=== PATIENT | female | born 1955 | race African-American/Black ===

== ENCOUNTER 2018-05-20 12:41 | Observation (INO) | payer OTHER ==
[2018-05-20 13:22] LABS: ADD MAN DIFF? NO
[2018-05-20 13:25] LABS: BASO # 0.1 x10^3/uL (0.0-0.2); BASO % 1 % (0-3); EOS % 1 % (0-3); HEMATOCRIT 41.5 % (36.0-47.0); HEMOGLOBIN 14.1 g/dL (12.0-15.5); LYMPH # 1.8 x10^3/uL (1.0-4.8); LYMPH % 21 % (24-48); MEAN CORPUSCULAR HEMOGLOBIN 31 pg (25-35); MEAN CORPUSCULAR HGB CONC 34 g/dL (31-37); MEAN CORPUSCULAR VOLUME 91 fL (79-100); MONO % 12 % (0-9); NEUT # 5.6 x10^3uL (1.8-7.7); NEUT % 65 % (31-73); PLATELET COUNT 141 x10^3/uL (140-400); RED BLOOD COUNT 4.55 x10^6/uL (3.50-5.40); RED CELL DISTRIBUTION WIDTH 15.2 % (11.5-14.5); WHITE BLOOD COUNT 8.6 x10^3/uL (4.0-11.0)
[2018-05-20 13:34] LABS: ANION GAP 13 (6-14); BLOOD UREA NITROGEN 18 mg/dL (7-20); CALCIUM 9.5 mg/dL (8.5-10.1); CARBON DIOXIDE 25 mmol/L (21-32); CHLORIDE 105 mmol/L (98-107); CREATININE 0.9 mg/dL (0.6-1.0); GFR 76.3; GLUCOSE 95 mg/dL (70-99); POTASSIUM 3.7 mmol/L (3.5-5.1); SODIUM 143 mmol/L (136-145)
[2018-05-20 13:35] LABS: INR 1.2 (0.8-1.1); PARTIAL THROMBOPLASTIN TIME 29 SEC (24-38); PROTHROMBIN TIME PATIENT 14.7 SEC (11.7-14.0)
[2018-05-20 13:39] LABS: ALBUMIN 4.1 g/dL (3.4-5.0); ALK PHOS 99 U/L (46-116); ALT (SGPT) 25 U/L (14-59); AST (SGOT) 27 U/L (15-37); DIRECT BILIRUBIN 0.1 mg/dL (0.0-0.2); LIPASE 182 U/L (73-393); TOTAL BILIRUBIN 0.7 mg/dL (0.2-1.0); TOTAL PROTEIN 7.3 g/dL (6.4-8.2)
[2018-05-20 13:44] LABS: TROPONINI < 0.017 ng/mL (0.000-0.055)
[2018-05-20 13:53] LABS: NT-PRO BNP 699 pg/mL (0-124)
[2018-05-20 14:16] LABS: PLT ESTIMATE ADEQUATE (ADEQUATE)
[2018-05-20] MEDS: MORPHINE SULFATE 2 MG/ML DISP.SYRIN. IV (15:07)
[2018-05-20] MEDS: IV NORMAL SALINE 1000ML BAG 1,000 ML IV (15:07)
[2018-05-20] MEDS: ONDANSETRON PF 4 MG/2 ML VIAL. IV (15:08)
[2018-05-20] MEDS ORDERED: IOHEXOL 300 MG/ML 100ML VIAL. IV (16:00)
[2018-05-20] MEDS ORDERED: CONTRAST GIVEN. MC (16:00)
[2018-05-20] MEDS: ACETAMINOPHEN 325 MG TABLET. PO (17:57)
[2018-05-20 18:15] LABS: TROPONINI < 0.017 ng/mL (0.000-0.055)
[2018-05-20] MEDS ORDERED: PNEUMOCOCCAL VAX SCREEN BY RX. MC (18:15)
[2018-05-20] MEDS ORDERED: ALBUTEROL SULFATE 2.5 MG/3 ML NEBU. NEB (18:45)
[2018-05-20] MEDS: ALBUTEROL SULFATE 2.5 MG/3 ML NEBU. NEB (20:00)
[2018-05-20] MEDS: BUDESONIDE 0.5 MG/2 ML NEBU. NEB (20:00)
[2018-05-20] MEDS: MULTIVIT INFUSN,ADULT 4,VIT K 10 ML, THIAMINE 100 MG, FOLIC ACID 1 MG in IV NORMAL SALI... IV (20:29)
[2018-05-20] MEDS: LORazepam 1 MG TABLET PO (20:30)
[2018-05-20] MEDS: ATORVASTATIN CALCIUM 20 MG TABLET PO (20:30)
[2018-05-20] MEDS: GABAPENTIN 100 MG CAPSULE. PO (20:30)
[2018-05-20] MEDS: ENOXAPARIN 40 MG/0.4 ML SYRINGE. SQ (20:31)
[2018-05-20] MEDS: ZIPRASIDONE 20 MG CAPSULE PO (20:33)
[2018-05-20] MEDS: traMADol 50 MG TABLET PO (20:34)
[2018-05-20] MEDS ORDERED: NON FORMULARY ITEM (Fluticasone/Salmeterol (Advair 250-50 Diskus) 1 PUFF) IH (21:00)
[2018-05-20] MEDS ORDERED: NON FORMULARY ITEM (Budesonide/Formoterol Fumarate (Symbicort 160-4.5 Mcg Inhaler) 2 PUFF) IH (21:00)
[2018-05-20 22:17] LABS: TROPONINI < 0.017 ng/mL (0.000-0.055)
[2018-05-21] MEDS: IV NORMAL SALINE 1000ML BAG 1,000 ML IV ×2 (00:58→10:58)
[2018-05-21] MEDS: LORazepam 1 MG TABLET PO ×4 (01:00→21:01)
[2018-05-21 06:32] LABS: ADD MAN DIFF? NO
[2018-05-21 06:39] LABS: BASO % 1 % (0-3); EOS # 0.1 x10^3/uL (0.0-0.7); EOS % 2 % (0-3); HEMATOCRIT 39.1 % (36.0-47.0); HEMOGLOBIN 12.9 g/dL (12.0-15.5); LYMPH # 1.9 x10^3/uL (1.0-4.8); LYMPH % 39 % (24-48); MEAN CORPUSCULAR HEMOGLOBIN 31 pg (25-35); MEAN CORPUSCULAR HGB CONC 33 g/dL (31-37); MEAN CORPUSCULAR VOLUME 94 fL (79-100); MONO # 0.6 x10^3/uL (0.0-1.1); MONO % 13 % (0-9); NEUT # 2.2 x10^3uL (1.8-7.7); NEUT % 46 % (31-73); PLATELET COUNT 118 x10^3/uL (140-400); RED BLOOD COUNT 4.18 x10^6/uL (3.50-5.40); RED CELL DISTRIBUTION WIDTH 15.5 % (11.5-14.5); WHITE BLOOD COUNT 4.8 x10^3/uL (4.0-11.0)
[2018-05-21 07:00] LABS: ANION GAP 8 (6-14); BLOOD UREA NITROGEN 14 mg/dL (7-20); CALCIUM 8.5 mg/dL (8.5-10.1); CARBON DIOXIDE 26 mmol/L (21-32); CHLORIDE 110 mmol/L (98-107); CREATININE 0.8 mg/dL (0.6-1.0); GFR 87.4; GLUCOSE 105 mg/dL (70-99); POTASSIUM 3.2 mmol/L (3.5-5.1); SODIUM 144 mmol/L (136-145)
[2018-05-21] MEDS: BUDESONIDE 0.5 MG/2 ML NEBU. NEB ×2 (07:14→15:44)
[2018-05-21] MEDS: ALBUTEROL SULFATE 2.5 MG/3 ML NEBU. NEB ×4 (07:14→19:44)
[2018-05-21 08:09] LABS: MAGNESIUM 2.2 mg/dL (1.8-2.4)
[2018-05-21] MEDS ORDERED: FOLIC ACID 1 MG TABLET. PO (09:00)
[2018-05-21] MEDS ORDERED: THIAMINE IM 200 MG/2 ML VIAL. IM (09:00)
[2018-05-21] MEDS ORDERED: NON FORMULARY ITEM (Lisinopril/Hydrochlorothiazide (Lisinopril-Hctz 20-25 Mg Tab) 1 TAB) PO (09:00)
[2018-05-21] MEDS: traMADol 50 MG TABLET PO ×4 (09:00→21:01)
[2018-05-21] MEDS: PANTOPRAZOLE IV PUSH 40 MG VIAL. IVP (09:15)
[2018-05-21 09:38] LABS: AMPHETAMINE/METHAMPHETAMINE NEG (NEG); BARBITURATES NEG (NEG); BENZODIAZEPINES NEG (NEG); CANNABINOIDS NEG (NEG); COCAINE NEG (NEG); ETHANOL, URINE NEG (NEG); METHADONE NEG (NEG); OPIATES POS (NEG); PHENCYCLIDINE NEG (NEG)
[2018-05-21] MEDS: REGADENOSON 0.4 MG/5 ML DISP.SYRIN. IV (10:43)
[2018-05-21] MEDS: ALLOPURINOL 100 MG TABLET. PO (11:16)
[2018-05-21] MEDS: GABAPENTIN 100 MG CAPSULE. PO ×2 (11:16→21:01)
[2018-05-21] MEDS: ZIPRASIDONE 20 MG CAPSULE PO ×2 (11:17→21:01)
[2018-05-21] MEDS: POTASSIUM CHLORIDE 20 MEQ TABLET.ER. PO ×2 (11:17)
[2018-05-21] MEDS: CETIRIZINE HCL 10 MG TABLET. PO (11:17)
[2018-05-21] MEDS: FLUTICASONE 50MCG/NASAL SPRAY 16GM BOTTLE. NS (11:18)
[2018-05-21] MEDS: hydroCHLOROthiazide 25 MG TABLET PO (11:21)
[2018-05-21] MEDS: METOPROLOL SUCC 24HR ER 25 MG TAB.ER.24H. PO (11:22)
[2018-05-21] MEDS: LISINOPRIL 20 MG TABLET PO (11:22)
[2018-05-21] MEDS: PNEUMOC CONJ VACC 23-VALENT 0.5 ML VIAL. VAX IM (11:25)
[2018-05-21] MEDS: MULTIVIT INFUSN,ADULT 4,VIT K 10 ML, THIAMINE 100 MG, FOLIC ACID 1 MG in IV NORMAL SALI... IV (13:25)
[2018-05-21] MEDS: ATORVASTATIN CALCIUM 20 MG TABLET PO (21:01)
[2018-05-21] MEDS: ENOXAPARIN 40 MG/0.4 ML SYRINGE. SQ (21:02)
[2018-05-21 21:11] LABS: POC GLUCOSE 122 mg/dL (70-99)
[2018-05-22] MEDS: LORazepam 1 MG TABLET PO (00:16)
[2018-05-22] MEDS: BUDESONIDE 0.5 MG/2 ML NEBU. NEB (07:11)
[2018-05-22] MEDS: ALBUTEROL SULFATE 2.5 MG/3 ML NEBU. NEB ×3 (07:11→15:27)
[2018-05-22] MEDS: MULTIVIT INFUSN,ADULT 4,VIT K 10 ML, THIAMINE 100 MG, FOLIC ACID 1 MG in IV NORMAL SALI... IV (08:45)
[2018-05-22] MEDS: PANTOPRAZOLE IV PUSH 40 MG VIAL. IVP (08:45)
[2018-05-22] MEDS: ALLOPURINOL 100 MG TABLET. PO (08:46)
[2018-05-22] MEDS: ZIPRASIDONE 20 MG CAPSULE PO ×2 (08:46→20:54)
[2018-05-22] MEDS: GABAPENTIN 100 MG CAPSULE. PO ×2 (08:47→20:54)
[2018-05-22] MEDS: POTASSIUM CHLORIDE 20 MEQ TABLET.ER. PO ×3 (08:47→13:00)
[2018-05-22] MEDS: traMADol 50 MG TABLET PO ×3 (08:47→20:54)
[2018-05-22] MEDS: CETIRIZINE HCL 10 MG TABLET. PO (08:47)
[2018-05-22] MEDS: hydroCHLOROthiazide 25 MG TABLET PO (08:48)
[2018-05-22] MEDS: METOPROLOL SUCC 24HR ER 25 MG TAB.ER.24H. PO (08:48)
[2018-05-22] MEDS: FLUTICASONE 50MCG/NASAL SPRAY 16GM BOTTLE. NS (08:48)
[2018-05-22] MEDS: LISINOPRIL 20 MG TABLET PO (08:48)
[2018-05-22] MEDS: ENOXAPARIN 40 MG/0.4 ML SYRINGE. SQ ×2 (08:49→20:56)
[2018-05-22 18:56] LABS: ANION GAP 5 (6-14); BLOOD UREA NITROGEN 14 mg/dL (7-20); CALCIUM 8.9 mg/dL (8.5-10.1); CARBON DIOXIDE 26 mmol/L (21-32); CHLORIDE 107 mmol/L (98-107); GFR 67.5; GLUCOSE 102 mg/dL (70-99); POTASSIUM 4.2 mmol/L (3.5-5.1); SODIUM 138 mmol/L (136-145)
[2018-05-22] MEDS: ATORVASTATIN CALCIUM 20 MG TABLET PO (20:54)
[2018-05-26] MEDS ORDERED: MULTIVITAMIN with MINERAL TABLET. PO (09:00)
[2018-05-27] MEDS ORDERED: ERGOCALCIFEROL (VITAMIN D2) 50,000 UNIT CAPSULE. PO (09:00)
== END 2018-05-22 21:23 | disposition still patient (30) ==
LOC: ER 12:41 → 5 SOUTH 14:59
DX: R07.9 Chest pain, unspecified (principal); K21.9 Gastro-esophageal reflux disease without esophagitis; M19.90 Unspecified osteoarthritis, unspecified site; F17.210 Nicotine dependence, cigarettes, uncomplicated; J43.9 Emphysema, unspecified; K44.9 Diaphragmatic hernia without obstruction or gangrene; F32.9 Major depressive disorder, single episode, unspecified; F10.10 Alcohol abuse, uncomplicated; E66.01 Morbid (severe) obesity due to excess calories; I11.0 Hypertensive heart disease with heart failure; I50.9 Heart failure, unspecified; F20.9 Schizophrenia, unspecified; G25.81 Restless legs syndrome; Z81.8 Family history of other mental and behavioral disorders; E87.6 Hypokalemia
CPT/HCPCS: 36415; 71045; 71275; 78452; 80048; 80076; 80307; 82962; 83690; 83735; 83880; 84484; 85025; 85610; 85730; 90471; 90732; 93005; 93017; 93306; 94640; 94760; 96361; 96365; 96366; 96372; 96374; 96375; 96376; 99285-25; A9500; C9113; G0378; G0379; J1650; J2270; J2405; J2785; J7030; J7613; J7626

== ENCOUNTER 2018-10-03 05:46 | Inpatient (IN) | payer MEDICARE, OTHER ==
[~2018-10-03] VITALS: Ht 170.2 cm; Wt 115.2 kg
[2018-10-03] VITALS (18 sets, daily range): BP systolic 109–156; BP diastolic 48–87
[~2018-10-03 05:46] MED LIST: ALLO100T PO; ATOR20TA58 PO; BUDE10.2 IH; ERGO500027 PO; FLUT1DIS3 IH; FLUT9.9S NS; GABA-585 PO; LISI1TAB7 PO; LORA10TA3 PO; METO25TA2 PO; OMEP20CA9 PO; POTA20TA82 PO; PROAIR HFA8.5 GM INH; TRAM50TA PO; ZIPR80CA2 PO
[2018-10-03] MEDS ORDERED: PROPOFOL 50 ML IV ONE ×3 (05:56→06:54)
[2018-10-03] MEDS ORDERED: IPRATRPIUM/ALBUTEROL 0.5/2.5MG 3 ML NEBU. ONE (06:03)
[2018-10-03] MEDS ORDERED: ETOMIDATE 20 MG/10 ML VIAL. IV ONE ×5 (06:11→08:30)
[2018-10-03 06:14] LABS: BASE EXCESS ABG -13 mmol/L (-3-3); HCO3 ABG 20 mmol/L (21-28); PO2 ABG 138 mmHg (65-108); SAT O2 ABG 97 % (92-99)
[2018-10-03] MEDS ORDERED: ALBUTEROL SULFATE 2.5 MG/3 ML NEBU. CONT NEB ONE (06:15)
[2018-10-03] MEDS ORDERED: fentaNYL PF VIAL 100 MCG/2 ML VIAL IV ONE ×4 (06:15→08:30)
[2018-10-03] MEDS ORDERED: levOFLOXacin PER PHARMACY. MC PRN (06:15)
[2018-10-03] MEDS ORDERED: DOXYCYCLINE HYCLATE 100 MG in IV DEXTROSE 5% 100ML 100 ML IV ONE (06:15)
[2018-10-03] MEDS ORDERED: FUROSEMIDE 20 MG/2 ML VIAL. IVP ONE (06:15)
[2018-10-03] MEDS ORDERED: NITROGLYCERIN PREMIX 250 ML IV ONE (06:15)
[2018-10-03] MEDS ORDERED: methylPREDNISolone SOD SUCC PF 125 MG/2 ML VIAL. IV ONE (06:15)
--- NOTE | 2018-10-03 06:16 | RAD ---
One view chest HISTORY: Status post intubation Portable upright AP view chest 6:00 AM COMPARISON: May 20, 2018 There is an endotracheal tube with its tip 3.3 cm above the manjeet and an NG tube with its tip in the proximal stomach. The heart is mildly enlarged. The pulmonary vessels are not well seen and there is perihilar diffuse opacities. The pleural margins are clear. IMPRESSION: 1. Endotracheal tube and NG tube well-positioned. 2. Diffuse infiltrate could be pulmonary edema or ARDS or pneumonia. Electronically signed by: Bernardino Padilla III, MD (10/03/2018 6:13 AM) [facility]
[2018-10-03 06:32] LABS: CALCIUM 8.7 mg/dL (8.5-10.1); CREATININE 1.5 mg/dL (0.6-1.0); GFR 42.2; POTASSIUM 4.8 mmol/L (3.5-5.1)
[2018-10-03 06:38] LABS: ALBUMIN 3.3 g/dL (3.4-5.0); ALBUMIN/GLOBULIN RATIO 0.8 (1.0-1.7); TOTAL BILIRUBIN 0.3 mg/dL (0.2-1.0); TOTAL PROTEIN 7.3 g/dL (6.4-8.2)
--- NOTE | 2018-10-03 06:40 | EKG ---
[facility] [address] [place] [address] Test Date: 2018-10-03 Test Time: 06:23:57 Pat Name: ARIANE MONTEIRO Department: Room: Gender: F Contact Centre Supervisor: : [id number] Requested By: HECTOR KYLE Order Number: [id number] Reading MD: Evans Jacobson MD Measurements Intervals [place] Rate: 107 P: 62 [place]: 140 QRS: 53 QRSD: 84 T: 139 QT: 330 QTc: 446 Interpretive Statements SINUS TACHYCARDIA LVH WITH REPOLARIZATION ABNORMALITY ABNORMAL ECG Electronically Signed On 10-06-2018 13:53:11 JEWEL INSERTER by Evans Jacobson MD
[2018-10-03 06:41] LABS: PCO2 ABG 84 mmHg (35-46)
--- NOTE | 2018-10-03 06:55 | RAD ---
One view chest HISTORY: Line placement Supine AP view chest 6:36 AM COMPARISON: 6:01 AM There has been interval placement of right jugular line with its tip in the mid to low SVC. There is no pneumothorax. The endotracheal tube and NG tube are again seen unchanged. There is perihilar opacities and curly B lines in the left. IMPRESSION: 2. Right jugular line well-positioned. 2. Moderate bilateral infiltrates could be CHF or ARDS or pneumonia and appears unchanged. Electronically signed by: Bernardino Padilla III, MD (10/03/2018 6:51 AM) [facility]
[2018-10-03] MEDS ORDERED: SODIUM BICARB ADULT 8.4% 50 MEQ/50 ML DISP.SYRIN. ONE (07:17)
--- NOTE | 2018-10-03 07:18 | PHYS DOC ---
Past Medical History Past Medical History: CHF, COPD, Depression, Hypertension, Other Additional Past Medical Histor: RLS Past Surgical History: Other Additional Past Surgical Histo: BACK SX Alcohol Use: Occasionally Drug Use: None Adult General Chief Complaint Chief Complaint: DYSPNEA/RESPIRATOY DISTRESS HPI HPI Patient is a 63 year old female brought in by [facility] with respiratory distress. Apparently patient was having trouble breathing seemed okay at 3 AM was drinking coffee and then approximately 1 hour prior to arrival was having more shortness of breath son found her unconscious she seemed to be foaming at the mouth he pulled out her dentures he called 911 when they arrived she was basically almost agonal respirations history limited by the patient's mental status son does say the patient was fine yesterday and even seemed fine at 3 AM. Review of Systems Review of Systems Unable due to mental status and acuity of condition Current Medications Current Medications Current Medications Medications (Trade) Dose Ordered Sig/Betsy Start Time Stop Time Status Last Admin Dose Admin Albuterol Sulfate (Ventolin Neb Soln) 10 mg 1X ONCE 10/03/18 06:15 10/03/18 06:16 DC 10/03/18 07:00 10 MG Albuterol/ Ipratropium (Duoneb) 3 ml STK-MED ONCE 10/03/18 06:03 10/03/18 06:04 DC Doxycycline Hyclate 100 mg/ Dextrose 100 ml @ 50 mls/hr 1X ONCE 10/03/18 06:15 10/03/18 08:14 Etomidate (Amidate) 20 mg STK-MED ONCE 10/03/18 06:11 10/03/18 06:12 DC Fentanyl Citrate (Fentanyl 2ml Vial) 100 mcg 1X ONCE 10/03/18 06:45 10/03/18 06:46 DC Furosemide (Lasix) 20 mg 1X ONCE 10/03/18 06:15 10/03/18 06:16 DC Levofloxacin/ Dextrose 150 ml @ 100 mls/hr 1X ONCE 10/03/18 06:30 10/03/18 07:59 Levofloxacin/ Dextrose (Levaquin Per Pharmacy) 1 each PRN DAILY PRN 10/03/18 06:15 UNV Methylprednisolone Sodium Succinate (SOLU-Medrol 125MG VIAL) 125 mg 1X ONCE 10/03/18 06:15 10/03/18 06:16 DC Nitroglycerin/ Dextrose 250 ml @ 0 mls/hr 1X ONCE 10/03/18 06:15 10/03/18 06:16 DC Propofol 50 ml @ As Directed STK-MED ONCE 10/03/18 06:54 10/03/18 06:55 DC Sodium Bicarbonate (Sodium Bicarb Adult 8.4% Syr) 50 meq STK-MED ONCE 10/03/18 07:17 10/03/18 07:18 DC Allergies Allergies Allergies Coded Allergies Type Severity Reaction Last Updated Verified Penicillins Allergy Intermediate 05/21/18 Yes aspirin Allergy Intermediate 05/21/18 Yes Physical Exam Physical Exam Constitutional: Patient is obtunded not breathing well at all. HENT: Normocephalic, atraumatic, bilateral external ears normal, oropharynx moist, no oral exudates, nose normal. [] Eyes: PERRLA conjunctiva normal, no discharge. [] Neck: Normal range of motion, no tenderness, supple, no stridor. [] Cardiovascular difficult to assess for murmurs due to respiratory status Lungs & Thorax diffuse wheezing bilaterally with crackles, after intubation before intubation breath sounds were decreased throughout due to respiratory effort patient was being bagged Abdomen: Bowel sounds normal, soft, no tenderness, no masses, no pulsatile masses. [] Skin: Warm, dry, no erythema, no rash. [] Back: No tenderness, no CVA tenderness. [] Extremities: No tenderness, no cyanosis, no clubbing, ROM intact, 1-2+ edema bilaterally Neurologic: Before intubation patient was unresponsive Narcan 2 mg was given by the paramedics with no effect really was not responding to anything per Dr. Huynh who performed the intubation 5 minutes prior to my arrival. Patient after intubation, was bucking the tube trying to grab at the tube pupils were 3 mm and reactive bilaterally was grossly moving all extremities. Sedation was increased. Current Patient Data Vital Signs Vital Signs Date Time Temp Pulse Resp B/P (MAP) Pulse Ox O2 Delivery O2 Flow Rate FiO2 10/03/18 06:02 100 Ventilator 80.0 Lab Values Laboratory Tests Test 10/03/18 06:00 10/03/18 06:03 Sodium Level 140 mmol/L (136-145) Potassium Level 4.8 mmol/L (3.5-5.1) Chloride Level 102 mmol/L (98-107) Carbon Dioxide Level 20 mmol/L (21-32) L Anion Gap 18 (6-14) H Blood Urea Nitrogen 18 mg/dL (7-20) Creatinine 1.5 mg/dL (0.6-1.0) H Estimated GFR (Cockcroft-Gault) 42.2 BUN/Creatinine Ratio 12 (6-20) Glucose Level 342 mg/dL (70-99) H Lactic Acid Level 9.7 mmol/L (0.4-2.0) *H Calcium Level 8.7 mg/dL (8.5-10.1) Total Bilirubin 0.3 mg/dL (0.2-1.0) Aspartate Amino Transferase (AST) 97 U/L (15-37) H Alanine Aminotransferase (ALT) 68 U/L (14-59) H Alkaline Phosphatase 116 U/L (46-116) Troponin I Quantitative < 0.017 ng/mL (0.000-0.055) LE-Ixn-D-Type Natriuretic Peptide 2026 pg/mL (0-124) H Total Protein 7.3 g/dL (6.4-8.2) Albumin 3.3 g/dL (3.4-5.0) L Albumin/Globulin Ratio 0.8 (1.0-1.7) L Ethyl Alcohol Level < 10 mg/dL (0-10) O2 Saturation 97 % (92-99) Arterial Blood pH 7.00 (7.35-7.45) *L Arterial Blood pCO2 at Patient Temp 84 mmHg (35-46) *H Arterial Blood pO2 at Patient Temp 138 mmHg (65-108) H Arterial Blood HCO3 20 mmol/L (21-28) L Arterial Blood Base Excess -13 mmol/L (-3-3) L FiO2 100.0 Laboratory Tests 10/03/18 06:00 EKG EKG []EKG shows a sinus tachycardia with a rate of 107 there is LVH changes noted some ST depressions in the inferior leads but no definite STEMI Radiology/Procedures Radiology/Procedures [] Impressions: Chest x-ray showed bilateral infiltrates ARDS pneumonia or probably more likely in my clinical opinion pulmonary edema repeat chest x-ray showed good placement of the central line the ET tube was also in good position. Course & Med Decision Making Course & Med Decision Making Pertinent Labs and Imaging studies reviewed. (See chart for details) []63-year-old female brought in by ambulance with obtundation respiratory failure Patient arrived 5 minutes prior to my arrival in the emergency room. Due to this Dr. Huynh did perform a stat intubation. He had just completed it as I arrived he performed a video laryngoscopy etomidate and succinylcholine were used grade 1 view 7.5-22 at the gum per his report to me. Confirmed by chest x- ray Central line noteIndication: Vascular access Consent: The patient provided consent for this procedure. Procedure: The patient was positioned appropriately and the skin over the right ij was prepped and draped in a sterile fashion. Local anesthesia was used. Ultrasound guidance utilized. A large bore needle was used to identify the vein. A guide wire was then inserted into the vein through the needle. A triple lumen catheter was then inserted into the vessel over the guide wire using the Seldinger technique. All ports showed good, free flowing blood return and were flushed with saline solution. The catheter was then securely fastened to the skin with sutures and covered with a sterile dressing. A post procedure X-ray was ordered. The patient tolerated the procedure well, but was intubated REQUIRED some sedation. Complications: hematoma subcutaneous controlled with pressure Critical care time was 50 minutes exclusive of procedures performed above. 63-year-old male with history of hypertension obesity COPD see above who is presenting with acute respiratory failure patient was intubated on arrival due to obtundation blood gas was consistent with a respiratory acidosis as well as a metabolic component. I think that the lactic acid was mostly due to profound hypoxia and acute respiratory failure. Patient does appear to be fluid overloaded on x-ray so we did not give any IV fluids I think the lactate should improve when the patient is ventilated and is more stable on the vent have ordered for repeat in the ICU. I don't think that the lactic acid is necessarily from septic shock. The picture is more consistent with acute pulmonary edema given the blood pressure of 240 on arrival as well as the elevated BNP and the chest x-ray showing diffuse pulmonary edema. First troponin is negative EKG showed LVH patient was given the above treatments in the emergency room we did cover her with some antibiotics in case of pneumonia or think that is less likely in addition we gave ordered some Lasix patient was stable on the ventilator and will be admitted to the service of Dr. Pastor in the intensive care unit i have paged him at this time there is a CT head pending as well. When I first came into the room at 6:10 AM patient was being managed with an intraosseous only they were having trouble with peripheral access so I did place a stat central line as noted above. Subsequently we did obtain an IV in the foot. Indication for central line was critical care likely need for multiple medications and limited IV access. Dragon Disclaimer Dragon Disclaimer This electronic medical record was generated, in whole or in part, using a voice recognition dictation system. Departure Departure Impression: Primary Impression: Acute respiratory failure Disposition: ADMITTED INPATIENT Admitting Physician: Blas Lara Condition: GUARDED Referrals: UNKNOWN PCP NAME (PCP) HECTOR KYLE MD Oct 03, 2018 07:18
[2018-10-03] MEDS ORDERED: SUCCINYLCHOLINE 200 MG/10 ML VIAL. ONE (07:29)
[2018-10-03] MEDS ORDERED: fentaNYL PF VIAL 100 MCG/2 ML VIAL ONE (07:29)
[2018-10-03] MEDS ORDERED: MIDAZOLAM HCL/PF 5 MG/5 ML VIAL. ONE (07:29)
[2018-10-03] MEDS ORDERED: SODIUM BICARB ADULT 8.4% 50 MEQ/50 ML DISP.SYRIN. IV ONE (07:30)
[2018-10-03 07:38] LABS: BASO % 0 % (0-3); EOS # 0.1 x10^3/uL (0.0-0.7); EOS % 1 % (0-3); HEMATOCRIT 39.2 % (36.0-47.0); LYMPH # 1.3 x10^3/uL (1.0-4.8); LYMPH % 8 % (24-48); MEAN CORPUSCULAR HEMOGLOBIN 31 pg (25-35); MEAN CORPUSCULAR HGB CONC 33 g/dL (31-37); MEAN CORPUSCULAR VOLUME 94 fL (79-100); MONO # 0.3 x10^3/uL (0.0-1.1); MONO % 2 % (0-9); NEUT # 14.7 x10^3uL (1.8-7.7); NEUT % 90 % (31-73); PLATELET COUNT 107 x10^3/uL (140-400); RED BLOOD COUNT 4.17 x10^6/uL (3.50-5.40); RED CELL DISTRIBUTION WIDTH 15.4 % (11.5-14.5); WHITE BLOOD COUNT 16.4 x10^3/uL (4.0-11.0)
[2018-10-03 07:47] LABS: BILIRUBIN,URINE NEGATIVE (NEG); CLARITY,URINE CLEAR; COLOR,URINE YELLOW; NITRITE,URINE NEGATIVE (NEG); PROTEIN,URINE >=300 mg/dL (NEG-TRACE); UROBILINOGEN,URINE 0.2 mg/dL (0.2 mg/dL)
[2018-10-03 07:51] LABS: PROTHROMBIN TIME PATIENT 16.2 SEC (11.7-14.0)
[2018-10-03 08:09] LABS: HYALINE CASTS, URINE FEW /HPF; SQUAMOUS EPITHELIAL CELL,UR FEW /LPF
[2018-10-03 08:15] LABS: AMORPHOUS SEDIMENT,UR PRESENT /HPF; BACTERIA,URINE 0 /HPF (0-FEW)
--- NOTE | 2018-10-03 08:26 | RAD ---
CT HEAD WO CONTRAST History: UNRESPONSIVE, possible seizure activity Comparison: None. Technique: Noncontrast CT imaging was performed of the head. Exposure: One or more of the following individualized dose reduction techniques were utilized for this examination: 1. Automated exposure control 2. Adjustment of the mA and/or kV according to patient size 3. Use of iterative reconstruction technique. Findings: There is motion degradation. No convincing acute intracranial hemorrhage is identified. Ventricular size is within normal limits. There is no intra-axial mass effect or midline shift. Visualized paranasal sinuses and mastoid air cells are aerated. Patient is intubated. Impression: 1. Exam is degraded by motion, no convincing acute intracranial abnormality identified. Electronically signed by: Mikael Renner MD (10/03/2018 8:23 AM) [facility]
[2018-10-03] MEDS ORDERED: SUCCINYLCHOLINE 200 MG/10 ML VIAL. IV ONE (08:30)
[2018-10-03] MEDS ORDERED: MIDAZOLAM HCL/PF 5 MG/5 ML VIAL. IV ONE (08:30)
[2018-10-03 08:54] LABS: BASE EXCESS ABG -4 mmol/L (-3-3); HCO3 ABG 24 mmol/L (21-28); PCO2 ABG 51 mmHg (35-46); PO2 ABG 83 mmHg (65-108); SAT O2 ABG 94 % (92-99)
[2018-10-03 09:01] LABS: FIO2 ABG 80
[2018-10-03] MEDS ORDERED: PROPOFOL 100 ML IV ONE (09:07)
[2018-10-03] MEDS ORDERED: PROPOFOL 10 MG/ML (100ML) VIAL. IV ONE (09:10)
[2018-10-03 09:59] LABS: % BANDS 1 % (0-9); % LYMPHS 8 % (24-48); % MONOS 4 % (0-10); % SEGS 87 % (35-66)
[2018-10-03 10:00] LABS: PLT ESTIMATE DECREASED (ADEQUATE)
[2018-10-03 10:01] LABS: ANISOCYTOSIS PRESENT
[2018-10-03] MEDS: IPRATRPIUM/ALBUTEROL 0.5/2.5MG 3 ML NEBU. NEB SCH ×2 (11:29→19:55)
[2018-10-03] MEDS ORDERED: FUROSEMIDE 40 MG/4 ML VIAL. IVP ONE ×2 (12:15)
[2018-10-03 12:48] LABS: BARBITURATES NEG (NEG); BENZODIAZEPINES POS (NEG); CANNABINOIDS NEG (NEG); COCAINE NEG (NEG); METHADONE NEG (NEG); OPIATES NEG (NEG); PHENCYCLIDINE NEG (NEG)
[2018-10-03 12:51] LABS: AMPHETAMINE/METHAMPHETAMINE NEG (NEG)
[2018-10-03 13:01] LABS: BASE EXCESS ABG 0 mmol/L (-3-3); HCO3 ABG 26 mmol/L (21-28); PCO2 ABG 46 mmHg (35-46); PO2 ABG 70 mmHg (65-108); SAT O2 ABG 94 % (92-99)
--- NOTE | 2018-10-03 13:27 | CONS ---
DATE OF CONSULTATION: ATTENDING PHYSICIAN: Blas Lara DO. REASON FOR CONSULTATION: Respiratory failure. HISTORY OF PRESENT ILLNESS: The patient is a 63-year-old -[place] female who was brought into the Emergency Room in respiratory distress. She woke up at 3 in the morning with shortness of breath. The patient's son later found her unconscious and foaming at the mouth. He pulled out her dentures and called 911. The patient had agonal respirations on arrival. The EMS tried to intubate her in the field, but were unsuccessful. The patient was intubated in the Emergency Room. Her chest x-rays were reviewed by me and they were consistent with diffuse interstitial infiltrates and cardiomegaly suggesting interstitial edema. Her arterial blood gases obtained post-intubation showed a pH of 7.0, pCO2 of 84 and a pO2 of 138 on 100% FiO2. She received a small dose of Lasix. Last pH early this morning was 7.29, pCO2 of 51 and a pO2 of 83 on 80% FiO2. She is currently down to have 50% FiO2, sats are 100%. She has put out good amount of urine. I have reviewed her chart, the ER note as well as the labs. PAST MEDICAL HISTORY: History of CHF, history of COPD, apparently stopped smoking 15 years ago, history of depression, hypertension and history of restless legs. PAST SURGICAL HISTORY: Back surgeries. SOCIAL HISTORY: Smoked until 15 years ago. Occasional alcohol use. ALLERGIES: PENICILLIN AND ASPIRIN. CURRENT MEDICATIONS: All reviewed. She did receive IV fluids as well, which has been stopped by me. REVIEW OF SYSTEMS: Unable to obtain from the patient. PHYSICAL EXAMINATION: VITAL SIGNS: Reviewed. Her systolic blood pressure on admission was 222/104 and latest is 147. She is afebrile, pulse ox is 100%. HEENT: Sclerae nonicteric. NECK: Supple. LUNGS: With diminished breath sounds. CARDIOVASCULAR: Regular rate. ABDOMEN: Soft, obese. EXTREMITIES: With trace pitting edema. LABORATORY DATA: Reviewed. ABGs are discussed in my history of present illness. Her lactic acid was 9.7, now down to 1.7. Troponin 0.107. ProBNP 2025. BUN and creatinine were reviewed, 18 and 1.5. Albumin 3.3. White cell count 16.4, hemoglobin 13.0, platelets are 107. IMPRESSION: 1. Acute hypoxic and hypercapnic respiratory failure, most likely related to acute diastolic heart failure. 2. Highly suspected acute diastolic heart failure triggered by hypertensive crisis. 3. Abnormal chest x-ray with diffuse interstitial infiltrates and cardiomegaly, suspect interstitial edema and clinically unlikely acute respiratory distress syndrome as reported on the x-ray. 4. Leukocytosis, likely reactive. 5. Mild renal insufficiency, probably hypertensive nephropathy. 6. Need to rule out any substance abuse. RECOMMENDATIONS: 1. Discussed with RN and RT. We have weaned her FIO2 down to 45% and will continue to wean. Continue present assist control mode and follow ABGs and make necessary adjustments. 2. Diuresis. 3. Follow chest x-ray. 4. Urine drug screen. 5. Nebulizer treatment. 6. Empiric antibiotic for now. 7. Obtain echocardiogram. 8. Watch blood pressure closely. Her hypertensive crisis has improved. 9. We will start enteral nutrition. 10. Anticipate extubation in the next 24 hours. 11. We will discuss with RN and RT and will follow along with you. CRITICAL CARE TIME: 38 minutes. MAXIMO ROMERO MD DR: TATE/carley JOB#: [id number] / [id number]
--- NOTE | 2018-10-03 14:12 | PDOC2 ---
CARDIAC CONSULT DATE OF CONSULT Date of Consult DATE: 10/03/18 TIME: 13:48 REASON FOR CONSULT Reason for Consult: Pulmonary edema REFERRING PHYSICIAN Referring Physician: Fermin SOURCE Source: Chart review, Patient HISTORY OF PRESENT ILLNESS HISTORY OF PRESENT ILLNESS This is a 63 yo female admitted for complains of SOA. Her SOA progressed yesterday morning and was noted by son to be unresponsive and was foaming in her mouth. She was in agonal respiration by the time EMS arrived. She is currently intubated with vent. She is currently awake enough that I was able to ask her closed ended questions answerable by nodding yes or no. In the last week she has been having SOA and occasional waking up at night with SOA. She has been having some chest discomfort but no complains of nausea or vomiting. SHe has CAIO and she has not been using her machine regularly but has been taking her BP meds. Although compliant with her meds her SBP has been >170s. Positive for increased leg swelling. Also has been having increased urine frequency. No fever or chills. PAST MEDICAL HISTORY Past Medical History Cardiovascular: CHF, HTN, Other (murmur), HTN Pulmonary: COPD, CAIO with CPAP GI: GERD, Other (colon polyps) PAST SURGICAL HISTORY Past Surgical History: Other (back surgery) FAMILY HISTORY Family History: Heart Disease SOCIAL HISTORY Smoke: Quit ALCOHOL: occassional Drugs: None Lives: with Family CURRENT MEDICATIONS CURRENT MEDICATIONS Current Medications Medications (Trade) Dose Ordered Sig/Betsy Route PRN Reason Start Time Stop Time Status Last Admin Dose Admin Albuterol Sulfate (Ventolin Neb Soln) 10 mg 1X ONCE CONT NEB 10/03/18 06:15 10/03/18 06:16 DC 10/03/18 07:00 Methylprednisolone Sodium Succinate (SOLU-Medrol 125MG VIAL) 125 mg 1X ONCE IV 10/03/18 06:15 10/03/18 06:16 DC 10/03/18 07:20 Doxycycline Hyclate 100 mg/ Dextrose 100 ml @ 50 mls/hr 1X ONCE IV 10/03/18 06:15 10/03/18 08:14 DC 10/03/18 07:21 Furosemide (Lasix) 20 mg 1X ONCE IVP 10/03/18 06:15 10/03/18 06:16 DC 10/03/18 07:21 Fentanyl Citrate (Fentanyl 2ml Vial) 100 mcg 1X ONCE IV 10/03/18 06:45 10/03/18 06:46 DC 10/03/18 06:40 Etomidate (Amidate) 30 mg 1X ONCE IV 10/03/18 08:30 10/03/18 08:31 DC 10/03/18 05:52 Succinylcholine Chloride (Anectine) 120 mg 1X ONCE IV 10/03/18 08:30 10/03/18 08:31 DC 10/03/18 05:53 Fentanyl Citrate (Fentanyl 2ml Vial) 100 mcg 1X ONCE IV 10/03/18 08:30 10/03/18 08:31 DC 10/03/18 06:07 Etomidate (Amidate) 20 mg 1X ONCE IV 10/03/18 08:30 10/03/18 08:31 DC 10/03/18 06:14 Etomidate (Amidate) 10 mg 1X ONCE IV 10/03/18 08:30 10/03/18 08:31 DC 10/03/18 06:50 Midazolam HCl (Versed) 4 mg 1X ONCE IV 10/03/18 08:30 10/03/18 08:31 DC 10/03/18 06:52 Propofol 50 ml @ 1.429 mls/ hr 1X ONCE IV 10/03/18 06:20 10/04/18 17:19 10/03/18 06:21 Albuterol/ Ipratropium (Duoneb) 3 ml RTQID NEB 10/03/18 12:00 10/03/18 11:29 Furosemide (Lasix) 40 mg 1X ONCE IVP 10/03/18 12:15 10/03/18 12:39 DC 10/03/18 12:28 ALLERGIES ALLERGIES: Coded Allergies: Penicillins (Verified Allergy, Intermediate, 05/21/18) aspirin (Verified Allergy, Intermediate, 05/21/18) ROS Review of System unreliable, intubated PHYSICAL EXAM General: Other (sedated but alert enough that she is able to answer questions b nodding yes or no.) HEENT: Atraumatic, Mucous membr. moist/pink Lungs: Other (diffuse crackles; mechanical vent) Heart: Regular rate (SR/ST), Other (distant heart sounds) Abdomen: Soft, No tenderness, Other (obese) Extremities: No cyanosis, Other (2+ bilateral LE pitting edema) Skin: No breakdown, No significant lesion Neuro: Sensation intact Psych/Mental Status: Other (sedated) MUSCULOSKELETAL: Osteoarthritic changes both hands VITALS VITALS Vital Signs Date Time Temp Pulse Resp B/P (MAP) Pulse Ox O2 Delivery O2 Flow Rate FiO2 10/03/18 13:00 98 20 138/65 (89) 100 Ventilator 10/03/18 12:00 98.0 98.0 10/03/18 06:02 80.0 LABS Lab: Laboratory Tests Test 10/03/18 06:00 10/03/18 06:03 10/03/18 07:25 10/03/18 08:30 Sodium Level 140 mmol/L (136-145) Potassium Level 4.8 mmol/L (3.5-5.1) Chloride Level 102 mmol/L (98-107) Carbon Dioxide Level 20 mmol/L (21-32) Anion Gap 18 (6-14) Blood Urea Nitrogen 18 mg/dL (7-20) Creatinine 1.5 mg/dL (0.6-1.0) Estimated GFR (Cockcroft-Gault) 42.2 BUN/Creatinine Ratio 12 (6-20) Glucose Level 342 mg/dL (70-99) Lactic Acid Level 9.7 mmol/L (0.4-2.0) Calcium Level 8.7 mg/dL (8.5-10.1) Total Bilirubin 0.3 mg/dL (0.2-1.0) Aspartate Amino Transf (AST/SGOT) 97 U/L (15-37) Alanine Aminotransferase (ALT/SGPT) 68 U/L (14-59) Alkaline Phosphatase 116 U/L (46-116) Troponin I Quantitative < 0.017 ng/mL (0.000-0.055) VY-Yfj-D-Type Natriuretic Peptide 2026 pg/mL (0-124) Total Protein 7.3 g/dL (6.4-8.2) Albumin 3.3 g/dL (3.4-5.0) Albumin/Globulin Ratio 0.8 (1.0-1.7) Ethyl Alcohol Level < 10 mg/dL (0-10) O2 Saturation 97 % (92-99) 94 % (92-99) Arterial Blood pH 7.00 (7.35-7.45) 7.29 (7.35-7.45) Arterial Blood pCO2 at Patient Temp 84 mmHg (35-46) 51 mmHg (35-46) Arterial Blood pO2 at Patient Temp 138 mmHg (65-108) 83 mmHg (65-108) Arterial Blood HCO3 20 mmol/L (21-28) 24 mmol/L (21-28) Arterial Blood Base Excess -13 mmol/L (-3-3) -4 mmol/L (-3-3) FiO2 100.0 80 White Blood Count 16.4 x10^3/uL (4.0-11.0) Red Blood Count 4.17 x10^6/uL (3.50-5.40) Hemoglobin 13.0 g/dL (12.0-15.5) Hematocrit 39.2 % (36.0-47.0) Mean Corpuscular Volume 94 fL (79-100) Mean Corpuscular Hemoglobin 31 pg (25-35) Mean Corpuscular Hemoglobin Concent 33 g/dL (31-37) Red Cell Distribution Width 15.4 % (11.5-14.5) Platelet Count 107 x10^3/uL (140-400) Neutrophils (%) (Auto) 90 % (31-73) Lymphocytes (%) (Auto) 8 % (24-48) Monocytes (%) (Auto) 2 % (0-9) Eosinophils (%) (Auto) 1 % (0-3) Basophils (%) (Auto) 0 % (0-3) Neutrophils # (Auto) 14.7 x10^3uL (1.8-7.7) Lymphocytes # (Auto) 1.3 x10^3/uL (1.0-4.8) Monocytes # (Auto) 0.3 x10^3/uL (0.0-1.1) Eosinophils # (Auto) 0.1 x10^3/uL (0.0-0.7) Basophils # (Auto) 0.0 x10^3/uL (0.0-0.2) Segmented Neutrophils % 87 % (35-66) Band Neutrophils % 1 % (0-9) Lymphocytes % 8 % (24-48) Monocytes % 4 % (0-10) Platelet Estimate Decreased (ADEQUATE) Large Platelets Present Giant Platelets Present Poikilocytosis Anisocytosis Present Prothrombin Time 16.2 SEC (11.7-14.0) Prothromb Time International Ratio 1.4 (0.8-1.1) Urine Collection Type U cath Urine Color Yellow Urine Clarity Clear Urine pH 6.0 Urine Specific [place] 1.020 Urine Protein >=300 mg/dL (NEG-TRACE) Urine Glucose (UA) 250 mg/dL (NEG) Urine Ketones (Stick) Negative mg/dL (NEG) Urine Blood Large (NEG) Urine Nitrite Negative (NEG) Urine Bilirubin Negative (NEG) Urine Urobilinogen Dipstick 0.2 mg/dL (0.2 mg/dL) Urine Leukocyte Esterase Negative (NEG) Urine RBC 11-20 /HPF (0-2) Urine WBC 1-4 /HPF (0-4) Urine Squamous Epithelial Cells Few /LPF Urine Amorphous Sediment Present /HPF Urine Bacteria 0 /HPF (0-FEW) Urine Hyaline Casts Few /HPF Test 10/03/18 10:00 10/03/18 12:20 Lactic Acid Level 1.7 mmol/L (0.4-2.0) Troponin I Quantitative 0.107 ng/mL (0.000-0.055) Urine Opiates Screen Neg (NEG) Urine Methadone Screen Neg (NEG) Urine Barbiturates Neg (NEG) Urine Phencyclidine Screen Neg (NEG) Urine Amphetamine/Methamphetamine Neg (NEG) Urine Benzodiazepines Screen Pos (NEG) Urine Cocaine Screen Neg (NEG) Urine Cannabinoids Screen Neg (NEG) Urine Ethyl Alcohol Neg (NEG) ECHOCARDIOGRAM ECHOCARDIOGRAM <Conclusion> The left ventricle is normal size. The left ventricular systolic function is normal and the ejection fraction is within normal range. LV ejection fraction is 60-65%. There is mild concentric left ventricular hypertrophy. There is no significant aortic valvular stenosis. Doppler and Color Flow revealed mild aortic regurgitation. Doppler and Color Flow revealed no mitral valve regurgitation noted. Doppler and Color Flow revealed trace tricuspid regurgitation. There is no pulmonary hypertension. The PA pressure was estimated at 26 mmHg. DATE: 05/21/18 1506 HEART CATH HEART CATH Conclusion 1. Regadenoson cardioisotope stress test did not show any evidence of ischemia or infarct. 2. Normal left ventricular systolic function with ejection fraction calculated at 74%. 3. Low risk for cardiac events. DATE: 05/21/18 1523 ASSESSMENT/PLAN ASSESSMENT/PLAN 1. Malignant HTN: better with propofol. 2. Acute on chronic respiratory failure with COPD/ADCHF: intubated with vent. Pulmonary following 3. Acute on chronic diastolic CHF/acute pulmonary edema: suspect induced by severe HTN 4. NSTEMI: trop at 0.107. Suspect type 2 demand mediated. EKG SR with asymmetrical T wave inversion mainly to V4/5/6 likely strain from HTN/CHF 5. YESENIA on CKD: suspect baseline at stage 2-3. prerenal. 6. HLP 7. Mild AI 8. Chest pain: likely from severe uncontrolled HTN, unable to obtain details further with pt intubated. 9. Obesity/CAIO: nods yes that she has a machine at home but does not use it regularly. 10. Hyperglycemia Recommendations 1. Recent MPI with no reversible defect 05/2018. Will obtain limited TTE and note EF.. 2. TSH, lipids, A1C. Will trend troponin. 3. x1 plavix. Unknown reaction to ASA but nods unable to tolerate motrin/aleve as well. 4. Restart metoprolol and statin. Will add further BP meds during and after vent weaning once propofol is off. Labetolol PRN. 5. Significant UOP post lasix therapy. JAYJAY FRAZIER HR SH[employer]ED SERVICES CONSULTANT Oct 03, 2018 14:12
[2018-10-03] MEDS ORDERED: LABETALOL 20 MG/4 ML DISP.SYRIN. IVP PRN (14:15)
[2018-10-03] MEDS ORDERED: CLOPIDOGREL BISULFATE 75 MG TABLET PO ONE (14:45)
[2018-10-03 15:19] LABS: CHOLESTEROL/HDL RATIO 2.1
[2018-10-03 17:19] LABS: FIO2 ABG 45
[2018-10-03] MEDS: PROPOFOL 100 ML IV PRN ×2 (17:32→21:30)
[2018-10-03] MEDS: ENOXAPARIN 40 MG/0.4 ML SYRINGE. SQ SCH (17:35)
--- NOTE | 2018-10-03 19:03 | HP ---
ADMIT DATE: 10/03/2018 CHIEF COMPLAINT: Shortness of breath. HISTORY OF PRESENT ILLNESS: The patient is a pleasant 63-year-old female who presented to ER with shortness of breath. She was breathing fine until about 3 a.m., she had some coffee and an hour later, she was really short of breath. She became unconscious. She was found by her son. She was breathing quite labored. He pulled out her dentures and called 911. The patient had agonal respirations when they arrived. She was brought to the ER now, but has now been intubated, seems to be in fulminant heart failure. I have discussed the case with the ER physician. We are going to admit the patient to the ICU. We will be consulting Cardiology and Pulmonary. It should be noted that the patient's white count is quite elevated at 16,000 and her BNP level is also high at 2025. PAST MEDICAL HISTORY: From the record, it appears she has COPD, CHF, depression, hypertension, ROS, back surgery. ALLERGIES: PENICILLIN AND ASPIRIN. FAMILY HISTORY: Coronary artery disease. SOCIAL HISTORY: She does not drink, smoke or take drugs. MEDICATIONS: Reviewed. She is on 15 home medications including loratadine, ProAir, atorvastatin, metoprolol, lisinopril, Ultram, gabapentin, Geodon, potassium, Symbicort, Advair, Flonase, omeprazole, vitamins and allopurinol. REVIEW OF SYSTEMS: Unable to obtain. She is on the ventilator. PHYSICAL EXAMINATION: VITAL SIGNS: Temperature afebrile, pulse 90, respirations 16, blood pressure 134/61, O2 sat 100% on the ventilator with 40% FiO2. HEART: Distant S1, S2 with a soft S3. LUNGS: Bibasilar crackles. ABDOMEN: Soft, distended. EXTREMITIES: 1+ edema. SKIN: No rashes. ENDOCRINE: No thyromegaly. LYMPHATICS: No cervical nodes. HEMATOPOIETIC: No bruising. LABORATORY DATA: White count 16. BNP is greater than 2000. Drug screen is positive for benzos. Urinalysis negative. INR 1.4. Chest x-ray, infiltrates and CHF and possible ARDS. ASSESSMENT AND PLAN: Fulminant respiratory failure. The patient has been admitted to the ICU. Yadiel. We will try to wean down her oxygen, mechanical ventilation. Consult Cardiology, consult Pulmonary. We will try to resume her home meds, the ones that we can, change to IV, aggressive diuretics, serial enzymes, serial EKGs. Full code. IV metoprolol. Check an A1c and a TSH. Lovenox 40 mg subQ daily for DVT prophylaxis, IV Pepcid 20 mg IV q.12 for GI prophylaxis. Propofol for sedation. PROGNOSIS: Guarded at very best. TOTAL TIME: 32 minutes. MANNIE WILLARD DO DR: ROBERTA/carley JOB#: [id number] / [id number]
[2018-10-03 20:10] LABS: CALCIUM 8.2 mg/dL (8.5-10.1); CREATININE 1.1 mg/dL (0.6-1.0); GFR 60.3; POTASSIUM 3.8 mmol/L (3.5-5.1)
[2018-10-03] MEDS: FAMOTIDINE 20 MG TABLET. FT SCH (20:25)
[2018-10-03] MEDS: ATORVASTATIN CALCIUM 20 MG TABLET PO SCH (20:25)
[2018-10-03] MEDS: METOPROLOL TART IMMED RELEASE 25 MG TABLET. PO SCH (20:25)
[2018-10-04] VITALS (24 sets, daily range): BP systolic 106–165; BP diastolic 40–78
[2018-10-04] MEDS: PROPOFOL 100 ML IV PRN ×2 (00:16→03:51)
[2018-10-04 02:17] LABS: HEMOGLOBIN A1C 5.4 % (4.8-5.6)
[2018-10-04 06:24] LABS: CALCIUM 8.1 mg/dL (8.5-10.1); CREATININE 0.9 mg/dL (0.6-1.0); POTASSIUM 3.3 mmol/L (3.5-5.1)
[2018-10-04] MEDS: POTASSIUM CHLORIDE 20MEQ 50 ML IV SCH ×4 (07:39→11:12)
[2018-10-04] MEDS: FUROSEMIDE 40 MG/4 ML VIAL. IVP SCH (07:49)
--- NOTE | 2018-10-04 07:55 | RAD ---
EXAM: CHEST 1 VIEW History: Postintubation COMPARISON: 10/03/2018 TECHNIQUE: Single portable radiograph of the chest FINDINGS: The ET tube is identified in the trachea just above the level of the manjeet. The feeding tube is seen below the diaphragm likely within the stomach. Right-sided internal jugular line identified with tip projecting in the proximal right atrium. Minimal prominent appearing bilateral interstitial lung markings likely congestive changes appears significantly improved. compared to prior exam. Trace left pleural effusion. Impression: 1. Significant improvement in the lung congestive changes. 2. Lines and tubes as described. Electronically signed by: Adebayo Gustafson MD (10/04/2018 7:51 AM) [facility]
[2018-10-04] MEDS ORDERED: FUROSEMIDE 40 MG/4 ML VIAL. IVP ONE (08:00)
[2018-10-04] MEDS: IPRATRPIUM/ALBUTEROL 0.5/2.5MG 3 ML NEBU. NEB SCH ×4 (08:00→20:02)
[2018-10-04 08:37] LABS: BASE EXCESS ABG 2 mmol/L (-3-3); HCO3 ABG 25 mmol/L (21-28); PCO2 ABG 35 mmHg (35-46); PO2 ABG 70 mmHg (65-108); SAT O2 ABG 94 % (92-99)
[2018-10-04] MEDS: METOPROLOL TART IMMED RELEASE 25 MG TABLET. PO SCH ×2 (09:06→20:37)
[2018-10-04 09:52] LABS: BASE EXCESS ABG 4 mmol/L (-3-3); HCO3 ABG 29 mmol/L (21-28); PCO2 ABG 44 mmHg (35-46); PO2 ABG 90 mmHg (65-108); SAT O2 ABG 97 % (92-99)
--- NOTE | 2018-10-04 09:53 | PDOC ---
PULMONARY PROGRESS NOTES Subjective FULLY AWAKE ON CPAP TRIAL Vitals Vital Signs Date Time Temp Pulse Resp B/P (MAP) Pulse Ox O2 Delivery O2 Flow Rate FiO2 10/04/18 09:06 89 165/77 10/04/18 09:00 12 100 Ventilator 10/04/18 08:00 97.8 97.8 10/03/18 22:49 40.0 General: Alert, No acute distress Lungs: Other (few rhonchi) Cardiovascular: S1 Abdomen: Soft Neuro Exam: Alert Extremities: No Edema Skin: Warm Labs Laboratory Tests Test 10/03/18 06:00 10/03/18 06:03 10/03/18 07:25 10/03/18 08:20 Sodium Level 140 mmol/L (136-145) Potassium Level 4.8 mmol/L (3.5-5.1) Chloride Level 102 mmol/L (98-107) Carbon Dioxide Level 20 mmol/L (21-32) Anion Gap 18 (6-14) Blood Urea Nitrogen 18 mg/dL (7-20) Creatinine 1.5 mg/dL (0.6-1.0) Estimated GFR (Cockcroft-Gault) 42.2 BUN/Creatinine Ratio 12 (6-20) Glucose Level 342 mg/dL (70-99) Lactic Acid Level 9.7 mmol/L (0.4-2.0) Calcium Level 8.7 mg/dL (8.5-10.1) Total Bilirubin 0.3 mg/dL (0.2-1.0) Aspartate Amino Transf (AST/SGOT) 97 U/L (15-37) Alanine Aminotransferase (ALT/SGPT) 68 U/L (14-59) Alkaline Phosphatase 116 U/L (46-116) Troponin I Quantitative < 0.017 ng/mL (0.000-0.055) CF-[id number]-Y-Type Natriuretic Peptide 2026 pg/mL (0-124) Total Protein 7.3 g/dL (6.4-8.2) Albumin 3.3 g/dL (3.4-5.0) Albumin/Globulin Ratio 0.8 (1.0-1.7) Triglycerides Level 127 mg/dL (0-150) Cholesterol Level 173 mg/dL (0-200) LDL Cholesterol, Calculated 66 mg/dL (0-100) VLDL Cholesterol, Calculated 25 mg/dL (0-40) Non-HDL Cholesterol Calculated 91 mg/dL (0-129) HDL Cholesterol 82 mg/dL (40-60) Cholesterol/HDL Ratio 2.1 Thyroid Stimulating Hormone (TSH) 5.892 uIU/mL (0.358-3.74) Ethyl Alcohol Level < 10 mg/dL (0-10) O2 Saturation 97 % (92-99) Arterial Blood pH 7.00 (7.35-7.45) Arterial Blood pCO2 at Patient Temp 84 mmHg (35-46) Arterial Blood pO2 at Patient Temp 138 mmHg (65-108) Arterial Blood HCO3 20 mmol/L (21-28) Arterial Blood Base Excess -13 mmol/L (-3-3) FiO2 100.0 White Blood Count 16.4 x10^3/uL (4.0-11.0) Red Blood Count 4.17 x10^6/uL (3.50-5.40) Hemoglobin 13.0 g/dL (12.0-15.5) Hematocrit 39.2 % (36.0-47.0) Mean Corpuscular Volume 94 fL (79-100) Mean Corpuscular Hemoglobin 31 pg (25-35) Mean Corpuscular Hemoglobin Concent 33 g/dL (31-37) Red Cell Distribution Width 15.4 % (11.5-14.5) Platelet Count 107 x10^3/uL (140-400) Neutrophils (%) (Auto) 90 % (31-73) Lymphocytes (%) (Auto) 8 % (24-48) Monocytes (%) (Auto) 2 % (0-9) Eosinophils (%) (Auto) 1 % (0-3) Basophils (%) (Auto) 0 % (0-3) Neutrophils # (Auto) 14.7 x10^3uL (1.8-7.7) Lymphocytes # (Auto) 1.3 x10^3/uL (1.0-4.8) Monocytes # (Auto) 0.3 x10^3/uL (0.0-1.1) Eosinophils # (Auto) 0.1 x10^3/uL (0.0-0.7) Basophils # (Auto) 0.0 x10^3/uL (0.0-0.2) Segmented Neutrophils % 87 % (35-66) Band Neutrophils % 1 % (0-9) Lymphocytes % 8 % (24-48) Monocytes % 4 % (0-10) Platelet Estimate Decreased (ADEQUATE) Large Platelets Present Giant Platelets Present Poikilocytosis Anisocytosis Present Prothrombin Time 16.2 SEC (11.7-14.0) Prothromb Time International Ratio 1.4 (0.8-1.1) Urine Collection Type U cath Urine Color Yellow Urine Clarity Clear Urine pH 6.0 Urine Specific [place] 1.020 Urine Protein >=300 mg/dL (NEG-TRACE) Urine Glucose (UA) 250 mg/dL (NEG) Urine Ketones (Stick) Negative mg/dL (NEG) Urine Blood Large (NEG) Urine Nitrite Negative (NEG) Urine Bilirubin Negative (NEG) Urine Urobilinogen Dipstick 0.2 mg/dL (0.2 mg/dL) Urine Leukocyte Esterase Negative (NEG) Urine RBC 11-20 /HPF (0-2) Urine WBC 1-4 /HPF (0-4) Urine Squamous Epithelial Cells Few /LPF Urine Amorphous Sediment Present /HPF Urine Bacteria 0 /HPF (0-FEW) Urine Hyaline Casts Few /HPF Hemoglobin A1c 5.4 % (4.8-5.6) Nasal Screen MRSA (PCR) Negative (Negative) Test 10/03/18 08:30 10/03/18 10:00 10/03/18 12:20 10/03/18 12:45 O2 Saturation 94 % (92-99) 94 % (92-99) Arterial Blood pH 7.29 (7.35-7.45) 7.36 (7.35-7.45) Arterial Blood pCO2 at Patient Temp 51 mmHg (35-46) 46 mmHg (35-46) Arterial Blood pO2 at Patient Temp 83 mmHg (65-108) 70 mmHg (65-108) Arterial Blood HCO3 24 mmol/L (21-28) 26 mmol/L (21-28) Arterial Blood Base Excess -4 mmol/L (-3-3) 0 mmol/L (-3-3) FiO2 80 45 Lactic Acid Level 1.7 mmol/L (0.4-2.0) Troponin I Quantitative 0.107 ng/mL (0.000-0.055) Urine Opiates Screen Neg (NEG) Urine Methadone Screen Neg (NEG) Urine Barbiturates Neg (NEG) Urine Phencyclidine Screen Neg (NEG) Urine Amphetamine/Methamphetamine Neg (NEG) Urine Benzodiazepines Screen Pos (NEG) Urine Cocaine Screen Neg (NEG) Urine Cannabinoids Screen Neg (NEG) Urine Ethyl Alcohol Neg (NEG) Test 10/03/18 14:55 10/03/18 19:55 10/04/18 05:00 Troponin I Quantitative 0.098 ng/mL (0.000-0.055) Sodium Level 143 mmol/L (136-145) 143 mmol/L (136-145) Potassium Level 3.8 mmol/L (3.5-5.1) 3.3 mmol/L (3.5-5.1) Chloride Level 104 mmol/L (98-107) 105 mmol/L (98-107) Carbon Dioxide Level 28 mmol/L (21-32) 28 mmol/L (21-32) Anion Gap 11 (6-14) 10 (6-14) Blood Urea Nitrogen 16 mg/dL (7-20) 15 mg/dL (7-20) Creatinine 1.1 mg/dL (0.6-1.0) 0.9 mg/dL (0.6-1.0) Estimated GFR (Cockcroft-Gault) 60.3 76.0 Glucose Level 136 mg/dL (70-99) 113 mg/dL (70-99) Calcium Level 8.2 mg/dL (8.5-10.1) 8.1 mg/dL (8.5-10.1) Laboratory Tests Test 10/03/18 10:00 10/03/18 12:20 10/03/18 12:45 10/03/18 14:55 Lactic Acid Level 1.7 mmol/L (0.4-2.0) Troponin I Quantitative 0.107 ng/mL (0.000-0.055) 0.098 ng/mL (0.000-0.055) Urine Opiates Screen Neg (NEG) Urine Methadone Screen Neg (NEG) Urine Barbiturates Neg (NEG) Urine Phencyclidine Screen Neg (NEG) Urine Amphetamine/Methamphetamine Neg (NEG) Urine Benzodiazepines Screen Pos (NEG) Urine Cocaine Screen Neg (NEG) Urine Cannabinoids Screen Neg (NEG) Urine Ethyl Alcohol Neg (NEG) O2 Saturation 94 % (92-99) Arterial Blood pH 7.36 (7.35-7.45) Arterial Blood pCO2 at Patient Temp 46 mmHg (35-46) Arterial Blood pO2 at Patient Temp 70 mmHg (65-108) Arterial Blood HCO3 26 mmol/L (21-28) Arterial Blood Base Excess 0 mmol/L (-3-3) FiO2 45 Test 10/03/18 19:55 10/04/18 05:00 Sodium Level 143 mmol/L (136-145) 143 mmol/L (136-145) Potassium Level 3.8 mmol/L (3.5-5.1) 3.3 mmol/L (3.5-5.1) Chloride Level 104 mmol/L (98-107) 105 mmol/L (98-107) Carbon Dioxide Level 28 mmol/L (21-32) 28 mmol/L (21-32) Anion Gap 11 (6-14) 10 (6-14) Blood Urea Nitrogen 16 mg/dL (7-20) 15 mg/dL (7-20) Creatinine 1.1 mg/dL (0.6-1.0) 0.9 mg/dL (0.6-1.0) Estimated GFR (Cockcroft-Gault) 60.3 76.0 Glucose Level 136 mg/dL (70-99) 113 mg/dL (70-99) Calcium Level 8.2 mg/dL (8.5-10.1) 8.1 mg/dL (8.5-10.1) Medications Active Scripts Medications Dose Route/Sig Max Daily Dose Days Date Category Atorvastatin Calcium 20 Mg Tablet 1 Tab PO DAILY 05/20/18 Reported Advair 250-50 Diskus (Fluticasone/Salmeterol) 1 Each Disk.w.dev 1 Puff IH BID 05/20/18 Reported Proair Hfa Inhaler (Albuterol Sulfate) 8.5 Gm Hfa.aer.ad 1-2 Puff INH PRN Q4HRS PRN 05/20/18 Reported Loratadine 10 Mg Tablet 1 Tab PO DAILY 05/20/18 Reported Flonase Allergy Relief (Fluticasone Propionate) 9.9 Ml [place].susp 2 Sprays NS DAILY 05/20/18 Reported Allopurinol 100 Mg Tablet 1 Tab PO DAILY 05/20/18 Reported Lisinopril-Hctz 20-25 Mg Tab (Lisinopril/Hydrochlorothiazide) 1 Each Tablet 1 Tab PO DAILY 05/20/18 Reported Vitamin D2 (Ergocalciferol (Vitamin D2)) 50,000 Unit Capsule 1 Cap PO WEEKLY 05/20/18 Reported Geodon (Ziprasidone Hcl) 80 Mg Capsule 1 Cap PO BID 05/20/18 Reported Potassium Chloride 20 Meq Tablet.er 20 Meq PO DAILY 05/20/18 Reported Tramadol Hcl 50 Mg Tablet 50 Mg PO TID 05/20/18 Reported Symbicort 160-4.5 Mcg Inhaler (Budesonide/Formoterol Fumarate) 10.2 Gm Hfa.aer.ad 2 Puff IH BID 05/20/18 Reported Toprol Xl (Metoprolol Succinate) 25 Mg Tab.er.24h 1 Tab PO DAILY 05/20/18 Reported Gabapentin 100 Mg Capsule 100 Mg PO BID 05/20/18 Reported Omeprazole 20 Mg Capsule.dr 1 Cap PO DAILY 05/20/18 Reported Impression . 1. Acute hypoxic and hypercapnic respiratory failure, most likely related to acute diastolic heart failure. 2. Highly suspected acute diastolic heart failure triggered by hypertensive crisis. 3. Abnormal chest x-ray with diffuse interstitial infiltrates and cardiomegaly, suspect interstitial edema and clinically unlikely acute respiratory distress, resolved with diuresis syndrome as reported on the x-ray. 4. Leukocytosis, likely reactive. 5. Mild renal insufficiency, probably hypertensive nephropathy. 6. Need to rule out any substance abuse. Plan . 1. Discussed with RN and RT. Doing well on CPAP trial, ABG adequate. will extubated 2. Diuresis. 3. Follow up chest x-ray clear now 4. Urine drug screen positive for benzo 5. Nebulizer treatment. 6. can dc antibiotic 7. Obtain echocardiogram. 8. Watch blood pressure closely. Her hypertensive crisis has improved. MAXIMO ROMERO MD Oct 04, 2018 09:53
[2018-10-04 09:57] LABS: FIO2 ABG 40
[2018-10-04 09:58] LABS: FIO2 ABG 40
--- NOTE | 2018-10-04 10:39 | PDOC ---
PROGRESS NOTES Chief Complaint Chief Complaint Acute hypoxic and hypercapnic respiratory failure - most likely related to acute diastolic heart failure Highly suspected acute diastolic heart failure triggered by hypertensive crisis Hypokalemia - 3.3 today Leukocytosis - likely reactive, WBCs 16.4 today Mild renal insufficiency - likely hypertensive nephropathy Drug screen positive for benzos Thrombocytopenia H/o HTN H/o COPD H/o depression History of Present Illness History of Present Illness Pt seen and examined in ICU while awake, sitting up in bed and able to nod in response to questions Pt ventilated - spontaneous w/10 PS, 5 PEEP, 40% O2 Discussed w/RN and respiratory therapist Vitals Vitals Vital Signs Date Time Temp Pulse Resp B/P (MAP) Pulse Ox O2 Delivery O2 Flow Rate FiO2 10/04/18 10:00 81 15 165/78 (107) 100 Nasal Cannula 2.0 10/04/18 08:00 97.8 97.8 Physical Exam Physical Exam HEENT: [place] b/l General: Alert, Cooperative, Other (sedated but alert enough that she is able to answer questions b nodding yes or no.) Heart: Regular rate (SR/ST), Other (distant heart sounds) Lungs: Other (few rhonchi, on vent) Abdomen: Soft, No tenderness, Other (obese) Extremities: No cyanosis, Other (2+ bilateral LE pitting edema) Skin: No breakdown, No significant lesion Labs LABS Laboratory Tests Test 10/03/18 12:20 10/03/18 12:45 10/03/18 14:55 10/03/18 19:55 Urine Opiates Screen Neg (NEG) Urine Methadone Screen Neg (NEG) Urine Barbiturates Neg (NEG) Urine Phencyclidine Screen Neg (NEG) Urine Amphetamine/Methamphetamine Neg (NEG) Urine Benzodiazepines Screen Pos (NEG) Urine Cocaine Screen Neg (NEG) Urine Cannabinoids Screen Neg (NEG) Urine Ethyl Alcohol Neg (NEG) O2 Saturation 94 % (92-99) Arterial Blood pH 7.36 (7.35-7.45) Arterial Blood pCO2 at Patient Temp 46 mmHg (35-46) Arterial Blood pO2 at Patient Temp 70 mmHg (65-108) Arterial Blood HCO3 26 mmol/L (21-28) Arterial Blood Base Excess 0 mmol/L (-3-3) FiO2 45 Troponin I Quantitative 0.098 ng/mL (0.000-0.055) Sodium Level 143 mmol/L (136-145) Potassium Level 3.8 mmol/L (3.5-5.1) Chloride Level 104 mmol/L (98-107) Carbon Dioxide Level 28 mmol/L (21-32) Anion Gap 11 (6-14) Blood Urea Nitrogen 16 mg/dL (7-20) Creatinine 1.1 mg/dL (0.6-1.0) Estimated GFR (Cockcroft-Gault) 60.3 Glucose Level 136 mg/dL (70-99) Calcium Level 8.2 mg/dL (8.5-10.1) Test 10/04/18 05:00 10/04/18 08:00 10/04/18 09:21 Sodium Level 143 mmol/L (136-145) Potassium Level 3.3 mmol/L (3.5-5.1) Chloride Level 105 mmol/L (98-107) Carbon Dioxide Level 28 mmol/L (21-32) Anion Gap 10 (6-14) Blood Urea Nitrogen 15 mg/dL (7-20) Creatinine 0.9 mg/dL (0.6-1.0) Estimated GFR (Cockcroft-Gault) 76.0 Glucose Level 113 mg/dL (70-99) Calcium Level 8.1 mg/dL (8.5-10.1) O2 Saturation 94 % (92-99) 97 % (92-99) Arterial Blood pH 7.47 (7.35-7.45) 7.44 (7.35-7.45) Arterial Blood pCO2 at Patient Temp 35 mmHg (35-46) 44 mmHg (35-46) Arterial Blood pO2 at Patient Temp 70 mmHg (65-108) 90 mmHg (65-108) Arterial Blood HCO3 25 mmol/L (21-28) 29 mmol/L (21-28) Arterial Blood Base Excess 2 mmol/L (-3-3) 4 mmol/L (-3-3) FiO2 40 40 Review of Systems Review of Systems Pt intubated on vent, able to nod in response to questions Pt in no acute distress and nodded yes when asked if she felt ready for extubation Assessment and Plan Assessmemt and Plan Problems Medical Problems: (1) Acute respiratory failure Status: Acute Assessment: Acute hypoxic and hypercapnic respiratory failure - most likely related to acute diastolic heart failure Highly suspected acute diastolic heart failure triggered by hypertensive crisis Hypokalemia - 3.3 today Leukocytosis - likely reactive, WBCs 16.4 today Mild renal insufficiency - likely hypertensive nephropathy Drug screen positive for benzos Thrombocytopenia H/o HTN H/o COPD H/o depression Plan: Plan for extubation today per pulm Replace potassium Continue to diurese Cont nebulizer treatment Await echocardiogram Labs PT/OT DTV ppx Cont to monitor BP closely - 155/74 this morning Comment Review of Relevant I have reviewed the following items bbaar (where applicable) has been applied. Labs Laboratory Tests Test 10/03/18 06:00 10/03/18 06:03 10/03/18 07:25 10/03/18 08:20 Sodium Level 140 mmol/L (136-145) Potassium Level 4.8 mmol/L (3.5-5.1) Chloride Level 102 mmol/L (98-107) Carbon Dioxide Level 20 mmol/L (21-32) Anion Gap 18 (6-14) Blood Urea Nitrogen 18 mg/dL (7-20) Creatinine 1.5 mg/dL (0.6-1.0) Estimated GFR (Cockcroft-Gault) 42.2 BUN/Creatinine Ratio 12 (6-20) Glucose Level 342 mg/dL (70-99) Lactic Acid Level 9.7 mmol/L (0.4-2.0) Calcium Level 8.7 mg/dL (8.5-10.1) Total Bilirubin 0.3 mg/dL (0.2-1.0) Aspartate Amino Transf (AST/SGOT) 97 U/L (15-37) Alanine Aminotransferase (ALT/SGPT) 68 U/L (14-59) Alkaline Phosphatase 116 U/L (46-116) Troponin I Quantitative < 0.017 ng/mL (0.000-0.055) ZA-Onx-H-Type Natriuretic Peptide 2026 pg/mL (0-124) Total Protein 7.3 g/dL (6.4-8.2) Albumin 3.3 g/dL (3.4-5.0) Albumin/Globulin Ratio 0.8 (1.0-1.7) Triglycerides Level 127 mg/dL (0-150) Cholesterol Level 173 mg/dL (0-200) LDL Cholesterol, Calculated 66 mg/dL (0-100) VLDL Cholesterol, Calculated 25 mg/dL (0-40) Non-HDL Cholesterol Calculated 91 mg/dL (0-129) HDL Cholesterol 82 mg/dL (40-60) Cholesterol/HDL Ratio 2.1 Thyroid Stimulating Hormone (TSH) 5.892 uIU/mL (0.358-3.74) Ethyl Alcohol Level < 10 mg/dL (0-10) O2 Saturation 97 % (92-99) Arterial Blood pH 7.00 (7.35-7.45) Arterial Blood pCO2 at Patient Temp 84 mmHg (35-46) Arterial Blood pO2 at Patient Temp 138 mmHg (65-108) Arterial Blood HCO3 20 mmol/L (21-28) Arterial Blood Base Excess -13 mmol/L (-3-3) FiO2 100.0 White Blood Count 16.4 x10^3/uL (4.0-11.0) Red Blood Count 4.17 x10^6/uL (3.50-5.40) Hemoglobin 13.0 g/dL (12.0-15.5) Hematocrit 39.2 % (36.0-47.0) Mean Corpuscular Volume 94 fL (79-100) Mean Corpuscular Hemoglobin 31 pg (25-35) Mean Corpuscular Hemoglobin Concent 33 g/dL (31-37) Red Cell Distribution Width 15.4 % (11.5-14.5) Platelet Count 107 x10^3/uL (140-400) Neutrophils (%) (Auto) 90 % (31-73) Lymphocytes (%) (Auto) 8 % (24-48) Monocytes (%) (Auto) 2 % (0-9) Eosinophils (%) (Auto) 1 % (0-3) Basophils (%) (Auto) 0 % (0-3) Neutrophils # (Auto) 14.7 x10^3uL (1.8-7.7) Lymphocytes # (Auto) 1.3 x10^3/uL (1.0-4.8) Monocytes # (Auto) 0.3 x10^3/uL (0.0-1.1) Eosinophils # (Auto) 0.1 x10^3/uL (0.0-0.7) Basophils # (Auto) 0.0 x10^3/uL (0.0-0.2) Segmented Neutrophils % 87 % (35-66) Band Neutrophils % 1 % (0-9) Lymphocytes % 8 % (24-48) Monocytes % 4 % (0-10) Platelet Estimate Decreased (ADEQUATE) Large Platelets Present Giant Platelets Present Poikilocytosis Anisocytosis Present Prothrombin Time 16.2 SEC (11.7-14.0) Prothromb Time International Ratio 1.4 (0.8-1.1) Urine Collection Type U cath Urine Color Yellow Urine Clarity Clear Urine pH 6.0 Urine Specific [place] 1.020 Urine Protein >=300 mg/dL (NEG-TRACE) Urine Glucose (UA) 250 mg/dL (NEG) Urine Ketones (Stick) Negative mg/dL (NEG) Urine Blood Large (NEG) Urine Nitrite Negative (NEG) Urine Bilirubin Negative (NEG) Urine Urobilinogen Dipstick 0.2 mg/dL (0.2 mg/dL) Urine Leukocyte Esterase Negative (NEG) Urine RBC 11-20 /HPF (0-2) Urine WBC 1-4 /HPF (0-4) Urine Squamous Epithelial Cells Few /LPF Urine Amorphous Sediment Present /HPF Urine Bacteria 0 /HPF (0-FEW) Urine Hyaline Casts Few /HPF Hemoglobin A1c 5.4 % (4.8-5.6) Nasal Screen MRSA (PCR) Negative (Negative) Test 10/03/18 08:30 10/03/18 10:00 10/03/18 12:20 10/03/18 12:45 O2 Saturation 94 % (92-99) 94 % (92-99) Arterial Blood pH 7.29 (7.35-7.45) 7.36 (7.35-7.45) Arterial Blood pCO2 at Patient Temp 51 mmHg (35-46) 46 mmHg (35-46) Arterial Blood pO2 at Patient Temp 83 mmHg (65-108) 70 mmHg (65-108) Arterial Blood HCO3 24 mmol/L (21-28) 26 mmol/L (21-28) Arterial Blood Base Excess -4 mmol/L (-3-3) 0 mmol/L (-3-3) FiO2 80 45 Lactic Acid Level 1.7 mmol/L (0.4-2.0) Troponin I Quantitative 0.107 ng/mL (0.000-0.055) Urine Opiates Screen Neg (NEG) Urine Methadone Screen Neg (NEG) Urine Barbiturates Neg (NEG) Urine Phencyclidine Screen Neg (NEG) Urine Amphetamine/Methamphetamine Neg (NEG) Urine Benzodiazepines Screen Pos (NEG) Urine Cocaine Screen Neg (NEG) Urine Cannabinoids Screen Neg (NEG) Urine Ethyl Alcohol Neg (NEG) Test 10/03/18 14:55 10/03/18 19:55 10/04/18 05:00 10/04/18 08:00 Troponin I Quantitative 0.098 ng/mL (0.000-0.055) Sodium Level 143 mmol/L (136-145) 143 mmol/L (136-145) Potassium Level 3.8 mmol/L (3.5-5.1) 3.3 mmol/L (3.5-5.1) Chloride Level 104 mmol/L (98-107) 105 mmol/L (98-107) Carbon Dioxide Level 28 mmol/L (21-32) 28 mmol/L (21-32) Anion Gap 11 (6-14) 10 (6-14) Blood Urea Nitrogen 16 mg/dL (7-20) 15 mg/dL (7-20) Creatinine 1.1 mg/dL (0.6-1.0) 0.9 mg/dL (0.6-1.0) Estimated GFR (Cockcroft-Gault) 60.3 76.0 Glucose Level 136 mg/dL (70-99) 113 mg/dL (70-99) Calcium Level 8.2 mg/dL (8.5-10.1) 8.1 mg/dL (8.5-10.1) O2 Saturation 94 % (92-99) Arterial Blood pH 7.47 (7.35-7.45) Arterial Blood pCO2 at Patient Temp 35 mmHg (35-46) Arterial Blood pO2 at Patient Temp 70 mmHg (65-108) Arterial Blood HCO3 25 mmol/L (21-28) Arterial Blood Base Excess 2 mmol/L (-3-3) FiO2 40 Test 10/04/18 09:21 O2 Saturation 97 % (92-99) Arterial Blood pH 7.44 (7.35-7.45) Arterial Blood pCO2 at Patient Temp 44 mmHg (35-46) Arterial Blood pO2 at Patient Temp 90 mmHg (65-108) Arterial Blood HCO3 29 mmol/L (21-28) Arterial Blood Base Excess 4 mmol/L (-3-3) FiO2 40 Laboratory Tests Test 10/03/18 12:20 10/03/18 12:45 10/03/18 14:55 10/03/18 19:55 Urine Opiates Screen Neg (NEG) Urine Methadone Screen Neg (NEG) Urine Barbiturates Neg (NEG) Urine Phencyclidine Screen Neg (NEG) Urine Amphetamine/Methamphetamine Neg (NEG) Urine Benzodiazepines Screen Pos (NEG) Urine Cocaine Screen Neg (NEG) Urine Cannabinoids Screen Neg (NEG) Urine Ethyl Alcohol Neg (NEG) O2 Saturation 94 % (92-99) Arterial Blood pH 7.36 (7.35-7.45) Arterial Blood pCO2 at Patient Temp 46 mmHg (35-46) Arterial Blood pO2 at Patient Temp 70 mmHg (65-108) Arterial Blood HCO3 26 mmol/L (21-28) Arterial Blood Base Excess 0 mmol/L (-3-3) FiO2 45 Troponin I Quantitative 0.098 ng/mL (0.000-0.055) Sodium Level 143 mmol/L (136-145) Potassium Level 3.8 mmol/L (3.5-5.1) Chloride Level 104 mmol/L (98-107) Carbon Dioxide Level 28 mmol/L (21-32) Anion Gap 11 (6-14) Blood Urea Nitrogen 16 mg/dL (7-20) Creatinine 1.1 mg/dL (0.6-1.0) Estimated GFR (Cockcroft-Gault) 60.3 Glucose Level 136 mg/dL (70-99) Calcium Level 8.2 mg/dL (8.5-10.1) Test 10/04/18 05:00 10/04/18 08:00 10/04/18 09:21 Sodium Level 143 mmol/L (136-145) Potassium Level 3.3 mmol/L (3.5-5.1) Chloride Level 105 mmol/L (98-107) Carbon Dioxide Level 28 mmol/L (21-32) Anion Gap 10 (6-14) Blood Urea Nitrogen 15 mg/dL (7-20) Creatinine 0.9 mg/dL (0.6-1.0) Estimated GFR (Cockcroft-Gault) 76.0 Glucose Level 113 mg/dL (70-99) Calcium Level 8.1 mg/dL (8.5-10.1) O2 Saturation 94 % (92-99) 97 % (92-99) Arterial Blood pH 7.47 (7.35-7.45) 7.44 (7.35-7.45) Arterial Blood pCO2 at Patient Temp 35 mmHg (35-46) 44 mmHg (35-46) Arterial Blood pO2 at Patient Temp 70 mmHg (65-108) 90 mmHg (65-108) Arterial Blood HCO3 25 mmol/L (21-28) 29 mmol/L (21-28) Arterial Blood Base Excess 2 mmol/L (-3-3) 4 mmol/L (-3-3) FiO2 40 40 Microbiology 10/03/18 Blood Culture - Preliminary, Resulted NO GROWTH AFTER 1 DAY Medications Current Medications Propofol 50 ml @ As Directed STK-MED ONCE IV ; Start 10/03/18 at 05:56; Stop at 05:57; Status DC Albuterol Sulfate (Ventolin Neb Soln) 10 mg 1X ONCE CONT NEB Last administered on 10/03/18at 07:00; Start 10/03/18 at 06:15; Stop 10/03/18 at 06:16 ; Status DC Methylprednisolone Sodium Succinate (SOLU-Medrol 125MG VIAL) 125 mg 1X ONCE IV Last administered on 10/03/18at 07:20; Start 10/03/18 at 06:15; Stop 10/03/18 at 06:16; Status DC Doxycycline Hyclate 100 mg/ Dextrose 100 ml @ 50 mls/hr 1X ONCE IV Last administered on 10/03/18at 07:21; Start 10/03/18 at 06:15; Stop 10/03/18 at 08:14 ; Status DC Albuterol/ Ipratropium (Duoneb) 3 ml STK-MED ONCE .ROUTE ; Start 10/03/18 at 06: 03; Stop 10/03/18 at 06:04; Status DC Fentanyl Citrate (Fentanyl 2ml Vial) 100 mcg 1X ONCE IV ; Start 10/03/18 at 06: 15; Stop 10/03/18 at 06:16; Status DC Levofloxacin/ Dextrose (Levaquin Per Pharmacy) 1 each PRN DAILY PRN MC SEE COMMENTS; Start 10/03/18 at 06:15; Stop 10/04/18 at 09:59; Status DC Furosemide (Lasix) 20 mg 1X ONCE IVP Last administered on 10/03/18at 07:21; Start 10/03/18 at 06:15; Stop 10/03/18 at 06:16; Status DC Nitroglycerin/ Dextrose 250 ml @ 0 mls/hr 1X ONCE IV ; Start 10/03/18 at 06:15 ; Stop 10/03/18 at 06:16; Status DC Etomidate (Amidate) 20 mg STK-MED ONCE IV ; Start 10/03/18 at 06:11; Stop at 06:12; Status DC Levofloxacin/ Dextrose 150 ml @ 100 mls/hr 1X ONCE IV Last administered on at 06:30; Start 10/03/18 at 06:30; Stop 10/03/18 at 07:59; Status DC Fentanyl Citrate (Fentanyl 2ml Vial) 100 mcg 1X ONCE IV Last administered on 10/03/18at 06:40; Start 10/03/18 at 06:45; Stop 10/03/18 at 06:46; Status DC Propofol 50 ml @ As Directed STK-MED ONCE IV ; Start 10/03/18 at 06:54; Stop at 06:55; Status DC Sodium Bicarbonate (Sodium Bicarb Adult 8.4% Syr) 50 meq 1X ONCE IV ; Start at 07:30; Stop 10/03/18 at 07:31; Status DC Sodium Bicarbonate (Sodium Bicarb Adult 8.4% Syr) 50 meq STK-MED ONCE .ROUTE ; Start 10/03/18 at 07:17; Stop 10/03/18 at 07:18; Status DC Etomidate (Amidate) 20 mg STK-MED ONCE IV ; Start 10/03/18 at 07:29; Stop at 07:30; Status DC Midazolam HCl (Versed) 5 mg STK-MED ONCE .ROUTE ; Start 10/03/18 at 07:29; Stop 10/03/18 at 07:30; Status DC Fentanyl Citrate (Fentanyl 2ml Vial) 100 mcg STK-MED ONCE .ROUTE ; Start at 07:29; Stop 10/03/18 at 07:30; Status DC Succinylcholine Chloride (Anectine) 200 mg STK-MED ONCE .ROUTE ; Start 10/03/18 at 07:29; Stop 10/03/18 at 07:30; Status DC Etomidate (Amidate) 30 mg 1X ONCE IV Last administered on 10/03/18at 05:52; Start 10/03/18 at 08:30; Stop 10/03/18 at 08:31; Status DC Succinylcholine Chloride (Anectine) 120 mg 1X ONCE IV Last administered on 10/03/18at 05:53; Start 10/03/18 at 08:30; Stop 10/03/18 at 08:31; Status DC Fentanyl Citrate (Fentanyl 2ml Vial) 100 mcg 1X ONCE IV Last administered on 10/03/18at 06:07; Start 10/03/18 at 08:30; Stop 10/03/18 at 08:31; Status DC Etomidate (Amidate) 20 mg 1X ONCE IV Last administered on 10/03/18at 06:14; Start 10/03/18 at 08:30; Stop 10/03/18 at 08:31; Status DC Fentanyl Citrate (Fentanyl 2ml Vial) 100 mcg 1X ONCE IV ; Start 10/03/18 at 08: 30; Stop 10/03/18 at 08:31; Status DC Etomidate (Amidate) 10 mg 1X ONCE IV Last administered on 10/03/18at 06:50; Start 10/03/18 at 08:30; Stop 10/03/18 at 08:31; Status DC Midazolam HCl (Versed) 4 mg 1X ONCE IV Last administered on 10/03/18at 06:52; Start 10/03/18 at 08:30; Stop 10/03/18 at 08:31; Status DC Propofol 50 ml @ 1.429 mls/ hr 1X ONCE IV Last administered on 10/03/18at 06: 21; Start 10/03/18 at 06:20; Stop 10/04/18 at 17:19 Propofol 100 ml @ As Directed STK-MED ONCE IV ; Start 10/03/18 at 09:07; Stop 10/03/18 at 09:08; Status DC Albuterol/ Ipratropium (Duoneb) 3 ml RTQID NEB Last administered on 10/04/18at 08:00; Start 10/03/18 at 12:00 Enoxaparin Sodium (Lovenox 40mg Syringe) 40 mg Q24H SQ Last administered on 10/03/18at 17:35; Start 10/03/18 at 13:00 Famotidine (Pepcid) 20 mg QHS FT Last administered on 10/03/18at 20:25; Start 10/03/18 at 21:00 Furosemide (Lasix) 40 mg 1X ONCE IVP Last administered on 10/03/18at 12:28; Start 10/03/18 at 12:15; Stop 10/03/18 at 12:39; Status DC Furosemide (Lasix) 40 mg 1X ONCE IVP ; Start 10/03/18 at 12:15; Stop 10/03/18 at 12:21; Status DC Fentanyl Citrate 30 ml @ 0 mls/hr CONT PRN IV ; Start 10/03/18 at 12:45; Stop 10/03/18 at 15:21; Status DC Levofloxacin/ Dextrose 100 ml @ 100 mls/hr Q24H IV Last administered on at 15:16; Start 10/04/18 at 09:00; Stop 10/04/18 at 09:54; Status DC Labetalol HCl (Normodyne Iv Push) 20 mg PRN Q2HR PRN IVP HYPERTENSION, SEE COMMENTS; Start 10/03/18 at 14:15 Atorvastatin Calcium (Lipitor) 20 mg QHS PO Last administered on 10/03/18at 20: 25; Start 10/03/18 at 21:00 Propofol 100 ml @ 1.429 mls/ hr CONT PRN PRN IV SEE PROTOCOL Last administered on 10/04/18at 03:51; Start 10/03/18 at 14:15 Metoprolol Tartrate (Lopressor) 25 mg BID PO Last administered on 10/04/18at 09: 06; Start 10/03/18 at 21:00 Furosemide (Lasix) 40 mg DAILY IVP ; Start 10/04/18 at 09:00 Clopidogrel Bisulfate (Plavix) 75 mg 1X ONCE PO Last administered on at 15:35; Start 10/03/18 at 14:45; Stop 10/03/18 at 14:46; Status DC Fentanyl Citrate 30 ml @ 0 mls/hr CONT PRN PRN IV PAIN Last administered on 10/03/18at 22:19; Start 10/03/18 at 15:30 Furosemide (Lasix) 40 mg 1X ONCE IVP Last administered on 10/04/18at 07:39; Start 10/04/18 at 08:00; Stop 10/04/18 at 08:01; Status DC Potassium Chloride/Water 50 ml @ 50 mls/hr Q1H IV Last administered on at 10:09; Start 10/04/18 at 08:00; Stop 10/04/18 at 11:59 Active Scripts Active Reported Atorvastatin Calcium 20 Mg Tablet 1 Tab PO DAILY Advair 250-50 Diskus (Fluticasone/Salmeterol) 1 Each Disk.w.dev 1 Puff IH BID Proair Hfa Inhaler (Albuterol Sulfate) 8.5 Gm Hfa.aer.ad 1-2 Puff INH PRN Q4HRS PRN Loratadine 10 Mg Tablet 1 Tab PO DAILY Flonase Allergy Relief (Fluticasone Propionate) 9.9 Ml [place].susp 2 Sprays NS DAILY Allopurinol 100 Mg Tablet 1 Tab PO DAILY Lisinopril-Hctz 20-25 Mg Tab (Lisinopril/Hydrochlorothiazide) 1 Each Tablet 1 Tab PO DAILY Vitamin D2 (Ergocalciferol (Vitamin D2)) 50,000 Unit Capsule 1 Cap PO WEEKLY Geodon (Ziprasidone Hcl) 80 Mg Capsule 1 Cap PO BID Potassium Chloride 20 Meq Tablet.er 20 Meq PO DAILY Tramadol Hcl 50 Mg Tablet 50 Mg PO TID Symbicort 160-4.5 Mcg Inhaler (Budesonide/Formoterol Fumarate) 10.2 Gm Hfa.aer.ad 2 Puff IH BID Toprol Xl (Metoprolol Succinate) 25 Mg Tab.er.24h 1 Tab PO DAILY Gabapentin 100 Mg Capsule 100 Mg PO BID Omeprazole 20 Mg Capsule. 1 Cap PO DAILY Vitals/I & O Vital Sign - Last 24 Hours 10/03/18 10/03/18 10/03/18 10/03/18 11:00 11:30 12:00 12:00 Temp 98.0 98.0 Pulse 82 90 Resp 20 20 B/P (MAP) 117/51 (73) 140/64 (89) Pulse Ox 100 100 100 O2 Delivery Ventilator Ventilator Mechanical Ventilator Ventilator 10/03/18 10/03/18 10/03/18 10/03/18 12:59 13:00 15:00 15:24 Pulse 98 86 Resp 20 20 19 B/P (MAP) 138/65 (89) 136/70 (92) Pulse Ox 100 100 100 100 O2 Delivery Ventilator Ventilator Ventilator Ventilator O2 Flow Rate 45.0 10/03/18 10/03/18 10/03/18 10/03/18 15:55 16:00 16:00 16:00 Temp 98.8 98.8 Pulse 84 Resp 20 20 B/P (MAP) 134/61 (85) Pulse Ox 97 100 O2 Delivery Ventilator Mechanical Ventilator Ventilator Ventilator 10/03/18 10/03/18 10/03/18 10/03/18 17:00 18:00 18:02 19:00 Pulse 78 78 80 Resp 20 20 20 B/P (MAP) 116/50 (72) 127/57 (80) 137/57 (83) Pulse Ox 100 100 97 100 O2 Delivery Ventilator Ventilator Ventilator Ventilator 10/03/18 10/03/18 10/03/18 10/03/18 19:52 20:00 20:08 20:25 Temp 98.5 98.5 Pulse 82 92 Resp 20 B/P (MAP) 124/54 (77) 124/55 Pulse Ox 100 100 O2 Delivery Ventilator Ventilator Mechanical Ventilator 10/03/18 10/03/18 10/03/18 10/03/18 21:00 22:00 22:19 22:49 Pulse 80 70 Resp 20 20 B/P (MAP) 120/56 (77) 109/49 (69) Pulse Ox 100 100 100 100 O2 Delivery Ventilator Ventilator O2 Flow Rate 40.0 40.0 10/03/18 10/03/18 10/04/18 10/04/18 23:00 23:14 00:00 00:01 Temp 98.6 98.6 Pulse 66 68 Resp 20 20 B/P (MAP) 113/51 (71) 113/53 (73) Pulse Ox 100 100 100 O2 Delivery Ventilator Ventilator Mechanical Ventilator Ventilator 10/04/18 10/04/18 10/04/18 10/04/18 01:00 01:52 02:00 02:56 Pulse 68 68 Resp 20 20 B/P (MAP) 127/57 (80) 137/57 (83) Pulse Ox 100 100 100 100 O2 Delivery Ventilator Ventilator Ventilator Ventilator 10/04/18 10/04/18 10/04/18 10/04/18 03:00 04:00 04:00 05:00 Temp 98.8 98.8 Pulse 70 66 62 Resp 20 20 20 B/P (MAP) 122/50 (74) 118/50 (72) 115/52 (73) Pulse Ox 100 100 100 O2 Delivery Ventilator Mechanical Ventilator Ventilator Ventilator 10/04/18 10/04/18 10/04/18 10/04/18 05:10 06:00 07:00 08:00 Pulse 64 62 Resp 20 21 B/P (MAP) 131/55 (80) 124/61 (82) Pulse Ox 100 100 100 100 O2 Delivery Ventilator Ventilator Ventilator Ventilator 10/04/18 10/04/18 10/04/18 10/04/18 08:00 08:00 08:29 08:49 Temp 97.8 97.8 Pulse 74 Resp 22 B/P (MAP) 155/74 (101) Pulse Ox 100 100 100 O2 Delivery Mechanical Ventilator Ventilator Ventilator Ventilator 10/04/18 10/04/18 10/04/18 10/04/18 09:00 09:06 09:52 10:00 Pulse 87 89 81 Resp 12 15 B/P (MAP) 165/77 (106) 165/77 165/78 (107) Pulse Ox 100 100 100 O2 Delivery Ventilator Ventilator Nasal Cannula O2 Flow Rate 2.0 Intake and Output 10/03/18 10/03/18 10/04/18 15:00 23:00 07:00 Intake Total 0 ml 1302.67 ml 383.3 ml Output Total 2335 ml 2460 ml 620 ml Balance -2335 ml -1157.33 ml -236.7 ml MANNIE WILLARD III DO Oct 04, 2018 10:39
[2018-10-04] MEDS: ENOXAPARIN 40 MG/0.4 ML SYRINGE. SQ SCH (10:45)
[2018-10-04] MEDS: ALBUTEROL SULFATE 2.5 MG/3 ML NEBU. NEB SCH ×2 (12:00→18:00)
[2018-10-04] MEDS: ALLOPURINOL 100 MG TABLET. PO SCH (12:42)
[2018-10-04] MEDS: GABAPENTIN 100 MG CAPSULE. PO SCH ×2 (12:42→20:36)
[2018-10-04] MEDS: hydroCHLOROthiazide 25 MG TABLET PO SCH (12:43)
[2018-10-04] MEDS: LISINOPRIL 20 MG TABLET PO SCH (12:43)
[2018-10-04] MEDS: ZIPRASIDONE 20 MG CAPSULE PO SCH ×2 (12:43→20:36)
[2018-10-04] MEDS: FLUTICASONE 50MCG/NASAL SPRAY 16GM BOTTLE. NS SCH (12:44)
[2018-10-04] MEDS: BUDESONIDE 0.5 MG/2 ML NEBU. NEB SCH ×2 (13:00→20:02)
--- NOTE | 2018-10-04 13:31 | PDOC ---
PROGRESS NOTES Subjective Subjective Feeling better with improvement in dyspnea Objective Objective Vital Signs Date Time Temp Pulse Resp B/P (MAP) Pulse Ox O2 Delivery O2 Flow Rate FiO2 10/04/18 13:00 97 14 154/62 (92) 93 Nasal Cannula 2.0 10/04/18 08:00 97.8 97.8 Intake and Output 10/04/18 07:00 Intake Total 1685.97 ml Output Total 5415 ml Balance -3729.03 ml Intake Oral 0 ml IV Total 685.97 ml Other 1000 ml Output Urine Total 5415 ml # Bowel Movements 1 Physical Exam Abdomen: Soft, No tenderness, Other (obese) Heart: Regular rate (SR/ST), Other (distant heart sounds) Extremities: No cyanosis, Other (2+ bilateral LE pitting edema) General: Alert, Cooperative, Other (sedated but alert enough that she is able to answer questions b nodding yes or no.) HEENT: Atraumatic, Mucous membr. moist/pink Lungs: Other (diffuse crackles; mechanical vent) Neuro: Sensation intact Psych/Mental Status: Other (sedated) Skin: No breakdown, No significant lesion Assessment Assessment 1. Malignant HTN: Much better controlled since admission. Continue current medical regimen. 2. Acute respiratory failure secondary to combination of acute on chronic diastolic heart failure and mild acute COPD exacerbation. Pulmonary team following patient for COPD. 3. Acute on chronic diastolic CHF/acute pulmonary edema: 2-D echo showed LVEF 60 -65%. Patient diuresing well with Lasix. 4. NSTEMI: trop at 0.107. Suspect type 2 demand mediated. EKG SR with asymmetrical T wave inversion mainly to V4/5/6 likely strain from HTN/CHF. Echo did not show any regional wall motion abnormalities. Recent Lexiscan nuclear stress test in May 2018 did not show any significant ischemia. Plan Plan of Care Problems Medical Problems: (1) Acute respiratory failure Status: Acute Comment Review of Relevant I have reviewed the following items babar (where applicable) has been applied. Labs Laboratory Tests Test 10/03/18 14:55 10/03/18 19:55 10/04/18 05:00 10/04/18 08:00 Troponin I Quantitative 0.098 ng/mL (0.000-0.055) Sodium Level 143 mmol/L (136-145) 143 mmol/L (136-145) Potassium Level 3.8 mmol/L (3.5-5.1) 3.3 mmol/L (3.5-5.1) Chloride Level 104 mmol/L (98-107) 105 mmol/L (98-107) Carbon Dioxide Level 28 mmol/L (21-32) 28 mmol/L (21-32) Anion Gap 11 (6-14) 10 (6-14) Blood Urea Nitrogen 16 mg/dL (7-20) 15 mg/dL (7-20) Creatinine 1.1 mg/dL (0.6-1.0) 0.9 mg/dL (0.6-1.0) Estimated GFR (Cockcroft-Gault) 60.3 76.0 Glucose Level 136 mg/dL (70-99) 113 mg/dL (70-99) Calcium Level 8.2 mg/dL (8.5-10.1) 8.1 mg/dL (8.5-10.1) O2 Saturation 94 % (92-99) Arterial Blood pH 7.47 (7.35-7.45) Arterial Blood pCO2 at Patient Temp 35 mmHg (35-46) Arterial Blood pO2 at Patient Temp 70 mmHg (65-108) Arterial Blood HCO3 25 mmol/L (21-28) Arterial Blood Base Excess 2 mmol/L (-3-3) FiO2 40 Test 10/04/18 09:21 O2 Saturation 97 % (92-99) Arterial Blood pH 7.44 (7.35-7.45) Arterial Blood pCO2 at Patient Temp 44 mmHg (35-46) Arterial Blood pO2 at Patient Temp 90 mmHg (65-108) Arterial Blood HCO3 29 mmol/L (21-28) Arterial Blood Base Excess 4 mmol/L (-3-3) FiO2 40 Microbiology 10/03/18 Blood Culture - Preliminary, Resulted NO GROWTH AFTER 1 DAY Medications Current Medications Albuterol Sulfate (Ventolin Neb Soln) 2.5 mg Q6HRS NEB ; Start 10/04/18 at 12:00 Allopurinol (Zyloprim) 100 mg DAILY PO Last administered on 10/04/18at 12:42; Start 10/04/18 at 13:00 Atorvastatin Calcium (Lipitor) 20 mg QHS PO Last administered on 10/03/18at 20: 25; Start 10/03/18 at 21:00 Budesonide (Pulmicort) 0.5 mg BID NEB ; Start 10/04/18 at 13:00 Cetirizine HCl (ZyrTEC) 10 mg DAILY PO ; Start 10/05/18 at 09:00 Clopidogrel Bisulfate (Plavix) 75 mg 1X ONCE PO Last administered on at 15:35; Start 10/03/18 at 14:45; Stop 10/03/18 at 14:46; Status DC Ergocalciferol (Vitamin D2) 50,000 unit WEEKLY PO ; Start 10/10/18 at 09:00 Famotidine (Pepcid) 20 mg QHS FT Last administered on 10/03/18at 20:25; Start 10/03/18 at 21:00 Fentanyl Citrate 30 ml @ 0 mls/hr CONT PRN PRN IV PAIN Last administered on 10/03/18at 22:19; Start 10/03/18 at 15:30 Fluticasone Propionate (Flonase) 2 spray DAILY NS Last administered on at 12:44; Start 10/04/18 at 13:00 Furosemide (Lasix) 40 mg 1X ONCE IVP Last administered on 10/04/18at 07:39; Start 10/04/18 at 08:00; Stop 10/04/18 at 08:01; Status DC Furosemide (Lasix) 40 mg DAILY IVP ; Start 10/04/18 at 09:00 Gabapentin (Neurontin) 100 mg BID PO Last administered on 10/04/18at 12:42; Start 10/04/18 at 12:30 Hydrochlorothiazide (Hydrodiuril) 25 mg DAILY PO Last administered on at 12:43; Start 10/04/18 at 13:00 Labetalol HCl (Normodyne Iv Push) 20 mg PRN Q2HR PRN IVP HYPERTENSION, SEE COMMENTS; Start 10/03/18 at 14:15 Levofloxacin/ Dextrose 100 ml @ 100 mls/hr Q24H IV Last administered on at 15:16; Start 10/04/18 at 09:00; Stop 10/04/18 at 09:54; Status DC Lisinopril (Prinivil) 20 mg DAILY PO Last administered on 10/04/18at 12:43; Start 10/04/18 at 13:00 Metoprolol Tartrate (Lopressor) 25 mg BID PO Last administered on 10/04/18at 09: 06; Start 10/03/18 at 21:00 Non-Formulary Medication (Budesonide/ Formoterol Fumarate (Symbicort 160-4.5 Mcg Inhaler)) 2 puff BID IH ; Start 10/04/18 at 21:00; Stop 10/04/18 at 21:00; Status DC Potassium Chloride/Water 50 ml @ 50 mls/hr Q1H IV Last administered on at 11:12; Start 10/04/18 at 08:00; Stop 10/04/18 at 11:59; Status DC Propofol 100 ml @ 1.429 mls/ hr CONT PRN PRN IV SEE PROTOCOL Last administered on 10/04/18at 03:51; Start 10/03/18 at 14:15 Ziprasidone (Geodon) 80 mg BID PO Last administered on 10/04/18at 12:43; Start 10/04/18 at 13:00 Vitals/I & O Vital Sign - Last 24 Hours 10/03/18 10/03/18 10/03/18 10/03/18 15:00 15:24 15:55 16:00 Pulse 86 Resp 20 19 20 B/P (MAP) 136/70 (92) Pulse Ox 100 100 O2 Delivery Ventilator Ventilator Ventilator Mechanical Ventilator O2 Flow Rate 45.0 10/03/18 10/03/18 10/03/18 10/03/18 16:00 16:00 17:00 18:00 Temp 98.8 98.8 Pulse 84 78 78 Resp 20 20 20 B/P (MAP) 134/61 (85) 116/50 (72) 127/57 (80) Pulse Ox 97 100 100 100 O2 Delivery Ventilator Ventilator Ventilator Ventilator 10/03/18 10/03/18 10/03/18 10/03/18 18:02 19:00 19:52 20:00 Temp 98.5 98.5 Pulse 80 82 Resp 20 20 B/P (MAP) 137/57 (83) 124/54 (77) Pulse Ox 97 100 100 100 O2 Delivery Ventilator Ventilator Ventilator Ventilator 10/03/18 10/03/18 10/03/18 10/03/18 20:08 20:25 21:00 22:00 Pulse 92 80 70 Resp 20 20 B/P (MAP) 124/55 120/56 (77) 109/49 (69) Pulse Ox 100 100 O2 Delivery Mechanical Ventilator Ventilator Ventilator 10/03/18 10/03/18 10/03/18 10/03/18 22:19 22:49 23:00 23:14 Pulse 66 Resp 20 B/P (MAP) 113/51 (71) Pulse Ox 100 100 100 100 O2 Delivery Ventilator Ventilator O2 Flow Rate 40.0 40.0 10/04/18 10/04/18 10/04/18 10/04/18 00:00 00:01 01:00 01:52 Temp 98.6 98.6 Pulse 68 68 Resp 20 20 B/P (MAP) 113/53 (73) 127/57 (80) Pulse Ox 100 100 100 O2 Delivery Mechanical Ventilator Ventilator Ventilator Ventilator 10/04/18 10/04/18 10/04/18 10/04/18 02:00 02:56 03:00 04:00 Pulse 68 70 Resp 20 20 B/P (MAP) 137/57 (83) 122/50 (74) Pulse Ox 100 100 100 O2 Delivery Ventilator Ventilator Ventilator Mechanical Ventilator 10/04/18 10/04/18 10/04/18 10/04/18 04:00 05:00 05:10 06:00 Temp 98.8 98.8 Pulse 66 62 64 Resp 20 20 20 B/P (MAP) 118/50 (72) 115/52 (73) 131/55 (80) Pulse Ox 100 100 100 100 O2 Delivery Ventilator Ventilator Ventilator Ventilator 10/04/18 10/04/18 10/04/18 10/04/18 07:00 08:00 08:00 08:00 Temp 97.8 97.8 Pulse 62 74 Resp 21 22 B/P (MAP) 124/61 (82) 155/74 (101) Pulse Ox 100 100 100 O2 Delivery Ventilator Ventilator Mechanical Ventilator Ventilator 10/04/18 10/04/18 10/04/18 10/04/18 08:29 08:49 09:00 09:06 Pulse 87 89 Resp 12 B/P (MAP) 165/77 (106) 165/77 Pulse Ox 100 100 100 O2 Delivery Ventilator Ventilator Ventilator 10/04/18 10/04/18 10/04/18 10/04/18 09:52 10:00 11:00 12:00 Pulse 81 82 Resp 15 17 B/P (MAP) 165/78 (107) 142/61 (88) Pulse Ox 100 100 100 O2 Delivery Ventilator Nasal Cannula Nasal Cannula Nasal Cannula O2 Flow Rate 2.0 2.0 2.0 10/04/18 10/04/18 10/04/18 10/04/18 12:00 12:00 12:43 13:00 Pulse 90 99 97 Resp 18 14 B/P (MAP) 149/66 (93) 149/66 154/62 (92) Pulse Ox 100 99 93 O2 Delivery Nasal Cannula Nasal Cannula Nasal Cannula O2 Flow Rate 2.0 2.0 2.0 Intake and Output 10/03/18 10/03/18 10/04/18 15:00 23:00 07:00 Intake Total 0 ml 1302.67 ml 383.3 ml Output Total 2335 ml 2460 ml 620 ml Balance -2335 ml -1157.33 ml -236.7 ml GREYSON OWUSU MD Oct 04, 2018 13:31
[2018-10-04 14:32] LABS: ALBUMIN 3.4 g/dL (3.4-5.0); ALBUMIN/GLOBULIN RATIO 0.9 (1.0-1.7); CALCIUM 8.4 mg/dL (8.5-10.1); GFR 67.3; TOTAL BILIRUBIN 0.5 mg/dL (0.2-1.0); TOTAL PROTEIN 7.2 g/dL (6.4-8.2)
[2018-10-04] MEDS: ATORVASTATIN CALCIUM 20 MG TABLET PO SCH (20:36)
[2018-10-04] MEDS: FAMOTIDINE 20 MG TABLET. FT SCH (20:37)
[2018-10-04] MEDS ORDERED: NON FORMULARY ITEM (Budesonide/Formoterol Fumarate (Symbicort 160-4.5 Mcg Inhaler) 2 PUFF) IH SCH (21:00)
[2018-10-05] VITALS (13 sets, daily range): BP systolic 101–176; BP diastolic 40–81
[2018-10-05] MEDS ORDERED: BENZOCAINE/MENTHOL LOZENGE. PO PRN (02:00)
[2018-10-05 05:39] LABS: BASO # 0.1 x10^3/uL (0.0-0.2); BASO % 1 % (0-3); EOS # 0.1 x10^3/uL (0.0-0.7); EOS % 1 % (0-3); HEMATOCRIT 33.2 % (36.0-47.0); HEMOGLOBIN 11.3 g/dL (12.0-15.5); LYMPH # 1.3 x10^3/uL (1.0-4.8); LYMPH % 14 % (24-48); MEAN CORPUSCULAR HEMOGLOBIN 31 pg (25-35); MEAN CORPUSCULAR HGB CONC 34 g/dL (31-37); MEAN CORPUSCULAR VOLUME 92 fL (79-100); MONO # 0.6 x10^3/uL (0.0-1.1); MONO % 7 % (0-9); NEUT # 7.4 x10^3uL (1.8-7.7); NEUT % 78 % (31-73); PLATELET COUNT 88 x10^3/uL (140-400); RED BLOOD COUNT 3.61 x10^6/uL (3.50-5.40); WHITE BLOOD COUNT 9.4 x10^3/uL (4.0-11.0)
[2018-10-05 05:58] LABS: CALCIUM 8.7 mg/dL (8.5-10.1); CREATININE 0.9 mg/dL (0.6-1.0); POTASSIUM 3.6 mmol/L (3.5-5.1)
[2018-10-05] MEDS: ALBUTEROL SULFATE 2.5 MG/3 ML NEBU. NEB SCH ×4 (06:00→18:00)
--- NOTE | 2018-10-05 07:33 | PDOC ---
PROGRESS NOTES Chief Complaint Chief Complaint Acute hypoxic and hypercapnic respiratory failure - most likely related to acute diastolic heart failure Highly suspected acute diastolic heart failure triggered by hypertensive crisis Hypokalemia Leukocytosis Mild renal insufficiency - likely hypertensive nephropathy Drug screen positive for benzos Thrombocytopenia H/o HTN H/o COPD H/o depression History of Present Illness History of Present Illness Pt seen and examined in ICU while awake, sitting up in bed and able to carry on a conversation with only slight dyspnea She has been able to swallow this morning, asking to have carvajal removed and go home soon. She feels very weak and still has some soreness in her chest, particularly with coughing. Discussed w/RN and respiratory therapist Acute hypoxic and hypercapnic respiratory failure, most likely related to acute diastolic heart failure. Highly suspected acute diastolic heart failure triggered by hypertensive crisis. Hypokalemia - improving Leukocytosis - likely reactive, WBCs 16.4 today Mild renal insufficiency - likely hypertensive nephropathy Drug screen positive for benzos Thrombocytopenia H/o HTN H/o COPD H/o depression Can likely transfer to wards from ICU today if ok with pulm Vitals Vitals Vital Signs Date Time Temp Pulse Resp B/P (MAP) Pulse Ox O2 Delivery O2 Flow Rate FiO2 10/05/18 07:00 81 25 136/60 (85) 100 Nasal Cannula 2.0 10/05/18 05:00 99.2 99.2 Physical Exam Physical Exam HEENT: [place] b/isacc General: Alert, Cooperative, Other (sedated but alert enough that she is able to answer questions b nodding yes or no.) Heart: Regular rate (SR/ST), Other (distant heart sounds) Lungs: Other (Slight bibasilar rhonchi) Abdomen: Soft, No tenderness, Other (obese) Extremities: No cyanosis, Other (2+ bilateral LE pitting edema) Skin: No breakdown, No significant lesion Labs LABS Laboratory Tests Test 10/04/18 08:00 10/04/18 09:21 10/04/18 12:50 10/05/18 05:15 O2 Saturation 94 % (92-99) 97 % (92-99) Arterial Blood pH 7.47 (7.35-7.45) 7.44 (7.35-7.45) Arterial Blood pCO2 at Patient Temp 35 mmHg (35-46) 44 mmHg (35-46) Arterial Blood pO2 at Patient Temp 70 mmHg (65-108) 90 mmHg (65-108) Arterial Blood HCO3 25 mmol/L (21-28) 29 mmol/L (21-28) Arterial Blood Base Excess 2 mmol/L (-3-3) 4 mmol/L (-3-3) FiO2 40 40 Sodium Level 144 mmol/L (136-145) 143 mmol/L (136-145) Potassium Level 4.0 mmol/L (3.5-5.1) 3.6 mmol/L (3.5-5.1) Chloride Level 106 mmol/L (98-107) 106 mmol/L (98-107) Carbon Dioxide Level 29 mmol/L (21-32) 28 mmol/L (21-32) Anion Gap 9 (6-14) 9 (6-14) Blood Urea Nitrogen 14 mg/dL (7-20) 13 mg/dL (7-20) Creatinine 1.0 mg/dL (0.6-1.0) 0.9 mg/dL (0.6-1.0) Estimated GFR (Cockcroft-Gault) 67.3 76.0 BUN/Creatinine Ratio 14 (6-20) Glucose Level 105 mg/dL (70-99) 105 mg/dL (70-99) Calcium Level 8.4 mg/dL (8.5-10.1) 8.7 mg/dL (8.5-10.1) Magnesium Level 2.0 mg/dL (1.8-2.4) Total Bilirubin 0.5 mg/dL (0.2-1.0) Aspartate Amino Transf (AST/SGOT) 48 U/L (15-37) Alanine Aminotransferase (ALT/SGPT) 59 U/L (14-59) Alkaline Phosphatase 86 U/L (46-116) Total Protein 7.2 g/dL (6.4-8.2) Albumin 3.4 g/dL (3.4-5.0) Albumin/Globulin Ratio 0.9 (1.0-1.7) White Blood Count 9.4 x10^3/uL (4.0-11.0) Red Blood Count 3.61 x10^6/uL (3.50-5.40) Hemoglobin 11.3 g/dL (12.0-15.5) Hematocrit 33.2 % (36.0-47.0) Mean Corpuscular Volume 92 fL (79-100) Mean Corpuscular Hemoglobin 31 pg (25-35) Mean Corpuscular Hemoglobin Concent 34 g/dL (31-37) Red Cell Distribution Width 15.0 % (11.5-14.5) Platelet Count 88 x10^3/uL (140-400) Neutrophils (%) (Auto) 78 % (31-73) Lymphocytes (%) (Auto) 14 % (24-48) Monocytes (%) (Auto) 7 % (0-9) Eosinophils (%) (Auto) 1 % (0-3) Basophils (%) (Auto) 1 % (0-3) Neutrophils # (Auto) 7.4 x10^3uL (1.8-7.7) Lymphocytes # (Auto) 1.3 x10^3/uL (1.0-4.8) Monocytes # (Auto) 0.6 x10^3/uL (0.0-1.1) Eosinophils # (Auto) 0.1 x10^3/uL (0.0-0.7) Basophils # (Auto) 0.1 x10^3/uL (0.0-0.2) Assessment and Plan Assessmemt and Plan Problems Medical Problems: (1) Acute respiratory failure Status: Acute Comment Review of Relevant I have reviewed the following items babar (where applicable) has been applied. Labs Laboratory Tests Test 10/03/18 08:20 10/03/18 08:30 10/03/18 10:00 10/03/18 12:20 Nasal Screen MRSA (PCR) Negative (Negative) O2 Saturation 94 % (92-99) Arterial Blood pH 7.29 (7.35-7.45) Arterial Blood pCO2 at Patient Temp 51 mmHg (35-46) Arterial Blood pO2 at Patient Temp 83 mmHg (65-108) Arterial Blood HCO3 24 mmol/L (21-28) Arterial Blood Base Excess -4 mmol/L (-3-3) FiO2 80 Lactic Acid Level 1.7 mmol/L (0.4-2.0) Troponin I Quantitative 0.107 ng/mL (0.000-0.055) Urine Opiates Screen Neg (NEG) Urine Methadone Screen Neg (NEG) Urine Barbiturates Neg (NEG) Urine Phencyclidine Screen Neg (NEG) Urine Amphetamine/Methamphetamine Neg (NEG) Urine Benzodiazepines Screen Pos (NEG) Urine Cocaine Screen Neg (NEG) Urine Cannabinoids Screen Neg (NEG) Urine Ethyl Alcohol Neg (NEG) Test 10/03/18 12:45 10/03/18 14:55 10/03/18 19:55 10/04/18 05:00 O2 Saturation 94 % (92-99) Arterial Blood pH 7.36 (7.35-7.45) Arterial Blood pCO2 at Patient Temp 46 mmHg (35-46) Arterial Blood pO2 at Patient Temp 70 mmHg (65-108) Arterial Blood HCO3 26 mmol/L (21-28) Arterial Blood Base Excess 0 mmol/L (-3-3) FiO2 45 Troponin I Quantitative 0.098 ng/mL (0.000-0.055) Sodium Level 143 mmol/L (136-145) 143 mmol/L (136-145) Potassium Level 3.8 mmol/L (3.5-5.1) 3.3 mmol/L (3.5-5.1) Chloride Level 104 mmol/L (98-107) 105 mmol/L (98-107) Carbon Dioxide Level 28 mmol/L (21-32) 28 mmol/L (21-32) Anion Gap 11 (6-14) 10 (6-14) Blood Urea Nitrogen 16 mg/dL (7-20) 15 mg/dL (7-20) Creatinine 1.1 mg/dL (0.6-1.0) 0.9 mg/dL (0.6-1.0) Estimated GFR (Cockcroft-Gault) 60.3 76.0 Glucose Level 136 mg/dL (70-99) 113 mg/dL (70-99) Calcium Level 8.2 mg/dL (8.5-10.1) 8.1 mg/dL (8.5-10.1) Test 10/04/18 08:00 10/04/18 09:21 10/04/18 12:50 10/05/18 05:15 O2 Saturation 94 % (92-99) 97 % (92-99) Arterial Blood pH 7.47 (7.35-7.45) 7.44 (7.35-7.45) Arterial Blood pCO2 at Patient Temp 35 mmHg (35-46) 44 mmHg (35-46) Arterial Blood pO2 at Patient Temp 70 mmHg (65-108) 90 mmHg (65-108) Arterial Blood HCO3 25 mmol/L (21-28) 29 mmol/L (21-28) Arterial Blood Base Excess 2 mmol/L (-3-3) 4 mmol/L (-3-3) FiO2 40 40 Sodium Level 144 mmol/L (136-145) 143 mmol/L (136-145) Potassium Level 4.0 mmol/L (3.5-5.1) 3.6 mmol/L (3.5-5.1) Chloride Level 106 mmol/L (98-107) 106 mmol/L (98-107) Carbon Dioxide Level 29 mmol/L (21-32) 28 mmol/L (21-32) Anion Gap 9 (6-14) 9 (6-14) Blood Urea Nitrogen 14 mg/dL (7-20) 13 mg/dL (7-20) Creatinine 1.0 mg/dL (0.6-1.0) 0.9 mg/dL (0.6-1.0) Estimated GFR (Cockcroft-Gault) 67.3 76.0 BUN/Creatinine Ratio 14 (6-20) Glucose Level 105 mg/dL (70-99) 105 mg/dL (70-99) Calcium Level 8.4 mg/dL (8.5-10.1) 8.7 mg/dL (8.5-10.1) Magnesium Level 2.0 mg/dL (1.8-2.4) Total Bilirubin 0.5 mg/dL (0.2-1.0) Aspartate Amino Transf (AST/SGOT) 48 U/L (15-37) Alanine Aminotransferase (ALT/SGPT) 59 U/L (14-59) Alkaline Phosphatase 86 U/L (46-116) Total Protein 7.2 g/dL (6.4-8.2) Albumin 3.4 g/dL (3.4-5.0) Albumin/Globulin Ratio 0.9 (1.0-1.7) White Blood Count 9.4 x10^3/uL (4.0-11.0) Red Blood Count 3.61 x10^6/uL (3.50-5.40) Hemoglobin 11.3 g/dL (12.0-15.5) Hematocrit 33.2 % (36.0-47.0) Mean Corpuscular Volume 92 fL (79-100) Mean Corpuscular Hemoglobin 31 pg (25-35) Mean Corpuscular Hemoglobin Concent 34 g/dL (31-37) Red Cell Distribution Width 15.0 % (11.5-14.5) Platelet Count 88 x10^3/uL (140-400) Neutrophils (%) (Auto) 78 % (31-73) Lymphocytes (%) (Auto) 14 % (24-48) Monocytes (%) (Auto) 7 % (0-9) Eosinophils (%) (Auto) 1 % (0-3) Basophils (%) (Auto) 1 % (0-3) Neutrophils # (Auto) 7.4 x10^3uL (1.8-7.7) Lymphocytes # (Auto) 1.3 x10^3/uL (1.0-4.8) Monocytes # (Auto) 0.6 x10^3/uL (0.0-1.1) Eosinophils # (Auto) 0.1 x10^3/uL (0.0-0.7) Basophils # (Auto) 0.1 x10^3/uL (0.0-0.2) Laboratory Tests Test 10/04/18 08:00 10/04/18 09:21 10/04/18 12:50 10/05/18 05:15 O2 Saturation 94 % (92-99) 97 % (92-99) Arterial Blood pH 7.47 (7.35-7.45) 7.44 (7.35-7.45) Arterial Blood pCO2 at Patient Temp 35 mmHg (35-46) 44 mmHg (35-46) Arterial Blood pO2 at Patient Temp 70 mmHg (65-108) 90 mmHg (65-108) Arterial Blood HCO3 25 mmol/L (21-28) 29 mmol/L (21-28) Arterial Blood Base Excess 2 mmol/L (-3-3) 4 mmol/L (-3-3) FiO2 40 40 Sodium Level 144 mmol/L (136-145) 143 mmol/L (136-145) Potassium Level 4.0 mmol/L (3.5-5.1) 3.6 mmol/L (3.5-5.1) Chloride Level 106 mmol/L (98-107) 106 mmol/L (98-107) Carbon Dioxide Level 29 mmol/L (21-32) 28 mmol/L (21-32) Anion Gap 9 (6-14) 9 (6-14) Blood Urea Nitrogen 14 mg/dL (7-20) 13 mg/dL (7-20) Creatinine 1.0 mg/dL (0.6-1.0) 0.9 mg/dL (0.6-1.0) Estimated GFR (Cockcroft-Gault) 67.3 76.0 BUN/Creatinine Ratio 14 (6-20) Glucose Level 105 mg/dL (70-99) 105 mg/dL (70-99) Calcium Level 8.4 mg/dL (8.5-10.1) 8.7 mg/dL (8.5-10.1) Magnesium Level 2.0 mg/dL (1.8-2.4) Total Bilirubin 0.5 mg/dL (0.2-1.0) Aspartate Amino Transf (AST/SGOT) 48 U/L (15-37) Alanine Aminotransferase (ALT/SGPT) 59 U/L (14-59) Alkaline Phosphatase 86 U/L (46-116) Total Protein 7.2 g/dL (6.4-8.2) Albumin 3.4 g/dL (3.4-5.0) Albumin/Globulin Ratio 0.9 (1.0-1.7) White Blood Count 9.4 x10^3/uL (4.0-11.0) Red Blood Count 3.61 x10^6/uL (3.50-5.40) Hemoglobin 11.3 g/dL (12.0-15.5) Hematocrit 33.2 % (36.0-47.0) Mean Corpuscular Volume 92 fL (79-100) Mean Corpuscular Hemoglobin 31 pg (25-35) Mean Corpuscular Hemoglobin Concent 34 g/dL (31-37) Red Cell Distribution Width 15.0 % (11.5-14.5) Platelet Count 88 x10^3/uL (140-400) Neutrophils (%) (Auto) 78 % (31-73) Lymphocytes (%) (Auto) 14 % (24-48) Monocytes (%) (Auto) 7 % (0-9) Eosinophils (%) (Auto) 1 % (0-3) Basophils (%) (Auto) 1 % (0-3) Neutrophils # (Auto) 7.4 x10^3uL (1.8-7.7) Lymphocytes # (Auto) 1.3 x10^3/uL (1.0-4.8) Monocytes # (Auto) 0.6 x10^3/uL (0.0-1.1) Eosinophils # (Auto) 0.1 x10^3/uL (0.0-0.7) Basophils # (Auto) 0.1 x10^3/uL (0.0-0.2) Microbiology 10/03/18 Blood Culture - Preliminary, Resulted NO GROWTH AFTER 1 DAY Medications Current Medications Propofol 50 ml @ As Directed STK-MED ONCE IV ; Start 10/03/18 at 05:56; Stop at 05:57; Status DC Albuterol Sulfate (Ventolin Neb Soln) 10 mg 1X ONCE CONT NEB Last administered on 10/03/18at 07:00; Start 10/03/18 at 06:15; Stop 10/03/18 at 06:16 ; Status DC Methylprednisolone Sodium Succinate (SOLU-Medrol 125MG VIAL) 125 mg 1X ONCE IV Last administered on 10/03/18at 07:20; Start 10/03/18 at 06:15; Stop 10/03/18 at 06:16; Status DC Doxycycline Hyclate 100 mg/ Dextrose 100 ml @ 50 mls/hr 1X ONCE IV Last administered on 10/03/18at 07:21; Start 10/03/18 at 06:15; Stop 10/03/18 at 08:14 ; Status DC Albuterol/ Ipratropium (Duoneb) 3 ml STK-MED ONCE .ROUTE ; Start 10/03/18 at 06: 03; Stop 10/03/18 at 06:04; Status DC Fentanyl Citrate (Fentanyl 2ml Vial) 100 mcg 1X ONCE IV ; Start 10/03/18 at 06: 15; Stop 10/03/18 at 06:16; Status DC Levofloxacin/ Dextrose (Levaquin Per Pharmacy) 1 each PRN DAILY PRN MC SEE COMMENTS; Start 10/03/18 at 06:15; Stop 10/04/18 at 09:59; Status DC Furosemide (Lasix) 20 mg 1X ONCE IVP Last administered on 10/03/18at 07:21; Start 10/03/18 at 06:15; Stop 10/03/18 at 06:16; Status DC Nitroglycerin/ Dextrose 250 ml @ 0 mls/hr 1X ONCE IV ; Start 10/03/18 at 06:15 ; Stop 10/03/18 at 06:16; Status DC Etomidate (Amidate) 20 mg STK-MED ONCE IV ; Start 10/03/18 at 06:11; Stop at 06:12; Status DC Levofloxacin/ Dextrose 150 ml @ 100 mls/hr 1X ONCE IV Last administered on at 06:30; Start 10/03/18 at 06:30; Stop 10/03/18 at 07:59; Status DC Fentanyl Citrate (Fentanyl 2ml Vial) 100 mcg 1X ONCE IV Last administered on 10/03/18at 06:40; Start 10/03/18 at 06:45; Stop 10/03/18 at 06:46; Status DC Propofol 50 ml @ As Directed STK-MED ONCE IV ; Start 10/03/18 at 06:54; Stop at 06:55; Status DC Sodium Bicarbonate (Sodium Bicarb Adult 8.4% Syr) 50 meq 1X ONCE IV ; Start at 07:30; Stop 10/03/18 at 07:31; Status DC Sodium Bicarbonate (Sodium Bicarb Adult 8.4% Syr) 50 meq STK-MED ONCE .ROUTE ; Start 10/03/18 at 07:17; Stop 10/03/18 at 07:18; Status DC Etomidate (Amidate) 20 mg STK-MED ONCE IV ; Start 10/03/18 at 07:29; Stop at 07:30; Status DC Midazolam HCl (Versed) 5 mg STK-MED ONCE .ROUTE ; Start 10/03/18 at 07:29; Stop 10/03/18 at 07:30; Status DC Fentanyl Citrate (Fentanyl 2ml Vial) 100 mcg STK-MED ONCE .ROUTE ; Start at 07:29; Stop 10/03/18 at 07:30; Status DC Succinylcholine Chloride (Anectine) 200 mg STK-MED ONCE .ROUTE ; Start 10/03/18 at 07:29; Stop 10/03/18 at 07:30; Status DC Etomidate (Amidate) 30 mg 1X ONCE IV Last administered on 10/03/18at 05:52; Start 10/03/18 at 08:30; Stop 10/03/18 at 08:31; Status DC Succinylcholine Chloride (Anectine) 120 mg 1X ONCE IV Last administered on 10/03/18at 05:53; Start 10/03/18 at 08:30; Stop 10/03/18 at 08:31; Status DC Fentanyl Citrate (Fentanyl 2ml Vial) 100 mcg 1X ONCE IV Last administered on 10/03/18at 06:07; Start 10/03/18 at 08:30; Stop 10/03/18 at 08:31; Status DC Etomidate (Amidate) 20 mg 1X ONCE IV Last administered on 10/03/18at 06:14; Start 10/03/18 at 08:30; Stop 10/03/18 at 08:31; Status DC Fentanyl Citrate (Fentanyl 2ml Vial) 100 mcg 1X ONCE IV ; Start 10/03/18 at 08: 30; Stop 10/03/18 at 08:31; Status DC Etomidate (Amidate) 10 mg 1X ONCE IV Last administered on 10/03/18at 06:50; Start 10/03/18 at 08:30; Stop 10/03/18 at 08:31; Status DC Midazolam HCl (Versed) 4 mg 1X ONCE IV Last administered on 10/03/18at 06:52; Start 10/03/18 at 08:30; Stop 10/03/18 at 08:31; Status DC Propofol 50 ml @ 1.429 mls/ hr 1X ONCE IV Last administered on 10/03/18at 06: 21; Start 10/03/18 at 06:20; Stop 10/04/18 at 17:19; Status DC Propofol 100 ml @ As Directed STK-MED ONCE IV ; Start 10/03/18 at 09:07; Stop 10/03/18 at 09:08; Status DC Albuterol/ Ipratropium (Duoneb) 3 ml RTQID NEB Last administered on 10/04/18at 20:02; Start 10/03/18 at 12:00 Enoxaparin Sodium (Lovenox 40mg Syringe) 40 mg Q24H SQ Last administered on 10/04/18at 10:45; Start 10/03/18 at 13:00 Famotidine (Pepcid) 20 mg QHS FT Last administered on 10/04/18at 20:37; Start 10/03/18 at 21:00 Furosemide (Lasix) 40 mg 1X ONCE IVP Last administered on 10/03/18at 12:28; Start 10/03/18 at 12:15; Stop 10/03/18 at 12:39; Status DC Furosemide (Lasix) 40 mg 1X ONCE IVP ; Start 10/03/18 at 12:15; Stop 10/03/18 at 12:21; Status DC Fentanyl Citrate 30 ml @ 0 mls/hr CONT PRN IV ; Start 10/03/18 at 12:45; Stop 10/03/18 at 15:21; Status DC Levofloxacin/ Dextrose 100 ml @ 100 mls/hr Q24H IV Last administered on at 15:16; Start 10/04/18 at 09:00; Stop 10/04/18 at 09:54; Status DC Labetalol HCl (Normodyne Iv Push) 20 mg PRN Q2HR PRN IVP HYPERTENSION, SEE COMMENTS; Start 10/03/18 at 14:15 Atorvastatin Calcium (Lipitor) 20 mg QHS PO Last administered on 10/04/18at 20: 36; Start 10/03/18 at 21:00 Propofol 100 ml @ 1.429 mls/ hr CONT PRN PRN IV SEE PROTOCOL Last administered on 10/04/18at 03:51; Start 10/03/18 at 14:15 Metoprolol Tartrate (Lopressor) 25 mg BID PO Last administered on 10/04/18at 20: 37; Start 10/03/18 at 21:00 Furosemide (Lasix) 40 mg DAILY IVP ; Start 10/04/18 at 09:00 Clopidogrel Bisulfate (Plavix) 75 mg 1X ONCE PO Last administered on at 15:35; Start 10/03/18 at 14:45; Stop 10/03/18 at 14:46; Status DC Fentanyl Citrate 30 ml @ 0 mls/hr CONT PRN PRN IV PAIN Last administered on 10/03/18at 22:19; Start 10/03/18 at 15:30 Furosemide (Lasix) 40 mg 1X ONCE IVP Last administered on 10/04/18at 07:39; Start 10/04/18 at 08:00; Stop 10/04/18 at 08:01; Status DC Potassium Chloride/Water 50 ml @ 50 mls/hr Q1H IV Last administered on at 11:12; Start 10/04/18 at 08:00; Stop 10/04/18 at 11:59; Status DC Allopurinol (Zyloprim) 100 mg DAILY PO Last administered on 10/04/18at 12:42; Start 10/04/18 at 13:00 Ergocalciferol (Vitamin D2) 50,000 unit WEEKLY PO ; Start 10/10/18 at 09:00 Gabapentin (Neurontin) 100 mg BID PO Last administered on 10/04/18at 20:36; Start 10/04/18 at 12:30 Non-Formulary Medication (Budesonide/ Formoterol Fumarate (Symbicort 160-4.5 Mcg Inhaler)) 2 puff BID IH ; Start 10/04/18 at 21:00; Stop 10/04/18 at 21:00; Status DC Fluticasone Propionate (Flonase) 2 spray DAILY NS Last administered on at 12:44; Start 10/04/18 at 13:00 Lisinopril (Prinivil) 20 mg DAILY PO Last administered on 10/04/18at 12:43; Start 10/04/18 at 13:00 Cetirizine HCl (ZyrTEC) 10 mg DAILY PO ; Start 10/05/18 at 09:00 Ziprasidone (Geodon) 80 mg BID PO Last administered on 10/04/18at 20:36; Start 10/04/18 at 13:00 Hydrochlorothiazide (Hydrodiuril) 25 mg DAILY PO Last administered on at 12:43; Start 10/04/18 at 13:00 Budesonide (Pulmicort) 0.5 mg BID NEB Last administered on 10/04/18at 20:02; Start 10/04/18 at 13:00 Albuterol Sulfate (Ventolin Neb Soln) 2.5 mg Q6HRS NEB ; Start 10/04/18 at 12:00 Throat Lozenges (Cepacol Sore Throat Lozenge) 1 vincent PRN Q2HRS PRN PO SORE THROAT Last administered on 11/4/18at 06:00; Start 10/05/18 at 02:00 Active Scripts Active Reported Atorvastatin Calcium 20 Mg Tablet 1 Tab PO DAILY Advair 250-50 Diskus (Fluticasone/Salmeterol) 1 Each Disk.w.dev 1 Puff IH BID Proair Hfa Inhaler (Albuterol Sulfate) 8.5 Gm Hfa.aer.ad 1-2 Puff INH PRN Q4HRS PRN Loratadine 10 Mg Tablet 1 Tab PO DAILY Flonase Allergy Relief (Fluticasone Propionate) 9.9 Ml [place].susp 2 Sprays NS DAILY Allopurinol 100 Mg Tablet 1 Tab PO DAILY Lisinopril-Hctz 20-25 Mg Tab (Lisinopril/Hydrochlorothiazide) 1 Each Tablet 1 Tab PO DAILY Vitamin D2 (Ergocalciferol (Vitamin D2)) 50,000 Unit Capsule 1 Cap PO WEEKLY Geodon (Ziprasidone Hcl) 80 Mg Capsule 1 Cap PO BID Potassium Chloride 20 Meq Tablet.er 20 Meq PO DAILY Tramadol Hcl 50 Mg Tablet 50 Mg PO TID Symbicort 160-4.5 Mcg Inhaler (Budesonide/Formoterol Fumarate) 10.2 Gm Hfa.aer.ad 2 Puff IH BID Toprol Xl (Metoprolol Succinate) 25 Mg Tab.er.24h 1 Tab PO DAILY Gabapentin 100 Mg Capsule 100 Mg PO BID Omeprazole 20 Mg Capsule. 1 Cap PO DAILY Vitals/I & O Vital Sign - Last 24 Hours 10/04/18 10/04/18 10/04/18 10/04/18 08:00 08:00 08:00 08:29 Temp 97.8 97.8 Pulse 74 Resp 22 B/P (MAP) 155/74 (101) Pulse Ox 100 100 100 O2 Delivery Ventilator Mechanical Ventilator Ventilator Ventilator 10/04/18 10/04/18 10/04/18 10/04/18 08:49 09:00 09:06 09:52 Pulse 87 89 Resp 12 B/P (MAP) 165/77 (106) 165/77 Pulse Ox 100 100 100 O2 Delivery Ventilator Ventilator Ventilator 10/04/18 10/04/18 10/04/18 10/04/18 10:00 11:00 12:00 12:00 Pulse 81 82 90 Resp 15 17 18 B/P (MAP) 165/78 (107) 142/61 (88) 149/66 (93) Pulse Ox 100 100 100 O2 Delivery Nasal Cannula Nasal Cannula Nasal Cannula Nasal Cannula O2 Flow Rate 2.0 2.0 2.0 2.0 10/04/18 10/04/18 10/04/18 10/04/18 12:00 12:43 13:00 14:00 Pulse 99 97 86 Resp 14 17 B/P (MAP) 149/66 154/62 (92) 165/59 (94) Pulse Ox 99 93 99 O2 Delivery Nasal Cannula Nasal Cannula Nasal Cannula O2 Flow Rate 2.0 2.0 2.0 10/04/18 10/04/18 10/04/18 10/04/18 15:00 15:59 16:00 16:11 Temp 98.2 98.2 Pulse 85 83 Resp 11 12 B/P (MAP) 147/61 (89) 147/61 (89) Pulse Ox 96 98 99 O2 Delivery Nasal Cannula Nasal Cannula Nasal Cannula Nasal Cannula O2 Flow Rate 2.0 2.0 2.0 2.0 10/04/18 10/04/18 10/04/18 10/04/18 17:00 18:00 19:00 20:00 Temp 99.4 99.4 Pulse 84 87 77 96 Resp 13 18 18 18 B/P (MAP) 134/58 (83) 151/59 (89) 142/57 (85) 118/60 (79) Pulse Ox 97 98 99 99 O2 Delivery Nasal Cannula Nasal Cannula Nasal Cannula Nasal Cannula O2 Flow Rate 2.0 2.0 2.0 2.0 10/04/18 10/04/18 10/04/18 10/04/18 20:00 20:03 20:04 20:37 Pulse 110 B/P (MAP) 118/60 Pulse Ox 98 98 O2 Delivery Nasal Cannula Nasal Cannula Nasal Cannula O2 Flow Rate 2.0 2.0 2.0 10/04/18 10/04/18 10/04/18 10/05/18 21:00 22:00 23:00 00:00 Pulse 103 108 105 Resp 18 14 13 B/P (MAP) 114/47 (69) 106/40 (62) 126/48 (74) Pulse Ox 95 99 99 O2 Delivery Nasal Cannula Nasal Cannula Nasal Cannula Nasal Cannula O2 Flow Rate 2.0 2.0 2.0 2.0 10/05/18 10/05/18 10/05/18 10/05/18 00:00 01:00 01:00 02:00 Temp 99.1 99.1 99.1 99.1 Pulse 90 87 98 80 Resp 18 13 16 18 B/P (MAP) 102/45 (64) 101/47 (65) 101/47 (65) 143/66 (91) Pulse Ox 98 99 99 98 O2 Delivery Nasal Cannula Nasal Cannula Nasal Cannula Nasal Cannula O2 Flow Rate 2.0 2.0 2.0 2.0 10/05/18 10/05/18 10/05/18 10/05/18 03:00 04:00 04:00 05:00 Temp 99.2 99.2 Pulse 74 90 72 Resp 12 18 14 B/P (MAP) 118/78 (91) 102/45 (64) 116/40 (65) Pulse Ox 100 98 100 O2 Delivery Nasal Cannula Nasal Cannula Nasal Cannula Nasal Cannula O2 Flow Rate 2.0 2.0 2.0 2.0 10/05/18 07:00 Pulse 81 Resp 25 B/P (MAP) 136/60 (85) Pulse Ox 100 O2 Delivery Nasal Cannula O2 Flow Rate 2.0 Intake and Output 10/04/18 10/04/18 10/05/18 15:00 23:00 07:00 Intake Total 450 ml 850 ml 240 ml Output Total 1615 ml 620 ml 535 ml Balance -1165 ml 230 ml -295 ml RAMON COLLADO MD Oct 05, 2018 07:32
[2018-10-05] MEDS: IPRATRPIUM/ALBUTEROL 0.5/2.5MG 3 ML NEBU. NEB SCH ×4 (07:51→20:30)
[2018-10-05] MEDS: BUDESONIDE 0.5 MG/2 ML NEBU. NEB SCH ×2 (07:51→20:30)
[2018-10-05] MEDS: CETIRIZINE HCL 10 MG TABLET. PO SCH (08:24)
[2018-10-05] MEDS: LISINOPRIL 20 MG TABLET PO SCH (08:24)
[2018-10-05] MEDS: ZIPRASIDONE 20 MG CAPSULE PO SCH ×2 (08:24→21:48)
[2018-10-05] MEDS: hydroCHLOROthiazide 25 MG TABLET PO SCH (08:24)
[2018-10-05] MEDS: FUROSEMIDE 40 MG/4 ML VIAL. IVP SCH (08:24)
[2018-10-05] MEDS: METOPROLOL TART IMMED RELEASE 25 MG TABLET. PO SCH ×2 (08:25→21:17)
[2018-10-05] MEDS: ALLOPURINOL 100 MG TABLET. PO SCH (08:25)
[2018-10-05] MEDS: GABAPENTIN 100 MG CAPSULE. PO SCH ×2 (08:25→21:17)
[2018-10-05] MEDS: FLUTICASONE 50MCG/NASAL SPRAY 16GM BOTTLE. NS SCH (08:26)
--- NOTE | 2018-10-05 10:18 | PDOC ---
PULMONARY PROGRESS NOTES Subjective extubated 10/04 doing well Vitals Vital Signs Date Time Temp Pulse Resp B/P (MAP) Pulse Ox O2 Delivery O2 Flow Rate FiO2 10/05/18 09:01 117 24 176/81 (112) 98 Room Air 10/05/18 08:04 2.0 10/05/18 05:00 99.2 99.2 General: Alert, No acute distress Lungs: Clear Cardiovascular: S1 Abdomen: Soft Neuro Exam: Alert Extremities: No Edema Skin: Warm Labs Laboratory Tests Test 10/03/18 12:20 10/03/18 12:45 10/03/18 14:55 10/03/18 19:55 Urine Opiates Screen Neg (NEG) Urine Methadone Screen Neg (NEG) Urine Barbiturates Neg (NEG) Urine Phencyclidine Screen Neg (NEG) Urine Amphetamine/Methamphetamine Neg (NEG) Urine Benzodiazepines Screen Pos (NEG) Urine Cocaine Screen Neg (NEG) Urine Cannabinoids Screen Neg (NEG) Urine Ethyl Alcohol Neg (NEG) O2 Saturation 94 % (92-99) Arterial Blood pH 7.36 (7.35-7.45) Arterial Blood pCO2 at Patient Temp 46 mmHg (35-46) Arterial Blood pO2 at Patient Temp 70 mmHg (65-108) Arterial Blood HCO3 26 mmol/L (21-28) Arterial Blood Base Excess 0 mmol/L (-3-3) FiO2 45 Troponin I Quantitative 0.098 ng/mL (0.000-0.055) Sodium Level 143 mmol/L (136-145) Potassium Level 3.8 mmol/L (3.5-5.1) Chloride Level 104 mmol/L (98-107) Carbon Dioxide Level 28 mmol/L (21-32) Anion Gap 11 (6-14) Blood Urea Nitrogen 16 mg/dL (7-20) Creatinine 1.1 mg/dL (0.6-1.0) Estimated GFR (Cockcroft-Gault) 60.3 Glucose Level 136 mg/dL (70-99) Calcium Level 8.2 mg/dL (8.5-10.1) Test 10/04/18 05:00 10/04/18 08:00 10/04/18 09:21 10/04/18 12:50 Sodium Level 143 mmol/L (136-145) 144 mmol/L (136-145) Potassium Level 3.3 mmol/L (3.5-5.1) 4.0 mmol/L (3.5-5.1) Chloride Level 105 mmol/L (98-107) 106 mmol/L (98-107) Carbon Dioxide Level 28 mmol/L (21-32) 29 mmol/L (21-32) Anion Gap 10 (6-14) 9 (6-14) Blood Urea Nitrogen 15 mg/dL (7-20) 14 mg/dL (7-20) Creatinine 0.9 mg/dL (0.6-1.0) 1.0 mg/dL (0.6-1.0) Estimated GFR (Cockcroft-Gault) 76.0 67.3 Glucose Level 113 mg/dL (70-99) 105 mg/dL (70-99) Calcium Level 8.1 mg/dL (8.5-10.1) 8.4 mg/dL (8.5-10.1) O2 Saturation 94 % (92-99) 97 % (92-99) Arterial Blood pH 7.47 (7.35-7.45) 7.44 (7.35-7.45) Arterial Blood pCO2 at Patient Temp 35 mmHg (35-46) 44 mmHg (35-46) Arterial Blood pO2 at Patient Temp 70 mmHg (65-108) 90 mmHg (65-108) Arterial Blood HCO3 25 mmol/L (21-28) 29 mmol/L (21-28) Arterial Blood Base Excess 2 mmol/L (-3-3) 4 mmol/L (-3-3) FiO2 40 40 BUN/Creatinine Ratio 14 (6-20) Magnesium Level 2.0 mg/dL (1.8-2.4) Total Bilirubin 0.5 mg/dL (0.2-1.0) Aspartate Amino Transf (AST/SGOT) 48 U/L (15-37) Alanine Aminotransferase (ALT/SGPT) 59 U/L (14-59) Alkaline Phosphatase 86 U/L (46-116) Total Protein 7.2 g/dL (6.4-8.2) Albumin 3.4 g/dL (3.4-5.0) Albumin/Globulin Ratio 0.9 (1.0-1.7) Test 10/05/18 05:15 White Blood Count 9.4 x10^3/uL (4.0-11.0) Red Blood Count 3.61 x10^6/uL (3.50-5.40) Hemoglobin 11.3 g/dL (12.0-15.5) Hematocrit 33.2 % (36.0-47.0) Mean Corpuscular Volume 92 fL (79-100) Mean Corpuscular Hemoglobin 31 pg (25-35) Mean Corpuscular Hemoglobin Concent 34 g/dL (31-37) Red Cell Distribution Width 15.0 % (11.5-14.5) Platelet Count 88 x10^3/uL (140-400) Neutrophils (%) (Auto) 78 % (31-73) Lymphocytes (%) (Auto) 14 % (24-48) Monocytes (%) (Auto) 7 % (0-9) Eosinophils (%) (Auto) 1 % (0-3) Basophils (%) (Auto) 1 % (0-3) Neutrophils # (Auto) 7.4 x10^3uL (1.8-7.7) Lymphocytes # (Auto) 1.3 x10^3/uL (1.0-4.8) Monocytes # (Auto) 0.6 x10^3/uL (0.0-1.1) Eosinophils # (Auto) 0.1 x10^3/uL (0.0-0.7) Basophils # (Auto) 0.1 x10^3/uL (0.0-0.2) Sodium Level 143 mmol/L (136-145) Potassium Level 3.6 mmol/L (3.5-5.1) Chloride Level 106 mmol/L (98-107) Carbon Dioxide Level 28 mmol/L (21-32) Anion Gap 9 (6-14) Blood Urea Nitrogen 13 mg/dL (7-20) Creatinine 0.9 mg/dL (0.6-1.0) Estimated GFR (Cockcroft-Gault) 76.0 Glucose Level 105 mg/dL (70-99) Calcium Level 8.7 mg/dL (8.5-10.1) Laboratory Tests Test 10/04/18 12:50 10/05/18 05:15 Sodium Level 144 mmol/L (136-145) 143 mmol/L (136-145) Potassium Level 4.0 mmol/L (3.5-5.1) 3.6 mmol/L (3.5-5.1) Chloride Level 106 mmol/L (98-107) 106 mmol/L (98-107) Carbon Dioxide Level 29 mmol/L (21-32) 28 mmol/L (21-32) Anion Gap 9 (6-14) 9 (6-14) Blood Urea Nitrogen 14 mg/dL (7-20) 13 mg/dL (7-20) Creatinine 1.0 mg/dL (0.6-1.0) 0.9 mg/dL (0.6-1.0) Estimated GFR (Cockcroft-Gault) 67.3 76.0 BUN/Creatinine Ratio 14 (6-20) Glucose Level 105 mg/dL (70-99) 105 mg/dL (70-99) Calcium Level 8.4 mg/dL (8.5-10.1) 8.7 mg/dL (8.5-10.1) Magnesium Level 2.0 mg/dL (1.8-2.4) Total Bilirubin 0.5 mg/dL (0.2-1.0) Aspartate Amino Transf (AST/SGOT) 48 U/L (15-37) Alanine Aminotransferase (ALT/SGPT) 59 U/L (14-59) Alkaline Phosphatase 86 U/L (46-116) Total Protein 7.2 g/dL (6.4-8.2) Albumin 3.4 g/dL (3.4-5.0) Albumin/Globulin Ratio 0.9 (1.0-1.7) White Blood Count 9.4 x10^3/uL (4.0-11.0) Red Blood Count 3.61 x10^6/uL (3.50-5.40) Hemoglobin 11.3 g/dL (12.0-15.5) Hematocrit 33.2 % (36.0-47.0) Mean Corpuscular Volume 92 fL (79-100) Mean Corpuscular Hemoglobin 31 pg (25-35) Mean Corpuscular Hemoglobin Concent 34 g/dL (31-37) Red Cell Distribution Width 15.0 % (11.5-14.5) Platelet Count 88 x10^3/uL (140-400) Neutrophils (%) (Auto) 78 % (31-73) Lymphocytes (%) (Auto) 14 % (24-48) Monocytes (%) (Auto) 7 % (0-9) Eosinophils (%) (Auto) 1 % (0-3) Basophils (%) (Auto) 1 % (0-3) Neutrophils # (Auto) 7.4 x10^3uL (1.8-7.7) Lymphocytes # (Auto) 1.3 x10^3/uL (1.0-4.8) Monocytes # (Auto) 0.6 x10^3/uL (0.0-1.1) Eosinophils # (Auto) 0.1 x10^3/uL (0.0-0.7) Basophils # (Auto) 0.1 x10^3/uL (0.0-0.2) Medications Active Scripts Medications Dose Route/Sig Max Daily Dose Days Date Category Atorvastatin Calcium 20 Mg Tablet 1 Tab PO DAILY 05/20/18 Reported Advair 250-50 Diskus (Fluticasone/Salmeterol) 1 Each Disk.w.dev 1 Puff IH BID 05/20/18 Reported Proair Hfa Inhaler (Albuterol Sulfate) 8.5 Gm Hfa.aer.ad 1-2 Puff INH PRN Q4HRS PRN 05/20/18 Reported Loratadine 10 Mg Tablet 1 Tab PO DAILY 05/20/18 Reported Flonase Allergy Relief (Fluticasone Propionate) 9.9 Ml [place].susp 2 Sprays NS DAILY 05/20/18 Reported Allopurinol 100 Mg Tablet 1 Tab PO DAILY 05/20/18 Reported Lisinopril-Hctz 20-25 Mg Tab (Lisinopril/Hydrochlorothiazide) 1 Each Tablet 1 Tab PO DAILY 05/20/18 Reported Vitamin D2 (Ergocalciferol (Vitamin D2)) 50,000 Unit Capsule 1 Cap PO WEEKLY 05/20/18 Reported Geodon (Ziprasidone Hcl) 80 Mg Capsule 1 Cap PO BID 05/20/18 Reported Potassium Chloride 20 Meq Tablet.er 20 Meq PO DAILY 05/20/18 Reported Tramadol Hcl 50 Mg Tablet 50 Mg PO TID 05/20/18 Reported Symbicort 160-4.5 Mcg Inhaler (Budesonide/Formoterol Fumarate) 10.2 Gm Hfa.aer.ad 2 Puff IH BID 05/20/18 Reported Toprol Xl (Metoprolol Succinate) 25 Mg Tab.er.24h 1 Tab PO DAILY 05/20/18 Reported Gabapentin 100 Mg Capsule 100 Mg PO BID 05/20/18 Reported Omeprazole 20 Mg Capsule.dr 1 Cap PO DAILY 05/20/18 Reported Impression . 1. Acute hypoxic and hypercapnic respiratory failure, related to acute diastolic heart failure. 2. acute diastolic heart failure triggered by hypertensive crisis.Normal EF 3. Abnormal chest x-ray with diffuse interstitial infiltrates and cardiomegaly, suspect interstitial edema , resolved with diuresis 4. Leukocytosis, likely reactive. 5. Mild renal insufficiency, probably hypertensive nephropathy. 6. Suspect COPD Plan . 1. Discussed with RN . Doing well on canula 2. Diuresis. 3. Follow up chest x-ray clear now 4. Urine drug screen positive for benzo 5. Nebulizer treatment. 6. off antibiotic 7. echocardiogram.reviewed 8. PO Nutrition transfer to floor d/w MAXIMO MARTELL MD Oct 05, 2018 10:18
--- NOTE | 2018-10-05 10:40 | PDOC ---
PROGRESS NOTES Subjective Subjective Dyspnea improved Objective Objective Vital Signs Date Time Temp Pulse Resp B/P (MAP) Pulse Ox O2 Delivery O2 Flow Rate FiO2 10/05/18 09:01 117 24 176/81 (112) 98 Room Air 10/05/18 08:04 2.0 10/05/18 05:00 99.2 99.2 Intake and Output 10/05/18 07:00 Intake Total 1540 ml Output Total 2845 ml Balance -1305 ml Intake Oral 1540 ml Output Urine Total 2845 ml Physical Exam Abdomen: Soft, No tenderness, Other (obese) Heart: Regular rate (SR/ST), Other (distant heart sounds) Extremities: No cyanosis, Other (2+ bilateral LE pitting edema) General: Alert, Cooperative, Other (sedated but alert enough that she is able to answer questions b nodding yes or no.) HEENT: Atraumatic, Mucous membr. moist/pink Lungs: Other (diffuse crackles; mechanical vent) Neuro: Sensation intact Psych/Mental Status: Other (sedated) Skin: No breakdown, No significant lesion Assessment Assessment 1. Malignant HTN: Much better controlled since admission. Continue current medical regimen. 2. Acute respiratory failure secondary to combination of acute on chronic diastolic heart failure and mild acute COPD exacerbation. Pulmonary team following patient for COPD. 3. Acute on chronic diastolic CHF/acute pulmonary edema: 2-D echo showed LVEF 60 -65%. Patient diuresing well with Lasix. 4. NSTEMI: trop at 0.107. Suspect type 2 demand mediated. EKG SR with asymmetrical T wave inversion mainly to V4/5/6 likely strain from HTN/CHF. Echo did not show any regional wall motion abnormalities. Recent Lexiscan nuclear stress test in May 2018 did not show any significant ischemia Plan Plan of Care Problems Medical Problems: (1) Acute respiratory failure Status: Acute Comment Review of Relevant I have reviewed the following items babar (where applicable) has been applied. Labs Laboratory Tests Test 10/04/18 12:50 10/05/18 05:15 Sodium Level 144 mmol/L (136-145) 143 mmol/L (136-145) Potassium Level 4.0 mmol/L (3.5-5.1) 3.6 mmol/L (3.5-5.1) Chloride Level 106 mmol/L (98-107) 106 mmol/L (98-107) Carbon Dioxide Level 29 mmol/L (21-32) 28 mmol/L (21-32) Anion Gap 9 (6-14) 9 (6-14) Blood Urea Nitrogen 14 mg/dL (7-20) 13 mg/dL (7-20) Creatinine 1.0 mg/dL (0.6-1.0) 0.9 mg/dL (0.6-1.0) Estimated GFR (Cockcroft-Gault) 67.3 76.0 BUN/Creatinine Ratio 14 (6-20) Glucose Level 105 mg/dL (70-99) 105 mg/dL (70-99) Calcium Level 8.4 mg/dL (8.5-10.1) 8.7 mg/dL (8.5-10.1) Magnesium Level 2.0 mg/dL (1.8-2.4) Total Bilirubin 0.5 mg/dL (0.2-1.0) Aspartate Amino Transf (AST/SGOT) 48 U/L (15-37) Alanine Aminotransferase (ALT/SGPT) 59 U/L (14-59) Alkaline Phosphatase 86 U/L (46-116) Total Protein 7.2 g/dL (6.4-8.2) Albumin 3.4 g/dL (3.4-5.0) Albumin/Globulin Ratio 0.9 (1.0-1.7) White Blood Count 9.4 x10^3/uL (4.0-11.0) Red Blood Count 3.61 x10^6/uL (3.50-5.40) Hemoglobin 11.3 g/dL (12.0-15.5) Hematocrit 33.2 % (36.0-47.0) Mean Corpuscular Volume 92 fL (79-100) Mean Corpuscular Hemoglobin 31 pg (25-35) Mean Corpuscular Hemoglobin Concent 34 g/dL (31-37) Red Cell Distribution Width 15.0 % (11.5-14.5) Platelet Count 88 x10^3/uL (140-400) Neutrophils (%) (Auto) 78 % (31-73) Lymphocytes (%) (Auto) 14 % (24-48) Monocytes (%) (Auto) 7 % (0-9) Eosinophils (%) (Auto) 1 % (0-3) Basophils (%) (Auto) 1 % (0-3) Neutrophils # (Auto) 7.4 x10^3uL (1.8-7.7) Lymphocytes # (Auto) 1.3 x10^3/uL (1.0-4.8) Monocytes # (Auto) 0.6 x10^3/uL (0.0-1.1) Eosinophils # (Auto) 0.1 x10^3/uL (0.0-0.7) Basophils # (Auto) 0.1 x10^3/uL (0.0-0.2) Microbiology 10/03/18 Blood Culture - Preliminary, Resulted NO GROWTH AFTER 2 DAYS Medications Current Medications Albuterol Sulfate (Ventolin Neb Soln) 2.5 mg Q6HRS NEB ; Start 10/04/18 at 12:00 Allopurinol (Zyloprim) 100 mg DAILY PO Last administered on 10/05/18 08:25; Start 10/04/18 at 13:00 Budesonide (Pulmicort) 0.5 mg BID NEB Last administered on 10/05/18at 07:51; Start 10/04/18 at 13:00 Cetirizine HCl (ZyrTEC) 10 mg DAILY PO Last administered on 10/05/18 08:24; Start 10/05/18 at 09:00 Ergocalciferol (Vitamin D2) 50,000 unit WEEKLY PO ; Start 10/10/18 at 09:00 Fluticasone Propionate (Flonase) 2 spray DAILY NS Last administered on 08:26; Start 10/04/18 at 13:00 Gabapentin (Neurontin) 100 mg BID PO Last administered on 10/05/18 08:25; Start 10/04/18 at 12:30 Hydrochlorothiazide (Hydrodiuril) 25 mg DAILY PO Last administered on 08:24; Start 10/04/18 at 13:00 Lisinopril (Prinivil) 20 mg DAILY PO Last administered on 10/05/18 08:24; Start 10/04/18 at 13:00 Non-Formulary Medication (Budesonide/ Formoterol Fumarate (Symbicort 160-4.5 Mcg Inhaler)) 2 puff BID IH ; Start 10/04/18 at 21:00; Stop 10/04/18 at 21:00; Status DC Throat Lozenges (Cepacol Sore Throat Lozenge) 1 vincent PRN Q2HRS PRN PO SORE THROAT Last administered on 10/05/18at 06:00; Start 10/05/18 at 02:00 Ziprasidone (Geodon) 80 mg BID PO Last administered on 10/05/18at 08:24; Start 10/04/18 at 13:00 Vitals/I & O Vital Sign - Last 24 Hours 10/04/18 10/04/18 10/04/18 10/04/18 11:00 12:00 12:00 12:00 Pulse 82 90 Resp 17 18 B/P (MAP) 142/61 (88) 149/66 (93) Pulse Ox 100 100 99 O2 Delivery Nasal Cannula Nasal Cannula Nasal Cannula Nasal Cannula O2 Flow Rate 2.0 2.0 2.0 2.0 10/04/18 10/04/18 10/04/18 10/04/18 12:43 13:00 14:00 15:00 Pulse 99 97 86 85 Resp 14 17 11 B/P (MAP) 149/66 154/62 (92) 165/59 (94) 147/61 (89) Pulse Ox 93 99 96 O2 Delivery Nasal Cannula Nasal Cannula Nasal Cannula O2 Flow Rate 2.0 2.0 2.0 10/04/18 10/04/18 10/04/18 10/04/18 15:59 16:00 16:11 17:00 Temp 98.2 98.2 Pulse 83 84 Resp 12 13 B/P (MAP) 147/61 (89) 134/58 (83) Pulse Ox 98 99 97 O2 Delivery Nasal Cannula Nasal Cannula Nasal Cannula Nasal Cannula O2 Flow Rate 2.0 2.0 2.0 2.0 10/04/18 10/04/18 10/04/18 10/04/18 18:00 19:00 20:00 20:00 Temp 99.4 99.4 Pulse 87 77 96 Resp 18 18 18 B/P (MAP) 151/59 (89) 142/57 (85) 118/60 (79) Pulse Ox 98 99 99 O2 Delivery Nasal Cannula Nasal Cannula Nasal Cannula Nasal Cannula O2 Flow Rate 2.0 2.0 2.0 2.0 10/04/18 10/04/18 10/04/18 10/04/18 20:03 20:04 20:37 21:00 Pulse 110 103 Resp 18 B/P (MAP) 118/60 114/47 (69) Pulse Ox 98 98 95 O2 Delivery Nasal Cannula Nasal Cannula Nasal Cannula O2 Flow Rate 2.0 2.0 2.0 10/04/18 10/04/18 10/05/18 10/05/18 22:00 23:00 00:00 00:00 Temp 99.1 99.1 Pulse 108 105 90 Resp 14 13 18 B/P (MAP) 106/40 (62) 126/48 (74) 102/45 (64) Pulse Ox 99 99 98 O2 Delivery Nasal Cannula Nasal Cannula Nasal Cannula Nasal Cannula O2 Flow Rate 2.0 2.0 2.0 2.0 10/05/18 10/05/18 10/05/18 10/05/18 01:00 01:00 02:00 03:00 Temp 99.1 99.1 Pulse 87 98 80 74 Resp 13 16 18 12 B/P (MAP) 101/47 (65) 101/47 (65) 143/66 (91) 118/78 (91) Pulse Ox 99 99 98 100 O2 Delivery Nasal Cannula Nasal Cannula Nasal Cannula Nasal Cannula O2 Flow Rate 2.0 2.0 2.0 2.0 10/05/18 10/05/18 10/05/18 10/05/18 04:00 04:00 05:00 07:00 Temp 99.2 99.2 Pulse 90 72 81 Resp 18 14 25 B/P (MAP) 102/45 (64) 116/40 (65) 136/60 (85) Pulse Ox 98 100 100 O2 Delivery Nasal Cannula Nasal Cannula Nasal Cannula Nasal Cannula O2 Flow Rate 2.0 2.0 2.0 2.0 10/05/18 10/05/18 10/05/18 10/05/18 07:52 08:00 08:04 08:24 Pulse 89 115 Resp 21 B/P (MAP) 157/66 (96) 157/66 Pulse Ox 100 97 O2 Delivery Nasal Cannula Nasal Cannula Nasal Cannula O2 Flow Rate 2.0 2.0 2.0 10/05/18 10/05/18 08:25 09:01 Pulse 108 117 Resp 24 B/P (MAP) 157/66 176/81 (112) Pulse Ox 98 O2 Delivery Room Air Intake and Output 10/04/18 10/04/18 10/05/18 15:00 23:00 07:00 Intake Total 450 ml 850 ml 240 ml Output Total 1615 ml 620 ml 610 ml Balance -1165 ml 230 ml -370 ml GREYSON OWUSU MD Oct 05, 2018 10:40
[2018-10-05] MEDS: ENOXAPARIN 40 MG/0.4 ML SYRINGE. SQ SCH (14:43)
[2018-10-05] MEDS: FAMOTIDINE 20 MG TABLET. FT SCH (21:16)
[2018-10-05] MEDS: ATORVASTATIN CALCIUM 20 MG TABLET PO SCH (21:17)
[2018-10-06 03:02] VITALS: BP 120/53
[2018-10-06 05:05] LABS: BASO # 0.1 x10^3/uL (0.0-0.2); BASO % 1 % (0-3); EOS # 0.2 x10^3/uL (0.0-0.7); EOS % 2 % (0-3); HEMATOCRIT 35.7 % (36.0-47.0); HEMOGLOBIN 12.1 g/dL (12.0-15.5); LYMPH # 1.4 x10^3/uL (1.0-4.8); LYMPH % 18 % (24-48); MEAN CORPUSCULAR HEMOGLOBIN 31 pg (25-35); MEAN CORPUSCULAR HGB CONC 34 g/dL (31-37); MEAN CORPUSCULAR VOLUME 92 fL (79-100); MONO # 0.7 x10^3/uL (0.0-1.1); MONO % 9 % (0-9); NEUT # 5.3 x10^3uL (1.8-7.7); NEUT % 70 % (31-73); PLATELET COUNT 99 x10^3/uL (140-400); RED BLOOD COUNT 3.88 x10^6/uL (3.50-5.40); RED CELL DISTRIBUTION WIDTH 14.7 % (11.5-14.5); WHITE BLOOD COUNT 7.6 x10^3/uL (4.0-11.0)
[2018-10-06 05:23] LABS: CALCIUM 9.3 mg/dL (8.5-10.1); CREATININE 0.9 mg/dL (0.6-1.0); POTASSIUM 3.6 mmol/L (3.5-5.1)
[2018-10-06] MEDS: ALBUTEROL SULFATE 2.5 MG/3 ML NEBU. NEB SCH ×2 (06:00)
[2018-10-06 07:00] VITALS: BP 115/48
[2018-10-06] MEDS: IPRATRPIUM/ALBUTEROL 0.5/2.5MG 3 ML NEBU. NEB SCH ×4 (07:12→19:13)
[2018-10-06] MEDS: BUDESONIDE 0.5 MG/2 ML NEBU. NEB SCH (07:12)
--- NOTE | 2018-10-06 08:33 | CARD ---
MR#: [id number] Account#: Date of Study: 10/03/2018 Ordering Physician: Charmaine: Penny Littlejohn APPROVED REPORT EXAM: LIMITED Two-dimensional and M-mode echocardiogram. Other Information Quality : GoodHR: 83bpm INDICATION Congestive Heart Failure 2D DIMENSIONS RVDd3.3 (2.9-3.5cm)Left Atrium(2D)3.7 (1.6-4.0cm) IVSd1.3 (0.7-1.1cm)Aortic Root(2D)2.2 (2.0-3.7cm) LVDd5.0 (3.9-5.9cm)LVOT Diameter2.1 (1.8-2.4cm) PWd1.4 (0.7-1.1cm)LVDs3.0 (2.5-4.0cm) FS (%) 39.7 %SV16.8 ml LVEF(%)72.5 (>50%) Mitral Valve MV E Dbefgiba02.4cm/sMV DECEL [id number] MV A Dbxgrfvw92.9cm/sE/A Ratio1.0 LEFT VENTRICLE The left ventricle is normal size. There is moderate concentric left ventricular hypertrophy. The lef t ventricular systolic function is normal. The Ejection Fraction is 60-65%. There is normal LV segmen frank wall motion. RIGHT VENTRICLE The right ventricle is normal size. There is normal right ventricular wall thickness. The right ventr icular systolic function is normal. AORTIC VALVE The aortic valve is thickened but opens well. Aortic valve not well interrogated but there is no obvi ous stenosis or regurgitation. MITRAL VALVE The mitral valve is normal in structure and function. There is no mitral valve stenosis. Doppler and Color Flow revealed no mitral valve regurgitation noted. TRICUSPID VALVE The tricuspid valve is not well interrogated. GREAT VESSELS The aortic root is normal in size. The IVC is normal in size and collapses >50% with inspiration. PERICARDIAL EFFUSION There is no evidence of significant pericardial effusion. Critical Notification Critical Value: No <Conclusion> The left ventricular systolic function is normal. The Ejection Fraction is 60-65%. There is normal LV segmental wall motion. Valves not well interrogated but there is no obvious stenosis or regurgitation. There is no evidence of significant pericardial effusion. Signed by : Valeriy Rabago, Electronically Approved : 10/04/2018 11:14:14
[2018-10-06] MEDS: ZIPRASIDONE 20 MG CAPSULE PO SCH ×2 (08:40→21:00)
[2018-10-06] MEDS: hydroCHLOROthiazide 25 MG TABLET PO SCH (08:41)
[2018-10-06] MEDS: FLUTICASONE 50MCG/NASAL SPRAY 16GM BOTTLE. NS SCH (08:41)
[2018-10-06] MEDS: FUROSEMIDE 40 MG/4 ML VIAL. IVP SCH (08:41)
[2018-10-06] MEDS: LISINOPRIL 20 MG TABLET PO SCH (08:42)
[2018-10-06] MEDS: METOPROLOL TART IMMED RELEASE 25 MG TABLET. PO SCH ×2 (08:42→21:00)
[2018-10-06] MEDS: GABAPENTIN 100 MG CAPSULE. PO SCH ×2 (08:42→21:00)
[2018-10-06] MEDS: ALLOPURINOL 100 MG TABLET. PO SCH (08:42)
[2018-10-06] MEDS: CETIRIZINE HCL 10 MG TABLET. PO SCH (09:00)
--- NOTE | 2018-10-06 09:59 | PDOC ---
PULMONARY PROGRESS NOTES Subjective extubated 10/04 doing well Vitals Vital Signs Date Time Temp Pulse Resp B/P (MAP) Pulse Ox O2 Delivery O2 Flow Rate FiO2 10/06/18 08:42 86 115/48 10/06/18 07:14 98 Nasal Cannula 2.0 10/06/18 07:00 98.7 18 98.7 General: Alert, No acute distress Lungs: Clear Cardiovascular: S1 Abdomen: Soft Neuro Exam: Alert Extremities: No Edema Skin: Warm Labs Laboratory Tests Test 10/04/18 12:50 10/05/18 05:15 10/06/18 04:45 Sodium Level 144 mmol/L (136-145) 143 mmol/L (136-145) 142 mmol/L (136-145) Potassium Level 4.0 mmol/L (3.5-5.1) 3.6 mmol/L (3.5-5.1) 3.6 mmol/L (3.5-5.1) Chloride Level 106 mmol/L (98-107) 106 mmol/L (98-107) 103 mmol/L (98-107) Carbon Dioxide Level 29 mmol/L (21-32) 28 mmol/L (21-32) 30 mmol/L (21-32) Anion Gap 9 (6-14) 9 (6-14) 9 (6-14) Blood Urea Nitrogen 14 mg/dL (7-20) 13 mg/dL (7-20) 16 mg/dL (7-20) Creatinine 1.0 mg/dL (0.6-1.0) 0.9 mg/dL (0.6-1.0) 0.9 mg/dL (0.6-1.0) Estimated GFR (Cockcroft-Gault) 67.3 76.0 76.0 BUN/Creatinine Ratio 14 (6-20) Glucose Level 105 mg/dL (70-99) 105 mg/dL (70-99) 106 mg/dL (70-99) Calcium Level 8.4 mg/dL (8.5-10.1) 8.7 mg/dL (8.5-10.1) 9.3 mg/dL (8.5-10.1) Magnesium Level 2.0 mg/dL (1.8-2.4) Total Bilirubin 0.5 mg/dL (0.2-1.0) Aspartate Amino Transf (AST/SGOT) 48 U/L (15-37) Alanine Aminotransferase (ALT/SGPT) 59 U/L (14-59) Alkaline Phosphatase 86 U/L (46-116) Total Protein 7.2 g/dL (6.4-8.2) Albumin 3.4 g/dL (3.4-5.0) Albumin/Globulin Ratio 0.9 (1.0-1.7) White Blood Count 9.4 x10^3/uL (4.0-11.0) 7.6 x10^3/uL (4.0-11.0) Red Blood Count 3.61 x10^6/uL (3.50-5.40) 3.88 x10^6/uL (3.50-5.40) Hemoglobin 11.3 g/dL (12.0-15.5) 12.1 g/dL (12.0-15.5) Hematocrit 33.2 % (36.0-47.0) 35.7 % (36.0-47.0) Mean Corpuscular Volume 92 fL (79-100) 92 fL (79-100) Mean Corpuscular Hemoglobin 31 pg (25-35) 31 pg (25-35) Mean Corpuscular Hemoglobin Concent 34 g/dL (31-37) 34 g/dL (31-37) Red Cell Distribution Width 15.0 % (11.5-14.5) 14.7 % (11.5-14.5) Platelet Count 88 x10^3/uL (140-400) 99 x10^3/uL (140-400) Neutrophils (%) (Auto) 78 % (31-73) 70 % (31-73) Lymphocytes (%) (Auto) 14 % (24-48) 18 % (24-48) Monocytes (%) (Auto) 7 % (0-9) 9 % (0-9) Eosinophils (%) (Auto) 1 % (0-3) 2 % (0-3) Basophils (%) (Auto) 1 % (0-3) 1 % (0-3) Neutrophils # (Auto) 7.4 x10^3uL (1.8-7.7) 5.3 x10^3uL (1.8-7.7) Lymphocytes # (Auto) 1.3 x10^3/uL (1.0-4.8) 1.4 x10^3/uL (1.0-4.8) Monocytes # (Auto) 0.6 x10^3/uL (0.0-1.1) 0.7 x10^3/uL (0.0-1.1) Eosinophils # (Auto) 0.1 x10^3/uL (0.0-0.7) 0.2 x10^3/uL (0.0-0.7) Basophils # (Auto) 0.1 x10^3/uL (0.0-0.2) 0.1 x10^3/uL (0.0-0.2) Laboratory Tests Test 10/06/18 04:45 White Blood Count 7.6 x10^3/uL (4.0-11.0) Red Blood Count 3.88 x10^6/uL (3.50-5.40) Hemoglobin 12.1 g/dL (12.0-15.5) Hematocrit 35.7 % (36.0-47.0) Mean Corpuscular Volume 92 fL (79-100) Mean Corpuscular Hemoglobin 31 pg (25-35) Mean Corpuscular Hemoglobin Concent 34 g/dL (31-37) Red Cell Distribution Width 14.7 % (11.5-14.5) Platelet Count 99 x10^3/uL (140-400) Neutrophils (%) (Auto) 70 % (31-73) Lymphocytes (%) (Auto) 18 % (24-48) Monocytes (%) (Auto) 9 % (0-9) Eosinophils (%) (Auto) 2 % (0-3) Basophils (%) (Auto) 1 % (0-3) Neutrophils # (Auto) 5.3 x10^3uL (1.8-7.7) Lymphocytes # (Auto) 1.4 x10^3/uL (1.0-4.8) Monocytes # (Auto) 0.7 x10^3/uL (0.0-1.1) Eosinophils # (Auto) 0.2 x10^3/uL (0.0-0.7) Basophils # (Auto) 0.1 x10^3/uL (0.0-0.2) Sodium Level 142 mmol/L (136-145) Potassium Level 3.6 mmol/L (3.5-5.1) Chloride Level 103 mmol/L (98-107) Carbon Dioxide Level 30 mmol/L (21-32) Anion Gap 9 (6-14) Blood Urea Nitrogen 16 mg/dL (7-20) Creatinine 0.9 mg/dL (0.6-1.0) Estimated GFR (Cockcroft-Gault) 76.0 Glucose Level 106 mg/dL (70-99) Calcium Level 9.3 mg/dL (8.5-10.1) Medications Active Scripts Medications Dose Route/Sig Max Daily Dose Days Date Category Atorvastatin Calcium 20 Mg Tablet 1 Tab PO DAILY 05/20/18 Reported Advair 250-50 Diskus (Fluticasone/Salmeterol) 1 Each Disk.w.dev 1 Puff IH BID 05/20/18 Reported Proair Hfa Inhaler (Albuterol Sulfate) 8.5 Gm Hfa.aer.ad 1-2 Puff INH PRN Q4HRS PRN 05/20/18 Reported Loratadine 10 Mg Tablet 1 Tab PO DAILY 05/20/18 Reported Flonase Allergy Relief (Fluticasone Propionate) 9.9 Ml [place].susp 2 Sprays NS DAILY 05/20/18 Reported Allopurinol 100 Mg Tablet 1 Tab PO DAILY 05/20/18 Reported Lisinopril-Hctz 20-25 Mg Tab (Lisinopril/Hydrochlorothiazide) 1 Each Tablet 1 Tab PO DAILY 05/20/18 Reported Vitamin D2 (Ergocalciferol (Vitamin D2)) 50,000 Unit Capsule 1 Cap PO WEEKLY 05/20/18 Reported Geodon (Ziprasidone Hcl) 80 Mg Capsule 1 Cap PO BID 05/20/18 Reported Potassium Chloride 20 Meq Tablet.er 20 Meq PO DAILY 05/20/18 Reported Tramadol Hcl 50 Mg Tablet 50 Mg PO TID 05/20/18 Reported Symbicort 160-4.5 Mcg Inhaler (Budesonide/Formoterol Fumarate) 10.2 Gm Hfa.aer.ad 2 Puff IH BID 05/20/18 Reported Toprol Xl (Metoprolol Succinate) 25 Mg Tab.er.24h 1 Tab PO DAILY 05/20/18 Reported Gabapentin 100 Mg Capsule 100 Mg PO BID 05/20/18 Reported Omeprazole 20 Mg Capsule.dr 1 Cap PO DAILY 05/20/18 Reported Impression . 1. Acute hypoxic and hypercapnic respiratory failure, related to acute diastolic heart failure. 2. acute diastolic heart failure triggered by hypertensive crisis.Normal EF 3. Abnormal chest x-ray with diffuse interstitial infiltrates and cardiomegaly, suspect interstitial edema , resolved with diuresis 4. Leukocytosis, likely reactive. 5. Mild renal insufficiency, probably hypertensive nephropathy. 6. Suspect COPD Plan . 1. Discussed with RN . Doing well on canula 2. Diuresis. 3. Follow up chest x-ray clear now 4. Urine drug screen positive for benzo 5. Nebulizer treatment. 6. off antibiotic 7. echocardiogram.reviewed 8. PO Nutrition transfer to floor d/w VAL KEN MD Oct 06, 2018 09:59
[2018-10-06 10:52] VITALS: BP 123/56
--- NOTE | 2018-10-06 11:49 | PDOC ---
PROGRESS NOTES Chief Complaint Chief Complaint Acute hypoxic and hypercapnic respiratory failure EXTUBATED 10/04- most likely related to acute diastolic heart failure Highly suspected acute diastolic heart failure triggered by hypertensive crisis Hypokalemia, corrected Leukocytosis - steroids? Mild renal insufficiency - likely hypertensive nephropathy Drug screen positive for benzos Thrombocytopenia H/o HTN H/o COPD H/o depression History of Present Illness History of Present Illness Pt was transferred out of ICU few days ago Intubated short time? Patient has no complaints to me, lives at home with 49-year-old son PLAN: PT.OT today - might need [facility] RN [place] Vitals Vitals Vital Signs Date Time Temp Pulse Resp B/P (MAP) Pulse Ox O2 Delivery O2 Flow Rate FiO2 10/06/18 11:17 96 Nasal Cannula 2.0 10/06/18 10:52 98.4 91 18 123/56 (78) 98.4 Physical Exam Physical Exam HEENT: [place] b/l General: Alert, Cooperative, Other (sedated but alert enough that she is able to answer questions b nodding yes or no.) Heart: Regular rate (SR/ST), Other (distant heart sounds) Lungs: Clear Abdomen: Soft, No tenderness, Other (obese) Extremities: No cyanosis, Other (2+ bilateral LE pitting edema) Skin: No breakdown, No significant lesion Labs LABS Laboratory Tests Test 10/06/18 04:45 White Blood Count 7.6 x10^3/uL (4.0-11.0) Red Blood Count 3.88 x10^6/uL (3.50-5.40) Hemoglobin 12.1 g/dL (12.0-15.5) Hematocrit 35.7 % (36.0-47.0) Mean Corpuscular Volume 92 fL (79-100) Mean Corpuscular Hemoglobin 31 pg (25-35) Mean Corpuscular Hemoglobin Concent 34 g/dL (31-37) Red Cell Distribution Width 14.7 % (11.5-14.5) Platelet Count 99 x10^3/uL (140-400) Neutrophils (%) (Auto) 70 % (31-73) Lymphocytes (%) (Auto) 18 % (24-48) Monocytes (%) (Auto) 9 % (0-9) Eosinophils (%) (Auto) 2 % (0-3) Basophils (%) (Auto) 1 % (0-3) Neutrophils # (Auto) 5.3 x10^3uL (1.8-7.7) Lymphocytes # (Auto) 1.4 x10^3/uL (1.0-4.8) Monocytes # (Auto) 0.7 x10^3/uL (0.0-1.1) Eosinophils # (Auto) 0.2 x10^3/uL (0.0-0.7) Basophils # (Auto) 0.1 x10^3/uL (0.0-0.2) Sodium Level 142 mmol/L (136-145) Potassium Level 3.6 mmol/L (3.5-5.1) Chloride Level 103 mmol/L (98-107) Carbon Dioxide Level 30 mmol/L (21-32) Anion Gap 9 (6-14) Blood Urea Nitrogen 16 mg/dL (7-20) Creatinine 0.9 mg/dL (0.6-1.0) Estimated GFR (Cockcroft-Gault) 76.0 Glucose Level 106 mg/dL (70-99) Calcium Level 9.3 mg/dL (8.5-10.1) Review of Systems Review of Systems A 14 point ROS was completed with the following noted as positive: Other systems reviewed and negative. \CONSTITUTIONAL: No fever or chills EYES: No recent changes SKIN: No rash or itching CARDIOVASCULAR: No chest pain, syncope, palpitations, or edema RESPIRATORY: No SOB or cough GASTROINTESTINAL: No nausea, vomiting or abdominal pain NEUROLOGICAL: No headaches or weakness ENDOCRINE: No cold or heat intolerance GENITOURINARY: No urgency or frequency of urination MUSCULOSKELETAL: No back pain or joint pain LYMPHATICS: No enlarged lymph nodes PSYCHIATRIC: No anxiety or depression Assessment and Plan Assessmemt and Plan Problems Medical Problems: (1) Acute respiratory failure Status: Acute Comment Review of Relevant I have reviewed the following items babar (where applicable) has been applied. Labs Laboratory Tests Test 10/04/18 12:50 10/05/18 05:15 10/06/18 04:45 Sodium Level 144 mmol/L (136-145) 143 mmol/L (136-145) 142 mmol/L (136-145) Potassium Level 4.0 mmol/L (3.5-5.1) 3.6 mmol/L (3.5-5.1) 3.6 mmol/L (3.5-5.1) Chloride Level 106 mmol/L (98-107) 106 mmol/L (98-107) 103 mmol/L (98-107) Carbon Dioxide Level 29 mmol/L (21-32) 28 mmol/L (21-32) 30 mmol/L (21-32) Anion Gap 9 (6-14) 9 (6-14) 9 (6-14) Blood Urea Nitrogen 14 mg/dL (7-20) 13 mg/dL (7-20) 16 mg/dL (7-20) Creatinine 1.0 mg/dL (0.6-1.0) 0.9 mg/dL (0.6-1.0) 0.9 mg/dL (0.6-1.0) Estimated GFR (Cockcroft-Gault) 67.3 76.0 76.0 BUN/Creatinine Ratio 14 (6-20) Glucose Level 105 mg/dL (70-99) 105 mg/dL (70-99) 106 mg/dL (70-99) Calcium Level 8.4 mg/dL (8.5-10.1) 8.7 mg/dL (8.5-10.1) 9.3 mg/dL (8.5-10.1) Magnesium Level 2.0 mg/dL (1.8-2.4) Total Bilirubin 0.5 mg/dL (0.2-1.0) Aspartate Amino Transf (AST/SGOT) 48 U/L (15-37) Alanine Aminotransferase (ALT/SGPT) 59 U/L (14-59) Alkaline Phosphatase 86 U/L (46-116) Total Protein 7.2 g/dL (6.4-8.2) Albumin 3.4 g/dL (3.4-5.0) Albumin/Globulin Ratio 0.9 (1.0-1.7) White Blood Count 9.4 x10^3/uL (4.0-11.0) 7.6 x10^3/uL (4.0-11.0) Red Blood Count 3.61 x10^6/uL (3.50-5.40) 3.88 x10^6/uL (3.50-5.40) Hemoglobin 11.3 g/dL (12.0-15.5) 12.1 g/dL (12.0-15.5) Hematocrit 33.2 % (36.0-47.0) 35.7 % (36.0-47.0) Mean Corpuscular Volume 92 fL (79-100) 92 fL (79-100) Mean Corpuscular Hemoglobin 31 pg (25-35) 31 pg (25-35) Mean Corpuscular Hemoglobin Concent 34 g/dL (31-37) 34 g/dL (31-37) Red Cell Distribution Width 15.0 % (11.5-14.5) 14.7 % (11.5-14.5) Platelet Count 88 x10^3/uL (140-400) 99 x10^3/uL (140-400) Neutrophils (%) (Auto) 78 % (31-73) 70 % (31-73) Lymphocytes (%) (Auto) 14 % (24-48) 18 % (24-48) Monocytes (%) (Auto) 7 % (0-9) 9 % (0-9) Eosinophils (%) (Auto) 1 % (0-3) 2 % (0-3) Basophils (%) (Auto) 1 % (0-3) 1 % (0-3) Neutrophils # (Auto) 7.4 x10^3uL (1.8-7.7) 5.3 x10^3uL (1.8-7.7) Lymphocytes # (Auto) 1.3 x10^3/uL (1.0-4.8) 1.4 x10^3/uL (1.0-4.8) Monocytes # (Auto) 0.6 x10^3/uL (0.0-1.1) 0.7 x10^3/uL (0.0-1.1) Eosinophils # (Auto) 0.1 x10^3/uL (0.0-0.7) 0.2 x10^3/uL (0.0-0.7) Basophils # (Auto) 0.1 x10^3/uL (0.0-0.2) 0.1 x10^3/uL (0.0-0.2) Laboratory Tests Test 10/06/18 04:45 White Blood Count 7.6 x10^3/uL (4.0-11.0) Red Blood Count 3.88 x10^6/uL (3.50-5.40) Hemoglobin 12.1 g/dL (12.0-15.5) Hematocrit 35.7 % (36.0-47.0) Mean Corpuscular Volume 92 fL (79-100) Mean Corpuscular Hemoglobin 31 pg (25-35) Mean Corpuscular Hemoglobin Concent 34 g/dL (31-37) Red Cell Distribution Width 14.7 % (11.5-14.5) Platelet Count 99 x10^3/uL (140-400) Neutrophils (%) (Auto) 70 % (31-73) Lymphocytes (%) (Auto) 18 % (24-48) Monocytes (%) (Auto) 9 % (0-9) Eosinophils (%) (Auto) 2 % (0-3) Basophils (%) (Auto) 1 % (0-3) Neutrophils # (Auto) 5.3 x10^3uL (1.8-7.7) Lymphocytes # (Auto) 1.4 x10^3/uL (1.0-4.8) Monocytes # (Auto) 0.7 x10^3/uL (0.0-1.1) Eosinophils # (Auto) 0.2 x10^3/uL (0.0-0.7) Basophils # (Auto) 0.1 x10^3/uL (0.0-0.2) Sodium Level 142 mmol/L (136-145) Potassium Level 3.6 mmol/L (3.5-5.1) Chloride Level 103 mmol/L (98-107) Carbon Dioxide Level 30 mmol/L (21-32) Anion Gap 9 (6-14) Blood Urea Nitrogen 16 mg/dL (7-20) Creatinine 0.9 mg/dL (0.6-1.0) Estimated GFR (Cockcroft-Gault) 76.0 Glucose Level 106 mg/dL (70-99) Calcium Level 9.3 mg/dL (8.5-10.1) Microbiology 10/03/18 Blood Culture - Preliminary, Resulted NO GROWTH AFTER 3 DAYS Medications Current Medications Propofol 50 ml @ As Directed STK-MED ONCE IV ; Start 10/03/18 at 05:56; Stop at 05:57; Status DC Albuterol Sulfate (Ventolin Neb Soln) 10 mg 1X ONCE CONT NEB Last administered on 10/03/18at 07:00; Start 10/03/18 at 06:15; Stop 10/03/18 at 06:16 ; Status DC Methylprednisolone Sodium Succinate (SOLU-Medrol 125MG VIAL) 125 mg 1X ONCE IV Last administered on 10/03/18at 07:20; Start 10/03/18 at 06:15; Stop 10/03/18 at 06:16; Status DC Doxycycline Hyclate 100 mg/ Dextrose 100 ml @ 50 mls/hr 1X ONCE IV Last administered on 10/03/18at 07:21; Start 10/03/18 at 06:15; Stop 10/03/18 at 08:14 ; Status DC Albuterol/ Ipratropium (Duoneb) 3 ml STK-MED ONCE .ROUTE ; Start 10/03/18 at 06: 03; Stop 10/03/18 at 06:04; Status DC Fentanyl Citrate (Fentanyl 2ml Vial) 100 mcg 1X ONCE IV ; Start 10/03/18 at 06: 15; Stop 10/03/18 at 06:16; Status DC Levofloxacin/ Dextrose (Levaquin Per Pharmacy) 1 each PRN DAILY PRN MC SEE COMMENTS; Start 10/03/18 at 06:15; Stop 10/04/18 at 09:59; Status DC Furosemide (Lasix) 20 mg 1X ONCE IVP Last administered on 10/03/18at 07:21; Start 10/03/18 at 06:15; Stop 10/03/18 at 06:16; Status DC Nitroglycerin/ Dextrose 250 ml @ 0 mls/hr 1X ONCE IV ; Start 10/03/18 at 06:15 ; Stop 10/03/18 at 06:16; Status DC Etomidate (Amidate) 20 mg STK-MED ONCE IV ; Start 10/03/18 at 06:11; Stop at 06:12; Status DC Levofloxacin/ Dextrose 150 ml @ 100 mls/hr 1X ONCE IV Last administered on at 06:30; Start 10/03/18 at 06:30; Stop 10/03/18 at 07:59; Status DC Fentanyl Citrate (Fentanyl 2ml Vial) 100 mcg 1X ONCE IV Last administered on 10/03/18at 06:40; Start 10/03/18 at 06:45; Stop 10/03/18 at 06:46; Status DC Propofol 50 ml @ As Directed STK-MED ONCE IV ; Start 10/03/18 at 06:54; Stop at 06:55; Status DC Sodium Bicarbonate (Sodium Bicarb Adult 8.4% Syr) 50 meq 1X ONCE IV ; Start at 07:30; Stop 10/03/18 at 07:31; Status DC Sodium Bicarbonate (Sodium Bicarb Adult 8.4% Syr) 50 meq STK-MED ONCE .ROUTE ; Start 10/03/18 at 07:17; Stop 10/03/18 at 07:18; Status DC Etomidate (Amidate) 20 mg STK-MED ONCE IV ; Start 10/03/18 at 07:29; Stop at 07:30; Status DC Midazolam HCl (Versed) 5 mg STK-MED ONCE .ROUTE ; Start 10/03/18 at 07:29; Stop 10/03/18 at 07:30; Status DC Fentanyl Citrate (Fentanyl 2ml Vial) 100 mcg STK-MED ONCE .ROUTE ; Start at 07:29; Stop 10/03/18 at 07:30; Status DC Succinylcholine Chloride (Anectine) 200 mg STK-MED ONCE .ROUTE ; Start 10/03/18 at 07:29; Stop 10/03/18 at 07:30; Status DC Etomidate (Amidate) 30 mg 1X ONCE IV Last administered on 10/03/18at 05:52; Start 10/03/18 at 08:30; Stop 10/03/18 at 08:31; Status DC Succinylcholine Chloride (Anectine) 120 mg 1X ONCE IV Last administered on 10/03/18at 05:53; Start 10/03/18 at 08:30; Stop 10/03/18 at 08:31; Status DC Fentanyl Citrate (Fentanyl 2ml Vial) 100 mcg 1X ONCE IV Last administered on 10/03/18at 06:07; Start 10/03/18 at 08:30; Stop 10/03/18 at 08:31; Status DC Etomidate (Amidate) 20 mg 1X ONCE IV Last administered on 10/03/18at 06:14; Start 10/03/18 at 08:30; Stop 10/03/18 at 08:31; Status DC Fentanyl Citrate (Fentanyl 2ml Vial) 100 mcg 1X ONCE IV ; Start 10/03/18 at 08: 30; Stop 10/03/18 at 08:31; Status DC Etomidate (Amidate) 10 mg 1X ONCE IV Last administered on 10/03/18at 06:50; Start 10/03/18 at 08:30; Stop 10/03/18 at 08:31; Status DC Midazolam HCl (Versed) 4 mg 1X ONCE IV Last administered on 10/03/18at 06:52; Start 10/03/18 at 08:30; Stop 10/03/18 at 08:31; Status DC Propofol 50 ml @ 1.429 mls/ hr 1X ONCE IV Last administered on 10/03/18at 06: 21; Start 10/03/18 at 06:20; Stop 10/04/18 at 17:19; Status DC Propofol 100 ml @ As Directed STK-MED ONCE IV ; Start 10/03/18 at 09:07; Stop 10/03/18 at 09:08; Status DC Albuterol/ Ipratropium (Duoneb) 3 ml RTQID NEB Last administered on 10/06/18at 11:16; Start 10/03/18 at 12:00 Enoxaparin Sodium (Lovenox 40mg Syringe) 40 mg Q24H SQ Last administered on 10/05/18at 14:43; Start 10/03/18 at 13:00 Famotidine (Pepcid) 20 mg QHS FT Last administered on 10/05/18at 21:16; Start 10/03/18 at 21:00 Furosemide (Lasix) 40 mg 1X ONCE IVP Last administered on 10/03/18at 12:28; Start 10/03/18 at 12:15; Stop 10/03/18 at 12:39; Status DC Furosemide (Lasix) 40 mg 1X ONCE IVP ; Start 10/03/18 at 12:15; Stop 10/03/18 at 12:21; Status DC Fentanyl Citrate 30 ml @ 0 mls/hr CONT PRN IV ; Start 10/03/18 at 12:45; Stop 10/03/18 at 15:21; Status DC Levofloxacin/ Dextrose 100 ml @ 100 mls/hr Q24H IV Last administered on at 15:16; Start 10/04/18 at 09:00; Stop 10/04/18 at 09:54; Status DC Labetalol HCl (Normodyne Iv Push) 20 mg PRN Q2HR PRN IVP HYPERTENSION, SEE COMMENTS; Start 10/03/18 at 14:15 Atorvastatin Calcium (Lipitor) 20 mg QHS PO Last administered on 10/05/18at 21: 17; Start 10/03/18 at 21:00 Propofol 100 ml @ 1.429 mls/ hr CONT PRN PRN IV SEE PROTOCOL Last administered on 10/04/18at 03:51; Start 10/03/18 at 14:15; Stop 10/06/18 at 11:15 ; Status DC Metoprolol Tartrate (Lopressor) 25 mg BID PO Last administered on 10/06/18at 08: 42; Start 10/03/18 at 21:00 Furosemide (Lasix) 40 mg DAILY IVP Last administered on 10/06/18at 08:41; Start 10/04/18 at 09:00 Clopidogrel Bisulfate (Plavix) 75 mg 1X ONCE PO Last administered on at 15:35; Start 10/03/18 at 14:45; Stop 10/03/18 at 14:46; Status DC Fentanyl Citrate 30 ml @ 0 mls/hr CONT PRN PRN IV PAIN Last administered on 10/03/18at 22:19; Start 10/03/18 at 15:30; Stop 10/06/18 at 11:15; Status DC Furosemide (Lasix) 40 mg 1X ONCE IVP Last administered on 10/04/18at 07:39; Start 10/04/18 at 08:00; Stop 10/04/18 at 08:01; Status DC Potassium Chloride/Water 50 ml @ 50 mls/hr Q1H IV Last administered on at 11:12; Start 10/04/18 at 08:00; Stop 10/04/18 at 11:59; Status DC Allopurinol (Zyloprim) 100 mg DAILY PO Last administered on 10/06/18at 08:42; Start 10/04/18 at 13:00 Ergocalciferol (Vitamin D2) 50,000 unit WEEKLY PO ; Start 10/10/18 at 09:00 Gabapentin (Neurontin) 100 mg BID PO Last administered on 10/06/18 08:42; Start 10/04/18 at 12:30 Non-Formulary Medication (Budesonide/ Formoterol Fumarate (Symbicort 160-4.5 Mcg Inhaler)) 2 puff BID IH ; Start 10/04/18 at 21:00; Stop 10/04/18 at 21:00; Status DC Fluticasone Propionate (Flonase) 2 spray DAILY NS Last administered on at 08:41; Start 10/04/18 at 13:00 Lisinopril (Prinivil) 20 mg DAILY PO Last administered on 10/06/18 08:42; Start 10/04/18 at 13:00 Cetirizine HCl (ZyrTEC) 10 mg DAILY PO Last administered on 10/05/18at 08:24; Start 10/05/18 at 09:00 Ziprasidone (Geodon) 80 mg BID PO Last administered on 10/06/18 08:40; Start 10/04/18 at 13:00 Hydrochlorothiazide (Hydrodiuril) 25 mg DAILY PO Last administered on at 08:41; Start 10/04/18 at 13:00 Budesonide (Pulmicort) 0.5 mg BID NEB Last administered on 10/06/18at 07:12; Start 10/04/18 at 13:00 Albuterol Sulfate (Ventolin Neb Soln) 2.5 mg Q6HRS NEB ; Start 10/04/18 at 12:00 Throat Lozenges (Cepacol Sore Throat Lozenge) 1 vincent PRN Q2HRS PRN PO SORE THROAT Last administered on 10/05/18at 06:00; Start 10/05/18 at 02:00 Propofol (Diprivan) 1,000 mg STK-MED ONCE IV ; Start 10/03/18 at 09:10; Stop at 08:51; Status DC Active Scripts Active Reported Atorvastatin Calcium 20 Mg Tablet 1 Tab PO DAILY Advair 250-50 Diskus (Fluticasone/Salmeterol) 1 Each Disk.w.dev 1 Puff IH BID Proair Hfa Inhaler (Albuterol Sulfate) 8.5 Gm Hfa.aer.ad 1-2 Puff INH PRN Q4HRS PRN Loratadine 10 Mg Tablet 1 Tab PO DAILY Flonase Allergy Relief (Fluticasone Propionate) 9.9 Ml [place].susp 2 Sprays NS DAILY Allopurinol 100 Mg Tablet 1 Tab PO DAILY Lisinopril-Hctz 20-25 Mg Tab (Lisinopril/Hydrochlorothiazide) 1 Each Tablet 1 Tab PO DAILY Vitamin D2 (Ergocalciferol (Vitamin D2)) 50,000 Unit Capsule 1 Cap PO WEEKLY Geodon (Ziprasidone Hcl) 80 Mg Capsule 1 Cap PO BID Potassium Chloride 20 Meq Tablet.er 20 Meq PO DAILY Tramadol Hcl 50 Mg Tablet 50 Mg PO TID Symbicort 160-4.5 Mcg Inhaler (Budesonide/Formoterol Fumarate) 10.2 Gm Hfa.aer.ad 2 Puff IH BID Toprol Xl (Metoprolol Succinate) 25 Mg Tab.er.24h 1 Tab PO DAILY Gabapentin 100 Mg Capsule 100 Mg PO BID Omeprazole 20 Mg Capsule. 1 Cap PO DAILY Vitals/I & O Vital Sign - Last 24 Hours 10/05/18 10/05/18 10/05/18 10/05/18 15:00 15:37 19:00 20:00 Temp 99.5 99.5 Pulse 114 99 Resp 18 20 B/P (MAP) 128/58 (81) 105/52 (69) Pulse Ox 99 97 O2 Delivery Room Air Nasal Cannula Nasal Cannula Nasal Cannula O2 Flow Rate 2.0 2.0 10/05/18 10/05/18 10/05/18 10/05/18 20:31 20:32 21:17 23:02 Temp 99.8 99.8 Pulse 80 95 Resp 20 B/P (MAP) 105/52 136/58 (84) Pulse Ox 98 98 95 O2 Delivery Nasal Cannula Nasal Cannula Nasal Cannula O2 Flow Rate 2.0 2.0 10/06/18 10/06/18 10/06/18 10/06/18 03:02 07:00 07:14 08:00 Temp 99.5 98.7 99.5 98.7 Pulse 86 86 Resp 20 18 B/P (MAP) 120/53 (75) 115/48 (70) Pulse Ox 98 92 98 O2 Delivery Nasal Cannula Nasal Cannula Nasal Cannula Nasal Cannula O2 Flow Rate 2.0 2.0 10/06/18 10/06/18 10/06/185/18 08:42 08:42 10:52 11:17 Temp 98.4 98.4 Pulse 86 86 91 Resp 18 B/P (MAP) 115/48 115/48 123/56 (78) Pulse Ox 98 96 O2 Delivery Nasal Cannula Nasal Cannula O2 Flow Rate 2.0 Intake and Output 10/05/18 10/05/18 10/06/18 15:00 23:00 07:00 Output Total 425 ml 0 ml Balance -425 ml 0 ml MERE LUX MD Oct 06, 2018 11:49
--- NOTE | 2018-10-06 13:07 | PDOC ---
CARDIO Progress Notes Date and Time Date of Service 10/06/2018 Time of Evaluation 1250 Subjective Subjective: No Chest Pain, No shortness of breath, No Palpitations, Other ( feels better today) Vitals Vitals Vital Signs Date Time Temp Pulse Resp B/P (MAP) Pulse Ox O2 Delivery O2 Flow Rate FiO2 10/06/18 11:17 96 Nasal Cannula 2.0 10/06/18 10:52 98.4 91 18 123/56 (78) 98.4 Weight Weight [ ] Input and Output Intake and Output Intake and Output 10/06/18 07:00 Output Total 425 ml Balance -425 ml Output Urine Total 425 ml # Voids 1 Laboratory Labs Laboratory Tests Test 10/06/18 04:45 White Blood Count 7.6 x10^3/uL (4.0-11.0) Red Blood Count 3.88 x10^6/uL (3.50-5.40) Hemoglobin 12.1 g/dL (12.0-15.5) Hematocrit 35.7 % (36.0-47.0) Mean Corpuscular Volume 92 fL (79-100) Mean Corpuscular Hemoglobin 31 pg (25-35) Mean Corpuscular Hemoglobin Concent 34 g/dL (31-37) Red Cell Distribution Width 14.7 % (11.5-14.5) Platelet Count 99 x10^3/uL (140-400) Neutrophils (%) (Auto) 70 % (31-73) Lymphocytes (%) (Auto) 18 % (24-48) Monocytes (%) (Auto) 9 % (0-9) Eosinophils (%) (Auto) 2 % (0-3) Basophils (%) (Auto) 1 % (0-3) Neutrophils # (Auto) 5.3 x10^3uL (1.8-7.7) Lymphocytes # (Auto) 1.4 x10^3/uL (1.0-4.8) Monocytes # (Auto) 0.7 x10^3/uL (0.0-1.1) Eosinophils # (Auto) 0.2 x10^3/uL (0.0-0.7) Basophils # (Auto) 0.1 x10^3/uL (0.0-0.2) Sodium Level 142 mmol/L (136-145) Potassium Level 3.6 mmol/L (3.5-5.1) Chloride Level 103 mmol/L (98-107) Carbon Dioxide Level 30 mmol/L (21-32) Anion Gap 9 (6-14) Blood Urea Nitrogen 16 mg/dL (7-20) Creatinine 0.9 mg/dL (0.6-1.0) Estimated GFR (Cockcroft-Gault) 76.0 Glucose Level 106 mg/dL (70-99) Calcium Level 9.3 mg/dL (8.5-10.1) Microbiology Micro Microbiology 10/03/18 Blood Culture - Preliminary, Resulted NO GROWTH AFTER 3 DAYS Physical Exam HEENT: Neck Supple W Full Motion Chest: Symmetric LUNGS: Other (basialr crackles) Heart: S1S2, RRR Abdomen: Soft N/T Extremities: No Calf Tenderness Neurology: alert, oriented, follow commands Assessment Assessment 1. Malignant HTN: BP well controlled 2. Acute respiratory failure secondary to AECOPD/ADCHF: improved. pulmonary following 3. Acute on chronic diastolic CHF/acute pulmonary edema: 2-D echo showed LVEF 60 -65%. Compensated 4. NSTEMI: peaked trop at 0.107, Type 2 demand mediated due to #1,2 Recommendations 1. Continue with current BP regimen 2. Change to PO lasix. Recen MPI with no reversible defects. Follow up in office in 4 weeks. JAYJAY FRAZIER APRN Oct 06, 2018 13:07
[2018-10-06] MEDS: POTASSIUM CHLORIDE 20 MEQ TABLET.ER. PO SCH (14:57)
[2018-10-06] MEDS: ENOXAPARIN 40 MG/0.4 ML SYRINGE. SQ SCH (14:58)
[2018-10-06 15:00] VITALS: BP 92/42
[2018-10-06 19:00] VITALS: BP 100/45
[2018-10-06] MEDS: ATORVASTATIN CALCIUM 20 MG TABLET PO SCH (21:00)
[2018-10-06] MEDS: FAMOTIDINE 20 MG TABLET. FT SCH (21:00)
[2018-10-06 23:00] VITALS: BP 129/64
[2018-10-07 03:08] VITALS: BP 107/49
[2018-10-07 05:19] LABS: BASO % 1 % (0-3); EOS # 0.2 x10^3/uL (0.0-0.7); EOS % 3 % (0-3); HEMATOCRIT 36.1 % (36.0-47.0); LYMPH # 1.1 x10^3/uL (1.0-4.8); LYMPH % 18 % (24-48); MEAN CORPUSCULAR HEMOGLOBIN 31 pg (25-35); MEAN CORPUSCULAR HGB CONC 33 g/dL (31-37); MEAN CORPUSCULAR VOLUME 92 fL (79-100); MONO # 0.6 x10^3/uL (0.0-1.1); MONO % 10 % (0-9); NEUT # 4.1 x10^3uL (1.8-7.7); NEUT % 68 % (31-73); PLATELET COUNT 109 x10^3/uL (140-400); RED BLOOD COUNT 3.93 x10^6/uL (3.50-5.40); RED CELL DISTRIBUTION WIDTH 14.8 % (11.5-14.5)
[2018-10-07 05:44] LABS: CALCIUM 9.2 mg/dL (8.5-10.1); GFR 67.3; POTASSIUM 4.1 mmol/L (3.5-5.1)
[2018-10-07 07:00] VITALS: BP 113/48
[2018-10-07] MEDS: IPRATRPIUM/ALBUTEROL 0.5/2.5MG 3 ML NEBU. NEB SCH ×2 (07:49→11:33)
[2018-10-07] MEDS ORDERED: HYDR25TA9 PO (07:52)
[2018-10-07] MEDS ORDERED: FURO40TA4 PO (07:52)
--- NOTE | 2018-10-07 07:53 | DISCH ---
DISCHARGE WITH HOME HEALTH DISCHARGE INFORMATION: Discharge Date: Oct 07, 2018 Final Diagnosis: Problems Medical Problems: (1) Acute respiratory failure Status: Acute Condition on Discharge: Stable CODE STATUS: Code Status: Full HOME HEALTH: Face to Face: I certify this patient is under my care and that I, or a nurse practitioner or physician's logistics assistant working with me, had a face to face encounter that meets the physician face to face encounter requirements with this patient on []. Medical Complications: HTN Physical Therapy For: Evalulation/Treatment Occupational Therapy For: Evaluation/Treatment Speech Language Pathology For: Evaluation/Treatment Home Health Aide For: Self-care PAYROLL SUPERVISOR For: Community Resources POST DISCHARGE ORDERS: Activity Instructions for Disc: No restrictions, Activity as tolerated Weight Bearing Status after Di: No restrictions, Full weight bearing DIET AFTER DISCHARGE: Cardiac Wound/Incision Care: No wound care needed CHECKS AFTER DISCHARGE: Checks after discharge: Check blood press - daily, Check your Temp as needed, Weigh Yourself Daily TREATMENT/EQUIPMENT ORDERS: Adaptive Equipment Issued: None CERTIFICATION STATEMENT: Certification Statement: Certification Statement: Based on the above finding, I certify that this patient is confined to the home and needs intermittent custodial care, physical therapy and/or speech therapy, or continues to need occupational therapy.~ This patient is under my care, and I have initiated the establishment of the plan of care.~ This patient will be followed by myself or a community physician who will periodically review the plan of care. Home Meds Active Scripts Hydrochlorothiazide (HYDROCHLOROTHIAZIDE TABLET ) 25 Mg Tablet, 25 MG PO DAILY for htn MDD 1, #30 TAB Prov:MERE LUX MD 10/07/18 Furosemide (FUROSEMIDE) 40 Mg Tablet, 40 MG PO DAILY for chf MDD 1, #30 TAB Prov:MERE LUX MD 10/07/18 Reported Medications Atorvastatin Calcium (ATORVASTATIN CALCIUM) 20 Mg Tablet, 1 TAB PO DAILY, #30 TAB 5 Refills 05/20/18 Fluticasone/Salmeterol (ADVAIR 250-50 DISKUS) 1 Each Disk.w.dev, 1 PUFF IH BID, #3 INHALER 3 Refills 05/20/18 Albuterol Sulfate (PROAIR HFA INHALER) 8.5 Gm Hfa.aer.ad, 1-2 PUFF INH PRN Q4HRS PRN for SHORTNESS OF BREATH, INHALER 0 Refills 05/20/18 Loratadine (LORATADINE) 10 Mg Tablet, 1 TAB PO DAILY, #30 TAB 5 Refills 05/20/18 Fluticasone Propionate (Flonase Allergy Relief) 9.9 Ml [place].susp, 2 SPRAYS NS DAILY, BOTTLE 05/20/18 Allopurinol (ALLOPURINOL) 100 Mg Tablet, 1 TAB PO DAILY, #30 TAB 5 Refills 05/20/18 Lisinopril/Hydrochlorothiazide (LISINOPRIL-HCTZ 20-25 MG TAB) 1 Each Tablet, 1 TAB PO DAILY, #30 TAB 5 Refills 05/20/18 Ergocalciferol (Vitamin D2) (VITAMIN D2) 50,000 Unit Capsule, 1 CAP PO WEEKLY, # 4 CAP 5 Refills 05/20/18 Ziprasidone Hcl (GEODON) 80 Mg Capsule, 1 CAP PO BID, #60 CAP 1 Refill 05/20/18 Potassium Chloride (POTASSIUM CHLORIDE) 20 Meq Tablet.er, 20 MEQ PO DAILY, TAB.SR 05/20/18 Tramadol Hcl (TRAMADOL HCL) 50 Mg Tablet, 50 MG PO TID, TAB 0 Refills 05/20/18 Budesonide/Formoterol Fumarate (SYMBICORT 160-4.5 MCG INHALER) 10.2 Gm Hfa.aer.ad, 2 PUFF IH BID, #10.6 GM 3 Refills 05/20/18 Metoprolol Succinate (TOPROL XL) 25 Mg Tab.er.24h, 1 TAB PO DAILY, #30 TAB 5 Refills 05/20/18 Gabapentin (GABAPENTIN) 100 Mg Capsule, 100 MG PO BID, CAP 05/20/18 Omeprazole (OMEPRAZOLE) 20 Mg Capsule.dr, 1 CAP PO DAILY, #30 CAP 5 Refills 05/20/18 MERE LUX MD Oct 07, 2018 07:53
[2018-10-07] MEDS: GABAPENTIN 100 MG CAPSULE. PO SCH (08:34)
[2018-10-07] MEDS: ZIPRASIDONE 20 MG CAPSULE PO SCH (08:34)
[2018-10-07] MEDS: POTASSIUM CHLORIDE 20 MEQ TABLET.ER. PO SCH (08:34)
[2018-10-07] MEDS: METOPROLOL TART IMMED RELEASE 25 MG TABLET. PO SCH (08:34)
[2018-10-07] MEDS: hydroCHLOROthiazide 25 MG TABLET PO SCH (08:34)
[2018-10-07] MEDS: CETIRIZINE HCL 10 MG TABLET. PO SCH (08:35)
[2018-10-07] MEDS: ALLOPURINOL 100 MG TABLET. PO SCH (08:35)
[2018-10-07] MEDS: LISINOPRIL 20 MG TABLET PO SCH (08:35)
[2018-10-07] MEDS: FLUTICASONE 50MCG/NASAL SPRAY 16GM BOTTLE. NS SCH (08:35)
--- NOTE | 2018-10-07 08:37 | PDOC ---
PULMONARY PROGRESS NOTES Subjective extubated 10/04 doing well Vitals Vital Signs Date Time Temp Pulse Resp B/P (MAP) Pulse Ox O2 Delivery O2 Flow Rate FiO2 10/07/18 08:35 75 113/48 10/07/18 07:00 98.7 18 97 Nasal Cannula 98.7 10/06/18 20:10 2.0 General: Alert, No acute distress Lungs: Clear Cardiovascular: S1 Abdomen: Soft Neuro Exam: Alert Extremities: No Edema Skin: Warm Labs Laboratory Tests Test 10/06/18 04:45 10/07/18 05:00 White Blood Count 7.6 x10^3/uL (4.0-11.0) 6.0 x10^3/uL (4.0-11.0) Red Blood Count 3.88 x10^6/uL (3.50-5.40) 3.93 x10^6/uL (3.50-5.40) Hemoglobin 12.1 g/dL (12.0-15.5) 12.0 g/dL (12.0-15.5) Hematocrit 35.7 % (36.0-47.0) 36.1 % (36.0-47.0) Mean Corpuscular Volume 92 fL (79-100) 92 fL (79-100) Mean Corpuscular Hemoglobin 31 pg (25-35) 31 pg (25-35) Mean Corpuscular Hemoglobin Concent 34 g/dL (31-37) 33 g/dL (31-37) Red Cell Distribution Width 14.7 % (11.5-14.5) 14.8 % (11.5-14.5) Platelet Count 99 x10^3/uL (140-400) 109 x10^3/uL (140-400) Neutrophils (%) (Auto) 70 % (31-73) 68 % (31-73) Lymphocytes (%) (Auto) 18 % (24-48) 18 % (24-48) Monocytes (%) (Auto) 9 % (0-9) 10 % (0-9) Eosinophils (%) (Auto) 2 % (0-3) 3 % (0-3) Basophils (%) (Auto) 1 % (0-3) 1 % (0-3) Neutrophils # (Auto) 5.3 x10^3uL (1.8-7.7) 4.1 x10^3uL (1.8-7.7) Lymphocytes # (Auto) 1.4 x10^3/uL (1.0-4.8) 1.1 x10^3/uL (1.0-4.8) Monocytes # (Auto) 0.7 x10^3/uL (0.0-1.1) 0.6 x10^3/uL (0.0-1.1) Eosinophils # (Auto) 0.2 x10^3/uL (0.0-0.7) 0.2 x10^3/uL (0.0-0.7) Basophils # (Auto) 0.1 x10^3/uL (0.0-0.2) 0.0 x10^3/uL (0.0-0.2) Sodium Level 142 mmol/L (136-145) 142 mmol/L (136-145) Potassium Level 3.6 mmol/L (3.5-5.1) 4.1 mmol/L (3.5-5.1) Chloride Level 103 mmol/L (98-107) 103 mmol/L (98-107) Carbon Dioxide Level 30 mmol/L (21-32) 30 mmol/L (21-32) Anion Gap 9 (6-14) 9 (6-14) Blood Urea Nitrogen 16 mg/dL (7-20) 20 mg/dL (7-20) Creatinine 0.9 mg/dL (0.6-1.0) 1.0 mg/dL (0.6-1.0) Estimated GFR (Cockcroft-Gault) 76.0 67.3 Glucose Level 106 mg/dL (70-99) 107 mg/dL (70-99) Calcium Level 9.3 mg/dL (8.5-10.1) 9.2 mg/dL (8.5-10.1) Laboratory Tests Test 10/07/18 05:00 White Blood Count 6.0 x10^3/uL (4.0-11.0) Red Blood Count 3.93 x10^6/uL (3.50-5.40) Hemoglobin 12.0 g/dL (12.0-15.5) Hematocrit 36.1 % (36.0-47.0) Mean Corpuscular Volume 92 fL (79-100) Mean Corpuscular Hemoglobin 31 pg (25-35) Mean Corpuscular Hemoglobin Concent 33 g/dL (31-37) Red Cell Distribution Width 14.8 % (11.5-14.5) Platelet Count 109 x10^3/uL (140-400) Neutrophils (%) (Auto) 68 % (31-73) Lymphocytes (%) (Auto) 18 % (24-48) Monocytes (%) (Auto) 10 % (0-9) Eosinophils (%) (Auto) 3 % (0-3) Basophils (%) (Auto) 1 % (0-3) Neutrophils # (Auto) 4.1 x10^3uL (1.8-7.7) Lymphocytes # (Auto) 1.1 x10^3/uL (1.0-4.8) Monocytes # (Auto) 0.6 x10^3/uL (0.0-1.1) Eosinophils # (Auto) 0.2 x10^3/uL (0.0-0.7) Basophils # (Auto) 0.0 x10^3/uL (0.0-0.2) Sodium Level 142 mmol/L (136-145) Potassium Level 4.1 mmol/L (3.5-5.1) Chloride Level 103 mmol/L (98-107) Carbon Dioxide Level 30 mmol/L (21-32) Anion Gap 9 (6-14) Blood Urea Nitrogen 20 mg/dL (7-20) Creatinine 1.0 mg/dL (0.6-1.0) Estimated GFR (Cockcroft-Gault) 67.3 Glucose Level 107 mg/dL (70-99) Calcium Level 9.2 mg/dL (8.5-10.1) Medications Active Scripts Medications Dose Route/Sig Max Daily Dose Days Date Category Atorvastatin Calcium 20 Mg Tablet 1 Tab PO DAILY 05/20/18 Reported Advair 250-50 Diskus (Fluticasone/Salmeterol) 1 Each Disk.w.dev 1 Puff IH BID 05/20/18 Reported Proair Hfa Inhaler (Albuterol Sulfate) 8.5 Gm Hfa.aer.ad 1-2 Puff INH PRN Q4HRS PRN 05/20/18 Reported Loratadine 10 Mg Tablet 1 Tab PO DAILY 05/20/18 Reported Flonase Allergy Relief (Fluticasone Propionate) 9.9 Ml [place].susp 2 Sprays NS DAILY 05/20/18 Reported Allopurinol 100 Mg Tablet 1 Tab PO DAILY 05/20/18 Reported Lisinopril-Hctz 20-25 Mg Tab (Lisinopril/Hydrochlorothiazide) 1 Each Tablet 1 Tab PO DAILY 05/20/18 Reported Vitamin D2 (Ergocalciferol (Vitamin D2)) 50,000 Unit Capsule 1 Cap PO WEEKLY 05/20/18 Reported Geodon (Ziprasidone Hcl) 80 Mg Capsule 1 Cap PO BID 05/20/18 Reported Potassium Chloride 20 Meq Tablet.er 20 Meq PO DAILY 05/20/18 Reported Tramadol Hcl 50 Mg Tablet 50 Mg PO TID 05/20/18 Reported Symbicort 160-4.5 Mcg Inhaler (Budesonide/Formoterol Fumarate) 10.2 Gm Hfa.aer.ad 2 Puff IH BID 05/20/18 Reported Toprol Xl (Metoprolol Succinate) 25 Mg Tab.er.24h 1 Tab PO DAILY 05/20/18 Reported Gabapentin 100 Mg Capsule 100 Mg PO BID 05/20/18 Reported Omeprazole 20 Mg Capsule.dr 1 Cap PO DAILY 05/20/18 Reported Impression . 1. Acute hypoxic and hypercapnic respiratory failure, related to acute diastolic heart failure. 2. acute diastolic heart failure triggered by hypertensive crisis.Normal EF 3. Abnormal chest x-ray with diffuse interstitial infiltrates and cardiomegaly, suspect interstitial edema , resolved with diuresis 4. Leukocytosis, likely reactive. 5. Mild renal insufficiency, probably hypertensive nephropathy. 6. Suspect COPD Plan . 1. Discussed with RN . Doing well on canula 2. Diuresis. 3. Follow up chest x-ray clear now 4. Urine drug screen positive for benzo 5. Nebulizer treatment. 6. off antibiotic 7. echocardiogram.reviewed 8. PO Nutrition transfer to floor d/w VAL KEN MD Oct 07, 2018 08:37
[2018-10-07] MEDS ORDERED: FUROSEMIDE 40 MG TABLET. PO SCH (09:00)
--- NOTE | 2018-10-07 09:05 | PDOC3 ---
Discharge Summary Visit Information Date of Admission: Oct 03, 2018 Date of Discharge: Oct 07, 2018 Admitting Diagnosis Comment: Acute hypoxic and hypercapnic respiratory failure EXTUBATED 10/04- most likely related to acute diastolic heart failure Highly suspected acute diastolic heart failure triggered by hypertensive crisis Hypokalemia, corrected Leukocytosis - steroids? Mild renal insufficiency - likely hypertensive nephropathy Drug screen positive for benzos Thrombocytopenia H/o HTN H/o COPD H/o depression Final Diagnosis Problems Medical Problems: (1) Acute respiratory failure Status: Acute Brief Hospital Course Allergies Allergies Coded Allergies Type Severity Reaction Last Updated Verified Penicillins Allergy Intermediate 05/21/18 Yes aspirin Allergy Intermediate 05/21/18 Yes Vital Signs Vital Signs Date Time Temp Pulse Resp B/P (MAP) Pulse Ox O2 Delivery O2 Flow Rate FiO2 10/07/18 08:35 75 113/48 10/07/18 07:00 98.7 18 97 Nasal Cannula 98.7 10/06/18 20:10 2.0 Lab Results Laboratory Tests Test 10/06/18 04:45 10/07/18 05:00 White Blood Count 7.6 x10^3/uL (4.0-11.0) 6.0 x10^3/uL (4.0-11.0) Red Blood Count 3.88 x10^6/uL (3.50-5.40) 3.93 x10^6/uL (3.50-5.40) Hemoglobin 12.1 g/dL (12.0-15.5) 12.0 g/dL (12.0-15.5) Hematocrit 35.7 % (36.0-47.0) 36.1 % (36.0-47.0) Mean Corpuscular Volume 92 fL (79-100) 92 fL (79-100) Mean Corpuscular Hemoglobin 31 pg (25-35) 31 pg (25-35) Mean Corpuscular Hemoglobin Concent 34 g/dL (31-37) 33 g/dL (31-37) Red Cell Distribution Width 14.7 % (11.5-14.5) 14.8 % (11.5-14.5) Platelet Count 99 x10^3/uL (140-400) 109 x10^3/uL (140-400) Neutrophils (%) (Auto) 70 % (31-73) 68 % (31-73) Lymphocytes (%) (Auto) 18 % (24-48) 18 % (24-48) Monocytes (%) (Auto) 9 % (0-9) 10 % (0-9) Eosinophils (%) (Auto) 2 % (0-3) 3 % (0-3) Basophils (%) (Auto) 1 % (0-3) 1 % (0-3) Neutrophils # (Auto) 5.3 x10^3uL (1.8-7.7) 4.1 x10^3uL (1.8-7.7) Lymphocytes # (Auto) 1.4 x10^3/uL (1.0-4.8) 1.1 x10^3/uL (1.0-4.8) Monocytes # (Auto) 0.7 x10^3/uL (0.0-1.1) 0.6 x10^3/uL (0.0-1.1) Eosinophils # (Auto) 0.2 x10^3/uL (0.0-0.7) 0.2 x10^3/uL (0.0-0.7) Basophils # (Auto) 0.1 x10^3/uL (0.0-0.2) 0.0 x10^3/uL (0.0-0.2) Sodium Level 142 mmol/L (136-145) 142 mmol/L (136-145) Potassium Level 3.6 mmol/L (3.5-5.1) 4.1 mmol/L (3.5-5.1) Chloride Level 103 mmol/L (98-107) 103 mmol/L (98-107) Carbon Dioxide Level 30 mmol/L (21-32) 30 mmol/L (21-32) Anion Gap 9 (6-14) 9 (6-14) Blood Urea Nitrogen 16 mg/dL (7-20) 20 mg/dL (7-20) Creatinine 0.9 mg/dL (0.6-1.0) 1.0 mg/dL (0.6-1.0) Estimated GFR (Cockcroft-Gault) 76.0 67.3 Glucose Level 106 mg/dL (70-99) 107 mg/dL (70-99) Calcium Level 9.3 mg/dL (8.5-10.1) 9.2 mg/dL (8.5-10.1) Laboratory Tests Test 10/07/18 05:00 White Blood Count 6.0 x10^3/uL (4.0-11.0) Red Blood Count 3.93 x10^6/uL (3.50-5.40) Hemoglobin 12.0 g/dL (12.0-15.5) Hematocrit 36.1 % (36.0-47.0) Mean Corpuscular Volume 92 fL (79-100) Mean Corpuscular Hemoglobin 31 pg (25-35) Mean Corpuscular Hemoglobin Concent 33 g/dL (31-37) Red Cell Distribution Width 14.8 % (11.5-14.5) Platelet Count 109 x10^3/uL (140-400) Neutrophils (%) (Auto) 68 % (31-73) Lymphocytes (%) (Auto) 18 % (24-48) Monocytes (%) (Auto) 10 % (0-9) Eosinophils (%) (Auto) 3 % (0-3) Basophils (%) (Auto) 1 % (0-3) Neutrophils # (Auto) 4.1 x10^3uL (1.8-7.7) Lymphocytes # (Auto) 1.1 x10^3/uL (1.0-4.8) Monocytes # (Auto) 0.6 x10^3/uL (0.0-1.1) Eosinophils # (Auto) 0.2 x10^3/uL (0.0-0.7) Basophils # (Auto) 0.0 x10^3/uL (0.0-0.2) Sodium Level 142 mmol/L (136-145) Potassium Level 4.1 mmol/L (3.5-5.1) Chloride Level 103 mmol/L (98-107) Carbon Dioxide Level 30 mmol/L (21-32) Anion Gap 9 (6-14) Blood Urea Nitrogen 20 mg/dL (7-20) Creatinine 1.0 mg/dL (0.6-1.0) Estimated GFR (Cockcroft-Gault) 67.3 Glucose Level 107 mg/dL (70-99) Calcium Level 9.2 mg/dL (8.5-10.1) Brief Hospital Course Ms. Ayon is a 63 old [place] female who came from home but she has a son who stays mostly with her except when he runs errands, admitted because of respiratory failure needing short-term intubation. Extubated . Her SOA or respiratory failure was secondary to combined COPD and diastolic heart failure. She does not smoke. Course remarkable for some hypokalemia and hypertensive crisis which we have resolved. PT recommends 24-hour care. I have arranged for home health if that is needed. She claims her son will see stays with her. I have Rx on chart includes Lasix 40 once a day. She was getting Lasix and HCTZ 12.5. I did not DC on HCTZ 12.5, I'm afraid of driying her up too much or causing AK I. She has good urine output and tolerating Lasix 40 once a day. All other home and she will continue. Hence no home meds were changed just added Lasix 40 once a day Consults performed pulmonary, cardiology Procedures performed echo Discharge disposition home with son/24 hour care Discharge Information Condition at Discharge: Improved, Stable Disposition/Orders: D/C to Home w/ HH Scheduled Allopurinol (Allopurinol) 100 Mg Tablet, 1 TAB PO DAILY, #30 Ref 5 (Reported) Entered as Reported by: MAXIME CHAWLA on 05/20/181702 Last Action: Continued on 10/04/181146 by ELVIA GUADALUPE Atorvastatin Calcium (Atorvastatin Calcium) 20 Mg Tablet, 1 TAB PO DAILY, #30 Ref 5 (Reported) Entered as Reported by: MAXIME CHAWLA on 05/20/181702 Budesonide/Formoterol Fumarate (Symbicort 160-4.5 Mcg Inhaler) 10.2 Gm Hfa.aer.ad, 2 PUFF IH BID, #10.6 Ref 3 (Reported) Entered as Reported by: MAXIME CHAWLA on 05/20/181702 Last Action: Converted on 10/04/181146 by ELVIA GUADALUPE Ergocalciferol (Vitamin D2) (Vitamin D2) 50,000 Unit Capsule, 1 CAP PO WEEKLY, # 4 Ref 5 (Reported) Entered as Reported by: MAXIME CHAWLA on 05/20/181702 Last Action: Continued on 10/04/181146 by ELVIA GUADALUPE Fluticasone Propionate (Flonase Allergy Relief) 9.9 Ml [place].susp, 2 SPRAYS NS DAILY, (Reported) Entered as Reported by: MAXIME CHAWLA on 05/20/181702 Last Action: Converted on 10/04/181146 by ELVIA GUADALUPE Fluticasone/Salmeterol (Advair 250-50 Diskus) 1 Each Disk.w.dev, 1 PUFF IH BID, #3 Ref 3 (Reported) Entered as Reported by: MAXIME CHAWLA on 05/20/181702 Furosemide (Furosemide) 40 Mg Tablet, 40 MG PO DAILY for chf MDD 1, #30 Prescribed by: MERE LUX on 10/07/18751 Gabapentin (Gabapentin) 100 Mg Capsule, 100 MG PO BID, (Reported) Entered as Reported by: MAXIME CHAWLA on 05/20/181702 Last Action: Continued on 10/04/181146 by ELVIA GUADALUPE Lisinopril/Hydrochlorothiazide (Lisinopril-Hctz 20-25 Mg Tab) 1 Each Tablet, 1 TAB PO DAILY, #30 Ref 5 (Reported) Entered as Reported by: MAXIME CHAWLA on 05/20/181702 Last Action: Converted on 10/04/181146 by ELVIA GUADALUPE Loratadine (Loratadine) 10 Mg Tablet, 1 TAB PO DAILY, #30 Ref 5 (Reported) Entered as Reported by: MAXMIE CHAWLA on 05/20/181702 Last Action: Converted on 10/04/181146 by ELVIA GUADALUPE Metoprolol Succinate (Toprol Xl) 25 Mg Tab.er.24h, 1 TAB PO DAILY, #30 Ref 5 ( Reported) Entered as Reported by: MAXIME CHAWLA on 05/20/181702 Omeprazole (Omeprazole) 20 Mg Capsule.dr, 1 CAP PO DAILY, #30 Ref 5 (Reported) Entered as Reported by: MAXIME CHAWLA on 05/20/181702 Potassium Chloride (Potassium Chloride) 20 Meq Tablet.er, 20 MEQ PO DAILY, ( Reported) Entered as Reported by: MAXIME CHAWLA on 05/20/181702 Tramadol Hcl (Tramadol Hcl) 50 Mg Tablet, 50 MG PO TID, Ref 0 (Reported) Entered as Reported by: MAXIME CHAWLA on 05/20/181702 Ziprasidone Hcl (Geodon) 80 Mg Capsule, 1 CAP PO BID, #60 Ref 1 (Reported) Entered as Reported by: MAXIME CHAWLA on 05/20/181702 Last Action: Converted on 10/04/18 1147 by ELVIA GUADALUPE Scheduled PRN Albuterol Sulfate (Proair Hfa Inhaler) 8.5 Gm Hfa.aer.ad, 1-2 PUFF INH PRN Q4HRS PRN for SHORTNESS OF BREATH, Ref 0 (Reported) Entered as Reported by: MAXIME CHAWLA on 05/20/181702 MERE LUX MD Oct 07, 2018 09:05
[2018-10-07 10:58] VITALS: BP 103/45
--- NOTE | 2018-10-07 11:03 | PDOC ---
CARDIO Progress Notes Date and Time Date of Service 10/07/18 Time of Evaluation 1054 Subjective Subjective: No Chest Pain, No shortness of breath, No Palpitations, Other ( feels better today) Vitals Vitals Vital Signs Date Time Temp Pulse Resp B/P (MAP) Pulse Ox O2 Delivery O2 Flow Rate FiO2 10/07/18 10:58 97.4 94 18 103/45 (64) 94 Nasal Cannula 97.4 10/07/18 08:00 2.0 Weight Weight [ ] Input and Output Intake and Output Intake and Output 10/07/18 07:00 Intake Total 940 ml Output Total 0 ml Balance 940 ml Intake Oral 940 ml Output Urine Total 0 ml # Voids 2 Laboratory Labs Laboratory Tests Test 10/07/18 05:00 White Blood Count 6.0 x10^3/uL (4.0-11.0) Red Blood Count 3.93 x10^6/uL (3.50-5.40) Hemoglobin 12.0 g/dL (12.0-15.5) Hematocrit 36.1 % (36.0-47.0) Mean Corpuscular Volume 92 fL (79-100) Mean Corpuscular Hemoglobin 31 pg (25-35) Mean Corpuscular Hemoglobin Concent 33 g/dL (31-37) Red Cell Distribution Width 14.8 % (11.5-14.5) Platelet Count 109 x10^3/uL (140-400) Neutrophils (%) (Auto) 68 % (31-73) Lymphocytes (%) (Auto) 18 % (24-48) Monocytes (%) (Auto) 10 % (0-9) Eosinophils (%) (Auto) 3 % (0-3) Basophils (%) (Auto) 1 % (0-3) Neutrophils # (Auto) 4.1 x10^3uL (1.8-7.7) Lymphocytes # (Auto) 1.1 x10^3/uL (1.0-4.8) Monocytes # (Auto) 0.6 x10^3/uL (0.0-1.1) Eosinophils # (Auto) 0.2 x10^3/uL (0.0-0.7) Basophils # (Auto) 0.0 x10^3/uL (0.0-0.2) Sodium Level 142 mmol/L (136-145) Potassium Level 4.1 mmol/L (3.5-5.1) Chloride Level 103 mmol/L (98-107) Carbon Dioxide Level 30 mmol/L (21-32) Anion Gap 9 (6-14) Blood Urea Nitrogen 20 mg/dL (7-20) Creatinine 1.0 mg/dL (0.6-1.0) Estimated GFR (Cockcroft-Gault) 67.3 Glucose Level 107 mg/dL (70-99) Calcium Level 9.2 mg/dL (8.5-10.1) Microbiology Micro Microbiology 10/03/18 Blood Culture - Preliminary, Resulted NO GROWTH AFTER 4 DAYS Physical Exam HEENT: Neck Supple W Full Motion Chest: Symmetric LUNGS: Other (basialr crackles) Heart: S1S2, RRR Abdomen: Soft N/T Extremities: No Calf Tenderness Neurology: alert, oriented, follow commands Assessment Assessment 1. Malignant HTN: BP now well controlled 2. Acute respiratory failure secondary to AECOPD/ADCHF: improved. pulmonary following 3. Acute on chronic diastolic CHF/acute pulmonary edema: 2-D echo showed LVEF 60 -65%. now compensated 4. NSTEMI: peaked trop at 0.107, Type 2 demand mediated due to #1,2. Recent MPI without evidence of reversible ischemia Recommendations Supportive care May discharge from a CV standpoint and f/u in our office in 4 weeks as previously scheduled SOM AHUJA APRN Oct 07, 2018 11:03
[2018-10-10] MEDS ORDERED: ERGOCALCIFEROL (VITAMIN D2) 50,000 UNIT CAPSULE. PO SCH (09:00)
== END 2018-10-07 12:40 | disposition home health service (06) | DRG 208 ==
LOC: ER 05:46 → 1 WEST ICU 07:00 → 5 NORTH 10-05 19:33
PROVIDERS: ADMIT Internal Medicine; ATTEND Internal Medicine
PROC: 5A1945Z Respiratory Ventilation, 24-96 Consecutive Hours (ICD-10-PCS; principal; 2018-10-03)
PROC: 0BH17EZ Insertion of Endotracheal Airway into Trachea, Via Natural or Artificial Opening (ICD-10-PCS; 2018-10-03)
PROC: 05HP33Z Insertion of Infusion Device into Right External Jugular Vein, Percutaneous Approach (ICD-10-PCS; 2018-10-03)
DX: J96.21 Acute and chronic respiratory failure with hypoxia (principal); I21.4 Non-ST elevation (NSTEMI) myocardial infarction; I50.33 Acute on chronic diastolic (congestive) heart failure; J18.9 Pneumonia, unspecified organism; I13.0 Hypertensive heart and chronic kidney disease with heart failure and stage 1 through stage 4 chronic kidney disease, or unspecified chronic kidney disease; J44.1 Chronic obstructive pulmonary disease with (acute) exacerbation; I16.9 Hypertensive crisis, unspecified; N17.9 Acute kidney failure, unspecified; J96.22 Acute and chronic respiratory failure with hypercapnia; N18.9 Chronic kidney disease, unspecified; F32.9 Major depressive disorder, single episode, unspecified; G25.81 Restless legs syndrome; D72.829 Elevated white blood cell count, unspecified; K21.9 Gastro-esophageal reflux disease without esophagitis; G47.33 Obstructive sleep apnea (adult) (pediatric); E78.5 Hyperlipidemia, unspecified; D69.6 Thrombocytopenia, unspecified; E87.6 Hypokalemia; E66.9 Obesity, unspecified; Z88.6 Allergy status to analgesic agent; Z88.0 Allergy status to penicillin; Z82.49 Family history of ischemic heart disease and other diseases of the circulatory system; Z87.891 Personal history of nicotine dependence; Z86.010 Personal history of colon polyps; Z79.899 Other long term (current) drug therapy; Z79.51 Long term (current) use of inhaled steroids; Z68.39 Body mass index [BMI] 39.0-39.9, adult
CPT/HCPCS: 36415; 36556; 36600; 51702; 70450; 71045; 80048; 80053; 80061; 80307; 81001; 82805; 82962; 83036; 83605; 83735; 83880; 84443; 84484; 85007; 85025; 85610; 87040; 87641; 90471; 90756; 93005; 93308; 94002; 94003; 94640; 96365; 96367; 96375; 96376; 99291; G0480; J0330; J1650; J1940; J1956; J2250; J2704; J2930; J3010; J3480; J3490; J7613; J7620; J7626; 97116; 97530; G0479; Q2035

== ENCOUNTER → 2019-03-10 | Outpatient (CLI) | payer MEDICARE, OTHER ==
[2018-10-22 14:41] VITALS: BP 121/68
[~2019-03-10] MED LIST changes: +ALBU2.5V8 INH; +FURO40TA4 PO; +HYDR-2145 PO; +LEVO500T59 PO; +OMEP20CA10 PO; -OMEP20CA9 PO; -PROAIR HFA8.5 GM INH
--- NOTE | 2019-03-10 11:57 | CARD ---
MR#: [id number] Date of Study: 03/10/2019 Ordering Physician: SIXTO TAMAYO, Referring Physician: SIXTO TAMAYO, Tech: Mari Reid WENDI APPROVED REPORT EXAM: Two-dimensional and M-mode echocardiogram with Doppler and color Doppler. Other Information Quality : Good INDICATION Heart Failure 2D DIMENSIONS RVDd3.0 (2.9-3.5cm)Left Atrium(2D)5.0 (1.6-4.0cm) IVSd1.1 (0.7-1.1cm)Aortic Root(2D)2.9 (2.0-3.7cm) LVDd4.7 (3.9-5.9cm)LVOT Diameter1.9 (1.8-2.4cm) PWd1.1 (0.7-1.1cm)LVDs2.6 (2.5-4.0cm) FS (%) 30.0 %SV75.9 ml LVEF(%)60.0 (>50%) Aortic Valve AoV Peak Gerald.235.3cm/sAoV VTI46.9cm AO Peak GR.22.1mmHgLVOT Peak Gerald.176.6cm/s AO Mean GR.11mmHgAVA (VMAX)2.23cm2 ELISABETH (VTI)2.31xz4QA P 1/2 Hkpo249tu Mitral Valve MV E Xgjkhmrq74.9cm/sMV DECEL WBQS471ef MV A Ijwtzkju56.6cm/sE/A Ratio1.4 Tricuspid Valve TR P. Fbjmhcwv351jt/sRAP NJPFSNWK5bnNl TR Peak Gr.01lvDmCVRT83kaIs Pulmonary Vein S1 Mhkeeeoc18.8cm/sD2 Wuyrdcxg07.2cm/s LEFT VENTRICLE The left ventricle is normal size. There is normal left ventricular wall thickness. The left ventricu lar systolic function is normal. The Ejection Fraction is 60%. There is normal LV segmental wall micaela on. Transmitral Doppler flow pattern is Grade II-pseudonormal filling dynamics. RIGHT VENTRICLE The right ventricle is normal size. The right ventricular systolic function is normal. ATRIA The left atrium is moderately dilated. The right atrium is mildly dilated. The interatrial septum is intact with no evidence for an atrial septal defect or patent foramen ovale as noted on 2-D or Dopple r imaging. AORTIC VALVE The aortic valve is not well visualized. Doppler and Color Flow revealed mild aortic regurgitation. T here is no significant aortic valvular stenosis. MITRAL VALVE The mitral valve is calcified but opens well. There is no evidence of mitral valve prolapse. There is no mitral valve stenosis. Doppler and Color Flow revealed no mitral valve regurgitation noted. TRICUSPID VALVE The tricuspid valve is normal in structure and function. Doppler and Color Flow revealed trace tricus pid regurgitation. The PA pressure was estimated at 17 mmHg. There is no tricuspid valve stenosis. PULMONIC VALVE The pulmonic valve is not well visualized. Doppler and Color Flow revealed mild pulmonic valvular reg urgitation. There is no pulmonic valvular stenosis. GREAT VESSELS The aortic root is normal in size. The ascending aorta is normal in size. The IVC is normal in size a nd collapses >50% with inspiration. PERICARDIAL EFFUSION There is no evidence of significant pericardial effusion. Critical Notification Critical Value: No <Conclusion> The left ventricular systolic function is normal. The Ejection Fraction is 60%. There is normal LV segmental wall motion. The left atrium is moderately dilated. Mild aortic regurgitation. Trace tricuspid regurgitation. The PA pressure was estimated at 17 mmHg. There is no evidence of significant pericardial effusion. Signed by : Valeriy Rabago, Electronically Approved : 03/10/2019 11:57:05
== END | disposition home or self-care (01) ==
LOC: ECHO 10:05
PROVIDERS: ATTEND Internal Medicine Cardiovascular Disease
DX: I08.8 Other rheumatic multiple valve diseases (principal); I13.0 Hypertensive heart and chronic kidney disease with heart failure and stage 1 through stage 4 chronic kidney disease, or unspecified chronic kidney disease; N18.9 Chronic kidney disease, unspecified; I50.9 Heart failure, unspecified
CPT/HCPCS: 93306

== ENCOUNTER 2020-03-30 10:25 | Inpatient (IN) | payer MEDICARE, OTHER ==
[~2020-03-30] VITALS: Ht 165.1 cm; Wt 113.0 kg
[~2020-03-30 10:25] MED LIST changes: +LISI1TAB20 PO; -LISI1TAB7 PO; -OMEP20CA10 PO; +OMEP20CA16 PO; +POTA20TA4 PO; -POTA20TA82 PO
[2020-03-30] MEDS ORDERED: IV NORMAL SALINE 1000ML BAG 1,000 ML IV SCH (10:39)
[2020-03-30] MEDS ORDERED: IV NORMAL SALINE 1000ML BAG 1,000 ML IV ONE ×2 (10:45→12:15)
--- NOTE | 2020-03-30 10:50 | PHYS DOC ---
Past Medical History Past Medical History: CHF, COPD, Depression, Hypertension, Other Additional Past Medical Histor: RLS Past Surgical History: Other Additional Past Surgical Histo: BACK SX Smoking Status: Current Every Day Smoker Alcohol Use: Occasionally Drug Use: None General Adult EDM: Chief Complaint: WEAKNESS/GENERALIZED HPI: HPI: Patient is a 64-year-old female who presents to the emergency department for evaluation. She states she has felt weak and fatigued over the past 2 days and is noted to be hypotensive upon arrival in the emergency department. She denies any new or focal pain, although does admit to having chronic chest pain, as well as flank/back pain, for over a year. She denies any nausea, vomiting, diarrhea, fevers, chills, cough, or significant shortness of breath or pleuritic pain. She states she has been eating well. She has not had any vision changes, numbness or focal weakness, although she states that when she does feel extremely dizzy, when she feels like she is about to pass out, she does feel that her vision is somewhat decreased. There are no alleviating or exacerbating factors to her symptoms although standing upright seems to worsen her dizziness. Review of Systems: Review of Systems: Constitutional: Denies fever or chills. [] Eyes: Denies change in visual acuity. [] HENT: Denies nasal congestion or sore throat. [] Respiratory: Denies cough or shortness of breath. [] Cardiovascular: Denies new chest pain or edema. [] GI: Denies abdominal pain, nausea, vomiting, bloody stools or diarrhea. [] : Denies dysuria. [] Musculoskeletal: Denies new back pain or joint pain. [] Integument: Denies rash. [] Neurologic: Denies headache, focal weakness or sensory changes. [] Endocrine: Denies polyuria or polydipsia. [] Lymphatic: Denies swollen glands. [] Psychiatric: Denies depression or anxiety. [] Heart Score: Risk Factors: Risk Factors: DM, Current or recent (<one month) smoker, HTN, HLP, family history of CAD, obesity. Risk Scores: Score 0 - 3: 2.5% MACE over next 6 weeks - Discharge Home Score 4 - 6: 20.3% MACE over next 6 weeks - Admit for Clinical Observation Score 7 - 10: 72.7% MACE over next 6 weeks - Early Invasive Strategies Current Medications: Current Medications Medications (Trade) Dose Ordered Sig/Betsy Start Time Stop Time Status Last Admin Dose Admin Sodium Chloride 1,000 ml @ 1,000 mls/hr 1X ONCE 03/30/20 10:45 03/30/20 11:44 Allergies: Allergies: Allergies Coded Allergies Type Severity Reaction Last Updated Verified Penicillins Allergy Intermediate 05/21/18 Yes aspirin Allergy Intermediate 05/21/18 Yes Physical Exam: PE: PHYSICAL EXAM: CONSTITUTIONAL: Well developed, well nourished HEAD: normocephalic, atraumatic EENT: PERRL, EOMI. Conjunctivae normal color, sclerae non-icteric; dry mucous membranes. NECK: Supple, non-tender; no meningismus. LUNGS: Lungs CTA, breathing even and unlabored. Normal air movement. HEART: Regular rate and rhythm, no murmur CHEST: No deformity; non-tender ABDOMEN: The abdomen is soft, and non-tender, no masses, there is a soft mid- abdominal bruit. EXTREM: Normal ROM; no deformity, no calf tenderness. Normal pulses palpable in all extremities. There is no pedal edema. SKIN: No rash; no diaphoresis NEURO: Alert; normal speech and cognition; CN's grossly intact; strength grossly intact without focal deficit. BACK: No CVA TTP.. There is a soft Current Patient Data: Labs: Laboratory Tests Test 03/30/20 10:38 03/30/20 11:12 White Blood Count 9.9 x10^3/uL Red Blood Count 4.76 x10^6/uL Hemoglobin 13.8 g/dL Hematocrit 41.1 % Mean Corpuscular Volume 86 fL Mean Corpuscular Hemoglobin 29 pg Mean Corpuscular Hemoglobin Concent 34 g/dL Red Cell Distribution Width 15.2 % Platelet Count 156 x10^3/uL Neutrophils (%) (Auto) 65 % Lymphocytes (%) (Auto) 22 % Monocytes (%) (Auto) 11 % Eosinophils (%) (Auto) 2 % Basophils (%) (Auto) 1 % Neutrophils # (Auto) 6.4 x10^3/uL Lymphocytes # (Auto) 2.1 x10^3/uL Monocytes # (Auto) 1.0 x10^3/uL Eosinophils # (Auto) 0.2 x10^3/uL Basophils # (Auto) 0.1 x10^3/uL Platelet Estimate Adequate Large Platelets Present Giant Platelets Present Prothrombin Time 14.5 SEC Prothromb Time International Ratio 1.2 Sodium Level 137 mmol/L Potassium Level 2.4 mmol/L Chloride Level 94 mmol/L Carbon Dioxide Level 33 mmol/L Anion Gap 10 Blood Urea Nitrogen 37 mg/dL Creatinine 2.1 mg/dL Estimated GFR (Cockcroft-Gault) 28.5 BUN/Creatinine Ratio 18 Glucose Level 106 mg/dL Lactic Acid Level 2.6 mmol/L Calcium Level 8.9 mg/dL Magnesium Level 1.7 mg/dL Total Bilirubin 0.4 mg/dL Aspartate Amino Transf (AST/SGOT) 20 U/L Alanine Aminotransferase (ALT/SGPT) 20 U/L Alkaline Phosphatase 129 U/L Troponin I Quantitative < 0.017 ng/mL WK-Eer-T-Type Natriuretic Peptide 239 pg/mL Total Protein 7.4 g/dL Albumin 3.3 g/dL Albumin/Globulin Ratio 0.8 Lipase 162 U/L Thyroid Stimulating Hormone (TSH) 2.280 uIU/mL Free Thyroxine 1.08 ng/dL Urine Collection Type U cath Urine Color Yellow Urine Clarity Clear Urine pH 6.0 Urine Specific [place] 1.015 Urine Protein Negative mg/dL Urine Glucose (UA) Negative mg/dL Urine Ketones (Stick) Negative mg/dL Urine Blood Negative Urine Nitrite Negative Urine Bilirubin Negative Urine Urobilinogen Dipstick 1.0 mg/dL Urine Leukocyte Esterase Negative Urine RBC 0 /HPF Urine WBC Occ /HPF Urine Squamous Epithelial Cells Few /LPF Urine Bacteria 0 /HPF Urine Hyaline Casts Moderate /HPF Urine Mucus Slight /LPF Urine Opiates Screen Neg Urine Methadone Screen Neg Urine Barbiturates Neg Urine Phencyclidine Screen Neg Urine Amphetamine/Methamphetamine Neg Urine Benzodiazepines Screen Neg Urine Cocaine Screen Neg Urine Cannabinoids Screen Neg Urine Ethyl Alcohol Neg Current Medications Medications (Trade) Dose Ordered Sig/Betsy Route PRN Reason Start Time Stop Time Status Last Admin Dose Admin Sodium Chloride 1,000 ml @ 1,000 mls/hr Q1H IV 03/30/20 10:39 03/30/20 11:38 DC 03/30/20 10:57 Sodium Chloride 1,000 ml @ 1,000 mls/hr 1X ONCE IV 03/30/20 10:45 03/30/20 11:44 DC 4/29/20 10:58 Potassium Chloride/Water 100 ml @ 50 mls/hr 1X ONCE IV 03/30/20 11:30 03/30/20 13:29 DC 03/30/20 11:38 Potassium Chloride (Klor-Con) 40 meq 1X ONCE PO 03/30/20 11:30 03/30/20 11:31 DC 03/30/20 11:38 Sodium Chloride 1,000 ml @ 1,000 mls/hr 1X ONCE IV 03/30/20 12:15 03/30/20 13:14 DC 03/30/20 12:20 EKG: EKG: Normal sinus rhythm at a rate of 65 bpm, [] normal axis, normal intervals, there is baseline wander/artifact, without acute ischemic ST/T changes. Radiology/Procedures: Radiology/Procedures: PROCEDURE: PORTABLE CHEST 1V EXAM: CHEST 1 VIEW History: Hypotension COMPARISON: None available. TECHNIQUE: Single portable radiograph of the chest FINDINGS: The cardiac silhouette is unremarkable. The lungs are clear bilaterally. The costophrenic sulci are clear and well demarcated. IMPRESSION: No radiographic evidence of an acute cardiopulmonary process.[] PROCEDURE: CT ABDOMEN PELVIS WO CONTRAST Abdominal and Pelvis CT, Without Contrast: History: Flank pain Comparison: None. Procedure: Axial images are obtained of the abdomen and pelvis, without IV or oral contrast. Oral Contrast: No Findings: Evaluation of solid organs is limited without contrast. There is a moderate size hiatal hernia. Liver: Normal. Spleen: Normal. Pancreas: Normal. Adrenal Glands: 1 cm nodule in the medial limb of the left adrenal is likely an adrenal adenoma. Kidneys: Normal. There is no free air or free fluid. There is no lymphadenopathy. The urinary bladder is collapsed. There is no pericolonic inflammation identified. The appendix is not well seen but appears normal. Impression: No acute findings. End impression Course & Med Decision Making: Course & Med Decision Making Pertinent Labs and Imaging studies reviewed. (See chart for details) The patient's condition remains stable. I spoke with the hospitalist, who accepted the patient to the hospital for further evaluation and treatment. Patient's blood pressure did improve after IV hydration. Her potassium will be replaced. [] CRITICAL CARE TIME: 45] Minutes, excluding any procedures and care of other patients. Dragon Disclaimer: Evita Disclaimer: This electronic medical record was generated, in whole or in part, using a voice recognition dictation system. Departure Departure Impression: Primary Impression: Acute renal failure Additional Impressions: Hypotension Hypokalemia Disposition: 09 ADMITTED INPATIENT Admitting Physician: JAVIER Condition: GUARDED Referrals: NO PCP (PCP) BAKARI FRAZIER MD Mar 30, 2020 10:50
[2020-03-30 10:53] LABS: BASO # 0.1 x10^3/uL (0.0-0.2); BASO % 1 % (0-3); EOS # 0.2 x10^3/uL (0.0-0.7); EOS % 2 % (0-3); HEMATOCRIT 41.1 % (36.0-47.0); HEMOGLOBIN 13.8 g/dL (12.0-15.5); LYMPH # 2.1 x10^3/uL (1.0-4.8); LYMPH % 22 % (24-48); MEAN CORPUSCULAR HEMOGLOBIN 29 pg (25-35); MEAN CORPUSCULAR HGB CONC 34 g/dL (31-37); MEAN CORPUSCULAR VOLUME 86 fL (79-100); MONO % 11 % (0-9); NEUT # 6.4 x10^3/uL (1.8-7.7); NEUT % 65 % (31-73); PLATELET COUNT 156 x10^3/uL (140-400); RED BLOOD COUNT 4.76 x10^6/uL (3.50-5.40); RED CELL DISTRIBUTION WIDTH 15.2 % (11.5-14.5); WHITE BLOOD COUNT 9.9 x10^3/uL (4.0-11.0)
[2020-03-30 11:04] LABS: PROTHROMBIN TIME PATIENT 14.5 SEC (11.7-14.0)
--- NOTE | 2020-03-30 11:06 | RAD ---
EXAM: CHEST 1 VIEW History: Hypotension COMPARISON: None available. TECHNIQUE: Single portable radiograph of the chest FINDINGS: The cardiac silhouette is unremarkable. The lungs are clear bilaterally. The costophrenic sulci are clear and well demarcated. IMPRESSION: No radiographic evidence of an acute cardiopulmonary process. Electronically signed by: Adebayo Gustafson MD (03/30/2020 11:03 AM) [id number]
--- NOTE | 2020-03-30 11:13 | EKG ---
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
[2020-03-30 11:21] LABS: FREE T4 1.08 ng/dL (0.76-1.46); THYROID STIM HORMONE (TSH) 2.28 uIU/mL (0.358-3.74)
[2020-03-30 11:22] LABS: ALBUMIN 3.3 g/dL (3.4-5.0); ALBUMIN/GLOBULIN RATIO 0.8 (1.0-1.7); CALCIUM 8.9 mg/dL (8.5-10.1); CREATININE 2.1 mg/dL (0.6-1.0); GFR 28.5; MAGNESIUM 1.7 mg/dL (1.8-2.4); TOTAL BILIRUBIN 0.4 mg/dL (0.2-1.0); TOTAL PROTEIN 7.4 g/dL (6.4-8.2)
[2020-03-30 11:25] LABS: POTASSIUM 2.4 mmol/L (3.5-5.1)
[2020-03-30 11:30] LABS: BILIRUBIN,URINE NEGATIVE (NEG); CLARITY,URINE CLEAR; COLOR,URINE YELLOW; NITRITE,URINE NEGATIVE (NEG); PROTEIN,URINE NEGATIVE (NEG-TRACE)
[2020-03-30] MEDS ORDERED: POTASSIUM CHLORIDE 20 MEQ TABLET.ER. PO ONE (11:30)
[2020-03-30] MEDS ORDERED: POTASSIUM CHLORIDE 20MEQ 100 ML IV ONE (11:30)
--- NOTE | 2020-03-30 11:33 | RAD ---
Abdominal and Pelvis CT, Without Contrast: History: Flank pain Comparison: None. Procedure: Axial images are obtained of the abdomen and pelvis, without IV or oral contrast. Oral Contrast: No Findings: Evaluation of solid organs is limited without contrast. There is a moderate size hiatal hernia. Liver: Normal. Spleen: Normal. Pancreas: Normal. Adrenal Glands: 1 cm nodule in the medial limb of the left adrenal is likely an adrenal adenoma. Kidneys: Normal. There is no free air or free fluid. There is no lymphadenopathy. The urinary bladder is collapsed. There is no pericolonic inflammation identified. The appendix is not well seen but appears normal. Impression: No acute findings. End impression PQRS Compliance Statement: One or more of the following individualized dose reduction techniques were utilized for this examination: 1. Automated exposure control 2. Adjustment of the mA and/or kV according to patient size 3. Use of iterative reconstruction technique Electronically signed by: Bernardino Padilla III, MD (03/30/2020 11:30 AM) [id number]
[2020-03-30 11:54] LABS: HYALINE CASTS, URINE MODERATE /HPF; SQUAMOUS EPITHELIAL CELL,UR FEW /LPF
[2020-03-30 11:55] LABS: BACTERIA,URINE 0 /HPF (0-FEW); RBC,URINE 0 /HPF (0-2); WBC,URINE OCC /HPF (0-4)
[2020-03-30 12:38] LABS: PLT ESTIMATE ADEQUATE (ADEQUATE)
--- NOTE | 2020-03-30 12:38 | PDOC1 ---
History and Physical Date of Admission Date of Admission DATE: 03/30/20 TIME: 12:31 Identification/Chief Complaint Chief Complaint Dizziness Source Source: Patient History of Present Illness History of Present Illness Ms Ayon is a 64 yo F w/ PMHx dCHF, COPD, depression, RLS, HTN, smoker who presents to the emergency department for weakness and dizziness. She had a low BP at home and called her visiting physician who told her to come to ED. She states she has felt weak and fatigued over the past 2 days prior to presentation and is noted to be hypotensive upon arrival in the emergency department. She denies any new or focal pain, although does admit to having chronic chest pain, as well as flank/back pain, for over a year. She denies any nausea, vomiting, diarrhea, fevers, chills, cough, or significant shortness of breath or pleuritic pain. She states she has been eating well. She has not had any vision changes, numbness or focal weakness, although she states that when she does feel extr tania dizzy, when she feels like she is about to pass out, she does feel that her vision is somewhat decreased. There are no alleviating or exacerbating factors to her symptoms although standing upright seems to worsen her dizziness. She was recently started on metolazone and lasix for swelling. Found with BP 84/30 with pulse 53. EKG sinus, poor quality, t-wave flattening noted. She had negative abdominal CT. Labs significant for Cr 2.1, BUN 37, Na 137, K 2.4, Mg 1.7, BNP 239, Lactate 2.6, WBC 9.9, Hb 13.8, platelets 156. Started on IVF in ED and called for admission for further treatment. Past Medical History Cardiovascular: CHF, HTN Pulmonary: COPD GI: GERD, Other Psych: Anxiety, Addictions Musculoskeletal: Osteoarthritis Past Surgical History Past Surgical History: Other Family History Family History: Heart Disease Family History: Parent Social History Smoke: <1 pack per day ALCOHOL: occassional Drugs: None Current Medications Current Medications Current Medications Sodium Chloride 1,000 ml @ 1,000 mls/hr Q1H IV Last administered on 03/30/20at 10:57; Start 03/30/20 at 10:39; Stop 03/30/20 at 11:38; Status DC Sodium Chloride 1,000 ml @ 1,000 mls/hr 1X ONCE IV Last administered on 03/30/20at 10:58; Start 03/30/20 at 10:45; Stop 03/30/20 at 11:44; Status DC Potassium Chloride/Water 100 ml @ 50 mls/hr 1X ONCE IV Last administered on 03/30/20at 11:38; Start 03/30/20 at 11:30; Stop 03/30/20 at 13:29 Potassium Chloride (Klor-Con) 40 meq 1X ONCE PO Last administered on 03/30/20at 11:38; Start 03/30/20 at 11:30; Stop 03/30/20 at 11:31; Status DC Sodium Chloride 1,000 ml @ 1,000 mls/hr 1X ONCE IV Last administered on 03/30/20at 12:20; Start 03/30/20 at 12:15; Stop 03/30/20 at 13:14 Active Scripts Active Furosemide 40 Mg Tablet 40 Mg PO DAILY MDD 1 Reported Levaquin (Levofloxacin) 500 Mg Tablet 1 Tab PO DAILY 2 Days Atorvastatin Calcium 20 Mg Tablet 1 Tab PO DAILY Advair 250-50 Diskus (Fluticasone/Salmeterol) 1 Each Disk.w.dev 1 Puff IH BID Proair Hfa Inhaler (Albuterol Sulfate) 8.5 Gm Hfa.aer.ad 1-2 Puff INH PRN Q4HRS PRN Loratadine 10 Mg Tablet 1 Tab PO DAILY Flonase Allergy Relief (Fluticasone Propionate) 9.9 Ml [place].susp 2 Sprays NS DAILY Allopurinol 100 Mg Tablet 1 Tab PO DAILY Lisinopril-Hctz 20-25 Mg Tab (Lisinopril/Hydrochlorothiazide) 1 Each Tablet 1 Tab PO DAILY Vitamin D2 (Ergocalciferol (Vitamin D2)) 50,000 Unit Capsule 1 Cap PO WEEKLY Geodon (Ziprasidone Hcl) 80 Mg Capsule 1 Cap PO BID Potassium Chloride 20 Meq Tablet.er 20 Meq PO DAILY Tramadol Hcl 50 Mg Tablet 50 Mg PO TID Symbicort 160-4.5 Mcg Inhaler (Budesonide/Formoterol Fumarate) 10.2 Gm Hfa.aer.ad 2 Puff IH BID Toprol Xl (Metoprolol Succinate) 25 Mg Tab.er.24h 1 Tab PO DAILY Gabapentin 100 Mg Capsule 100 Mg PO BID Omeprazole 20 Mg Capsule.dr 1 Cap PO DAILY Allergies Allergies: Coded Allergies: Penicillins (Verified Allergy, Intermediate, 05/21/18) aspirin (Verified Allergy, Intermediate, 05/21/18) ROS General: YES: Fatigue, Malaise; No: Chills, Night Sweats, Appetite, Other PSYCHOLOGICAL ROS: YES: Anxiety, Depression, Disorientation; No: Behavioral Disorder, Concentration difficultie, Decreased libido, Hallucinations, Hostility, Irritablity, Memory difficulties, Mood Swings, Obsessive thoughts, Physical abuse, Sexual abuse, Sleep disturbances, Suicidal ideation, Other Eyes: No Blurry vision, No Decreased vision, No Double vision, No Dry eyes, No Excessive tearing, No Eye Pain, No Itchy Eyes, No Loss of vision, No Photopho kwame, No Scotomata, No Uses contacts, No Uses glasses, No Other HEENT: No: Heacaches, Visual Changes, Hearing change, Nasal congestion, Nasal discharge, Oral lesions, Sinus pain, Sore Throat, Epistaxis, Sneezing, Snoring, Tinnitus, Vertigo, Vocal changes, Other ALLERGY AND IMMUNOLOGY: No: Hives, Insect Bite Sensitivity, Itchy/Watery Eyes, Nasal Congestion, Post Nasal Drip, Seasonal Allergies, Other Hematological and Lymphatic: No: Bleeding Problems, Blood Clots, Blood Transfusions, Brusing, Night Sweats, Pallor, Swollen Lymph Nodes, Other ENDOCRINE: No: Breast Changes, Galactorrhea, Hair Pattern Changes, Hot Flashes, Malaise/lethargy, Mood Swings, Palpitations, Polydipsia/polyuria, Skin Changes, Temperature Intolerance, Unexpected Weight Changes, Other Breast: No New/Changing Breast Lumps, No Nipple changes, No Nipple discharge, No Other Respiratory: No: Cough, Hemoptysis, Orthopnea, Pleuritic Pain, Shortness of breath, SOB with excertion, Sputum Changes, Stridor, Tachypnea, Wheezing, Other Cardiovascular: No Chest Pain, No Palpitations, No Orthopnea, No Paroxysmal Noc. Dyspnea, No Edema, No Lt Headedness, No Other Gastrointestinal: No Nausea, No Vomiting, No Abdominal Pain, No Diarrhea, No Constipation, No Melena, No Hematochezia, No Other Genitourinary: No Dysuria, No Frequency, No Incontinence, No Hematuria, No Ret ention, No Discharge, No Urgency, No Pain, No Flank Pain, No Other, No , No , No , No , No , No , No Musculoskeletal: Yes Gait Disturbance; No Joint Pain, No Joint Stiffness, No Joint Swelling, No Muscle Pain, No Muscular Weakness, No Pain In:, No Swelling In:, No Other Neurological: Yes Dizziness, Yes Gait Disturbance; No Behavorial Changes, No Bowel/Bladder ControlChng, No Confusion, No Headaches, No Impaired Coord/balance, No Memory Loss, No Numbness/Tingling, No Seizures, No Speech Problems, No Tremors, No Visual Changes, No Weakness, No Other Skin: No Dry Skin, No Eczema, No Hair Changes, No Lumps, No Mole Changes, No Mottling, No Nail Changes, No Pruritus, No Rash, No Skin Lesion Changes, No Other, No Acne Physical Exam General: Alert, Cooperative, No acute distress HEENT: Atraumatic, PERRLA, EOMI, Mucous membr. moist/pink Lungs: Clear to auscultation, Normal air movement Heart: S1S2, RRR, no thrills, no rubs, no gallops, no murmurs Vitals Vitals Vital Signs Date Time Temp Pulse Resp B/P (MAP) Pulse Ox O2 Delivery O2 Flow Rate FiO2 03/30/20 12:11 60 94 03/30/20 10:38 98.5 12 84/30 (48) Room Air 98.5 Labs Labs Laboratory Tests Test 03/30/20 10:38 03/30/20 11:12 White Blood Count 9.9 x10^3/uL (4.0-11.0) Red Blood Count 4.76 x10^6/uL (3.50-5.40) Hemoglobin 13.8 g/dL (12.0-15.5) Hematocrit 41.1 % (36.0-47.0) Mean Corpuscular Volume 86 fL (79-100) Mean Corpuscular Hemoglobin 29 pg (25-35) Mean Corpuscular Hemoglobin Concent 34 g/dL (31-37) Red Cell Distribution Width 15.2 % (11.5-14.5) Platelet Count 156 x10^3/uL (140-400) Neutrophils (%) (Auto) 65 % (31-73) Lymphocytes (%) (Auto) 22 % (24-48) Monocytes (%) (Auto) 11 % (0-9) Eosinophils (%) (Auto) 2 % (0-3) Basophils (%) (Auto) 1 % (0-3) Neutrophils # (Auto) 6.4 x10^3/uL (1.8-7.7) Lymphocytes # (Auto) 2.1 x10^3/uL (1.0-4.8) Monocytes # (Auto) 1.0 x10^3/uL (0.0-1.1) Eosinophils # (Auto) 0.2 x10^3/uL (0.0-0.7) Basophils # (Auto) 0.1 x10^3/uL (0.0-0.2) Prothrombin Time 14.5 SEC (11.7-14.0) Prothromb Time International Ratio 1.2 (0.8-1.1) Sodium Level 137 mmol/L (136-145) Potassium Level 2.4 mmol/L (3.5-5.1) Chloride Level 94 mmol/L (98-107) Carbon Dioxide Level 33 mmol/L (21-32) Anion Gap 10 (6-14) Blood Urea Nitrogen 37 mg/dL (7-20) Creatinine 2.1 mg/dL (0.6-1.0) Estimated GFR (Cockcroft-Gault) 28.5 BUN/Creatinine Ratio 18 (6-20) Glucose Level 106 mg/dL (70-99) Lactic Acid Level 2.6 mmol/L (0.4-2.0) Calcium Level 8.9 mg/dL (8.5-10.1) Magnesium Level 1.7 mg/dL (1.8-2.4) Total Bilirubin 0.4 mg/dL (0.2-1.0) Aspartate Amino Transf (AST/SGOT) 20 U/L (15-37) Alanine Aminotransferase (ALT/SGPT) 20 U/L (14-59) Alkaline Phosphatase 129 U/L (46-116) Troponin I Quantitative < 0.017 ng/mL (0.000-0.055) DA-Ted-K-Type Natriuretic Peptide 239 pg/mL (0-124) Total Protein 7.4 g/dL (6.4-8.2) Albumin 3.3 g/dL (3.4-5.0) Albumin/Globulin Ratio 0.8 (1.0-1.7) Lipase 162 U/L (73-393) Thyroid Stimulating Hormone (TSH) 2.280 uIU/mL (0.358-3.74) Free Thyroxine 1.08 ng/dL (0.76-1.46) Urine Collection Type U cath Urine Color Yellow Urine Clarity Clear Urine pH 6.0 (<5.0-8.0) Urine Specific Camilla 1.015 (1.000-1.030) Urine Protein Negative mg/dL (NEG-TRACE) Urine Glucose (UA) Negative mg/dL (NEG) Urine Ketones (Stick) Negative mg/dL (NEG) Urine Blood Negative (NEG) Urine Nitrite Negative (NEG) Urine Bilirubin Negative (NEG) Urine Urobilinogen Dipstick 1.0 mg/dL (0.2 mg/dL) Urine Leukocyte Esterase Negative (NEG) Urine RBC 0 /HPF (0-2) Urine WBC Occ /HPF (0-4) Urine Squamous Epithelial Cells Few /LPF Urine Bacteria 0 /HPF (0-FEW) Urine Hyaline Casts Moderate /HPF Urine Mucus Slight /LPF Laboratory Tests Test 03/30/20 10:38 03/30/20 11:12 White Blood Count 9.9 x10^3/uL (4.0-11.0) Red Blood Count 4.76 x10^6/uL (3.50-5.40) Hemoglobin 13.8 g/dL (12.0-15.5) Hematocrit 41.1 % (36.0-47.0) Mean Corpuscular Volume 86 fL (79-100) Mean Corpuscular Hemoglobin 29 pg (25-35) Mean Corpuscular Hemoglobin Concent 34 g/dL (31-37) Red Cell Distribution Width 15.2 % (11.5-14.5) Platelet Count 156 x10^3/uL (140-400) Neutrophils (%) (Auto) 65 % (31-73) Lymphocytes (%) (Auto) 22 % (24-48) Monocytes (%) (Auto) 11 % (0-9) Eosinophils (%) (Auto) 2 % (0-3) Basophils (%) (Auto) 1 % (0-3) Neutrophils # (Auto) 6.4 x10^3/uL (1.8-7.7) Lymphocytes # (Auto) 2.1 x10^3/uL (1.0-4.8) Monocytes # (Auto) 1.0 x10^3/uL (0.0-1.1) Eosinophils # (Auto) 0.2 x10^3/uL (0.0-0.7) Basophils # (Auto) 0.1 x10^3/uL (0.0-0.2) Prothrombin Time 14.5 SEC (11.7-14.0) Prothromb Time International Ratio 1.2 (0.8-1.1) Sodium Level 137 mmol/L (136-145) Potassium Level 2.4 mmol/L (3.5-5.1) Chloride Level 94 mmol/L (98-107) Carbon Dioxide Level 33 mmol/L (21-32) Anion Gap 10 (6-14) Blood Urea Nitrogen 37 mg/dL (7-20) Creatinine 2.1 mg/dL (0.6-1.0) Estimated GFR (Cockcroft-Gault) 28.5 BUN/Creatinine Ratio 18 (6-20) Glucose Level 106 mg/dL (70-99) Lactic Acid Level 2.6 mmol/L (0.4-2.0) Calcium Level 8.9 mg/dL (8.5-10.1) Magnesium Level 1.7 mg/dL (1.8-2.4) Total Bilirubin 0.4 mg/dL (0.2-1.0) Aspartate Amino Transf (AST/SGOT) 20 U/L (15-37) Alanine Aminotransferase (ALT/SGPT) 20 U/L (14-59) Alkaline Phosphatase 129 U/L (46-116) Troponin I Quantitative < 0.017 ng/mL (0.000-0.055) TW-Zag-S-Type Natriuretic Peptide 239 pg/mL (0-124) Total Protein 7.4 g/dL (6.4-8.2) Albumin 3.3 g/dL (3.4-5.0) Albumin/Globulin Ratio 0.8 (1.0-1.7) Lipase 162 U/L (73-393) Thyroid Stimulating Hormone (TSH) 2.280 uIU/mL (0.358-3.74) Free Thyroxine 1.08 ng/dL (0.76-1.46) Urine Collection Type U cath Urine Color Yellow Urine Clarity Clear Urine pH 6.0 (<5.0-8.0) Urine Specific [place]illa 1.015 (1.000-1.030) Urine Protein Negative mg/dL (NEG-TRACE) Urine Glucose (UA) Negative mg/dL (NEG) Urine Ketones (Stick) Negative mg/dL (NEG) Urine Blood Negative (NEG) Urine Nitrite Negative (NEG) Urine Bilirubin Negative (NEG) Urine Urobilinogen Dipstick 1.0 mg/dL (0.2 mg/dL) Urine Leukocyte Esterase Negative (NEG) Urine RBC 0 /HPF (0-2) Urine WBC Occ /HPF (0-4) Urine Squamous Epithelial Cells Few /LPF Urine Bacteria 0 /HPF (0-FEW) Urine Hyaline Casts Moderate /HPF Urine Mucus Slight /LPF Images Images CXR - The cardiac silhouette is unremarkable. The lungs are clear bilaterally. The costophrenic sulci are clear and well demarcated. IMPRESSION: No radiographic evidence of an acute cardiopulmonary process. VTE Prophylaxis Ordered VTE Prophylaxis Devices: No VTE Pharmacological Prophylaxi: Yes Assessment/Plan Assessment/Plan A/P: Weakness and debility - likely related to hypotension which is likely 2/2 volume depletion Dizziness - related to above, improved with laying flat, raised legs and IVF initiation Hypotension - seems BP med related at this time Hypokalemia - will replace cautiously Hypomagnesemia - will replace cautiously YESENIA - likely vasomotor nephropathy. Has been on large doses of diuretics. Will give IVF. Chronic diastolic heart failure - diastolic by history, EF 60% Elevated lactic acid - likely from hypotension, poor perfusion H/o HTN - hold meds for today H/o COPD - nebs prn H/o depression - cont paxil and geodon FEN - Cardiac diet PPX - Heparin TID FULL CODE Dispo - inpatient for at least 2 midnights. RAMON COLLADO MD Mar 30, 2020 12:38
[2020-03-30 13:09] LABS: BARBITURATES NEG (NEG); BENZODIAZEPINES NEG (NEG); CANNABINOIDS NEG (NEG); COCAINE NEG (NEG); METHADONE NEG (NEG); OPIATES NEG (NEG); PHENCYCLIDINE NEG (NEG)
[2020-03-30 13:13] LABS: AMPHETAMINE/METHAMPHETAMINE NEG (NEG)
[2020-03-30 13:40] VITALS: BP 109/51
[2020-03-30] MEDS ORDERED: METO10TA5 PO (14:32)
[2020-03-30] MEDS ORDERED: ALBUTEROL SULFATE 2.5 MG/3 ML NEBU. INH PRN (15:00)
[2020-03-30] MEDS ORDERED: PARO40TA3 PO (15:01)
[2020-03-30 15:10] VITALS: BP 112/54
[2020-03-30] MEDS: ALBUTEROL SULFATE 2.5 MG/3 ML NEBU. NEB SCH ×2 (15:53→21:00)
[2020-03-30 19:50] VITALS: BP 86/41
[2020-03-30] MEDS: GABAPENTIN 100 MG CAPSULE. PO SCH (20:21)
[2020-03-30] MEDS: ZIPRASIDONE 20 MG CAPSULE PO SCH (20:21)
[2020-03-30] MEDS: ATORVASTATIN CALCIUM 20 MG TABLET PO SCH (20:21)
[2020-03-30] MEDS: traMADol 50 MG TABLET PO SCH (20:22)
[2020-03-30] MEDS: BUDESONIDE 0.5 MG/2 ML NEBU. NEB SCH (21:00)
[2020-03-30 23:12] VITALS: BP 84/34
[2020-03-31 03:19] VITALS: BP 100/49
[2020-03-31 05:13] LABS: CALCIUM 8.7 mg/dL (8.5-10.1); CREATININE 2.3 mg/dL (0.6-1.0); GFR 25.7
[2020-03-31 05:17] LABS: POTASSIUM 2.6 mmol/L (3.5-5.1)
[2020-03-31] MEDS ORDERED: POTASSIUM CHLORIDE 20 MEQ TABLET.ER. PO ONE ×2 (06:00→08:00)
[2020-03-31 07:22] VITALS: BP 114/49
[2020-03-31] MEDS: BUDESONIDE 0.5 MG/2 ML NEBU. NEB SCH ×2 (07:32→20:02)
[2020-03-31] MEDS: ALBUTEROL SULFATE 2.5 MG/3 ML NEBU. NEB SCH ×4 (07:32→20:02)
[2020-03-31] MEDS: PANTOPRAZOLE 40 MG TABLET.DR. PO SCH (07:46)
[2020-03-31] MEDS: POTASSIUM CHLORIDE 20 MEQ TABLET.ER. PO SCH (08:00)
[2020-03-31] MEDS: ALLOPURINOL 100 MG TABLET. PO SCH (08:58)
[2020-03-31] MEDS: ZIPRASIDONE 20 MG CAPSULE PO SCH ×2 (08:58→21:32)
[2020-03-31] MEDS: METOPROLOL SUCC 24HR ER 25 MG TAB.ER.24H. PO SCH (08:59)
[2020-03-31] MEDS: GABAPENTIN 100 MG CAPSULE. PO SCH ×2 (08:59→21:32)
[2020-03-31] MEDS: traMADol 50 MG TABLET PO SCH ×3 (08:59→21:33)
[2020-03-31] MEDS: PARoxetine 20 MG TABLET PO SCH (08:59)
[2020-03-31] MEDS: CETIRIZINE HCL 10 MG TABLET. PO SCH (08:59)
[2020-03-31] MEDS: FLUTICASONE 50MCG/NASAL SPRAY 16GM BOTTLE. NS SCH (09:00)
--- NOTE | 2020-03-31 09:54 | PDOC ---
PROGRESS NOTES Chief Complaint Chief Complaint Weakness and debility - likely related to hypotension which is likely 2/2 volume depletion Dizziness - related to above, improved with laying flat, raised legs and IVF initiation Hypotension - seems BP med related at this time Hypokalemia - will replace with 80 meq today in light of her renal dysfunction, I will request urine lytes. repeat k level in the afternoon Hypomagnesemia - recheck in the am YESENIA - likely vasomotor nephropathy. Has been on large doses of diuretics. which can account for her K loses, continue IVF. Chronic diastolic heart failure - diastolic by history, EF 60% Elevated lactic acid - likely from hypotension, poor perfusion improved BP maintain MAP greater than 65 otherwise give IV fluid bolus. H/o HTN - hold meds for today H/o COPD - nebs prn H/o depression - cont paxil and geodon FEN - Cardiac diet PPX - Heparin TID FULL CODE Dispo - home hopefully soon once her electrolyte disturbance has been corrected History of Present Illness History of Present Illness No acute events overnight, feeling better no palpitations no shortness of breath, plan of care discussed in detail. No new complaints. Vitals Vitals Vital Signs Date Time Temp Pulse Resp B/P (MAP) Pulse Ox O2 Delivery O2 Flow Rate FiO2 03/31/20 08:59 Room Air 03/31/20 08:59 58 114/49 03/31/20 07:33 97 03/31/20 07:22 97.6 20 97.6 Physical Exam General: Alert, Cooperative, No acute distress Heart: Regular rate, Normal S1 Lungs: Clear Abdomen: Normal bowel sounds, Soft, No tenderness Extremities: No clubbing, No cyanosis Skin: No rashes, No breakdown Labs LABS Laboratory Tests Test 03/30/20 10:38 03/30/20 11:12 03/30/20 14:05 03/30/20 18:20 White Blood Count 9.9 x10^3/uL (4.0-11.0) Red Blood Count 4.76 x10^6/uL (3.50-5.40) Hemoglobin 13.8 g/dL (12.0-15.5) Hematocrit 41.1 % (36.0-47.0) Mean Corpuscular Volume 86 fL (79-100) Mean Corpuscular Hemoglobin 29 pg (25-35) Mean Corpuscular Hemoglobin Concent 34 g/dL (31-37) Red Cell Distribution Width 15.2 % (11.5-14.5) Platelet Count 156 x10^3/uL (140-400) Neutrophils (%) (Auto) 65 % (31-73) Lymphocytes (%) (Auto) 22 % (24-48) Monocytes (%) (Auto) 11 % (0-9) Eosinophils (%) (Auto) 2 % (0-3) Basophils (%) (Auto) 1 % (0-3) Neutrophils # (Auto) 6.4 x10^3/uL (1.8-7.7) Lymphocytes # (Auto) 2.1 x10^3/uL (1.0-4.8) Monocytes # (Auto) 1.0 x10^3/uL (0.0-1.1) Eosinophils # (Auto) 0.2 x10^3/uL (0.0-0.7) Basophils # (Auto) 0.1 x10^3/uL (0.0-0.2) Platelet Estimate Adequate (ADEQUATE) Large Platelets Present Giant Platelets Present Prothrombin Time 14.5 SEC (11.7-14.0) Prothromb Time International Ratio 1.2 (0.8-1.1) Sodium Level 137 mmol/L (136-145) Potassium Level 2.4 mmol/L (3.5-5.1) Chloride Level 94 mmol/L (98-107) Carbon Dioxide Level 33 mmol/L (21-32) Anion Gap 10 (6-14) Blood Urea Nitrogen 37 mg/dL (7-20) Creatinine 2.1 mg/dL (0.6-1.0) Estimated GFR (Cockcroft-Gault) 28.5 BUN/Creatinine Ratio 18 (6-20) Glucose Level 106 mg/dL (70-99) Lactic Acid Level 2.6 mmol/L (0.4-2.0) 2.1 mmol/L (0.4-2.0) Calcium Level 8.9 mg/dL (8.5-10.1) Magnesium Level 1.7 mg/dL (1.8-2.4) Total Bilirubin 0.4 mg/dL (0.2-1.0) Aspartate Amino Transf (AST/SGOT) 20 U/L (15-37) Alanine Aminotransferase (ALT/SGPT) 20 U/L (14-59) Alkaline Phosphatase 129 U/L (46-116) Troponin I Quantitative < 0.017 ng/mL (0.000-0.055) < 0.017 ng/mL (0.000-0.055) KL-Pcs-Z-Type Natriuretic Peptide 239 pg/mL (0-124) Total Protein 7.4 g/dL (6.4-8.2) Albumin 3.3 g/dL (3.4-5.0) Albumin/Globulin Ratio 0.8 (1.0-1.7) Lipase 162 U/L (73-393) Thyroid Stimulating Hormone (TSH) 2.280 uIU/mL (0.358-3.74) Free Thyroxine 1.08 ng/dL (0.76-1.46) Urine Collection Type U cath Urine Color Yellow Urine Clarity Clear Urine pH 6.0 (<5.0-8.0) Urine Specific [place] 1.015 (1.000-1.030) Urine Protein Negative mg/dL (NEG-TRACE) Urine Glucose (UA) Negative mg/dL (NEG) Urine Ketones (Stick) Negative mg/dL (NEG) Urine Blood Negative (NEG) Urine Nitrite Negative (NEG) Urine Bilirubin Negative (NEG) Urine Urobilinogen Dipstick 1.0 mg/dL (0.2 mg/dL) Urine Leukocyte Esterase Negative (NEG) Urine RBC 0 /HPF (0-2) Urine WBC Occ /HPF (0-4) Urine Squamous Epithelial Cells Few /LPF Urine Bacteria 0 /HPF (0-FEW) Urine Hyaline Casts Moderate /HPF Urine Mucus Slight /LPF Urine Opiates Screen Neg (NEG) Urine Methadone Screen Neg (NEG) Urine Barbiturates Neg (NEG) Urine Phencyclidine Screen Neg (NEG) Urine Amphetamine/Methamphetamine Neg (NEG) Urine Benzodiazepines Screen Neg (NEG) Urine Cocaine Screen Neg (NEG) Urine Cannabinoids Screen Neg (NEG) Urine Ethyl Alcohol Neg (NEG) Test 03/31/20 03:30 Sodium Level 138 mmol/L (136-145) Potassium Level 2.6 mmol/L (3.5-5.1) Chloride Level 96 mmol/L (98-107) Carbon Dioxide Level 28 mmol/L (21-32) Anion Gap 14 (6-14) Blood Urea Nitrogen 43 mg/dL (7-20) Creatinine 2.3 mg/dL (0.6-1.0) Estimated GFR (Cockcroft-Gault) 25.7 Glucose Level 97 mg/dL (70-99) Calcium Level 8.7 mg/dL (8.5-10.1) Magnesium Level 2.0 mg/dL (1.8-2.4) Troponin I Quantitative < 0.017 ng/mL (0.000-0.055) Assessment and Plan Assessmemt and Plan Problems Medical Problems: (1) Acute renal failure Status: Acute (2) Hypokalemia Status: Acute (3) Hypotension Status: Acute Comment Review of Relevant I have reviewed the following items babar (where applicable) has been applied. Labs Laboratory Tests Test 03/30/20 10:38 03/30/20 11:12 03/30/20 14:05 03/30/20 18:20 White Blood Count 9.9 x10^3/uL (4.0-11.0) Red Blood Count 4.76 x10^6/uL (3.50-5.40) Hemoglobin 13.8 g/dL (12.0-15.5) Hematocrit 41.1 % (36.0-47.0) Mean Corpuscular Volume 86 fL (79-100) Mean Corpuscular Hemoglobin 29 pg (25-35) Mean Corpuscular Hemoglobin Concent 34 g/dL (31-37) Red Cell Distribution Width 15.2 % (11.5-14.5) Platelet Count 156 x10^3/uL (140-400) Neutrophils (%) (Auto) 65 % (31-73) Lymphocytes (%) (Auto) 22 % (24-48) Monocytes (%) (Auto) 11 % (0-9) Eosinophils (%) (Auto) 2 % (0-3) Basophils (%) (Auto) 1 % (0-3) Neutrophils # (Auto) 6.4 x10^3/uL (1.8-7.7) Lymphocytes # (Auto) 2.1 x10^3/uL (1.0-4.8) Monocytes # (Auto) 1.0 x10^3/uL (0.0-1.1) Eosinophils # (Auto) 0.2 x10^3/uL (0.0-0.7) Basophils # (Auto) 0.1 x10^3/uL (0.0-0.2) Platelet Estimate Adequate (ADEQUATE) Large Platelets Present Giant Platelets Present Prothrombin Time 14.5 SEC (11.7-14.0) Prothromb Time International Ratio 1.2 (0.8-1.1) Sodium Level 137 mmol/L (136-145) Potassium Level 2.4 mmol/L (3.5-5.1) Chloride Level 94 mmol/L (98-107) Carbon Dioxide Level 33 mmol/L (21-32) Anion Gap 10 (6-14) Blood Urea Nitrogen 37 mg/dL (7-20) Creatinine 2.1 mg/dL (0.6-1.0) Estimated GFR (Cockcroft-Gault) 28.5 BUN/Creatinine Ratio 18 (6-20) Glucose Level 106 mg/dL (70-99) Lactic Acid Level 2.6 mmol/L (0.4-2.0) 2.1 mmol/L (0.4-2.0) Calcium Level 8.9 mg/dL (8.5-10.1) Magnesium Level 1.7 mg/dL (1.8-2.4) Total Bilirubin 0.4 mg/dL (0.2-1.0) Aspartate Amino Transf (AST/SGOT) 20 U/L (15-37) Alanine Aminotransferase (ALT/SGPT) 20 U/L (14-59) Alkaline Phosphatase 129 U/L (46-116) Troponin I Quantitative < 0.017 ng/mL (0.000-0.055) < 0.017 ng/mL (0.000-0.055) SK-[id number]-Type Natriuretic Peptide 239 pg/mL (0-124) Total Protein 7.4 g/dL (6.4-8.2) Albumin 3.3 g/dL (3.4-5.0) Albumin/Globulin Ratio 0.8 (1.0-1.7) Lipase 162 U/L (73-393) Thyroid Stimulating Hormone (TSH) 2.280 uIU/mL (0.358-3.74) Free Thyroxine 1.08 ng/dL (0.76-1.46) Urine Collection Type U cath Urine Color Yellow Urine Clarity Clear Urine pH 6.0 (<5.0-8.0) Urine Specific [place] 1.015 (1.000-1.030) Urine Protein Negative mg/dL (NEG-TRACE) Urine Glucose (UA) Negative mg/dL (NEG) Urine Ketones (Stick) Negative mg/dL (NEG) Urine Blood Negative (NEG) Urine Nitrite Negative (NEG) Urine Bilirubin Negative (NEG) Urine Urobilinogen Dipstick 1.0 mg/dL (0.2 mg/dL) Urine Leukocyte Esterase Negative (NEG) Urine RBC 0 /HPF (0-2) Urine WBC Occ /HPF (0-4) Urine Squamous Epithelial Cells Few /LPF Urine Bacteria 0 /HPF (0-FEW) Urine Hyaline Casts Moderate /HPF Urine Mucus Slight /LPF Urine Opiates Screen Neg (NEG) Urine Methadone Screen Neg (NEG) Urine Barbiturates Neg (NEG) Urine Phencyclidine Screen Neg (NEG) Urine Amphetamine/Methamphetamine Neg (NEG) Urine Benzodiazepines Screen Neg (NEG) Urine Cocaine Screen Neg (NEG) Urine Cannabinoids Screen Neg (NEG) Urine Ethyl Alcohol Neg (NEG) Test 03/31/20 03:30 Sodium Level 138 mmol/L (136-145) Potassium Level 2.6 mmol/L (3.5-5.1) Chloride Level 96 mmol/L (98-107) Carbon Dioxide Level 28 mmol/L (21-32) Anion Gap 14 (6-14) Blood Urea Nitrogen 43 mg/dL (7-20) Creatinine 2.3 mg/dL (0.6-1.0) Estimated GFR (Cockcroft-Gault) 25.7 Glucose Level 97 mg/dL (70-99) Calcium Level 8.7 mg/dL (8.5-10.1) Magnesium Level 2.0 mg/dL (1.8-2.4) Troponin I Quantitative < 0.017 ng/mL (0.000-0.055) Laboratory Tests Test 03/30/20 10:38 03/30/20 11:12 03/30/20 14:05 03/30/20 18:20 White Blood Count 9.9 x10^3/uL (4.0-11.0) Red Blood Count 4.76 x10^6/uL (3.50-5.40) Hemoglobin 13.8 g/dL (12.0-15.5) Hematocrit 41.1 % (36.0-47.0) Mean Corpuscular Volume 86 fL (79-100) Mean Corpuscular Hemoglobin 29 pg (25-35) Mean Corpuscular Hemoglobin Concent 34 g/dL (31-37) Red Cell Distribution Width 15.2 % (11.5-14.5) Platelet Count 156 x10^3/uL (140-400) Neutrophils (%) (Auto) 65 % (31-73) Lymphocytes (%) (Auto) 22 % (24-48) Monocytes (%) (Auto) 11 % (0-9) Eosinophils (%) (Auto) 2 % (0-3) Basophils (%) (Auto) 1 % (0-3) Neutrophils # (Auto) 6.4 x10^3/uL (1.8-7.7) Lymphocytes # (Auto) 2.1 x10^3/uL (1.0-4.8) Monocytes # (Auto) 1.0 x10^3/uL (0.0-1.1) Eosinophils # (Auto) 0.2 x10^3/uL (0.0-0.7) Basophils # (Auto) 0.1 x10^3/uL (0.0-0.2) Platelet Estimate Adequate (ADEQUATE) Large Platelets Present Giant Platelets Present Prothrombin Time 14.5 SEC (11.7-14.0) Prothromb Time International Ratio 1.2 (0.8-1.1) Sodium Level 137 mmol/L (136-145) Potassium Level 2.4 mmol/L (3.5-5.1) Chloride Level 94 mmol/L (98-107) Carbon Dioxide Level 33 mmol/L (21-32) Anion Gap 10 (6-14) Blood Urea Nitrogen 37 mg/dL (7-20) Creatinine 2.1 mg/dL (0.6-1.0) Estimated GFR (Cockcroft-Gault) 28.5 BUN/Creatinine Ratio 18 (6-20) Glucose Level 106 mg/dL (70-99) Lactic Acid Level 2.6 mmol/L (0.4-2.0) 2.1 mmol/L (0.4-2.0) Calcium Level 8.9 mg/dL (8.5-10.1) Magnesium Level 1.7 mg/dL (1.8-2.4) Total Bilirubin 0.4 mg/dL (0.2-1.0) Aspartate Amino Transf (AST/SGOT) 20 U/L (15-37) Alanine Aminotransferase (ALT/SGPT) 20 U/L (14-59) Alkaline Phosphatase 129 U/L (46-116) Troponin I Quantitative < 0.017 ng/mL (0.000-0.055) < 0.017 ng/mL (0.000-0.055) JR-Kae-S-Type Natriuretic Peptide 239 pg/mL (0-124) Total Protein 7.4 g/dL (6.4-8.2) Albumin 3.3 g/dL (3.4-5.0) Albumin/Globulin Ratio 0.8 (1.0-1.7) Lipase 162 U/L (73-393) Thyroid Stimulating Hormone (TSH) 2.280 uIU/mL (0.358-3.74) Free Thyroxine 1.08 ng/dL (0.76-1.46) Urine Collection Type U cath Urine Color Yellow Urine Clarity Clear Urine pH 6.0 (<5.0-8.0) Urine Specific [place] 1.015 (1.000-1.030) Urine Protein Negative mg/dL (NEG-TRACE) Urine Glucose (UA) Negative mg/dL (NEG) Urine Ketones (Stick) Negative mg/dL (NEG) Urine Blood Negative (NEG) Urine Nitrite Negative (NEG) Urine Bilirubin Negative (NEG) Urine Urobilinogen Dipstick 1.0 mg/dL (0.2 mg/dL) Urine Leukocyte Esterase Negative (NEG) Urine RBC 0 /HPF (0-2) Urine WBC Occ /HPF (0-4) Urine Squamous Epithelial Cells Few /LPF Urine Bacteria 0 /HPF (0-FEW) Urine Hyaline Casts Moderate /HPF Urine Mucus Slight /LPF Urine Opiates Screen Neg (NEG) Urine Methadone Screen Neg (NEG) Urine Barbiturates Neg (NEG) Urine Phencyclidine Screen Neg (NEG) Urine Amphetamine/Methamphetamine Neg (NEG) Urine Benzodiazepines Screen Neg (NEG) Urine Cocaine Screen Neg (NEG) Urine Cannabinoids Screen Neg (NEG) Urine Ethyl Alcohol Neg (NEG) Test 03/31/20 03:30 Sodium Level 138 mmol/L (136-145) Potassium Level 2.6 mmol/L (3.5-5.1) Chloride Level 96 mmol/L (98-107) Carbon Dioxide Level 28 mmol/L (21-32) Anion Gap 14 (6-14) Blood Urea Nitrogen 43 mg/dL (7-20) Creatinine 2.3 mg/dL (0.6-1.0) Estimated GFR (Cockcroft-Gault) 25.7 Glucose Level 97 mg/dL (70-99) Calcium Level 8.7 mg/dL (8.5-10.1) Magnesium Level 2.0 mg/dL (1.8-2.4) Troponin I Quantitative < 0.017 ng/mL (0.000-0.055) Medications Current Medications Sodium Chloride 1,000 ml @ 1,000 mls/hr Q1H IV Last administered on 03/30/20at 10:57; Start 03/30/20 at 10:39; Stop 03/30/20 at 11:38; Status DC Sodium Chloride 1,000 ml @ 1,000 mls/hr 1X ONCE IV Last administered on at 10:58; Start 03/30/20 at 10:45; Stop 03/30/20 at 11:44; Status DC Potassium Chloride/Water 100 ml @ 50 mls/hr 1X ONCE IV Last administered on 03/30/20at 11:38; Start 03/30/20 at 11:30; Stop 03/30/20 at 13:29; Status DC Potassium Chloride (Klor-Con) 40 meq 1X ONCE PO Last administered on 03/30/20at 11:38; Start 03/30/20 at 11:30; Stop 03/30/20 at 11:31; Status DC Sodium Chloride 1,000 ml @ 1,000 mls/hr 1X ONCE IV Last administered on 03/30/20at 12:20; Start 03/30/20 at 12:15; Stop 03/30/20 at 13:14; Status DC Albuterol Sulfate (Ventolin Neb Soln) 2.5 mg PRN Q4HRS PRN INH SHORTNESS OF BREATH; Start 03/30/20 at 15:00 Allopurinol (Zyloprim) 100 mg DAILY PO Last administered on 03/31/20at 08:58; Start 03/31/20 at 09:00 Atorvastatin Calcium (Lipitor) 20 mg QHS PO Last administered on 03/30/20at 20:21; Start 03/30/20 at 21:00 Gabapentin (Neurontin) 100 mg BID PO Last administered on 03/31/20 08:59; Start 03/30/20 at 21:00 Metoprolol Succinate (Toprol Xl) 12.5 mg DAILY PO Last administered on at 08:59; Start 03/31/20 at 09:00 Potassium Chloride (Klor-Con) 20 meq DAILYWBKFT PO ; Start 03/31/20 at 08:00 Tramadol HCl (Ultram) 50 mg TID PO Last administered on 03/31/20 08:59; Start 03/30/20 at 21:00 Budesonide (Pulmicort) 0.5 mg RTBID NEB Last administered on 03/31/20 07:32; Start 03/30/20 at 20:00 Fluticasone Propionate (Flonase) 2 spray DAILY NS ; Start 03/31/20 at 09:00 Cetirizine HCl (ZyrTEC) 10 mg DAILY PO Last administered on 03/31/20 08:59; Start 03/31/20 at 09:00 Pantoprazole Sodium (Protonix) 40 mg DAILYAC PO Last administered on 03/31/20 07:46; Start 03/31/20 at 07:30 Ziprasidone (Geodon) 80 mg BID PO Last administered on 03/31/20 08:58; Start 03/30/20 at 21:00 Paroxetine HCl (Paxil) 40 mg DAILY PO Last administered on 03/31/20at 08:59; Start 03/31/20 at 09:00 Albuterol Sulfate (Ventolin Neb Soln) 2.5 mg RTQID NEB Last administered on 03/31/20at 07:32; Start 03/30/20 at 16:00 Potassium Chloride (Klor-Con) 40 meq 1X ONCE PO Last administered on 03/31/20at 06:00; Start 03/31/20 at 06:00; Stop 03/31/20 at 06:01; Status DC Potassium Chloride (Klor-Con) 40 meq 1X ONCE PO Last administered on 03/31/20at 07:46; Start 03/31/20 at 08:00; Stop 03/31/20 at 08:01; Status DC Active Scripts Active Furosemide 40 Mg Tablet 40 Mg PO DAILY MDD 1 Reported Paroxetine Hcl 40 Mg Tablet 40 Mg PO DAILY 30 Days Metolazone 10 Mg Tablet 10 Mg PO DAILY Levaquin (Levofloxacin) 500 Mg Tablet 1 Tab PO DAILY 2 Days Atorvastatin Calcium 20 Mg Tablet 1 Tab PO DAILY Advair 250-50 Diskus (Fluticasone/Salmeterol) 1 Each Disk.w.dev 1 Puff IH BID Proair Hfa Inhaler (Albuterol Sulfate) 8.5 Gm Hfa.aer.ad 1-2 Puff INH PRN Q4HRS PRN Loratadine 10 Mg Tablet 1 Tab PO DAILY Flonase Allergy Relief (Fluticasone Propionate) 9.9 Ml [place].susp 2 Sprays NS DAILY Allopurinol 100 Mg Tablet 1 Tab PO DAILY Lisinopril-Hctz 20-25 Mg Tab (Lisinopril/Hydrochlorothiazide) 1 Each Tablet 1 Tab PO DAILY Vitamin D2 (Ergocalciferol (Vitamin D2)) 50,000 Unit Capsule 1 Cap PO WEEKLY Geodon (Ziprasidone Hcl) 80 Mg Capsule 1 Cap PO BID Potassium Chloride (Potassium Chloride) 20 Meq Tablet.er 20 Meq PO DAILY Tramadol Hcl 50 Mg Tablet 50 Mg PO TID Symbicort 160-4.5 Mcg Inhaler (Budesonide/Formoterol Fumarate) 10.2 Gm Hfa.aer.ad 2 Puff IH BID Toprol Xl (Metoprolol Succinate) 25 Mg Tab.er.24h 1 Tab PO DAILY Gabapentin (Gabapentin) 100 Mg Capsule 100 Mg PO BID Omeprazole 20 Mg Capsule. 1 Cap PO DAILY Vitals/I & O Vital Sign - Last 24 Hours 03/30/20 03/30/20 03/30/20 03/30/20 10:31 10:34 10:38 10:40 Temp 98.5 98.5 Pulse 75 72 60 66 Resp 12 B/P (MAP) 84/30 (48) Pulse Ox 96 96 97 97 O2 Delivery Room Air 03/30/20 03/30/20 03/30/20 03/30/20 10:53 11:04 11:33 11:57 Pulse 63 57 66 64 Pulse Ox 95 95 92 96 03/30/20 03/30/20 03/30/20 03/30/20 12:11 13:40 14:36 15:10 Temp 98.4 98.6 98.4 98.6 Pulse 60 64 55 Resp 20 20 B/P (MAP) 109/51 (70) 112/54 (73) Pulse Ox 94 94 93 O2 Delivery Room Air Room Air Room Air 03/30/20 03/30/20 03/30/20 03/30/20 15:45 19:50 20:00 20:22 Temp 97.6 97.6 Pulse 64 Resp 20 B/P (MAP) 86/41 (56) Pulse Ox 98 98 98 O2 Delivery Room Air Room Air Room Air Room Air 03/30/20 03/30/20 03/30/20 03/30/20 21:01 21:03 21:22 23:12 Temp 97.7 97.7 Pulse 75 Resp 16 B/P (MAP) 84/34 (51) Pulse Ox 99 99 99 95 O2 Delivery Room Air Room Air Room Air Room Air 03/31/20 03/31/20 03/31/20 03/31/20 03:19 07:22 07:33 08:59 Temp 97.6 97.6 97.6 97.6 Pulse 63 58 58 Resp 18 20 B/P (MAP) 100/49 (66) 114/49 (70) 114/49 Pulse Ox 97 97 97 O2 Delivery Room Air Room Air Room Air 03/31/20 08:59 O2 Delivery Room Air Intake and Output 03/30/20 03/30/20 03/31/20 15:00 23:00 07:00 Intake Total 2000 ml 720 ml 210 ml Output Total 400 ml Balance 2000 ml 720 ml -190 ml TONIA HINES MD Mar 31, 2020 09:54
[2020-03-31 11:19] VITALS: BP 96/42
--- NOTE | 2020-03-31 14:04 | NUR ---
SS following for discharge planning. SS reviewed pt chart and discussed with pt RN. Pt is from home and is currently on room air. No PT/OT needs indicated at this time. SS will continue to follow for discharge planning.
[2020-03-31 15:23] VITALS: BP 93/34
[2020-03-31 18:09] LABS: UR POTASSIUM 22.1 mmol/L (Not Estab.)
[2020-03-31 19:47] VITALS: BP 116/44
[2020-03-31] MEDS: ATORVASTATIN CALCIUM 20 MG TABLET PO SCH (21:32)
[2020-03-31 23:05] VITALS: BP 118/50
[2020-04-01 03:40] VITALS: BP 112/52
[2020-04-01 04:45] LABS: CALCIUM 8.8 mg/dL (8.5-10.1); CREATININE 1.9 mg/dL (0.6-1.0); POTASSIUM 3.2 mmol/L (3.5-5.1)
[2020-04-01] MEDS: BUDESONIDE 0.5 MG/2 ML NEBU. NEB SCH (07:32)
[2020-04-01] MEDS: ALBUTEROL SULFATE 2.5 MG/3 ML NEBU. NEB SCH ×3 (07:33→16:10)
[2020-04-01 07:35] VITALS: BP 127/52
[2020-04-01] MEDS: traMADol 50 MG TABLET PO SCH ×2 (08:47→13:29)
[2020-04-01] MEDS: PANTOPRAZOLE 40 MG TABLET.DR. PO SCH (08:47)
[2020-04-01] MEDS: ZIPRASIDONE 20 MG CAPSULE PO SCH (08:47)
[2020-04-01] MEDS: FLUTICASONE 50MCG/NASAL SPRAY 16GM BOTTLE. NS SCH (08:47)
[2020-04-01] MEDS: GABAPENTIN 100 MG CAPSULE. PO SCH (08:47)
[2020-04-01] MEDS: ALLOPURINOL 100 MG TABLET. PO SCH (08:48)
[2020-04-01] MEDS: PARoxetine 20 MG TABLET PO SCH (08:48)
[2020-04-01] MEDS: METOPROLOL SUCC 24HR ER 25 MG TAB.ER.24H. PO SCH (08:48)
[2020-04-01] MEDS: CETIRIZINE HCL 10 MG TABLET. PO SCH (08:48)
[2020-04-01] MEDS: POTASSIUM CHLORIDE 20 MEQ TABLET.ER. PO SCH (08:48)
[2020-04-01 11:15] VITALS: BP 140/45
[2020-04-01] MEDS ORDERED: METO25TA2 PO (12:39)
[2020-04-01] MEDS ORDERED: POTASSIUM CL 40MEQ IN 0.9%NACL 1,000 ML IV ONE (12:45)
--- NOTE | 2020-04-01 12:45 | PDOC ---
PROGRESS NOTES Chief Complaint Chief Complaint Weakness and debility - likely related to hypotension which is likely 2/2 volume depletion Dizziness - related to above, improved with laying flat, raised legs and IVF initiation Hypotension - seems BP med related at this time Hypokalemia - will replace with 80 meq today in light of her renal dysfunction, I will request urine lytes. repeat k level in the afternoon Hypomagnesemia - recheck in the am YESENIA - likely vasomotor nephropathy. Has been on large doses of diuretics. which can account for her K loses, continue IVF. Chronic diastolic heart failure - diastolic by history, EF 60% Elevated lactic acid - likely from hypotension, poor perfusion improved BP maintain MAP greater than 65 otherwise give IV fluid bolus. H/o HTN - hold meds for today H/o COPD - nebs prn H/o depression - cont paxil and geodon FEN - Cardiac diet PPX - Heparin TID FULL CODE Dispo - home hopefully soon once her electrolyte disturbance has been corrected History of Present Illness History of Present Illness Ms Ayon is a 64 yo F w/ PMHx dCHF, COPD, depression, RLS, HTN, smoker who presents to the emergency department for weakness and dizziness. She had a low BP at home and called her visiting physician who told her to come to ED. She states she has felt weak and fatigued over the past 2 days prior to presentation and is noted to be hypotensive upon arrival in the emergency department. She denies any new or focal pain, although does admit to having chronic chest pain, as well as flank/back pain, for over a year. She denies any nausea, vomiting, diarrhea, fevers, chills, cough, or significant shortness of breath or pleuritic pain. She states she has been eating well. She has not had any vision changes, numbness or focal weakness, although she states that when she does feel extremely dizzy, when she feels like she is about to pass out, she does feel that her vision is somewhat decreased. There are no alleviating or exacerbating factors to her symptoms although standing upright seems to worsen her dizziness. She was recently started on metolazone and lasix for swelling. Found with BP 84/30 with pulse 53. EKG sinus, poor quality, t-wave flattening noted. She had negative abdominal CT. Labs significant for Cr 2.1, BUN 37, Na 137, K 2.4, Mg 1.7, BNP 239, Lactate 2.6, WBC 9.9, Hb 13.8, platelets 156. Started on IVF in ED and called for admission for further treatment. No acute events overnight, feeling better no palpitations no shortness of breath, plan of care discussed in detail. No new complaints. Cr improved to 1.9, K to 3.2. Renal imaging with no abnormalities. BP improved to 140/83 with half dosing of metoprolol and cessation of metolazone, furosemide and lisinopril/hctz. She is very anxious to return home. Vitals Vitals Vital Signs Date Time Temp Pulse Resp B/P (MAP) Pulse Ox O2 Delivery O2 Flow Rate FiO2 04/01/20 11:57 Room Air 04/01/20 11:15 98.2 78 16 140/45 (76) 100 98.2 Physical Exam General: Alert, Cooperative, No acute distress Heart: Regular rate, Normal S1 Lungs: Clear Abdomen: Normal bowel sounds, Soft, No tenderness Extremities: No clubbing, No cyanosis Skin: No rashes, No breakdown Labs LABS Laboratory Tests Test 04/01/20 03:46 Sodium Level 138 mmol/L (136-145) Potassium Level 3.2 mmol/L (3.5-5.1) Chloride Level 100 mmol/L (98-107) Carbon Dioxide Level 29 mmol/L (21-32) Anion Gap 9 (6-14) Blood Urea Nitrogen 48 mg/dL (7-20) Creatinine 1.9 mg/dL (0.6-1.0) Estimated GFR (Cockcroft-Gault) 32.0 Glucose Level 127 mg/dL (70-99) Calcium Level 8.8 mg/dL (8.5-10.1) Magnesium Level 2.0 mg/dL (1.8-2.4) Assessment and Plan Assessmemt and Plan Problems Medical Problems: (1) Acute renal failure Status: Acute (2) Hypokalemia Status: Acute (3) Hypotension Status: Acute Comment Review of Relevant I have reviewed the following items babar (where applicable) has been applied. Labs Laboratory Tests Test 03/30/20 14:05 03/30/20 18:20 03/31/20 03:30 03/31/20 09:30 Lactic Acid Level 2.1 mmol/L (0.4-2.0) Troponin I Quantitative < 0.017 ng/mL (0.000-0.055) < 0.017 ng/mL (0.000-0.055) Sodium Level 138 mmol/L (136-145) Potassium Level 2.6 mmol/L (3.5-5.1) Chloride Level 96 mmol/L (98-107) Carbon Dioxide Level 28 mmol/L (21-32) Anion Gap 14 (6-14) Blood Urea Nitrogen 43 mg/dL (7-20) Creatinine 2.3 mg/dL (0.6-1.0) Estimated GFR (Cockcroft-Gault) 25.7 Glucose Level 97 mg/dL (70-99) Calcium Level 8.7 mg/dL (8.5-10.1) Magnesium Level 2.0 mg/dL (1.8-2.4) Urine Sodium 28 mmol/L (Not Estab.) Urine Potassium 22.1 mmol/L (Not Estab.) Urine Chloride 16 mmol/L (Not Estab.) Test 04/01/20 03:46 Sodium Level 138 mmol/L (136-145) Potassium Level 3.2 mmol/L (3.5-5.1) Chloride Level 100 mmol/L (98-107) Carbon Dioxide Level 29 mmol/L (21-32) Anion Gap 9 (6-14) Blood Urea Nitrogen 48 mg/dL (7-20) Creatinine 1.9 mg/dL (0.6-1.0) Estimated GFR (Cockcroft-Gault) 32.0 Glucose Level 127 mg/dL (70-99) Calcium Level 8.8 mg/dL (8.5-10.1) Magnesium Level 2.0 mg/dL (1.8-2.4) Laboratory Tests Test 04/01/20 03:46 Sodium Level 138 mmol/L (136-145) Potassium Level 3.2 mmol/L (3.5-5.1) Chloride Level 100 mmol/L (98-107) Carbon Dioxide Level 29 mmol/L (21-32) Anion Gap 9 (6-14) Blood Urea Nitrogen 48 mg/dL (7-20) Creatinine 1.9 mg/dL (0.6-1.0) Estimated GFR (Cockcroft-Gault) 32.0 Glucose Level 127 mg/dL (70-99) Calcium Level 8.8 mg/dL (8.5-10.1) Magnesium Level 2.0 mg/dL (1.8-2.4) Microbiology 03/30/20 Blood Culture - Preliminary, Resulted NO GROWTH AFTER 2 DAYS Medications Current Medications Sodium Chloride 1,000 ml @ 1,000 mls/hr Q1H IV Last administered on 03/30/20at 10:57; Start 03/30/20 at 10:39; Stop 03/30/20 at 11:38; Status DC Sodium Chloride 1,000 ml @ 1,000 mls/hr 1X ONCE IV Last administered on 03/30/20at 10:58; Start 03/30/20 at 10:45; Stop 03/30/20 at 11:44; Status DC Potassium Chloride/Water 100 ml @ 50 mls/hr 1X ONCE IV Last administered on 03/30/20at 11:38; Start 03/30/20 at 11:30; Stop 03/30/20 at 13:29; Status DC Potassium Chloride (Klor-Con) 40 meq 1X ONCE PO Last administered on 03/30/20at 11:38; Start 03/30/20 at 11:30; Stop 03/30/20 at 11:31; Status DC Sodium Chloride 1,000 ml @ 1,000 mls/hr 1X ONCE IV Last administered on 03/30/20at 12:20; Start 03/30/20 at 12:15; Stop 03/30/20 at 13:14; Status DC Albuterol Sulfate (Ventolin Neb Soln) 2.5 mg PRN Q4HRS PRN INH SHORTNESS OF BREATH; Start 03/30/20 at 15:00 Allopurinol (Zyloprim) 100 mg DAILY PO Last administered on 04/01/20at 08:48; Start 03/31/20 at 09:00 Atorvastatin Calcium (Lipitor) 20 mg QHS PO Last administered on 03/31/20at 21:32; Start 03/30/20 at 21:00 Gabapentin (Neurontin) 100 mg BID PO Last administered on 04/01/20at 08:47; Start 03/30/20 at 21:00 Metoprolol Succinate (Toprol Xl) 12.5 mg DAILY PO Last administered on 04/01/20at 08:48; Start 03/31/20 at 09:00 Potassium Chloride (Klor-Con) 20 meq DAILYWBKFT PO Last administered on 04/01/20 08:48; Start 03/31/20 at 08:00 Tramadol HCl (Ultram) 50 mg TID PO Last administered on 04/01/20 08:47; Start 03/30/20 at 21:00 Budesonide (Pulmicort) 0.5 mg RTBID NEB Last administered on 04/01/20 07:32; Start 03/30/20 at 20:00 Fluticasone Propionate (Flonase) 2 spray DAILY NS Last administered on 04/01/20 08:47; Start 03/31/20 at 09:00 Cetirizine HCl (ZyrTEC) 10 mg DAILY PO Last administered on 04/01/20 08:48; Start 03/31/20 at 09:00 Pantoprazole Sodium (Protonix) 40 mg DAILYAC PO Last administered on 04/01/20 08:47; Start 03/31/20 at 07:30 Ziprasidone (Geodon) 80 mg BID PO Last administered on 04/01/20 08:47; Start 03/30/20 at 21:00 Paroxetine HCl (Paxil) 40 mg DAILY PO Last administered on 04/01/20 08:48; Start 03/31/20 at 09:00 Albuterol Sulfate (Ventolin Neb Soln) 2.5 mg RTQID NEB Last administered on 04/01/20at 11:57; Start 03/30/20 at 16:00 Potassium Chloride (Klor-Con) 40 meq 1X ONCE PO Last administered on 03/31/20at 06:00; Start 03/31/20 at 06:00; Stop 03/31/20 at 06:01; Status DC Potassium Chloride (Klor-Con) 40 meq 1X ONCE PO Last administered on 03/31/20 07:46; Start 03/31/20 at 08:00; Stop 03/31/20 at 08:01; Status DC Active Scripts Active Toprol Xl (Metoprolol Succinate) 25 Mg Tab.er.24h 0.5 Tab PO DAILY 30 Days Reported Paroxetine Hcl 40 Mg Tablet 40 Mg PO DAILY 30 Days Atorvastatin Calcium 20 Mg Tablet 1 Tab PO DAILY Proair Hfa Inhaler (Albuterol Sulfate) 8.5 Gm Hfa.aer.ad 1-2 Puff INH PRN Q4HRS PRN Loratadine 10 Mg Tablet 1 Tab PO DAILY Flonase Allergy Relief (Fluticasone Propionate) 9.9 Ml [place].susp 2 Sprays NS DAILY Allopurinol 100 Mg Tablet 1 Tab PO DAILY Vitamin D2 (Ergocalciferol (Vitamin D2)) 50,000 Unit Capsule 1 Cap PO WEEKLY Geodon (Ziprasidone Hcl) 80 Mg Capsule 1 Cap PO BID Potassium Chloride (Potassium Chloride) 20 Meq Tablet.er 20 Meq PO DAILY Tramadol Hcl 50 Mg Tablet 50 Mg PO TID Symbicort 160-4.5 Mcg Inhaler (Budesonide/Formoterol Fumarate) 10.2 Gm Hfa.aer.ad 2 Puff IH BID Gabapentin (Gabapentin) 100 Mg Capsule 100 Mg PO BID Omeprazole 20 Mg Capsule. 1 Cap PO DAILY Vitals/I & O Vital Sign - Last 24 Hours 03/31/20 03/31/20 03/31/20 03/31/20 14:18 15:23 15:42 17:31 Temp 98.2 98.2 Pulse 75 Resp 18 B/P (MAP) 93/34 (53) Pulse Ox 97 O2 Delivery Room Air Room Air Room Air Room Air 03/31/20 03/31/20 03/31/20 03/31/20 19:47 20:00 20:04 21:33 Temp 98.5 98.5 Pulse 83 Resp 18 B/P (MAP) 116/44 (68) Pulse Ox 97 95 95 O2 Delivery Room Air Room Air Room Air Room Air 03/31/20 03/31/20 04/01/20 04/01/20 22:33 23:05 03:40 07:34 Temp 98.9 98.1 98.9 98.1 Pulse 95 73 Resp 16 16 B/P (MAP) 118/50 (72) 112/52 (72) Pulse Ox 95 95 94 95 O2 Delivery Room Air Room Air Room Air Room Air 04/01/20 04/01/20 04/01/20 04/01/20 07:35 07:50 08:47 08:48 Temp 98.1 98.1 Pulse 74 74 Resp 16 16 B/P (MAP) 127/52 (77) 127/52 Pulse Ox 100 O2 Delivery Room Air Room Air Room Air 5/12/2104/01/20 04/01/20 09:50 11:15 11:57 Temp 98.2 98.2 Pulse 78 Resp 16 16 B/P (MAP) 140/45 (76) Pulse Ox 100 O2 Delivery Room Air Room Air Room Air Intake and Output 03/31/20 03/31/20 04/01/20 15:00 23:00 07:00 Intake Total 600 ml 800 ml 240 ml Output Total 1000 ml Balance 600 ml 800 ml -760 ml RAMON COLLADO MD April 01, 2020 12:45
--- NOTE | 2020-04-01 12:46 | SNU/HH DC ---
DISCHARGE WITH HOME HEALTH DISCHARGE INFORMATION: Discharge Date: April 01, 2020 Final Diagnosis: Problems Medical Problems: (1) Acute renal failure Status: Acute (2) Hypokalemia Status: Acute (3) Hypotension Status: Acute Condition on Discharge: Stable CODE STATUS: Code Status: Full HOME HEALTH: Face to Face: I certify this patient is under my care and that I, or a nurse practitioner or physician's plant attendant or assistant operator working with me, had a face to face encounter that meets the physician face to face encounter requirements with this patient on 04/01/2020. Medical Complications: Falls, HTN RN For Eval/Treatment: Yes Physical Therapy For: Evalulation/Treatment Occupational Therapy For: Evaluation/Treatment Pt Meets Homebound Status: Extreme weakness w/ amb., Psychological condition POST DISCHARGE ORDERS: Activity Instructions for Disc: Activity as tolerated Weight Bearing Status after Di: As tolerated DIET AFTER DISCHARGE: Cardiac Wound/Incision Care: No wound care needed CHECKS AFTER DISCHARGE: Checks after discharge: Check blood press - daily, Check your Temp as needed, Weigh Yourself Daily TREATMENT/EQUIPMENT ORDERS: Adaptive Equipment Issued: None CERTIFICATION STATEMENT: Certification Statement: Certification Statement: Based on the above finding, I certify that this patient is confined to the home and needs intermittent mcc care, physical therapy and/or speech therapy, or continues to need occupational therapy.~ This patient is under my care, and I have initiated the establishment of the plan of care.~ This patient will be followed by myself or a community physician who will periodically review the plan of care. Home Meds Active Scripts Metoprolol Succinate (TOPROL XL) 25 Mg Tab.er.24h, 0.5 TAB PO DAILY for CHF for 30 Days, #15 TAB 5 Refills Prov:RAMON COLLADO MD 04/01/20 Reported Medications Paroxetine Hcl (PAROXETINE HCL) 40 Mg Tablet, 40 MG PO DAILY for Depression for 30 Days, #30 03/30/20 Atorvastatin Calcium (ATORVASTATIN CALCIUM) 20 Mg Tablet, 1 TAB PO DAILY, #30 TAB 5 Refills 05/20/18 Albuterol Sulfate (PROAIR HFA INHALER) 8.5 Gm Hfa.aer.ad, 1-2 PUFF INH PRN Q4HRS PRN for SHORTNESS OF BREATH, INHALER 0 Refills 05/20/18 Loratadine (LORATADINE) 10 Mg Tablet, 1 TAB PO DAILY, #30 TAB 5 Refills 05/20/18 Fluticasone Propionate (Flonase Allergy Relief) 9.9 Ml [place].susp, 2 SPRAYS NS DAILY, BOTTLE 05/20/18 Allopurinol (ALLOPURINOL) 100 Mg Tablet, 1 TAB PO DAILY, #30 TAB 5 Refills 05/20/18 Ergocalciferol (Vitamin D2) (VITAMIN D2) 50,000 Unit Capsule, 1 CAP PO WEEKLY, #4 CAP 5 Refills 05/20/18 Ziprasidone Hcl (GEODON) 80 Mg Capsule, 1 CAP PO BID, #60 CAP 1 Refill 05/20/18 Potassium Chloride (POTASSIUM CHLORIDE ) 20 Meq Tablet.er, 20 MEQ PO DAILY, TAB.SR 05/20/18 Tramadol Hcl (TRAMADOL HCL) 50 Mg Tablet, 50 MG PO TID, TAB 0 Refills 05/20/18 Budesonide/Formoterol Fumarate (SYMBICORT 160-4.5 MCG INHALER) 10.2 Gm Hfa.aer.ad, 2 PUFF IH BID, #10.6 GM 3 Refills 05/20/18 Gabapentin (GABAPENTIN ) 100 Mg Capsule, 100 MG PO BID, CAP 05/20/18 Omeprazole (OMEPRAZOLE) 20 Mg Capsule.dr, 1 CAP PO DAILY, #30 CAP 5 Refills 05/20/18 Discontinued Reported Medications Metolazone (METOLAZONE) 10 Mg Tablet, 10 MG PO DAILY for CHF, #30 TAB 0 Refills 03/30/20 Levofloxacin (LEVAQUIN) 500 Mg Tablet, 1 TAB PO DAILY for antibiotic for 2 Days, #2 TAB 10/22/18 Fluticasone/Salmeterol (ADVAIR 250-50 DISKUS) 1 Each Disk.w.dev, 1 PUFF IH BID, #3 INHALER 3 Refills 05/20/18 Lisinopril/Hydrochlorothiazide (LISINOPRIL-HCTZ 20-25 MG TAB) 1 Each Tablet, 1 TAB PO DAILY, #30 TAB 5 Refills 05/20/18 Discontinued Scripts Furosemide (FUROSEMIDE) 40 Mg Tablet, 40 MG PO DAILY for chf MDD 1, #30 TAB Prov:MERE LUX MD 10/07/18 RAMON COLLADO MD April 01, 2020 12:46
--- NOTE | 2020-04-01 12:48 | PDOC3 ---
Discharge Summary Visit Information Date of Admission: Mar 30, 2020 Date of Discharge: April 01, 2020 Admitting Diagnosis: Acute renal failure Final Diagnosis Problems Medical Problems: (1) Acute renal failure Status: Acute (2) Hypokalemia Status: Acute (3) Hypotension Status: Acute Brief Hospital Course Allergies Allergies Coded Allergies Type Severity Reaction Last Updated Verified Penicillins Allergy Intermediate 05/21/18 Yes aspirin Allergy Intermediate 05/21/18 Yes Vital Signs Vital Signs Date Time Temp Pulse Resp B/P (MAP) Pulse Ox O2 Delivery O2 Flow Rate FiO2 04/01/20 11:57 Room Air 04/01/20 11:15 98.2 78 16 140/45 (76) 100 98.2 Lab Results Laboratory Tests Test 03/30/20 14:05 03/30/20 18:20 03/31/20 03:30 03/31/20 09:30 Lactic Acid Level 2.1 mmol/L (0.4-2.0) Troponin I Quantitative < 0.017 ng/mL (0.000-0.055) < 0.017 ng/mL (0.000-0.055) Sodium Level 138 mmol/L (136-145) Potassium Level 2.6 mmol/L (3.5-5.1) Chloride Level 96 mmol/L (98-107) Carbon Dioxide Level 28 mmol/L (21-32) Anion Gap 14 (6-14) Blood Urea Nitrogen 43 mg/dL (7-20) Creatinine 2.3 mg/dL (0.6-1.0) Estimated GFR (Cockcroft-Gault) 25.7 Glucose Level 97 mg/dL (70-99) Calcium Level 8.7 mg/dL (8.5-10.1) Magnesium Level 2.0 mg/dL (1.8-2.4) Urine Sodium 28 mmol/L (Not Estab.) Urine Potassium 22.1 mmol/L (Not Estab.) Urine Chloride 16 mmol/L (Not Estab.) Test 04/01/20 03:46 Sodium Level 138 mmol/L (136-145) Potassium Level 3.2 mmol/L (3.5-5.1) Chloride Level 100 mmol/L (98-107) Carbon Dioxide Level 29 mmol/L (21-32) Anion Gap 9 (6-14) Blood Urea Nitrogen 48 mg/dL (7-20) Creatinine 1.9 mg/dL (0.6-1.0) Estimated GFR (Cockcroft-Gault) 32.0 Glucose Level 127 mg/dL (70-99) Calcium Level 8.8 mg/dL (8.5-10.1) Magnesium Level 2.0 mg/dL (1.8-2.4) Laboratory Tests Test 04/01/20 03:46 Sodium Level 138 mmol/L (136-145) Potassium Level 3.2 mmol/L (3.5-5.1) Chloride Level 100 mmol/L (98-107) Carbon Dioxide Level 29 mmol/L (21-32) Anion Gap 9 (6-14) Blood Urea Nitrogen 48 mg/dL (7-20) Creatinine 1.9 mg/dL (0.6-1.0) Estimated GFR (Cockcroft-Gault) 32.0 Glucose Level 127 mg/dL (70-99) Calcium Level 8.8 mg/dL (8.5-10.1) Magnesium Level 2.0 mg/dL (1.8-2.4) Brief Hospital Course Ms Ayon is a 64 yo F w/ PMHx dCHF, COPD, depression, RLS, HTN, smoker who presents to the emergency department for weakness and dizziness. She had a low BP at home and called her visiting physician who told her to come to ED. She states she has felt weak and fatigued over the past 2 days prior to presentation and is noted to be hypotensive upon arrival in the emergency department. She denies any new or focal pain, although does admit to having chronic chest pain, as well as flank/back pain, for over a year. She denies any nausea, vomiting, diarrhea, fevers, chills, cough, or significant shortness of breath or pleuritic pain. She states she has been eating well. She has not had any vision changes, numbness or focal weakness, although she states that when she does feel extremely dizzy, when she feels like she is about to pass out, she does feel that her vision is somewhat decreased. There are no alleviating or exacerbating factors to her symptoms although standing upright seems to worsen her dizziness. She was recently started on metolazone and lasix for swelling. Found with BP 84/30 with pulse 53. EKG sinus, poor quality, t-wave flattening noted. She had negative abdominal CT. Labs significant for Cr 2.1, BUN 37, Na 137, K 2.4, Mg 1.7, BNP 239, Lactate 2.6, WBC 9.9, Hb 13.8, platelets 156. Started on IVF in ED and called for admission for further treatment. No acute events overnight, feeling better no palpitations no shortness of breath, plan of care discussed in detail. No new complaints. Cr improved to 1.9, K to 3.2. Renal imaging with no abnormalities. BP improved to 140/83 with half dosing of metoprolol and cessation of metolazone, furosemide and lisinopril/hctz. She is very anxious to return home. Problem list: Weakness and debility - likely related to hypotension which is likely 2/2 volume depletion Dizziness - related to above, improved with laying flat, raised legs and IVF initiation Hypotension - seems BP med related at this time. Improved with half dosing of metoprolol and cessation of her other 4 diuretic meds. Hypokalemia - replaced Hypomagnesemia - replaced YESENIA - likely vasomotor nephropathy. Has been on large doses of diuretics. which can account for her K loses, continue IVF. Chronic diastolic heart failure - diastolic by history, EF 60% Elevated lactic acid - likely from hypotension, poor perfusion improved BP maintain MAP greater than 65 otherwise give IV fluid bolus. H/o HTN - hold meds for today H/o COPD - nebs prn H/o depression - cont paxil and geodon Greater than 30 minutes spent on d/c Discharge Information Condition at Discharge: Improved Follow Up: Weeks (1) Disposition/Orders: D/C to Home w/ HH Scheduled Allopurinol (Allopurinol) 100 Mg Tablet, 1 TAB PO DAILY, #30 Ref 5 (Reported) Entered as Reported by: MAXIME CHAWLA on 05/20/181702 Last Action: Continued on 03/30/20 150 by RAMON COLLADO MD Atorvastatin Calcium (Atorvastatin Calcium) 20 Mg Tablet, 1 TAB PO DAILY, #30 Ref 5 (Reported) Entered as Reported by: MAXIME CHAWLA on 05/20/181702 Last Action: Continued on 03/30/20 150 by RAMON COLLADO MD Budesonide/Formoterol Fumarate (Symbicort 160-4.5 Mcg Inhaler) 10.2 Gm Hfa.aer.ad, 2 PUFF IH BID, #10.6 Ref 3 (Reported) Entered as Reported by: MAXIME CHAWLA on 05/20/181702 Last Action: Converted on 03/30/201500 by RAMON COLLADO MD Ergocalciferol (Vitamin D2) (Vitamin D2) 50,000 Unit Capsule, 1 CAP PO WEEKLY, #4 Ref 5 (Reported) Entered as Reported by: MAXIME CHAWLA on 05/20/181702 Last Action: Reviewed on 03/30/201431 by [employer] [employer] Fluticasone Propionate (Flonase Allergy Relief) 9.9 Ml [place].susp, 2 SPRAYS NS DAILY, (Reported) Entered as Reported by: MAXIME CHAWLA on 05/20/181702 Last Action: Converted on 03/30/201500 by RAMON COLLADO MD Gabapentin (Gabapentin ) 100 Mg Capsule, 100 MG PO BID, (Reported) Entered as Reported by: MAXIME CHAWLA on 05/20/181702 Last Action: Continued on 03/30/201500 by RAMON COLLADO MD Loratadine (Loratadine) 10 Mg Tablet, 1 TAB PO DAILY, #30 Ref 5 (Reported) Entered as Reported by: MAXIME CHAWLA on 05/20/181702 Last Action: Converted on 03/30/201500 by RAMON COLLADO MD Metoprolol Succinate (Toprol Xl) 25 Mg Tab.er.24h, 0.5 TAB PO DAILY for CHF for 30 Days, #15 Ref 5 Prescribed by: RAMON COLLADO MD on 04/01/20 1239 Omeprazole (Omeprazole) 20 Mg Capsule.dr, 1 CAP PO DAILY, #30 Ref 5 (Reported) Entered as Reported by: MAXIME CHAWLA on 05/20/181702 Last Action: Converted on 03/30/201500 by RAMON COLLADO MD Paroxetine Hcl (Paroxetine Hcl) 40 Mg Tablet, 40 MG PO DAILY for Depression for 30 Days, #30 (Reported) Entered as Reported by: RAMON COLLADO MD on 03/30/201500 Last Action: Converted on 03/30/201505 by RAMON COLLADO MD Potassium Chloride (Potassium Chloride ) 20 Meq Tablet.er, 20 MEQ PO DAILY, (Reported) Entered as Reported by: MAXIME CHAWLA on 05/20/181702 Last Action: Continued on 03/30/20 150 by RAMON COLLADO MD Tramadol Hcl (Tramadol Hcl) 50 Mg Tablet, 50 MG PO TID, Ref 0 (Reported) Entered as Reported by: MAXIME CHAWLA on 05/20/181702 Last Action: Continued on 03/30/20 150 by RAMON COLLADO MD Ziprasidone Hcl (Geodon) 80 Mg Capsule, 1 CAP PO BID, #60 Ref 1 (Reported) Entered as Reported by: MAXIME CHAWLA on 05/20/181702 Last Action: Converted on 03/30/201500 by RAMON COLLADO MD Scheduled PRN Albuterol Sulfate (Proair Hfa Inhaler) 8.5 Gm Hfa.aer.ad, 1-2 PUFF INH PRN Q4HRS PRN for SHORTNESS OF BREATH, Ref 0 (Reported) Entered as Reported by: MAXIME CHAWLA on 05/20/181702 Last Action: Continued on 03/30/201500 by RAMON COLLADO MD Discontinued Medications Fluticasone/Salmeterol (Advair 250-50 Diskus) 1 Each Disk.w.dev, 1 PUFF IH BID, #3 Ref 3 (Reported) Entered as Reported by: MAXIME CHAWLA on 05/20/181702 Furosemide (Furosemide) 40 Mg Tablet, 40 MG PO DAILY for chf MDD 1, #30 Prescribed by: MERE LUX on 10/07/18 0752 Last Action: Reviewed on 03/30/20 1432 by [facility] [employer] Levofloxacin (Levaquin) 500 Mg Tablet, 1 TAB PO DAILY for antibiotic for 2 Days, #2 (Reported) Entered as Reported by: JOY GRAY on 10/22/18 165 Lisinopril/Hydrochlorothiazide (Lisinopril-Hctz 20-25 Mg Tab) 1 Each Tablet, 1 TAB PO DAILY, #30 Ref 5 (Reported) Entered as Reported by: MAXIME CHAWLA on 05/20/181702 Metolazone (Metolazone) 10 Mg Tablet, 10 MG PO DAILY for CHF, #30 Ref 0 (Re ported) Entered as Reported by: VINCENZO SEALS on 03/30/201431 Last Taken: Unknown Dose on 03/30/20 Last Action: New Order on 03/30/201431 by RAMON LOPEZ MD April 01, 2020 12:48
--- NOTE | 2020-04-01 13:09 | NUR ---
NAI following. Discussed with RN. Discharge order for home with home health. Pt reported she has had [facility] the past. NAI verified with [facility] if they take pt's insurance - they are in network. NAI faxed referral to [facility], awaiting acceptance decision. Pt notified of difficulty finding home health for pt's insurance. Pt discharging, SW to contact pt when home health has been identified. Choice of vendor completed verbally. RN notified. Addendum: 04/01/20 at 1355 by GISELE TRIMBLE [facility] declined to take pt due to staffing. Referral sent to [facility], awaiting acceptance decision. Addendum: 04/01/20 at 1512 by GISELE TRIMBLE [facility] accepted pt. RN and pt notified.
[2020-04-01 15:08] VITALS: BP 104/42
--- NOTE | 2020-04-01 17:00 | NUR ---
Discharge instructions given to patient regarding medications, follow up appointment, and home health. Patient informed that [facility] will be contacting her. Education given over hypotension and edema. Patient verbalizes understanding.
== END 2020-04-01 17:30 | disposition home health service (06) | DRG 314 ==
LOC: ER 10:25 → 6 SOUTH 12:15
PROVIDERS: ADMIT Internal Medicine; ATTEND Internal Medicine
DX: I95.9 Hypotension, unspecified (principal); N17.0 Acute kidney failure with tubular necrosis; I50.32 Chronic diastolic (congestive) heart failure; E87.6 Hypokalemia; F32.9 Major depressive disorder, single episode, unspecified; F41.9 Anxiety disorder, unspecified; K21.9 Gastro-esophageal reflux disease without esophagitis; M19.90 Unspecified osteoarthritis, unspecified site; E83.42 Hypomagnesemia; E86.9 Volume depletion, unspecified; F17.210 Nicotine dependence, cigarettes, uncomplicated; G25.81 Restless legs syndrome; G89.29 Other chronic pain; I11.0 Hypertensive heart disease with heart failure; J44.9 Chronic obstructive pulmonary disease, unspecified; Z82.49 Family history of ischemic heart disease and other diseases of the circulatory system; Z88.6 Allergy status to analgesic agent; Z88.0 Allergy status to penicillin
CPT/HCPCS: 36415; 71045; 74176; 80048; 80053; 80307; 81001; 82436; 83605; 83690; 83735; 83880; 84133; 84300; 84439; 84443; 84484; 85025; 85610; 87040; 93005; 94640; 94760; 96361; 96365; 99291; J3480; J7030; G0378; J7613; J7626

== ENCOUNTER 2020-07-11 08:50 | Inpatient (IN) | payer OTHER ==
[2020-07-11] VITALS (13 sets, daily range): BP systolic 113–162; BP diastolic 57–79
[~2020-07-11] VITALS: Ht 167.6 cm; Wt 107.9 kg
[~2020-07-11 08:50] MED LIST changes: +APIX5TAB PO; +METO10TA5 PO; +PARO40TA3 PO
[2020-07-11] MEDS ORDERED: PROPOFOL 50 ML IV ONE (09:15)
[2020-07-11] MEDS ORDERED: PROPOFOL 100 ML IV PRN (09:15)
--- NOTE | 2020-07-11 09:56 | RAD ---
CHEST AP supine ONLY Clinical Indication: Reason: resp failure / Spl. Instructions: / History: Comparison: AP chest May 25, 2020. Findings: Endotracheal tube tip is at the level clavicles. Enteric tube courses into the stomach, tip outside of [id number]. Stable mild cardiomegaly. There are diffuse interstitial and alveolar opacities. Relative sparing of the periphery. There is no pneumothorax. No pleural effusion is appreciated. No acute bone abnormality. IMPRESSION: 1. Appropriate position of life support devices. 2. Diffuse interstitial and alveolar opacities. Electronically signed by: Cm Webb MD (07/11/2020 9:53 AM) [id number]
[2020-07-11 10:00] LABS: BASO # 0.1 x10^3/uL (0.0-0.2); BASO % 1 % (0-3); EOS # 0.2 x10^3/uL (0.0-0.7); EOS % 2 % (0-3); HEMATOCRIT 46.5 % (36.0-47.0); HEMOGLOBIN 15.1 g/dL (12.0-15.5); LYMPH # 3.1 x10^3/uL (1.0-4.8); LYMPH % 36 % (24-48); MEAN CORPUSCULAR HEMOGLOBIN 30 pg (25-35); MEAN CORPUSCULAR HGB CONC 32 g/dL (31-37); MEAN CORPUSCULAR VOLUME 92 fL (79-100); MONO # 0.2 x10^3/uL (0.0-1.1); MONO % 3 % (0-9); NEUT # 5.1 x10^3/uL (1.8-7.7); NEUT % 58 % (31-73); PLATELET COUNT 133 x10^3/uL (140-400); RED BLOOD COUNT 5.06 x10^6/uL (3.50-5.40); RED CELL DISTRIBUTION WIDTH 16.9 % (11.5-14.5); WHITE BLOOD COUNT 8.7 x10^3/uL (4.0-11.0)
[2020-07-11 10:01] LABS: CALCIUM 8.5 mg/dL (8.5-10.1); CREATININE 1.4 mg/dL (0.6-1.0); GFR 45.5; POTASSIUM 4.1 mmol/L (3.5-5.1); PROTHROMBIN TIME PATIENT 15.4 SEC (11.7-14.0)
[2020-07-11 10:07] LABS: ALBUMIN 3.4 g/dL (3.4-5.0); ALBUMIN/GLOBULIN RATIO 0.8 (1.0-1.7); C-REACTIVE PROTEIN 3.9 mg/L (0-3.3); TOTAL BILIRUBIN 0.5 mg/dL (0.2-1.0); TOTAL PROTEIN 7.8 g/dL (6.4-8.2)
[2020-07-11 10:12] LABS: BILIRUBIN,URINE NEGATIVE (NEG); CLARITY,URINE CLEAR; COLOR,URINE YELLOW; NITRITE,URINE NEGATIVE (NEG); PH,URINE 6.5 (<5.0-8.0); PROTEIN,URINE >=300 mg/dL (NEG-TRACE); UROBILINOGEN,URINE 0.2 mg/dL (0.2 mg/dL)
[2020-07-11 10:21] LABS: AMORPHOUS SEDIMENT,UR PRESENT /HPF; BACTERIA,URINE FEW /HPF (0-FEW)
[2020-07-11 10:37] LABS: BASE EXCESS ABG -7 mmol/L (-3-3); HCO3 ABG 21 mmol/L (21-28); PCO2 ABG 51 mmHg (35-46); PO2 ABG 72 mmHg (65-108); SAT O2 ABG 92 % (92-99)
[2020-07-11 10:39] LABS: FIO2 ABG 60
[2020-07-11 10:40] LABS: ANISOCYTOSIS SLIGHT; PLT ESTIMATE DECREASED (ADEQUATE)
[2020-07-11] MEDS ORDERED: MIDAZOLAM HCL/PF 5 MG/5 ML VIAL. ONE (10:43)
[2020-07-11] MEDS ORDERED: MIDAZOLAM HCL 50 MG in IV NORMAL SALINE 50ML 50 ML IV PRN (10:45)
[2020-07-11] MEDS ORDERED: IOHEXOL 350 MG/ML 100 ML VIAL. IV ONE (10:45)
[2020-07-11] MEDS: MIDAZOLAM HCL IV PRN ×2 (11:00→21:39)
[2020-07-11] MEDS: NORMAL SALINE IV PRN ×2 (11:00→21:39)
[2020-07-11] MEDS ORDERED: MIDAZOLAM HCL/PF 5 MG/5 ML VIAL. IV ONE (11:00)
[2020-07-11] MEDS ORDERED: CONTRAST GIVEN. MC PRN (11:00)
--- NOTE | 2020-07-11 11:25 | PHYS DOC ---
Past Medical History Past Medical History: Asthma, CHF, Hypertension Additional Past Medical Histor: RLS Past Surgical History: Other Additional Past Surgical Histo: unknown surgical hx Smoking Status: Unknown if ever smoked Alcohol Use: None Additional Information: unknown Drug Use: None General Adult EDM: Chief Complaint: SHORTNESS OF BREATH HPI: HPI: Patient is a 64 year old female who presents with respiratory failure. Ac cording to history patient developed respiratory distress this morning and family called 911. They state that she was feeling fine yesterday. Something similar to her happened in May and at that time she had pulmonary embolisms. She does have a history of congestive heart failure. Patient is unable to provide any history. Review of Systems: Review of Systems: Unable to obtain Heart Score: Risk Factors: Risk Factors: DM, Current or recent (<one month) smoker, HTN, HLP, family history of CAD, obesity. Risk Scores: Score 0 - 3: 2.5% MACE over next 6 weeks - Discharge Home Score 4 - 6: 20.3% MACE over next 6 weeks - Admit for Clinical Observation Score 7 - 10: 72.7% MACE over next 6 weeks - Early Invasive Strategies Current Medications: Current Medications Medications (Trade) Dose Ordered Sig/Betsy Start Time Stop Time Status Last Admin Dose Admin Info (CONTRAST GIVEN -- Rx MONITORING) 1 each PRN DAILY PRN 07/11/20 11:00 07/13/20 10:59 Iohexol (Omnipaque 350 Mg/ml) 80 ml 1X ONCE 07/11/20 10:45 07/11/20 10:50 DC Midazolam HCl (Versed) 5 mg 1X ONCE 07/11/20 11:00 07/11/20 11:01 DC 07/11/20 10:56 5 MG Midazolam HCl 100 mg/Sodium Chloride 100 ml @ 1 mls/hr CONT PRN 07/11/20 10:51 07/11/20 11:00 1 MLS/HR Midazolam HCl 50 mg/Sodium Chloride 50 ml @ 1 mls/hr CONT PRN 07/11/20 10:45 Cancel Propofol 100 ml @ 1.56 mls/hr CONT PRN 07/11/20 09:15 07/11/20 09:20 3.12 MLS/HR Allergies: Allergies: Allergies Coded Allergies Type Severity Reaction Last Updated Verified Penicillins Allergy Intermediate 05/21/18 Yes aspirin Allergy Intermediate 05/21/18 Yes Physical Exam: PE: General: Unresponsive, agonal breathing. Well Nourished, well hydrated. HEENT: Atraumatic, EOMI, PERRL, airway patent, moist oral mucosa Neck: Supple, trachea midline Respiratory: Decreased breath sounds bilaterally, agonal breathing, diffuse crackles CV: Tachycardia, no murmur, cap refill <2 GI: Soft, nondistended, nontender, no masses MSK: No obvious deformities Skin: Warm, dry, intact Neuro: GCS 3 Current Patient Data: Labs: Laboratory Tests Test 07/11/20 09:40 07/11/20 10:05 07/11/20 10:35 White Blood Count 8.7 x10^3/uL (4.0-11.0) Red Blood Count 5.06 x10^6/uL (3.50-5.40) Hemoglobin 15.1 g/dL (12.0-15.5) Hematocrit 46.5 % (36.0-47.0) Mean Corpuscular Volume 92 fL (79-100) Mean Corpuscular Hemoglobin 30 pg (25-35) Mean Corpuscular Hemoglobin Concent 32 g/dL (31-37) Red Cell Distribution Width 16.9 % (11.5-14.5) H Platelet Count 133 x10^3/uL (140-400) L Neutrophils (%) (Auto) 58 % (31-73) Lymphocytes (%) (Auto) 36 % (24-48) Monocytes (%) (Auto) 3 % (0-9) Eosinophils (%) (Auto) 2 % (0-3) Basophils (%) (Auto) 1 % (0-3) Neutrophils # (Auto) 5.1 x10^3/uL (1.8-7.7) Lymphocytes # (Auto) 3.1 x10^3/uL (1.0-4.8) Monocytes # (Auto) 0.2 x10^3/uL (0.0-1.1) Eosinophils # (Auto) 0.2 x10^3/uL (0.0-0.7) Basophils # (Auto) 0.1 x10^3/uL (0.0-0.2) Platelet Estimate Decreased (ADEQUATE) Large Platelets Few Giant Platelets Occ Anisocytosis Slight Prothrombin Time 15.4 SEC (11.7-14.0) H Prothrombin Time INR 1.3 (0.8-1.1) H Sodium Level 139 mmol/L (136-145) Potassium Level 4.1 mmol/L (3.5-5.1) Chloride Level 102 mmol/L (98-107) Carbon Dioxide Level 20 mmol/L (21-32) L Anion Gap 17 (6-14) H Blood Urea Nitrogen 12 mg/dL (7-20) Creatinine 1.4 mg/dL (0.6-1.0) H Estimated GFR (Cockcroft-Gault) 45.5 BUN/Creatinine Ratio 9 (6-20) Glucose Level 284 mg/dL (70-99) H Lactic Acid Level 9.5 mmol/L (0.4-2.0) *H Calcium Level 8.5 mg/dL (8.5-10.1) Total Bilirubin 0.5 mg/dL (0.2-1.0) Aspartate Amino Transferase (AST) 37 U/L (15-37) Alanine Aminotransferase (ALT) 22 U/L (14-59) Alkaline Phosphatase 164 U/L (46-116) H Troponin I Quantitative < 0.017 ng/mL (0.000-0.055) C-Reactive Protein, Quantitative 3.9 mg/L (0-3.3) H CH-Jsc-O-Type Natriuretic Peptide 1680 pg/mL (0-124) H Total Protein 7.8 g/dL (6.4-8.2) Albumin 3.4 g/dL (3.4-5.0) Albumin/Globulin Ratio 0.8 (1.0-1.7) L Urine Collection Type Unknown Urine Color Yellow Urine Clarity Clear Urine pH 6.5 (<5.0-8.0) Urine Specific [place] 1.015 (1.000-1.030) Urine Protein >=300 mg/dL (NEG-TRACE) Urine Glucose (UA) 250 mg/dL (NEG) Urine Ketones (Stick) Negative mg/dL (NEG) Urine Blood Large (NEG) Urine Nitrite Negative (NEG) Urine Bilirubin Negative (NEG) Urine Urobilinogen Dipstick 0.2 mg/dL (0.2 mg/dL) Urine Leukocyte Esterase Negative (NEG) Urine RBC 3-5 /HPF (0-2) Urine WBC 1-4 /HPF (0-4) Urine Amorphous Sediment Present /HPF Urine Bacteria Few /HPF (0-FEW) O2 Saturation 92 % (92-99) Arterial Blood pH 7.24 (7.35-7.45) L Arterial Blood pCO2 at Patient Temp 51 mmHg (35-46) H Arterial Blood pO2 at Patient Temp 72 mmHg (65-108) Arterial Blood HCO3 21 mmol/L (21-28) Arterial Blood Base Excess -7 mmol/L (-3-3) L FiO2 60 Laboratory Tests 07/11/20 09:40 Laboratory Tests 07/11/20 09:40 Vital Signs: Vital Signs Date Time Temp Pulse Resp B/P (MAP) Pulse Ox O2 Delivery O2 Flow Rate FiO2 07/11/20 11:20 97 Ventilator 07/11/20 11:05 78 20 83/46 (58) 07/11/20 08:55 15.0 07/11/20 08:50 98.7 98.7 EKG: EKG: [] Radiology/Procedures: Radiology/Procedures: [] Course & Med Decision Making: Course & Med Decision Making Pertinent Labs and Imaging studies reviewed. (See chart for details) Patient is 64-year-old female who presents the emergency room and respiratory arrest. Upon arrival to the emergency room patient has a pulse ox in the 50s. She was intubated without any difficulty. She has decreased breath sounds with crackles. This is concerning for possible congestive heart failure versus flash pulmonary edema versus infection. Chest x-ray shows bilateral infiltrates. ET tube is in the proper position. Patient did have some transient hypotension which improved while in the emergency room. She was started on sedation once she started to respond. ABG was done and was reviewed. CT angios was done as she has a history of pulmonary embolisms. CT shows likely pulmonary edema. COVID swab was done given bilateral infiltrates, however it is more likely that this is due to heart failure with pulmonary edema. Chief Procurement Officer was consulted. Patient will be admitted to the ICU. Evita Disclaimer: Evita Disclaimer: This electronic medical record was generated, in whole or in part, using a voice recognition dictation system. Departure Departure Impression: Primary Impression: Respiratory failure, acute Additional Impression: Pulmonary edema Disposition: ADMITTED INPATIENT Condition: GUARDED Referrals: UNKNOWN PCP NAME (PCP) Justicifation of Admission Dx: Justifications for Admission: Justification of Admission Dx: Yes Respiratory Failure: Mechanical Ventilation Chronic Renal Failure: Encephalopathy Acute COPD Exacerbation: Acute COPD Exacerbation Critical Care Time Critical Care: Authorized and Performed by: Beth Zarate MD Total critical care time: approximately 65 minutes Due to a high probability of clinically significant, life threatening deter ioration, the patient required my highest level of preparedness to intervene emergently and I personally spent this critical care time directly and personally managing the patient. This critical care time included obtaining a history; examining the patient; pulse oximetry; ventilator management if n ecessary; ordering and review of studies; arranging urgent treatment with development of a management plan; evaluation of patient's response to treatment; frequent reassessment; discussion with patient/family; and, discussions with other providers. This critical care time was performed to assess and manage the high probability of imminent, life-threatening deterioration that could result in multi-organ failure. It was exclusive of separately billable procedures and treating other patients and teaching time. Please see MDM section and the rest of the note for further information on patient assessment and treatment. COVID-19 Assessment: PPE Use: Full PPE with N95 mask or PAPR: Yes PROCEDURE Procedure Intubation Performed by: Beth Zarate MD Consent: Verbal consent not obtained. The procedure was performed in an emergent situation. Required items: required blood products, implants, devices, and special equ ipment available Patient identity confirmed: arm band Time out: Immediately prior to procedure a "time out" was called to verify the correct patient, procedure, equipment, academic support center director and site/side marked as required. Indications: respiratory failure and airway protection Intubation method: [place] scope Patient status: paralyzed (RSI) Preoxygenation: [id number]-afrg Sedatives: etomidate Paralytic: succinylcoline Laryngoscope size: Mac 4 Tube size: 7.5 mm Tube type: cuffed Number of attempts: 1 Cords visualized: yes Post-procedure assessment: chest rise, BS = bilaterally none over epigastrum, +CO2 detector Breath sounds: equal and absent over the epigastrium Cuff inflated: yes Tube secured with: adhesive tape Chest x-ray interpreted by me. Chest x-ray findings: endotracheal tube in appropriate position Patient tolerance: Patient tolerated the procedure well with no immediate complications. BETH ZARATE MD Jul 11, 2020 11:25
--- NOTE | 2020-07-11 12:24 | RAD ---
CT ANGIOGRAPHY CHEST History: Respiratory failure. Technique: CT of the chest was performed with intravenous contrast. PE protocol. Maximum intensity projection coronal and sagittal reconstructions were performed. Exposure: One or more of the following individualized dose reduction techniques were utilized for this examination: 1. Automated exposure control 2. Adjustment of the mA and/or kV according to patient size 3. Use of iterative reconstruction technique. Comparison: May 28, 2020 Findings: Chest: No pulmonary embolism. Resolved previously seen pulmonary embolism. Endotracheal tube noted. Bilateral groundglass opacities with posterior predominantly lower lobe consolidations. Diffuse septal thickening. Small bilateral pleural effusions, left greater than right. Upper abdomen: Enteric tube with tip in the mid gastric body. Bones: No pathologic osseous lesions. Impression: 1. Increased bilateral groundglass opacities and posterior consolidations as well as septal thickening, favor pulmonary edema over infection. 2. Small bilateral pleural effusions, similar compared to prior. Electronically signed by: Yandel Howell DO (07/11/2020 12:21 PM) [id number]
--- NOTE | 2020-07-11 13:15 | CONS ---
DATE OF CONSULTATION: PULMONARY CONSULTATION ATTENDING PHYSICIAN: Blas Lara DO REASON FOR CONSULTATION: Respiratory failure. HISTORY OF PRESENT ILLNESS: The patient is a 64-year-old obese patient with a BMI of 38. The patient has history of diastolic congestive heart failure and also history of pulmonary embolism in 05/2020 with no evidence of DVT. The patient was on Eliquis at home. She was brought into the [facility] [facility] with respiratory distress. According to the family members, she was doing reasonably well yesterday. She was noted to be in agonal breathing pattern. Her saturations were in the 50s. The patient was intubated by the ER staff. She is currently on assist control mode, 60% FiO2 and 8 of PEEP and rate of 24 and 500 mL of tidal volume. The patient's chest x-ray was reviewed today. There were diffuse interstitial and alveolar opacities, which was a new finding. She underwent CT angiogram. Previously seen pulmonary emboli have resolved. There was evidence of bilateral ground glass opacities consistent with CHF. There was also basilar consolidation/atelectasis. Consultation is requested for further evaluation and management. I saw the patient in the ER. Her ABGs showed a pH of 7.24, pCO2 of 51 and a pO2 of 72 on 60% FiO2 with a bicarbonate of 21. BUN is 12, creatinine 1.4. Her lactic acid was 9.5. INR was 1.3. I have discussed with ER physician. PAST MEDICAL HISTORY: Significant for history of asthma, history of CHF, hypertension, RLS, history of normal EF of 60% previously, history of pulmonary embolism in May with negative DVT, on home Eliquis. PAST SURGICAL HISTORY: Unknown. ALLERGIES: PENICILLIN AND ASPIRIN. MEDICATIONS: Given in the ER were reviewed. REVIEW OF SYSTEMS: Unable to obtain from the patient. PHYSICAL EXAMINATION: GENERAL: She is intubated and sedated. VITAL SIGNS: Blood pressure initially was 200 systolic, now in the 90s-100s. HEENT: Sclerae nonicteric. She responds to stimuli despite on low-dose Versed. NECK: Supple. LUNGS: With rhonchi anteriorly. CARDIOVASCULAR: Regular. ABDOMEN: Soft, obese. EXTREMITIES: With trace pitting edema. LABORATORY DATA: Reviewed. BUN 12, creatinine 1.4, sodium 139. INR 1.3. ABGs were discussed in my history of present illness. IMPRESSION: 1. Acute hypoxic and hypercapnic respiratory failure secondary to acute on chronic diastolic congestive heart failure. 2. The patient with history of pulmonary embolism in May with no evidence of deep venous thrombosis and has been on home Eliquis and was taking regularly. No evidence of any recurrent pulmonary embolism. Previously seen pulmonary embolism has resolved. 3. Underlying morbid obesity. 4. Lactic acidosis due to increased work of breathing. Clinically, less likely sepsis./ metabolic acidosis 5. Abnormal CT chest with ground glass infiltrates and basilar atelectasis. Findings are favoring congestive heart failure. RECOMMENDATIONS: 1. Continue with present assist control mode. We will make changes based on ABGs. 2. Diuresis. 3. Follow ABGs. 4. Follow renal function. 5. Follow lactic acid level. 6. Add empiric antibiotic. 7. If clinically improves, we will consider CPAP trial in the next 24 hours. 8. Continue home Eliquis. 9. Stress ulcer prophylaxis. 10. Discussed with ER physician. Chart reviewed, labs reviewed, imaging studies reviewed. Critical care time 39 minutes including decision making. MAXIMO ROMERO MD DR: TATE/carley JOB#: [id number] / [id number] IESHA
[2020-07-11] MEDS ORDERED: ETOMIDATE 20 MG/10 ML VIAL. IV ONE (13:30)
[2020-07-11] MEDS ORDERED: SUCCINYLCHOLINE 200 MG/10 ML VIAL. ONE (13:31)
--- NOTE | 2020-07-11 14:10 | PDOC2 ---
SOM AHUJA NIGHT WAREHOUSE MANAGER 07/11/20 1410: CARDIAC CONSULT DATE OF CONSULT Date of Consult DATE: 07/11/20 TIME: 14:06 REASON FOR CONSULT Reason for Consult: CHF REFERRING PHYSICIAN Referring Physician: Dr. Lara SOURCE Source: Chart review, Patient HISTORY OF PRESENT ILLNESS HISTORY OF PRESENT ILLNESS This is a 64 yo female who presented secondary to shortness of breath. Was intubated in ED due to respiratory distress, significant hypoxia, and agonal breathing pattern. Per chart review, patient reported acute onset of shortness of breath this morning, and was feeling reasonably well the day prior. No reports of chest pain, palpitations, dizziness, diaphoresis, or nausea/vomiting. PAST MEDICAL HISTORY Past Medical History Cardiovascular: CHF, HTN, Hyperlipidemia Pulmonary: COPD, Other (CAIO), PE Heme/Onc: Anemia NOS Psych: Anxiety, Depression, Schizophrenia Musculoskeletal: Osteoarthritis Renal/: Chronic renal insuff PAST SURGICAL HISTORY Past Surgical History No pertinent history FAMILY HISTORY Family History: Hypertension SOCIAL HISTORY Smoke: No Drugs: None Lives: with Family CURRENT MEDICATIONS CURRENT MEDICATIONS Current Medications Medications (Trade) Dose Ordered Sig/Betsy Route PRN Reason Start Time Stop Time Status Last Admin Dose Admin Propofol 100 ml @ 1.56 mls/hr CONT PRN IV SEE I/O RECORD 07/11/20 09:15 07/11/20 09:20 Iohexol (Omnipaque 350 Mg/ml) 80 ml 1X ONCE IV 07/11/20 10:45 07/11/20 10:50 DC 07/11/20 10:45 Midazolam HCl 100 mg/Sodium Chloride 100 ml @ 1 mls/hr CONT PRN IV SEE I/O RECORD 07/11/20 10:51 07/11/20 11:00 Midazolam HCl (Versed) 5 mg 1X ONCE IV 07/11/20 11:00 07/11/20 11:01 DC 07/11/20 10:56 ALLERGIES ALLERGIES: Coded Allergies: Penicillins (Verified Allergy, Intermediate, 05/21/18) aspirin (Verified Allergy, Intermediate, 05/21/18) ROS Review of System unobtainable PHYSICAL EXAM General: No acute distress, Other (sedated, but opens eyes ) HEENT: Atraumatic, Mucous membr. moist/pink Lungs: Other (mechanical vent ) Heart: Regular rate, Other (distant heart tones ) Abdomen: Soft, Other (obese ) Extremities: No edema, Normal pulses Skin: No significant lesion Psych/Mental Status: Other (sedated ) MUSCULOSKELETAL: Osteoarthritic changes both hands VITALS/I&O VITALS/I&O: Vital Signs Date Time Temp Pulse Resp B/P (MAP) Pulse Ox O2 Delivery O2 Flow Rate FiO2 07/11/20 13:42 68 20 113/58 (76) 100 Ventilator 07/11/20 08:55 15.0 07/11/20 08:50 98.7 98.7 LABS Lab: Laboratory Tests Test 07/11/20 09:40 07/11/20 10:05 07/11/20 10:35 White Blood Count 8.7 x10^3/uL (4.0-11.0) Red Blood Count 5.06 x10^6/uL (3.50-5.40) Hemoglobin 15.1 g/dL (12.0-15.5) Hematocrit 46.5 % (36.0-47.0) Mean Corpuscular Volume 92 fL (79-100) Mean Corpuscular Hemoglobin 30 pg (25-35) Mean Corpuscular Hemoglobin Concent 32 g/dL (31-37) Red Cell Distribution Width 16.9 % (11.5-14.5) H Platelet Count 133 x10^3/uL (140-400) L Neutrophils (%) (Auto) 58 % (31-73) Lymphocytes (%) (Auto) 36 % (24-48) Monocytes (%) (Auto) 3 % (0-9) Eosinophils (%) (Auto) 2 % (0-3) Basophils (%) (Auto) 1 % (0-3) Neutrophils # (Auto) 5.1 x10^3/uL (1.8-7.7) Lymphocytes # (Auto) 3.1 x10^3/uL (1.0-4.8) Monocytes # (Auto) 0.2 x10^3/uL (0.0-1.1) Eosinophils # (Auto) 0.2 x10^3/uL (0.0-0.7) Basophils # (Auto) 0.1 x10^3/uL (0.0-0.2) Platelet Estimate Decreased (ADEQUATE) Large Platelets Few Giant Platelets Occ Anisocytosis Slight Prothrombin Time 15.4 SEC (11.7-14.0) H Prothrombin Time INR 1.3 (0.8-1.1) H Sodium Level 139 mmol/L (136-145) Potassium Level 4.1 mmol/L (3.5-5.1) Chloride Level 102 mmol/L (98-107) Carbon Dioxide Level 20 mmol/L (21-32) L Anion Gap 17 (6-14) H Blood Urea Nitrogen 12 mg/dL (7-20) Creatinine 1.4 mg/dL (0.6-1.0) H Estimated GFR (Cockcroft-Gault) 45.5 BUN/Creatinine Ratio 9 (6-20) Glucose Level 284 mg/dL (70-99) H Lactic Acid Level 9.5 mmol/L (0.4-2.0) *H Calcium Level 8.5 mg/dL (8.5-10.1) Total Bilirubin 0.5 mg/dL (0.2-1.0) Aspartate Amino Transferase (AST) 37 U/L (15-37) Alanine Aminotransferase (ALT) 22 U/L (14-59) Alkaline Phosphatase 164 U/L (46-116) H Troponin I Quantitative < 0.017 ng/mL (0.000-0.055) C-Reactive Protein, Quantitative 3.9 mg/L (0-3.3) H TY-Weh-J-Type Natriuretic Peptide 1680 pg/mL (0-124) H Total Protein 7.8 g/dL (6.4-8.2) Albumin 3.4 g/dL (3.4-5.0) Albumin/Globulin Ratio 0.8 (1.0-1.7) L Urine Collection Type Unknown Urine Color Yellow Urine Clarity Clear Urine pH 6.5 (<5.0-8.0) Urine Specific [place] 1.015 (1.000-1.030) Urine Protein >=300 mg/dL (NEG-TRACE) Urine Glucose (UA) 250 mg/dL (NEG) Urine Ketones (Stick) Negative mg/dL (NEG) Urine Blood Large (NEG) Urine Nitrite Negative (NEG) Urine Bilirubin Negative (NEG) Urine Urobilinogen Dipstick 0.2 mg/dL (0.2 mg/dL) Urine Leukocyte Esterase Negative (NEG) Urine RBC 3-5 /HPF (0-2) Urine WBC 1-4 /HPF (0-4) Urine Amorphous Sediment Present /HPF Urine Bacteria Few /HPF (0-FEW) O2 Saturation 92 % (92-99) Arterial Blood pH 7.24 (7.35-7.45) L Arterial Blood pCO2 at Patient Temp 51 mmHg (35-46) H Arterial Blood pO2 at Patient Temp 72 mmHg (65-108) Arterial Blood HCO3 21 mmol/L (21-28) Arterial Blood Base Excess -7 mmol/L (-3-3) L FiO2 60 Laboratory Tests 07/11/20 09:40 Laboratory Tests 07/11/20 09:40 ECHOCARDIOGRAM ECHOCARDIOGRAM <Conclusion> The left ventricular systolic function is normal. The Ejection Fraction is 60%. There is normal LV segmental wall motion. The left atrium is moderately dilated. Mild aortic regurgitation. Trace tricuspid regurgitation. The PA pressure was estimated at 17 mmHg. There is no evidence of significant pericardial effusion. DATE: 03/10/19 1157 <Conclusion> The left ventricular systolic function is normal and the ejection fraction is within normal range. The Ejection Fraction is 60-65%. There is normal LV segmental wall motion. Doppler and Color Flow revealed moderate aortic regurgitation. DATE: 05/26/20 0903 STRESS TEST STRESS TEST Conclusion 1. Regadenoson cardioisotope stress test did not show any evidence of ischemia or infarct. 2. Normal left ventricular systolic function with ejection fraction calculated at 74%. 3. Low risk for cardiac events. DATE: 05/21/18 1523 ASSESSMENT/PLAN ASSESSMENT/PLAN 1. Acute on chronic respiratory failure in setting of a/c CHF. s/p intubation. COVID pending 2. Acute on chronic diastolic CHF; Recent echo with preserved LV systolic function 3. YESENIA on CKD 4. Lactic acidosis 5. Morbid obesity 6. Elevated glucose 7. Recent PE; on Eliquis. CTA with resolution Recommendations Allergy to ASA Diuresis with monitoring of renal function Await COVID Probable outpatient ischemic evaluation Supportive care SIXTO TAMAYO MD 07/11/20 1621: CARDIAC CONSULT ASSESSMENT/PLAN ASSESSMENT/PLAN Patient seen and evaluated I agree with our nurse practitioners assessment and plan as above. Respiratory failure. Intubated. Being treated for possible heart failure although the patient's ejection fraction was normal on an echocardiogram last year. COVID testing pending Relatively recent PE. Continue on Eliquis. CTA as above. YESENIA. Monitoring renal function. Morbid obesity. Thank you for allowing us to participate in the care of your patient. SOM AHUJA APRN Jul 11, 2020 14:10 SIXTO TAMAYO MD Jul 11, 2020 16:21
--- NOTE | 2020-07-11 17:21 | PDOC1 ---
History and Physical Date of Service: DOS: DATE: 07/11/20 TIME: 17:20 Chief Complaint: Problems: (1) Chest pain (2) Pulmonary edema (3) Respiratory failure, acute Chief Complain: Shortness of breath History of Present Illness: HPI: This is a middle-aged -[place] female who had pulmonary emboli back in May of this year Over the past couple days she has been developing shortness of breath While in the ER she was noted be in respiratory failure and she was intubated Patient is now examined in the ICU Past Medical/Surgical History: PMH/PSH: Past Medical History: Asthma, CHF, Hypertension Additional Past Medical Histor: RLS Past Surgical History: Other Additional Past Surgical Histo: unknown surgical hx Smoking Status: Unknown if ever smoked Alcohol Use: None Allergies: Allergies: Coded Allergies: Penicillins (Verified Allergy, Intermediate, 05/21/18) aspirin (Verified Allergy, Intermediate, 05/21/18) Family History: Family History: Hypertension Social History: Social History: She smokes no drink or drugs Current Medications: Current Medications Current Medications Propofol 50 ml @ As Directed STK-MED ONCE IV ; Start 07/11/20 at 09:15; Stop 07/11/20 at 09:15; Status DC Propofol 100 ml @ 1.56 mls/hr CONT PRN IV SEE I/O RECORD Last administered on 07/11/20at 09:20; Start 07/11/20 at 09:15 Midazolam HCl 50 mg/Sodium Chloride 50 ml @ 1 mls/hr CONT PRN IV SEE I/O RECORD; Start 07/11/20 at 10:45; Status Cancel Iohexol (Omnipaque 350 Mg/ml) 80 ml 1X ONCE IV Last administered on 07/11/20at 10:45; Start 07/11/20 at 10:45; Stop 07/11/20 at 10:50; Status DC Midazolam HCl (Versed) 5 mg STK-MED ONCE .ROUTE ; Start 07/11/20 at 10:43; Stop 07/11/20 at 10:43; Status DC Info (CONTRAST GIVEN -- Rx MONITORING) 1 each PRN DAILY PRN MC SEE COMMENTS; Start 07/11/20 at 11:00; Stop 07/13/20 at 10:59 Midazolam HCl 100 mg/Sodium Chloride 100 ml @ 1 mls/hr CONT PRN IV SEE I/O RECORD Last administered on 07/11/20at 11:00; Start 07/11/20 at 10:51 Midazolam HCl (Versed) 5 mg 1X ONCE IV Last administered on 07/11/20at 10:56; Start 07/11/20 at 11:00; Stop 07/11/20 at 11:01; Status DC Etomidate (Amidate) 20 mg STK-MED ONCE IV ; Start 07/11/20 at 13:30; Stop 07/11/20 at 13:31; Status DC Succinylcholine Chloride (Anectine) 200 mg STK-MED ONCE .ROUTE ; Start 07/11/20 at 13:31; Stop 07/11/20 at 13:31; Status DC Active Scripts Active Eliquis (Apixaban) 5 Mg Tablet 10 Mg PO BID 30 Days Toprol Xl (Metoprolol Succinate) 25 Mg Tab.er.24h 0.5 Tab PO DAILY 30 Days Reported Paroxetine Hcl 40 Mg Tablet 40 Mg PO DAILY 30 Days Atorvastatin Calcium 20 Mg Tablet 1 Tab PO DAILY Proair Hfa Inhaler (Albuterol Sulfate) 8.5 Gm Hfa.aer.ad 1-2 Puff INH PRN Q4HRS PRN Loratadine 10 Mg Tablet 1 Tab PO DAILY Flonase Allergy Relief (Fluticasone Propionate) 9.9 Ml [place].susp 2 Sprays NS DAILY Allopurinol 100 Mg Tablet 1 Tab PO DAILY Vitamin D2 (Ergocalciferol (Vitamin D2)) 50,000 Unit Capsule 1 Cap PO WEEKLY Geodon (Ziprasidone Hcl) 80 Mg Capsule 1 Cap PO BID Potassium Chloride (Potassium Chloride) 20 Meq Tablet.er 20 Meq PO DAILY Tramadol Hcl 50 Mg Tablet 50 Mg PO TID Symbicort 160-4.5 Mcg Inhaler (Budesonide/Formoterol Fumarate) 10.2 Gm Hfa.aer.ad 2 Puff IH BID Gabapentin (Gabapentin) 100 Mg Capsule 100 Mg PO BID Omeprazole 20 Mg Capsule. 1 Cap PO DAILY ROS: Review of Systems Unable to obtain she is intubated on the vent Physical Exam: Vital Signs: Vital Signs Date Time Temp Pulse Resp B/P (MAP) Pulse Ox O2 Delivery O2 Flow Rate FiO2 07/11/20 17:00 81 24 140/66 (90) 100 Ventilator 07/11/20 16:00 98.9 98.9 8/10/20 08:55 15.0 Physcial Exam: GEN: Sedated on the vent in the ICU HEENT: Normal cephalic, atraumatic, external auditory canals are patent EYES: Extraocular muscles are intact, pupil are equally round and reactive to light and accommodation MUSCULOSKELETAL: Well developed , well nourished, good range of motion ENDOCRINE: No thyromegaly was palpated LYMPHATICS: No cervical chain or axillary nodes were noted HEMATOPOIETIC: No bruising NECK: Supple, no JVD, no thyromegaly was noted LUNGS: (The nurse suctioned up some brownish fluid) bibasilar crackles HEART: RRR, S!, S2 present. Peripheral pulses intact, no obvious murmurs noted ABDOMEN: Soft, nontender. Positive bowel sounds, no organomegaly, normal bowel sounds EXTREMITIES: Without clubbing, cyanosis, or edema. Pedal pulses intact. Negative Homans sign NEUROLOGIC: Sedated PSYCHIATRIC: Sedated SKIN: No ulcerations or rashes, good skin turgor, no jaundice VASCULAR: Good capillary refill, neurovascular bundle appears to be intact Labs: Labs: Laboratory Tests Test 07/11/20 09:40 07/11/20 10:05 07/11/20 10:35 07/11/20 13:25 White Blood Count 8.7 x10^3/uL (4.0-11.0) Red Blood Count 5.06 x10^6/uL (3.50-5.40) Hemoglobin 15.1 g/dL (12.0-15.5) Hematocrit 46.5 % (36.0-47.0) Mean Corpuscular Volume 92 fL (79-100) Mean Corpuscular Hemoglobin 30 pg (25-35) Mean Corpuscular Hemoglobin Concent 32 g/dL (31-37) Red Cell Distribution Width 16.9 % (11.5-14.5) Platelet Count 133 x10^3/uL (140-400) Neutrophils (%) (Auto) 58 % (31-73) Lymphocytes (%) (Auto) 36 % (24-48) Monocytes (%) (Auto) 3 % (0-9) Eosinophils (%) (Auto) 2 % (0-3) Basophils (%) (Auto) 1 % (0-3) Neutrophils # (Auto) 5.1 x10^3/uL (1.8-7.7) Lymphocytes # (Auto) 3.1 x10^3/uL (1.0-4.8) Monocytes # (Auto) 0.2 x10^3/uL (0.0-1.1) Eosinophils # (Auto) 0.2 x10^3/uL (0.0-0.7) Basophils # (Auto) 0.1 x10^3/uL (0.0-0.2) Platelet Estimate Decreased (ADEQUATE) Large Platelets Few Giant Platelets Occ Anisocytosis Slight Prothrombin Time 15.4 SEC (11.7-14.0) Prothromb Time International Ratio 1.3 (0.8-1.1) Sodium Level 139 mmol/L (136-145) Potassium Level 4.1 mmol/L (3.5-5.1) Chloride Level 102 mmol/L (98-107) Carbon Dioxide Level 20 mmol/L (21-32) Anion Gap 17 (6-14) Blood Urea Nitrogen 12 mg/dL (7-20) Creatinine 1.4 mg/dL (0.6-1.0) Estimated GFR (Cockcroft-Gault) 45.5 BUN/Creatinine Ratio 9 (6-20) Glucose Level 284 mg/dL (70-99) Lactic Acid Level 9.5 mmol/L (0.4-2.0) 2.5 mmol/L (0.4-2.0) Calcium Level 8.5 mg/dL (8.5-10.1) Total Bilirubin 0.5 mg/dL (0.2-1.0) Aspartate Amino Transf (AST/SGOT) 37 U/L (15-37) Alanine Aminotransferase (ALT/SGPT) 22 U/L (14-59) Alkaline Phosphatase 164 U/L (46-116) Troponin I Quantitative < 0.017 ng/mL (0.000-0.055) C-Reactive Protein, Quantitative 3.9 mg/L (0-3.3) YR-Uqt-E-Type Natriuretic Peptide 1680 pg/mL (0-124) Total Protein 7.8 g/dL (6.4-8.2) Albumin 3.4 g/dL (3.4-5.0) Albumin/Globulin Ratio 0.8 (1.0-1.7) Urine Collection Type Unknown Urine Color Yellow Urine Clarity Clear Urine pH 6.5 (<5.0-8.0) Urine Specific Chemult 1.015 (1.000-1.030) Urine Protein >=300 mg/dL (NEG-TRACE) Urine Glucose (UA) 250 mg/dL (NEG) Urine Ketones (Stick) Negative mg/dL (NEG) Urine Blood Large (NEG) Urine Nitrite Negative (NEG) Urine Bilirubin Negative (NEG) Urine Urobilinogen Dipstick 0.2 mg/dL (0.2 mg/dL) Urine Leukocyte Esterase Negative (NEG) Urine RBC 3-5 /HPF (0-2) Urine WBC 1-4 /HPF (0-4) Urine Amorphous Sediment Present /HPF Urine Bacteria Few /HPF (0-FEW) O2 Saturation 92 % (92-99) Arterial Blood pH 7.24 (7.35-7.45) Arterial Blood pCO2 at Patient Temp 51 mmHg (35-46) Arterial Blood pO2 at Patient Temp 72 mmHg (65-108) Arterial Blood HCO3 21 mmol/L (21-28) Arterial Blood Base Excess -7 mmol/L (-3-3) FiO2 60 Laboratory Tests Test 07/11/20 09:40 07/11/20 10:05 07/11/20 10:35 07/11/20 13:25 White Blood Count 8.7 x10^3/uL (4.0-11.0) Red Blood Count 5.06 x10^6/uL (3.50-5.40) Hemoglobin 15.1 g/dL (12.0-15.5) Hematocrit 46.5 % (36.0-47.0) Mean Corpuscular Volume 92 fL (79-100) Mean Corpuscular Hemoglobin 30 pg (25-35) Mean Corpuscular Hemoglobin Concent 32 g/dL (31-37) Red Cell Distribution Width 16.9 % (11.5-14.5) Platelet Count 133 x10^3/uL (140-400) Neutrophils (%) (Auto) 58 % (31-73) Lymphocytes (%) (Auto) 36 % (24-48) Monocytes (%) (Auto) 3 % (0-9) Eosinophils (%) (Auto) 2 % (0-3) Basophils (%) (Auto) 1 % (0-3) Neutrophils # (Auto) 5.1 x10^3/uL (1.8-7.7) Lymphocytes # (Auto) 3.1 x10^3/uL (1.0-4.8) Monocytes # (Auto) 0.2 x10^3/uL (0.0-1.1) Eosinophils # (Auto) 0.2 x10^3/uL (0.0-0.7) Basophils # (Auto) 0.1 x10^3/uL (0.0-0.2) Platelet Estimate Decreased (ADEQUATE) Large Platelets Few Giant Platelets Occ Anisocytosis Slight Prothrombin Time 15.4 SEC (11.7-14.0) Prothromb Time International Ratio 1.3 (0.8-1.1) Sodium Level 139 mmol/L (136-145) Potassium Level 4.1 mmol/L (3.5-5.1) Chloride Level 102 mmol/L (98-107) Carbon Dioxide Level 20 mmol/L (21-32) Anion Gap 17 (6-14) Blood Urea Nitrogen 12 mg/dL (7-20) Creatinine 1.4 mg/dL (0.6-1.0) Estimated GFR (Cockcroft-Gault) 45.5 BUN/Creatinine Ratio 9 (6-20) Glucose Level 284 mg/dL (70-99) Lactic Acid Level 9.5 mmol/L (0.4-2.0) 2.5 mmol/L (0.4-2.0) Calcium Level 8.5 mg/dL (8.5-10.1) Total Bilirubin 0.5 mg/dL (0.2-1.0) Aspartate Amino Transf (AST/SGOT) 37 U/L (15-37) Alanine Aminotransferase (ALT/SGPT) 22 U/L (14-59) Alkaline Phosphatase 164 U/L (46-116) Troponin I Quantitative < 0.017 ng/mL (0.000-0.055) C-Reactive Protein, Quantitative 3.9 mg/L (0-3.3) SO-Frl-K-Type Natriuretic Peptide 1680 pg/mL (0-124) Total Protein 7.8 g/dL (6.4-8.2) Albumin 3.4 g/dL (3.4-5.0) Albumin/Globulin Ratio 0.8 (1.0-1.7) Urine Collection Type Unknown Urine Color Yellow Urine Clarity Clear Urine pH 6.5 (<5.0-8.0) Urine Specific Chemult 1.015 (1.000-1.030) Urine Protein >=300 mg/dL (NEG-TRACE) Urine Glucose (UA) 250 mg/dL (NEG) Urine Ketones (Stick) Negative mg/dL (NEG) Urine Blood Large (NEG) Urine Nitrite Negative (NEG) Urine Bilirubin Negative (NEG) Urine Urobilinogen Dipstick 0.2 mg/dL (0.2 mg/dL) Urine Leukocyte Esterase Negative (NEG) Urine RBC 3-5 /HPF (0-2) Urine WBC 1-4 /HPF (0-4) Urine Amorphous Sediment Present /HPF Urine Bacteria Few /HPF (0-FEW) O2 Saturation 92 % (92-99) Arterial Blood pH 7.24 (7.35-7.45) Arterial Blood pCO2 at Patient Temp 51 mmHg (35-46) Arterial Blood pO2 at Patient Temp 72 mmHg (65-108) Arterial Blood HCO3 21 mmol/L (21-28) Arterial Blood Base Excess -7 mmol/L (-3-3) FiO2 60 Images: Images Chest x-ray showing vascular congestion Assessment/Plan Assessment/Plan Acute on chronic systolic and diastolic heart failure Acute kidney injury Obesity Hyperglycemia Recent PE Chronic anticoagulation with Eliquis Plan ICU monitoring Vent weaning IV Lasix I am adding in empiric IV Zosyn Beta agonist nebulizers Home meds DVT prophylaxis Full code Total time 32 minutes Justicifation of Admission Dx: Justifications for Admission: Justification of Admission Dx: Yes Respiratory Failure: Mechanical Ventilation Chronic Renal Failure: Encephalopathy Acute COPD Exacerbation: Acute COPD Exacerbation MANNIE WILLARD III DO Jul 11, 2020 17:21
[2020-07-11] MEDS ORDERED: PIP/TAZO PER PHARMACY MC PRN (17:30)
[2020-07-12] VITALS (24 sets, daily range): BP systolic 145–183; BP diastolic 65–89
[2020-07-12 01:09] LABS: HEMOGLOBIN A1C 5.4 % (4.8-5.6)
--- NOTE | 2020-07-12 04:59 | EKG ---
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
[2020-07-12 08:37] LABS: BASE EXCESS ABG -1 mmol/L (-3-3); HCO3 ABG 20 mmol/L (21-28); PCO2 ABG 26 mmHg (35-46); PO2 ABG 130 mmHg (65-108); SAT O2 ABG 99 % (92-99)
[2020-07-12 08:44] LABS: FIO2 ABG 50/+8 PEEP
[2020-07-12] MEDS: MIDAZOLAM HCL IV PRN (08:48)
[2020-07-12] MEDS: NORMAL SALINE IV PRN (08:48)
--- NOTE | 2020-07-12 10:39 | PDOC ---
PULMONARY PROGRESS NOTES DATE: 07/12/20 TIME: 10:37 Subjective intubated/sedated improving oxygenation Vitals Vital Signs Date Time Temp Pulse Resp B/P (MAP) Pulse Ox O2 Delivery O2 Flow Rate FiO2 07/12/20 09:38 100 Ventilator 07/12/20 09:00 87 20 169/88 (115) 07/12/20 08:00 98.5 98.5 07/11/20 22:48 15.0 General: No acute distress Lungs: Clear Cardiovascular: S1 Abdomen: Soft Extremities: Other (1=edema) Skin: Warm Labs Laboratory Tests Test 07/11/20 09:40 07/11/20 10:05 07/11/20 10:35 07/11/20 13:25 White Blood Count 8.7 x10^3/uL (4.0-11.0) Red Blood Count 5.06 x10^6/uL (3.50-5.40) Hemoglobin 15.1 g/dL (12.0-15.5) Hematocrit 46.5 % (36.0-47.0) Mean Corpuscular Volume 92 fL (79-100) Mean Corpuscular Hemoglobin 30 pg (25-35) Mean Corpuscular Hemoglobin Concent 32 g/dL (31-37) Red Cell Distribution Width 16.9 % (11.5-14.5) Platelet Count 133 x10^3/uL (140-400) Neutrophils (%) (Auto) 58 % (31-73) Lymphocytes (%) (Auto) 36 % (24-48) Monocytes (%) (Auto) 3 % (0-9) Eosinophils (%) (Auto) 2 % (0-3) Basophils (%) (Auto) 1 % (0-3) Neutrophils # (Auto) 5.1 x10^3/uL (1.8-7.7) Lymphocytes # (Auto) 3.1 x10^3/uL (1.0-4.8) Monocytes # (Auto) 0.2 x10^3/uL (0.0-1.1) Eosinophils # (Auto) 0.2 x10^3/uL (0.0-0.7) Basophils # (Auto) 0.1 x10^3/uL (0.0-0.2) Platelet Estimate Decreased (ADEQUATE) Large Platelets Few Giant Platelets Occ Anisocytosis Slight Prothrombin Time 15.4 SEC (11.7-14.0) Prothromb Time International Ratio 1.3 (0.8-1.1) Sodium Level 139 mmol/L (136-145) Potassium Level 4.1 mmol/L (3.5-5.1) Chloride Level 102 mmol/L (98-107) Carbon Dioxide Level 20 mmol/L (21-32) Anion Gap 17 (6-14) Blood Urea Nitrogen 12 mg/dL (7-20) Creatinine 1.4 mg/dL (0.6-1.0) Estimated GFR (Cockcroft-Gault) 45.5 BUN/Creatinine Ratio 9 (6-20) Glucose Level 284 mg/dL (70-99) Hemoglobin A1c 5.4 % (4.8-5.6) Lactic Acid Level 9.5 mmol/L (0.4-2.0) 2.5 mmol/L (0.4-2.0) Calcium Level 8.5 mg/dL (8.5-10.1) Total Bilirubin 0.5 mg/dL (0.2-1.0) Aspartate Amino Transf (AST/SGOT) 37 U/L (15-37) Alanine Aminotransferase (ALT/SGPT) 22 U/L (14-59) Alkaline Phosphatase 164 U/L (46-116) Troponin I Quantitative < 0.017 ng/mL (0.000-0.055) C-Reactive Protein, Quantitative 3.9 mg/L (0-3.3) VP-Uol-T-Type Natriuretic Peptide 1680 pg/mL (0-124) Total Protein 7.8 g/dL (6.4-8.2) Albumin 3.4 g/dL (3.4-5.0) Albumin/Globulin Ratio 0.8 (1.0-1.7) Urine Collection Type Unknown Urine Color Yellow Urine Clarity Clear Urine pH 6.5 (<5.0-8.0) Urine Specific [place] 1.015 (1.000-1.030) Urine Protein >=300 mg/dL (NEG-TRACE) Urine Glucose (UA) 250 mg/dL (NEG) Urine Ketones (Stick) Negative mg/dL (NEG) Urine Blood Large (NEG) Urine Nitrite Negative (NEG) Urine Bilirubin Negative (NEG) Urine Urobilinogen Dipstick 0.2 mg/dL (0.2 mg/dL) Urine Leukocyte Esterase Negative (NEG) Urine RBC 3-5 /HPF (0-2) Urine WBC 1-4 /HPF (0-4) Urine Amorphous Sediment Present /HPF Urine Bacteria Few /HPF (0-FEW) O2 Saturation 92 % (92-99) Arterial Blood pH 7.24 (7.35-7.45) Arterial Blood pCO2 at Patient Temp 51 mmHg (35-46) Arterial Blood pO2 at Patient Temp 72 mmHg (65-108) Arterial Blood HCO3 21 mmol/L (21-28) Arterial Blood Base Excess -7 mmol/L (-3-3) FiO2 60 Test 07/12/20 08:00 O2 Saturation 99 % (92-99) Arterial Blood pH 7.51 (7.35-7.45) Arterial Blood pCO2 at Patient Temp 26 mmHg (35-46) Arterial Blood pO2 at Patient Temp 130 mmHg (65-108) Arterial Blood HCO3 20 mmol/L (21-28) Arterial Blood Base Excess -1 mmol/L (-3-3) FiO2 50/+8 peep Laboratory Tests Test 07/11/20 13:25 07/12/20 08:00 Lactic Acid Level 2.5 mmol/L (0.4-2.0) O2 Saturation 99 % (92-99) Arterial Blood pH 7.51 (7.35-7.45) Arterial Blood pCO2 at Patient Temp 26 mmHg (35-46) Arterial Blood pO2 at Patient Temp 130 mmHg (65-108) Arterial Blood HCO3 20 mmol/L (21-28) Arterial Blood Base Excess -1 mmol/L (-3-3) FiO2 50/+8 peep Medications Active Scripts Medications Dose Route/Sig Max Daily Dose Days Date Category Eliquis (Apixaban) 5 Mg Tablet 10 Mg PO BID 30 05/29/20 Rx Toprol Xl (Metoprolol Succinate) 25 Mg Tab.er.24h 0.5 Tab PO DAILY 30 04/01/20 Rx Paroxetine Hcl 40 Mg Tablet 40 Mg PO DAILY 30 03/30/20 Reported Atorvastatin Calcium 20 Mg Tablet 1 Tab PO DAILY 05/20/18 Reported Proair Hfa Inhaler (Albuterol Sulfate) 8.5 Gm Hfa.aer.ad 1-2 Puff INH PRN Q4HRS PRN 05/20/18 Reported Loratadine 10 Mg Tablet 1 Tab PO DAILY 05/20/18 Reported Flonase Allergy Relief (Fluticasone Propionate) 9.9 Ml [place].susp 2 Sprays NS DAILY 05/20/18 Reported Allopurinol 100 Mg Tablet 1 Tab PO DAILY 05/20/18 Reported Vitamin D2 (Ergocalciferol (Vitamin D2)) 50,000 Unit Capsule 1 Cap PO WEEKLY 05/20/18 Reported Geodon (Ziprasidone Hcl) 80 Mg Capsule 1 Cap PO BID 05/20/18 Reported Potassium Chloride (Potassium Chloride) 20 Meq Tablet.er 20 Meq PO DAILY 05/20/18 Reported Tramadol Hcl 50 Mg Tablet 50 Mg PO TID 05/20/18 Reported Symbicort 160-4.5 Mcg Inhaler (Budesonide/Formoterol Fumarate) 10.2 Gm Hfa.aer.ad 2 Puff IH BID 05/20/18 Reported Gabapentin (Gabapentin) 100 Mg Capsule 100 Mg PO BID 05/20/18 Reported Omeprazole 20 Mg Capsule.dr 1 Cap PO DAILY 05/20/18 Reported Impression . 1. Acute hypoxic and hypercapnic respiratory failure secondary to acute on chronic diastolic congestive heart failure. 2. The patient with history of pulmonary embolism in May with no evidence of deep venous thrombosis and has been on home Eliquis and was taking regularly. No evidence of any recurrent pulmonary embolism. Previously seen pulmonary embolism has resolved. 3. Underlying morbid obesity. 4. Lactic acidosis due to increased work of breathing. Clinically, less likely sepsis./ metabolic acidosis 5. Abnormal CT chest with ground glass infiltrates and basilar atelectasis. Findings are favoring congestive heart failure. Plan . 1. Continue with present assist control mode. We will make changes based on ABGs. dc sedation. assess MS 2. Diuresis. 3. Follow ABGs. 4. Follow renal function. 5. Follow lactic acid level. 6. empiric antibiotic. 7. If clinically improves, we will consider CPAP trial 8. Continue home Eliquis. 9. Stress ulcer prophylaxis. 10. Discussed with RN/RT. Chart reviewed, labs reviewed, imaging studies reviewed. Critical care time 30 minutes including decision making. MAXIMO ROMERO MD Jul 12, 2020 10:39
--- NOTE | 2020-07-12 11:56 | PDOC ---
[facility] PROGRESS NOTE Date of Service DOS: DATE: 07/12/20 TIME: 11:50 Chief Complaint Chief Complaint Acute on chronic respiratory failure, s/p intubation COVID pending COPD Acute on chronic diastolic CHF, recent echo with preserved LV systolic function YESENIA on CKD Lactic acidosis Morbid obesity Elevated glucose Recent PE, on Eliquis History of Present Illness History of Present Illness 07/12/2020 Patient seen and examined in the ICU On ventilator, AC/20/500/50% 6.0 PEEP Awake and responsive, GENOVEVA RETANA Chart reviewed Discussed with RN Vitals/I&O Vitals/I&O: Vital Signs Date Time Temp Pulse Resp B/P (MAP) Pulse Ox O2 Delivery O2 Flow Rate FiO2 07/12/20 11:19 99 Ventilator 07/12/20 10:00 91 20 172/72 (105) 07/12/20 08:00 98.5 98.5 07/11/20 22:48 15.0 I & O 07/11/20 07/11/20 07/12/20 15:00 23:00 07:00 Intake Total 33 ml 263 ml Output Total 405 ml 455 ml 575 ml Balance -405 ml -422 ml -312 ml Physical Exam General: Cooperative, No acute distress, Other (sedated, but opens eyes ) Heart: Regular rate, Other (distant heart tones ) Lungs: Clear Abdomen: Soft, Other (obese ) Extremities: No edema, Normal pulses Skin: No significant lesion Labs Labs: Laboratory Tests Test 07/11/20 13:25 07/12/20 08:00 Lactic Acid Level 2.5 mmol/L (0.4-2.0) O2 Saturation 99 % (92-99) Arterial Blood pH 7.51 (7.35-7.45) Arterial Blood pCO2 at Patient Temp 26 mmHg (35-46) Arterial Blood pO2 at Patient Temp 130 mmHg (65-108) Arterial Blood HCO3 20 mmol/L (21-28) Arterial Blood Base Excess -1 mmol/L (-3-3) FiO2 50/+8 peep Review of Systems Review of Systems: Pertinent as per HPI, otherwise 10 point review of systems is negative. Assessment and Plan Assessmemt and Plan Problems Medical Problems: (1) Pulmonary edema Status: Acute (2) Respiratory failure, acute Status: Acute ASSESSMENT Acute on chronic respiratory failure, s/p intubation COVID pending COPD Acute on chronic diastolic CHF, recent echo with preserved LV systolic function YESENIA on CKD Lactic acidosis Morbid obesity Elevated glucose Recent PE, on Eliquis PLAN Cardiac monitoring Ventilator weaning Resume home medications IV antibiotics Await COVID-19 result DVT prophylaxis Full code Appreciate subspecialist input Comment Review of Relevant I have reviewed the following items babar (where applicable) has been applied. Medications: Current Medications Medications (Trade) Dose Ordered Sig/Betsy Route PRN Reason Start Time Stop Time Status Last Admin Dose Admin Levofloxacin/ Dextrose 150 ml @ 100 mls/hr Q24H IV 07/11/20 18:30 07/11/20 20:25 Fentanyl Citrate 30 ml @ 0 mls/hr CONT PRN IV SEE PROTOCOL 07/11/20 21:30 07/11/20 21:42 Justicifation of Admission Dx: Justifications for Admission: Justification of Admission Dx: Yes Respiratory Failure: Mechanical Ventilation Chronic Renal Failure: Encephalopathy Acute COPD Exacerbation: Acute COPD Exacerbation MANNIE WILLARD III DO Jul 12, 2020 11:56
--- NOTE | 2020-07-12 12:27 | NUR ---
SS following for discharge planning. SS reviewed pt chart and discussed with pt RN. Pt is from home and is currently on the vent. COVID19 test pending. SS will continue to follow for discharge planning.
[2020-07-12 13:10] LABS: CREATININE 0.9 mg/dL (0.6-1.0); GFR 75.8
[2020-07-12 13:11] LABS: BASO % 1 % (0-3); EOS % 1 % (0-3); HEMATOCRIT 41.1 % (36.0-47.0); HEMOGLOBIN 13.7 g/dL (12.0-15.5); LYMPH # 1.7 x10^3/uL (1.0-4.8); LYMPH % 20 % (24-48); MEAN CORPUSCULAR HEMOGLOBIN 29 pg (25-35); MEAN CORPUSCULAR HGB CONC 34 g/dL (31-37); MEAN CORPUSCULAR VOLUME 87 fL (79-100); MONO # 0.8 x10^3/uL (0.0-1.1); MONO % 10 % (0-9); NEUT # 5.8 x10^3/uL (1.8-7.7); NEUT % 69 % (31-73); PLATELET COUNT 126 x10^3/uL (140-400); RED BLOOD COUNT 4.72 x10^6/uL (3.50-5.40); RED CELL DISTRIBUTION WIDTH 15.6 % (11.5-14.5); WHITE BLOOD COUNT 8.4 x10^3/uL (4.0-11.0)
--- NOTE | 2020-07-12 14:09 | PDOC ---
C[facility] Progress Notes Date and Time Date of Service 07/12/2020 Time of Evaluation 1400 Subjective Subjective: Other (intubated) Vitals Vitals Vital Signs Date Time Temp Pulse Resp B/P (MAP) Pulse Ox O2 Delivery O2 Flow Rate FiO2 07/12/20 12:23 99 Ventilator 07/12/20 12:00 98.8 91 20 165/80 (108) 98.8 07/11/20 22:48 15.0 Weight Weight [ ] Input and Output Intake and Output Intake and Output 07/12/20 07:00 Intake Total 296 ml Output Total 1435 ml Balance -1139 ml Intake IV Total 296 ml Output Urine Total 1435 ml Laboratory Labs Laboratory Tests Test 07/12/20 08:00 07/12/20 12:50 O2 Saturation 99 % (92-99) Arterial Blood pH 7.51 (7.35-7.45) Arterial Blood pCO2 at Patient Temp 26 mmHg (35-46) Arterial Blood pO2 at Patient Temp 130 mmHg (65-108) Arterial Blood HCO3 20 mmol/L (21-28) Arterial Blood Base Excess -1 mmol/L (-3-3) FiO2 50/+8 peep White Blood Count 8.4 x10^3/uL (4.0-11.0) Red Blood Count 4.72 x10^6/uL (3.50-5.40) Hemoglobin 13.7 g/dL (12.0-15.5) Hematocrit 41.1 % (36.0-47.0) Mean Corpuscular Volume 87 fL (79-100) Mean Corpuscular Hemoglobin 29 pg (25-35) Mean Corpuscular Hemoglobin Concent 34 g/dL (31-37) Red Cell Distribution Width 15.6 % (11.5-14.5) Platelet Count 126 x10^3/uL (140-400) Neutrophils (%) (Auto) 69 % (31-73) Lymphocytes (%) (Auto) 20 % (24-48) Monocytes (%) (Auto) 10 % (0-9) Eosinophils (%) (Auto) 1 % (0-3) Basophils (%) (Auto) 1 % (0-3) Neutrophils # (Auto) 5.8 x10^3/uL (1.8-7.7) Lymphocytes # (Auto) 1.7 x10^3/uL (1.0-4.8) Monocytes # (Auto) 0.8 x10^3/uL (0.0-1.1) Eosinophils # (Auto) 0.0 x10^3/uL (0.0-0.7) Basophils # (Auto) 0.0 x10^3/uL (0.0-0.2) Sodium Level 142 mmol/L (136-145) Potassium Level 3.0 mmol/L (3.5-5.1) Chloride Level 106 mmol/L (98-107) Carbon Dioxide Level 26 mmol/L (21-32) Anion Gap 10 (6-14) Blood Urea Nitrogen 10 mg/dL (7-20) Creatinine 0.9 mg/dL (0.6-1.0) Estimated GFR (Cockcroft-Gault) 75.8 Glucose Level 98 mg/dL (70-99) Calcium Level 9.0 mg/dL (8.5-10.1) Microbiology Micro Microbiology 07/11/20 Blood Culture - Preliminary, Resulted NO GROWTH AFTER 1 DAY Physical Exam Chest: Symmetric LUNGS: Other (vent) Heart: RRR (SR and no significant ectopies) Abdomen: Other (obese) Neurology: other (sedated) Assessment Assessment 1. Acute on chronic respiratory failure in setting of a/c CHF. s/p intubation. COVID pending 2. Acute on chronic diastolic CHF; Recent echo with preserved LV systolic funct ion 3. YESENIA on CKD: Resolved 4. Lactic acidosis 5. Morbid obesity 6. Recent PE; was on Eliquis. Repeat CTA negative for PE 7. Hypokalemia 8. HTN urgency 9. Obesity Recommendations Replace K. Lasix x1. Uptitrate cardene Await COVID Probable outpatient ischemic evaluation Supportive care Justicifation of Admission Dx: Justifications for Admission: Justification of Admission Dx: Yes Respiratory Failure: Mechanical Ventilation Chronic Renal Failure: Encephalopathy Acute COPD Exacerbation: Acute COPD Exacerbation JAYJAY FRAZIER APRN Jul 12, 2020 14:08
[2020-07-12] MEDS ORDERED: POTASSIUM CHLORIDE 20MEQ 100 ML IV SCH (14:15)
[2020-07-12] MEDS: POTASSIUM CHLORIDE 10MEQ 100 ML IV SCH ×4 (14:46→19:44)
[2020-07-12] MEDS ORDERED: FUROSEMIDE 40 MG/4 ML VIAL. IVP ONE (15:30)
[2020-07-12] MEDS: ENOXAPARIN 40 MG/0.4 ML SYRINGE. SQ SCH ×2 (18:20→21:17)
[2020-07-12] MEDS: FAMOTIDINE 20 MG/2 ML VIAL IVP SCH (21:17)
[2020-07-13] VITALS (23 sets, daily range): BP systolic 110–196; BP diastolic 48–93
[2020-07-13] MEDS: NORMAL SALINE IV PRN (01:19)
[2020-07-13] MEDS: MIDAZOLAM HCL IV PRN (01:19)
[2020-07-13 05:57] LABS: BASO % 0 % (0-3); EOS % 1 % (0-3); HEMATOCRIT 39.6 % (36.0-47.0); HEMOGLOBIN 13.2 g/dL (12.0-15.5); LYMPH # 1.3 x10^3/uL (1.0-4.8); LYMPH % 15 % (24-48); MEAN CORPUSCULAR HEMOGLOBIN 29 pg (25-35); MEAN CORPUSCULAR HGB CONC 33 g/dL (31-37); MEAN CORPUSCULAR VOLUME 87 fL (79-100); MONO % 12 % (0-9); NEUT % 72 % (31-73); PLATELET COUNT 125 x10^3/uL (140-400); RED BLOOD COUNT 4.53 x10^6/uL (3.50-5.40); RED CELL DISTRIBUTION WIDTH 16.6 % (11.5-14.5); WHITE BLOOD COUNT 8.3 x10^3/uL (4.0-11.0)
[2020-07-13 06:18] LABS: CALCIUM 8.5 mg/dL (8.5-10.1); CREATININE 0.8 mg/dL (0.6-1.0); GFR 86.8; POTASSIUM 3.1 mmol/L (3.5-5.1)
[2020-07-13] MEDS ORDERED: cloNIDine TTS-2 1 PATCH PATCH TD ONE (08:00)
[2020-07-13] MEDS: POTASSIUM CHLORIDE 10MEQ 100 ML IV SCH ×4 (08:06→11:43)
--- NOTE | 2020-07-13 08:34 | RAD ---
EXAM: CHEST 1 VIEW History: Respiratory failure COMPARISON: 07/11/2020 TECHNIQUE: Single portable radiograph of the chest FINDINGS: The cardiac silhouette is unremarkable. Feeding tube is identified in the trachea. Feeding tube is identified below the diaphragm likely within the stomach. Significantly improved bilateral interstitial lung markings. IMPRESSION: Significantly improved bilateral interstitial lung markings. Electronically signed by: Adebayo Gustafson MD (07/13/2020 8:31 AM) [id number]
[2020-07-13 08:39] LABS: BASE EXCESS ABG -3 mmol/L (-3-3); HCO3 ABG 22 mmol/L (21-28); PCO2 ABG 37 mmHg (35-46); PO2 ABG 136 mmHg (65-108); SAT O2 ABG 98 % (92-99)
[2020-07-13 08:44] LABS: FIO2 ABG 40
--- NOTE | 2020-07-13 09:01 | PDOC ---
[facility] PROGRESS NOTE Date of Service DOS: DATE: 07/13/20 TIME: 08:58 Chief Complaint Chief Complaint Acute on chronic respiratory failure, s/p intubation COVID negative COPD Acute on chronic diastolic CHF, recent echo with preserved LV systolic function YESENIA on CKD Lactic acidosis Morbid obesity Elevated glucose Recent PE, on Eliquis History of Present Illness History of Present Illness 07/13/2020 Patient seen and examined in the ICU On ventilator, AC/16/450/30% 5.0 PEEP Resting, GENOVEVA HAILED Chart reviewed Discussed with RN 07/12/2020 Patient seen and examined in the ICU On ventilator, AC/20/500/50% 6.0 PEEP Awake and responsive, GENOVEVA Hendricks BSD Chart reviewed Discussed with RN Vitals/I&O Vitals/I&O: Vital Signs Date Time Temp Pulse Resp B/P (MAP) Pulse Ox O2 Delivery O2 Flow Rate FiO2 07/13/20 08:32 100 Ventilator 07/13/20 07:00 108 20 179/91 (120) 07/13/20 04:00 98.1 98.1 I & O 07/12/20 07/12/20 07/13/20 15:00 23:00 07:00 Intake Total 315 ml 221 ml Output Total 250 ml 1320 ml 325 ml Balance -250 ml -1005 ml -104 ml Physical Exam General: No acute distress Heart: Regular rate, Other (distant heart tones ) Lungs: Clear Abdomen: Soft, Other (obese ) Extremities: No edema, Normal pulses Skin: No significant lesion Labs Labs: Laboratory Tests Test 07/12/20 12:50 07/13/20 05:35 07/13/20 05:38 07/13/20 08:00 White Blood Count 8.4 x10^3/uL (4.0-11.0) 8.3 x10^3/uL (4.0-11.0) Red Blood Count 4.72 x10^6/uL (3.50-5.40) 4.53 x10^6/uL (3.50-5.40) Hemoglobin 13.7 g/dL (12.0-15.5) 13.2 g/dL (12.0-15.5) Hematocrit 41.1 % (36.0-47.0) 39.6 % (36.0-47.0) Mean Corpuscular Volume 87 fL (79-100) 87 fL (79-100) Mean Corpuscular Hemoglobin 29 pg (25-35) 29 pg (25-35) Mean Corpuscular Hemoglobin Concent 34 g/dL (31-37) 33 g/dL (31-37) Red Cell Distribution Width 15.6 % (11.5-14.5) 16.6 % (11.5-14.5) Platelet Count 126 x10^3/uL (140-400) 125 x10^3/uL (140-400) Neutrophils (%) (Auto) 69 % (31-73) 72 % (31-73) Lymphocytes (%) (Auto) 20 % (24-48) 15 % (24-48) Monocytes (%) (Auto) 10 % (0-9) 12 % (0-9) Eosinophils (%) (Auto) 1 % (0-3) 1 % (0-3) Basophils (%) (Auto) 1 % (0-3) 0 % (0-3) Neutrophils # (Auto) 5.8 x10^3/uL (1.8-7.7) 6.0 x10^3/uL (1.8-7.7) Lymphocytes # (Auto) 1.7 x10^3/uL (1.0-4.8) 1.3 x10^3/uL (1.0-4.8) Monocytes # (Auto) 0.8 x10^3/uL (0.0-1.1) 1.0 x10^3/uL (0.0-1.1) Eosinophils # (Auto) 0.0 x10^3/uL (0.0-0.7) 0.0 x10^3/uL (0.0-0.7) Basophils # (Auto) 0.0 x10^3/uL (0.0-0.2) 0.0 x10^3/uL (0.0-0.2) Sodium Level 142 mmol/L (136-145) 141 mmol/L (136-145) Potassium Level 3.0 mmol/L (3.5-5.1) 3.1 mmol/L (3.5-5.1) Chloride Level 106 mmol/L (98-107) 106 mmol/L (98-107) Carbon Dioxide Level 26 mmol/L (21-32) 23 mmol/L (21-32) Anion Gap 10 (6-14) 12 (6-14) Blood Urea Nitrogen 10 mg/dL (7-20) 9 mg/dL (7-20) Creatinine 0.9 mg/dL (0.6-1.0) 0.8 mg/dL (0.6-1.0) Estimated GFR (Cockcroft-Gault) 75.8 86.8 Glucose Level 98 mg/dL (70-99) 104 mg/dL (70-99) Calcium Level 9.0 mg/dL (8.5-10.1) 8.5 mg/dL (8.5-10.1) Magnesium Level 2.2 mg/dL (1.8-2.4) O2 Saturation 98 % (92-99) Arterial Blood pH 7.39 (7.35-7.45) Arterial Blood pCO2 at Patient Temp 37 mmHg (35-46) Arterial Blood pO2 at Patient Temp 136 mmHg (65-108) Arterial Blood HCO3 22 mmol/L (21-28) Arterial Blood Base Excess -3 mmol/L (-3-3) FiO2 40 Review of Systems Review of Systems: Pertinent as per HPI, otherwise 10 point review of systems is negative. Assessment and Plan Assessmemt and Plan Problems Medical Problems: (1) Pulmonary edema Status: Acute (2) Respiratory failure, acute Status: Acute ASSESSMENT Acute on chronic respiratory failure, s/p intubation COVID negative COPD Acute on chronic diastolic CHF, recent echo with preserved LV systolic function YESENIA on CKD Lactic acidosis Morbid obesity Elevated glucose Recent PE, on Eliquis PLAN ICU monitoring Cardiac monitoring Ventilator weaning IV antibiotics Trend labs DVT ppx Full code Appreciate subspecialist input Long-term prognosis guarded Total time 31 Comment Review of Relevant I have reviewed the following items babar (where applicable) has been applied. Medications: Current Medications Medications (Trade) Dose Ordered Sig/Betsy Route PRN Reason Start Time Stop Time Status Last Admin Dose Admin Potassium Chloride/Water 100 ml @ 100 mls/hr Q1H IV 07/12/20 14:30 07/12/20 18:29 DC 07/12/20 19:44 Furosemide (Lasix) 40 mg 1X ONCE IVP 07/12/20 15:30 07/12/20 15:31 DC 07/12/20 15:30 Famotidine (Pepcid Vial) 20 mg BID IVP 07/12/20 21:00 07/12/20 21:17 Enoxaparin Sodium (Lovenox 40mg Syringe) 40 mg Q24H SQ 07/12/20 18:00 07/12/20 21:17 Potassium Chloride/Water 100 ml @ 100 mls/hr Q1H IV 07/13/20 08:00 07/13/20 11:59 07/13/20 08:06 Justicifation of Admission Dx: Justifications for Admission: Justification of Admission Dx: Yes Respiratory Failure: Mechanical Ventilation Chronic Renal Failure: Encephalopathy Acute COPD Exacerbation: Acute COPD Exacerbation MANNIE WILLARD III DO Jul 13, 2020 09:01
[2020-07-13] MEDS: FAMOTIDINE 20 MG/2 ML VIAL IVP SCH ×2 (09:32→21:22)
--- NOTE | 2020-07-13 09:46 | NUR ---
Pt extubated and placed on 2L NC. Pt sating 100% and doing well.
--- NOTE | 2020-07-13 10:32 | PDOC ---
PULMONARY PROGRESS NOTES DATE: 07/13/20 TIME: 10:27 Subjective on CPAP trial, awake No CP, SOA or cough Vitals Vital Signs Date Time Temp Pulse Resp B/P (MAP) Pulse Ox O2 Delivery O2 Flow Rate FiO2 07/13/20 09:00 106 14 186/86 (119) 100 Ventilator 07/13/20 08:00 99.1 99.1 ROS: No Nausea, No Chest Pain, No Abdominal Pain General: Alert, No acute distress Lungs: Clear Cardiovascular: S1 Abdomen: Soft Extremities: Other (1=edema) Skin: Warm Labs Laboratory Tests Test 07/11/20 10:35 07/11/20 13:25 07/12/20 08:00 07/12/20 12:50 O2 Saturation 92 % (92-99) 99 % (92-99) Arterial Blood pH 7.24 (7.35-7.45) 7.51 (7.35-7.45) Arterial Blood pCO2 at Patient Temp 51 mmHg (35-46) 26 mmHg (35-46) Arterial Blood pO2 at Patient Temp 72 mmHg (65-108) 130 mmHg (65-108) Arterial Blood HCO3 21 mmol/L (21-28) 20 mmol/L (21-28) Arterial Blood Base Excess -7 mmol/L (-3-3) -1 mmol/L (-3-3) FiO2 60 50/+8 peep Lactic Acid Level 2.5 mmol/L (0.4-2.0) White Blood Count 8.4 x10^3/uL (4.0-11.0) Red Blood Count 4.72 x10^6/uL (3.50-5.40) Hemoglobin 13.7 g/dL (12.0-15.5) Hematocrit 41.1 % (36.0-47.0) Mean Corpuscular Volume 87 fL (79-100) Mean Corpuscular Hemoglobin 29 pg (25-35) Mean Corpuscular Hemoglobin Concent 34 g/dL (31-37) Red Cell Distribution Width 15.6 % (11.5-14.5) Platelet Count 126 x10^3/uL (140-400) Neutrophils (%) (Auto) 69 % (31-73) Lymphocytes (%) (Auto) 20 % (24-48) Monocytes (%) (Auto) 10 % (0-9) Eosinophils (%) (Auto) 1 % (0-3) Basophils (%) (Auto) 1 % (0-3) Neutrophils # (Auto) 5.8 x10^3/uL (1.8-7.7) Lymphocytes # (Auto) 1.7 x10^3/uL (1.0-4.8) Monocytes # (Auto) 0.8 x10^3/uL (0.0-1.1) Eosinophils # (Auto) 0.0 x10^3/uL (0.0-0.7) Basophils # (Auto) 0.0 x10^3/uL (0.0-0.2) Sodium Level 142 mmol/L (136-145) Potassium Level 3.0 mmol/L (3.5-5.1) Chloride Level 106 mmol/L (98-107) Carbon Dioxide Level 26 mmol/L (21-32) Anion Gap 10 (6-14) Blood Urea Nitrogen 10 mg/dL (7-20) Creatinine 0.9 mg/dL (0.6-1.0) Estimated GFR (Cockcroft-Gault) 75.8 Glucose Level 98 mg/dL (70-99) Calcium Level 9.0 mg/dL (8.5-10.1) Magnesium Level 2.2 mg/dL (1.8-2.4) Test 07/13/20 05:35 07/13/20 05:38 07/13/20 08:00 Sodium Level 141 mmol/L (136-145) Potassium Level 3.1 mmol/L (3.5-5.1) Chloride Level 106 mmol/L (98-107) Carbon Dioxide Level 23 mmol/L (21-32) Anion Gap 12 (6-14) Blood Urea Nitrogen 9 mg/dL (7-20) Creatinine 0.8 mg/dL (0.6-1.0) Estimated GFR (Cockcroft-Gault) 86.8 Glucose Level 104 mg/dL (70-99) Calcium Level 8.5 mg/dL (8.5-10.1) White Blood Count 8.3 x10^3/uL (4.0-11.0) Red Blood Count 4.53 x10^6/uL (3.50-5.40) Hemoglobin 13.2 g/dL (12.0-15.5) Hematocrit 39.6 % (36.0-47.0) Mean Corpuscular Volume 87 fL (79-100) Mean Corpuscular Hemoglobin 29 pg (25-35) Mean Corpuscular Hemoglobin Concent 33 g/dL (31-37) Red Cell Distribution Width 16.6 % (11.5-14.5) Platelet Count 125 x10^3/uL (140-400) Neutrophils (%) (Auto) 72 % (31-73) Lymphocytes (%) (Auto) 15 % (24-48) Monocytes (%) (Auto) 12 % (0-9) Eosinophils (%) (Auto) 1 % (0-3) Basophils (%) (Auto) 0 % (0-3) Neutrophils # (Auto) 6.0 x10^3/uL (1.8-7.7) Lymphocytes # (Auto) 1.3 x10^3/uL (1.0-4.8) Monocytes # (Auto) 1.0 x10^3/uL (0.0-1.1) Eosinophils # (Auto) 0.0 x10^3/uL (0.0-0.7) Basophils # (Auto) 0.0 x10^3/uL (0.0-0.2) O2 Saturation 98 % (92-99) Arterial Blood pH 7.39 (7.35-7.45) Arterial Blood pCO2 at Patient Temp 37 mmHg (35-46) Arterial Blood pO2 at Patient Temp 136 mmHg (65-108) Arterial Blood HCO3 22 mmol/L (21-28) Arterial Blood Base Excess -3 mmol/L (-3-3) FiO2 40 Laboratory Tests Test 07/12/20 12:50 07/13/20 05:35 07/13/20 05:38 07/13/20 08:00 White Blood Count 8.4 x10^3/uL (4.0-11.0) 8.3 x10^3/uL (4.0-11.0) Red Blood Count 4.72 x10^6/uL (3.50-5.40) 4.53 x10^6/uL (3.50-5.40) Hemoglobin 13.7 g/dL (12.0-15.5) 13.2 g/dL (12.0-15.5) Hematocrit 41.1 % (36.0-47.0) 39.6 % (36.0-47.0) Mean Corpuscular Volume 87 fL (79-100) 87 fL (79-100) Mean Corpuscular Hemoglobin 29 pg (25-35) 29 pg (25-35) Mean Corpuscular Hemoglobin Concent 34 g/dL (31-37) 33 g/dL (31-37) Red Cell Distribution Width 15.6 % (11.5-14.5) 16.6 % (11.5-14.5) Platelet Count 126 x10^3/uL (140-400) 125 x10^3/uL (140-400) Neutrophils (%) (Auto) 69 % (31-73) 72 % (31-73) Lymphocytes (%) (Auto) 20 % (24-48) 15 % (24-48) Monocytes (%) (Auto) 10 % (0-9) 12 % (0-9) Eosinophils (%) (Auto) 1 % (0-3) 1 % (0-3) Basophils (%) (Auto) 1 % (0-3) 0 % (0-3) Neutrophils # (Auto) 5.8 x10^3/uL (1.8-7.7) 6.0 x10^3/uL (1.8-7.7) Lymphocytes # (Auto) 1.7 x10^3/uL (1.0-4.8) 1.3 x10^3/uL (1.0-4.8) Monocytes # (Auto) 0.8 x10^3/uL (0.0-1.1) 1.0 x10^3/uL (0.0-1.1) Eosinophils # (Auto) 0.0 x10^3/uL (0.0-0.7) 0.0 x10^3/uL (0.0-0.7) Basophils # (Auto) 0.0 x10^3/uL (0.0-0.2) 0.0 x10^3/uL (0.0-0.2) Sodium Level 142 mmol/L (136-145) 141 mmol/L (136-145) Potassium Level 3.0 mmol/L (3.5-5.1) 3.1 mmol/L (3.5-5.1) Chloride Level 106 mmol/L (98-107) 106 mmol/L (98-107) Carbon Dioxide Level 26 mmol/L (21-32) 23 mmol/L (21-32) Anion Gap 10 (6-14) 12 (6-14) Blood Urea Nitrogen 10 mg/dL (7-20) 9 mg/dL (7-20) Creatinine 0.9 mg/dL (0.6-1.0) 0.8 mg/dL (0.6-1.0) Estimated GFR (Cockcroft-Gault) 75.8 86.8 Glucose Level 98 mg/dL (70-99) 104 mg/dL (70-99) Calcium Level 9.0 mg/dL (8.5-10.1) 8.5 mg/dL (8.5-10.1) Magnesium Level 2.2 mg/dL (1.8-2.4) O2 Saturation 98 % (92-99) Arterial Blood pH 7.39 (7.35-7.45) Arterial Blood pCO2 at Patient Temp 37 mmHg (35-46) Arterial Blood pO2 at Patient Temp 136 mmHg (65-108) Arterial Blood HCO3 22 mmol/L (21-28) Arterial Blood Base Excess -3 mmol/L (-3-3) FiO2 40 Medications Active Scripts Medications Dose Route/Sig Max Daily Dose Days Date Category Eliquis (Apixaban) 5 Mg Tablet 10 Mg PO BID 30 05/29/20 Rx Toprol Xl (Metoprolol Succinate) 25 Mg Tab.er.24h 0.5 Tab PO DAILY 30 04/01/20 Rx Paroxetine Hcl 40 Mg Tablet 40 Mg PO DAILY 30 03/30/20 Reported Atorvastatin Calcium 20 Mg Tablet 1 Tab PO DAILY 05/20/18 Reported Proair Hfa Inhaler (Albuterol Sulfate) 8.5 Gm Hfa.aer.ad 1-2 Puff INH PRN Q4HRS PRN 05/20/18 Reported Loratadine 10 Mg Tablet 1 Tab PO DAILY 05/20/18 Reported Flonase Allergy Relief (Fluticasone Propionate) 9.9 Ml [place].susp 2 Sprays NS DAILY 05/20/18 Reported Allopurinol 100 Mg Tablet 1 Tab PO DAILY 05/20/18 Reported Vitamin D2 (Ergocalciferol (Vitamin D2)) 50,000 Unit Capsule 1 Cap PO WEEKLY 05/20/18 Reported Geodon (Ziprasidone Hcl) 80 Mg Capsule 1 Cap PO BID 05/20/18 Reported Potassium Chloride (Potassium Chloride) 20 Meq Tablet.er 20 Meq PO DAILY 05/20/18 Reported Tramadol Hcl 50 Mg Tablet 50 Mg PO TID 05/20/18 Reported Symbicort 160-4.5 Mcg Inhaler (Budesonide/Formoterol Fumarate) 10.2 Gm Hfa.aer.ad 2 Puff IH BID 05/20/18 Reported Gabapentin (Gabapentin) 100 Mg Capsule 100 Mg PO BID 05/20/18 Reported Omeprazole 20 Mg Capsule.dr 1 Cap PO DAILY 05/20/18 Reported Comments CXR IMPRESSION: Significantly improved bilateral interstitial lung markings. Impression . 1. Acute hypoxic and hypercapnic respiratory failure secondary to acute on chronic diastolic congestive heart failure-- improved plan to extubate today 2. The patient with history of pulmonary embolism in May with no evidence of deep venous thrombosis and has been on home Eliquis and was taking regularly. No evidence of any recurrent pulmonary embolism. Previously seen pulmonary embolism has resolved. 3. Underlying morbid obesity. 4. Lactic acidosis due to increased work of breathing. Clinically, less likely sepsis./ metabolic acidosis 5. Abnormal CT chest with ground glass infiltrates and basilar atelectasis. Findings are favoring congestive heart failure. Plan . Pt. tolerted CPAP trial well, will plan to extubate today Diuresis. Follow cardiology recs Follow renal function. Continue home Eliquis. Stress ulcer prophylaxis. Discussed with RN/RT. Critical care time 30 minutes including decision making. MAXIMO ROMERO MD Jul 13, 2020 10:32
[2020-07-13] MEDS ORDERED: METOPROLOL TARTRATE 5 MG/5 ML VIAL. IVP ONE (12:00)
[2020-07-13] MEDS ORDERED: FUROSEMIDE 40 MG/4 ML VIAL. IVP ONE (12:00)
--- NOTE | 2020-07-13 12:27 | PDOC ---
JAYJAY FRAZIER STORE MANAGEMENT TRAINEE 07/13/20 1227: CARDIO Progress Notes Date and Time Date of Service 07/13/2020 Time of Evaluation 1140 Subjective Subjective: Other (post ectubation , drowsy) Vitals Vitals Vital Signs Date Time Temp Pulse Resp B/P (MAP) Pulse Ox O2 Delivery O2 Flow Rate FiO2 07/13/20 11:50 99 180/54 07/13/20 11:00 18 100 Nasal Cannula 2.0 07/13/20 08:00 99.1 99.1 Weight Weight [ ] Input and Output Intake and Output Intake and Output 07/13/20 07:00 Intake Total 536 ml Output Total 1895 ml Balance -1359 ml Intake IV Total 536 ml Output Urine Total 1895 ml Laboratory Labs Laboratory Tests Test 07/12/20 12:50 07/13/20 05:35 07/13/20 05:38 07/13/20 08:00 White Blood Count 8.4 x10^3/uL (4.0-11.0) 8.3 x10^3/uL (4.0-11.0) Red Blood Count 4.72 x10^6/uL (3.50-5.40) 4.53 x10^6/uL (3.50-5.40) Hemoglobin 13.7 g/dL (12.0-15.5) 13.2 g/dL (12.0-15.5) Hematocrit 41.1 % (36.0-47.0) 39.6 % (36.0-47.0) Mean Corpuscular Volume 87 fL (79-100) 87 fL (79-100) Mean Corpuscular Hemoglobin 29 pg (25-35) 29 pg (25-35) Mean Corpuscular Hemoglobin Concent 34 g/dL (31-37) 33 g/dL (31-37) Red Cell Distribution Width 15.6 % (11.5-14.5) 16.6 % (11.5-14.5) Platelet Count 126 x10^3/uL (140-400) 125 x10^3/uL (140-400) Neutrophils (%) (Auto) 69 % (31-73) 72 % (31-73) Lymphocytes (%) (Auto) 20 % (24-48) 15 % (24-48) Monocytes (%) (Auto) 10 % (0-9) 12 % (0-9) Eosinophils (%) (Auto) 1 % (0-3) 1 % (0-3) Basophils (%) (Auto) 1 % (0-3) 0 % (0-3) Neutrophils # (Auto) 5.8 x10^3/uL (1.8-7.7) 6.0 x10^3/uL (1.8-7.7) Lymphocytes # (Auto) 1.7 x10^3/uL (1.0-4.8) 1.3 x10^3/uL (1.0-4.8) Monocytes # (Auto) 0.8 x10^3/uL (0.0-1.1) 1.0 x10^3/uL (0.0-1.1) Eosinophils # (Auto) 0.0 x10^3/uL (0.0-0.7) 0.0 x10^3/uL (0.0-0.7) Basophils # (Auto) 0.0 x10^3/uL (0.0-0.2) 0.0 x10^3/uL (0.0-0.2) Sodium Level 142 mmol/L (136-145) 141 mmol/L (136-145) Potassium Level 3.0 mmol/L (3.5-5.1) 3.1 mmol/L (3.5-5.1) Chloride Level 106 mmol/L (98-107) 106 mmol/L (98-107) Carbon Dioxide Level 26 mmol/L (21-32) 23 mmol/L (21-32) Anion Gap 10 (6-14) 12 (6-14) Blood Urea Nitrogen 10 mg/dL (7-20) 9 mg/dL (7-20) Creatinine 0.9 mg/dL (0.6-1.0) 0.8 mg/dL (0.6-1.0) Estimated GFR (Cockcroft-Gault) 75.8 86.8 Glucose Level 98 mg/dL (70-99) 104 mg/dL (70-99) Calcium Level 9.0 mg/dL (8.5-10.1) 8.5 mg/dL (8.5-10.1) Magnesium Level 2.2 mg/dL (1.8-2.4) O2 Saturation 98 % (92-99) Arterial Blood pH 7.39 (7.35-7.45) Arterial Blood pCO2 at Patient Temp 37 mmHg (35-46) Arterial Blood pO2 at Patient Temp 136 mmHg (65-108) Arterial Blood HCO3 22 mmol/L (21-28) Arterial Blood Base Excess -3 mmol/L (-3-3) FiO2 40 Microbiology Micro Microbiology 07/11/20 Blood Culture - Preliminary, Resulted NO GROWTH AFTER 2 DAYS Physical Exam HEENT: Neck Supple W Full Motion Chest: Symmetric LUNGS: Other (diminished) Heart: RRR (SR) Abdomen: Other (obese) Extremities: No Calf Tenderness Neurology: other (drowsy) Assessment Assessment 1. Acute on chronic respiratory failure in setting of a/c CHF. post extubation. COVID negative 2. Acute on chronic diastolic CHF; Recent echo with preserved LV systolic function 3. YESENIA on CKD: Resolved 4. Lactic acidosis 5. Morbid obesity 6. Recent PE; was on Eliquis. Repeat CTA negative for PE 7. Hypokalemia 8. HTN urgency: labile 9. Obesity Recommendations Replace K. Lasix x1. Restart home metoprolol. Labetolol PRN. Start on lisinopril. Awaiting swallow eval Probable outpatient ischemic evaluation Supportive care Justicifation of Admission Dx: Justifications for Admission: Justification of Admission Dx: Yes Respiratory Failure: Mechanical Ventilation Chronic Renal Failure: Encephalopathy Acute COPD Exacerbation: Acute COPD Exacerbation GREYSON OWUSU MD 07/13/202046: CARDIO Progress Notes Assessment Assessment Agree with DIRECTOR VETERINARY's assessment and plan. s/p extubation, COVID negative Ac on chr diast HF better compensated Plan outpatient ischemic evaluation JAYJAY FRAZIER APRN Jul 13, 2020 12:27 GREYSON OWUSU MD Jul 13, 2020 20:47
[2020-07-13] MEDS ORDERED: LABETALOL 20 MG/4 ML DISP.SYRIN. IVP PRN (12:30)
[2020-07-13] MEDS: LISINOPRIL 20 MG TABLET PO SCH (13:20)
[2020-07-13] MEDS: METOPROLOL TART IMMED RELEASE 25 MG TABLET. PO SCH (21:21)
[2020-07-14] VITALS (15 sets, daily range): BP systolic 110–146; BP diastolic 41–73
[2020-07-14 07:01] LABS: CALCIUM 9.1 mg/dL (8.5-10.1); CREATININE 0.8 mg/dL (0.6-1.0); GFR 86.8; POTASSIUM 3.9 mmol/L (3.5-5.1)
[2020-07-14 08:40] LABS: BASO # 0.1 x10^3/uL (0.0-0.2); BASO % 1 % (0-3); EOS # 0.1 x10^3/uL (0.0-0.7); EOS % 1 % (0-3); HEMATOCRIT 39.9 % (36.0-47.0); LYMPH # 1.7 x10^3/uL (1.0-4.8); LYMPH % 21 % (24-48); MEAN CORPUSCULAR HEMOGLOBIN 29 pg (25-35); MEAN CORPUSCULAR HGB CONC 33 g/dL (31-37); MEAN CORPUSCULAR VOLUME 88 fL (79-100); MONO # 1.1 x10^3/uL (0.0-1.1); MONO % 13 % (0-9); NEUT % 63 % (31-73); RED BLOOD COUNT 4.52 x10^6/uL (3.50-5.40); RED CELL DISTRIBUTION WIDTH 15.8 % (11.5-14.5)
[2020-07-14 08:47] LABS: PLATELET COUNT 120 x10^3/uL (140-400)
[2020-07-14] MEDS: METOPROLOL TART IMMED RELEASE 25 MG TABLET. PO SCH ×2 (09:31→20:54)
[2020-07-14] MEDS: LISINOPRIL 20 MG TABLET PO SCH (09:31)
[2020-07-14] MEDS: FAMOTIDINE 20 MG/2 ML VIAL IVP SCH ×2 (09:32→20:53)
--- NOTE | 2020-07-14 09:32 | PDOC ---
PULMONARY PROGRESS NOTES DATE: 07/14/20 TIME: 09:29 Subjective Pt. is up to chair on 2 liters N/C , tolerating breakfast no SOB, no CP, no cough No overnight concerns from nursing Vitals Vital Signs Date Time Temp Pulse Resp B/P (MAP) Pulse Ox O2 Delivery O2 Flow Rate FiO2 07/14/20 06:00 67 39 110/49 (69) 98 Nasal Cannula 2.0 07/14/20 03:00 98.9 98.9 ROS: No Nausea, No Chest Pain, No Abdominal Pain General: Alert, No acute distress Lungs: Clear Cardiovascular: S1 Abdomen: Soft Extremities: Other (1=edema) Skin: Warm Labs Laboratory Tests Test 07/12/20 12:50 07/13/20 05:35 07/13/20 05:38 07/13/20 08:00 White Blood Count 8.4 x10^3/uL (4.0-11.0) 8.3 x10^3/uL (4.0-11.0) Red Blood Count 4.72 x10^6/uL (3.50-5.40) 4.53 x10^6/uL (3.50-5.40) Hemoglobin 13.7 g/dL (12.0-15.5) 13.2 g/dL (12.0-15.5) Hematocrit 41.1 % (36.0-47.0) 39.6 % (36.0-47.0) Mean Corpuscular Volume 87 fL (79-100) 87 fL (79-100) Mean Corpuscular Hemoglobin 29 pg (25-35) 29 pg (25-35) Mean Corpuscular Hemoglobin Concent 34 g/dL (31-37) 33 g/dL (31-37) Red Cell Distribution Width 15.6 % (11.5-14.5) 16.6 % (11.5-14.5) Platelet Count 126 x10^3/uL (140-400) 125 x10^3/uL (140-400) Neutrophils (%) (Auto) 69 % (31-73) 72 % (31-73) Lymphocytes (%) (Auto) 20 % (24-48) 15 % (24-48) Monocytes (%) (Auto) 10 % (0-9) 12 % (0-9) Eosinophils (%) (Auto) 1 % (0-3) 1 % (0-3) Basophils (%) (Auto) 1 % (0-3) 0 % (0-3) Neutrophils # (Auto) 5.8 x10^3/uL (1.8-7.7) 6.0 x10^3/uL (1.8-7.7) Lymphocytes # (Auto) 1.7 x10^3/uL (1.0-4.8) 1.3 x10^3/uL (1.0-4.8) Monocytes # (Auto) 0.8 x10^3/uL (0.0-1.1) 1.0 x10^3/uL (0.0-1.1) Eosinophils # (Auto) 0.0 x10^3/uL (0.0-0.7) 0.0 x10^3/uL (0.0-0.7) Basophils # (Auto) 0.0 x10^3/uL (0.0-0.2) 0.0 x10^3/uL (0.0-0.2) Sodium Level 142 mmol/L (136-145) 141 mmol/L (136-145) Potassium Level 3.0 mmol/L (3.5-5.1) 3.1 mmol/L (3.5-5.1) Chloride Level 106 mmol/L (98-107) 106 mmol/L (98-107) Carbon Dioxide Level 26 mmol/L (21-32) 23 mmol/L (21-32) Anion Gap 10 (6-14) 12 (6-14) Blood Urea Nitrogen 10 mg/dL (7-20) 9 mg/dL (7-20) Creatinine 0.9 mg/dL (0.6-1.0) 0.8 mg/dL (0.6-1.0) Estimated GFR (Cockcroft-Gault) 75.8 86.8 Glucose Level 98 mg/dL (70-99) 104 mg/dL (70-99) Calcium Level 9.0 mg/dL (8.5-10.1) 8.5 mg/dL (8.5-10.1) Magnesium Level 2.2 mg/dL (1.8-2.4) O2 Saturation 98 % (92-99) Arterial Blood pH 7.39 (7.35-7.45) Arterial Blood pCO2 at Patient Temp 37 mmHg (35-46) Arterial Blood pO2 at Patient Temp 136 mmHg (65-108) Arterial Blood HCO3 22 mmol/L (21-28) Arterial Blood Base Excess -3 mmol/L (-3-3) FiO2 40 Test 07/14/20 06:10 07/14/20 07:50 Sodium Level 139 mmol/L (136-145) Potassium Level 3.9 mmol/L (3.5-5.1) Chloride Level 104 mmol/L (98-107) Carbon Dioxide Level 22 mmol/L (21-32) Anion Gap 13 (6-14) Blood Urea Nitrogen 13 mg/dL (7-20) Creatinine 0.8 mg/dL (0.6-1.0) Estimated GFR (Cockcroft-Gault) 86.8 Glucose Level 120 mg/dL (70-99) Calcium Level 9.1 mg/dL (8.5-10.1) White Blood Count 8.0 x10^3/uL (4.0-11.0) Red Blood Count 4.52 x10^6/uL (3.50-5.40) Hemoglobin 13.0 g/dL (12.0-15.5) Hematocrit 39.9 % (36.0-47.0) Mean Corpuscular Volume 88 fL (79-100) Mean Corpuscular Hemoglobin 29 pg (25-35) Mean Corpuscular Hemoglobin Concent 33 g/dL (31-37) Red Cell Distribution Width 15.8 % (11.5-14.5) Platelet Count 120 x10^3/uL (140-400) Neutrophils (%) (Auto) 63 % (31-73) Lymphocytes (%) (Auto) 21 % (24-48) Monocytes (%) (Auto) 13 % (0-9) Eosinophils (%) (Auto) 1 % (0-3) Basophils (%) (Auto) 1 % (0-3) Neutrophils # (Auto) 5.0 x10^3/uL (1.8-7.7) Lymphocytes # (Auto) 1.7 x10^3/uL (1.0-4.8) Monocytes # (Auto) 1.1 x10^3/uL (0.0-1.1) Eosinophils # (Auto) 0.1 x10^3/uL (0.0-0.7) Basophils # (Auto) 0.1 x10^3/uL (0.0-0.2) Laboratory Tests Test 07/14/20 06:10 07/14/20 07:50 Sodium Level 139 mmol/L (136-145) Potassium Level 3.9 mmol/L (3.5-5.1) Chloride Level 104 mmol/L (98-107) Carbon Dioxide Level 22 mmol/L (21-32) Anion Gap 13 (6-14) Blood Urea Nitrogen 13 mg/dL (7-20) Creatinine 0.8 mg/dL (0.6-1.0) Estimated GFR (Cockcroft-Gault) 86.8 Glucose Level 120 mg/dL (70-99) Calcium Level 9.1 mg/dL (8.5-10.1) White Blood Count 8.0 x10^3/uL (4.0-11.0) Red Blood Count 4.52 x10^6/uL (3.50-5.40) Hemoglobin 13.0 g/dL (12.0-15.5) Hematocrit 39.9 % (36.0-47.0) Mean Corpuscular Volume 88 fL (79-100) Mean Corpuscular Hemoglobin 29 pg (25-35) Mean Corpuscular Hemoglobin Concent 33 g/dL (31-37) Red Cell Distribution Width 15.8 % (11.5-14.5) Platelet Count 120 x10^3/uL (140-400) Neutrophils (%) (Auto) 63 % (31-73) Lymphocytes (%) (Auto) 21 % (24-48) Monocytes (%) (Auto) 13 % (0-9) Eosinophils (%) (Auto) 1 % (0-3) Basophils (%) (Auto) 1 % (0-3) Neutrophils # (Auto) 5.0 x10^3/uL (1.8-7.7) Lymphocytes # (Auto) 1.7 x10^3/uL (1.0-4.8) Monocytes # (Auto) 1.1 x10^3/uL (0.0-1.1) Eosinophils # (Auto) 0.1 x10^3/uL (0.0-0.7) Basophils # (Auto) 0.1 x10^3/uL (0.0-0.2) Medications Active Scripts Medications Dose Route/Sig Max Daily Dose Days Date Category Eliquis (Apixaban) 5 Mg Tablet 10 Mg PO BID 30 05/29/20 Rx Toprol Xl (Metoprolol Succinate) 25 Mg Tab.er.24h 0.5 Tab PO DAILY 30 04/01/20 Rx Paroxetine Hcl 40 Mg Tablet 40 Mg PO DAILY 30 03/30/20 Reported Atorvastatin Calcium 20 Mg Tablet 1 Tab PO DAILY 05/20/18 Reported Proair Hfa Inhaler (Albuterol Sulfate) 8.5 Gm Hfa.aer.ad 1-2 Puff INH PRN Q4HRS PRN 05/20/18 Reported Loratadine 10 Mg Tablet 1 Tab PO DAILY 05/20/18 Reported Flonase Allergy Relief (Fluticasone Propionate) 9.9 Ml [place].susp 2 Sprays NS DAILY 05/20/18 Reported Allopurinol 100 Mg Tablet 1 Tab PO DAILY 05/20/18 Reported Vitamin D2 (Ergocalciferol (Vitamin D2)) 50,000 Unit Capsule 1 Cap PO WEEKLY 05/20/18 Reported Geodon (Ziprasidone Hcl) 80 Mg Capsule 1 Cap PO BID 05/20/18 Reported Potassium Chloride (Potassium Chloride) 20 Meq Tablet.er 20 Meq PO DAILY 05/20/18 Reported Tramadol Hcl 50 Mg Tablet 50 Mg PO TID 05/20/18 Reported Symbicort 160-4.5 Mcg Inhaler (Budesonide/Formoterol Fumarate) 10.2 Gm Hfa.aer.ad 2 Puff IH BID 05/20/18 Reported Gabapentin (Gabapentin) 100 Mg Capsule 100 Mg PO BID 05/20/18 Reported Omeprazole 20 Mg Capsule.dr 1 Cap PO DAILY 05/20/18 Reported Comments CXR IMPRESSION: Significantly improved bilateral interstitial lung markings. Impression . 1. Acute hypoxic and hypercapnic respiratory failure secondary to acute on chronic diastolic congestive heart failure--improved on 2 liters N/C 2. The patient with history of pulmonary embolism in May with no evidence of deep venous thrombosis and has been on home Eliquis and was taking regularly. No evidence of any recurrent pulmonary embolism. Previously seen pulmonary embolism has resolved. 3. Underlying morbid obesity. 4. Lactic acidosis due to increased work of breathing. Clinically, less likely sepsis./ metabolic acidosis- improved 5. Abnormal CT chest with ground glass infiltrates and basilar atelectasis. Findings are favoring congestive heart failure. Plan . cont. supplemental oxygen to keep sats above 92 % Diuresis. Follow cardiology recs Follow renal function. Continue home Eliquis. Stress ulcer prophylaxis. D/C IV ABX Discussed with RN/RT. ok to transfer out of ICU if ok with other consults MAXIMO ROMERO MD Jul 14, 2020 09:32
--- NOTE | 2020-07-14 11:33 | PDOC ---
[facility] PROGRESS NOTE Date of Service DOS: DATE: 07/14/20 TIME: 11:27 Chief Complaint Chief Complaint Acute on chronic respiratory failure, s/p intubation COVID negative COPD Acute on chronic diastolic CHF, recent echo with preserved LV systolic function YESENIA on CKD Lactic acidosis Morbid obesity Elevated glucose Recent PE, on Eliquis History of Present Illness History of Present Illness 07/14/2020 Patient seen and examined in the ICU S/p extubation Sitting in chair, NAD Markedly improved Tardive dyskinesia at baseline Chart reviewed Discussed with RN 07/13/2020 Patient seen and examined in the ICU On ventilator, AC/16/450/30% 5.0 PEEP Resting, GENOVEVA HAILED Chart reviewed Discussed with RN 07/12/2020 Patient seen and examined in the ICU On ventilator, AC/20/500/50% 6.0 PEEP Awake and responsive, GENOVEVA Hendricks BSD Chart reviewed Discussed with RN Vitals/I&O Vitals/I&O: Vital Signs Date Time Temp Pulse Resp B/P (MAP) Pulse Ox O2 Delivery O2 Flow Rate FiO2 07/14/20 11:00 78 24 122/52 (75) 97 Room Air 07/14/20 08:00 2.0 07/14/20 03:00 98.9 98.9 I & O 07/13/20 07/13/20 07/14/20 15:00 23:00 07:00 Intake Total 500 ml 1050 ml 220 ml Output Total 1330 ml 350 ml 250 ml Balance -830 ml 700 ml -30 ml Physical Exam General: Alert, Cooperative, No acute distress Heart: Regular rate, Normal S1, Normal S2 Lungs: Clear Abdomen: Soft, Other (obese ) Extremities: No edema, Normal pulses Skin: No significant lesion Labs Labs: Laboratory Tests Test 07/14/20 06:10 07/14/20 07:50 Sodium Level 139 mmol/L (136-145) Potassium Level 3.9 mmol/L (3.5-5.1) Chloride Level 104 mmol/L (98-107) Carbon Dioxide Level 22 mmol/L (21-32) Anion Gap 13 (6-14) Blood Urea Nitrogen 13 mg/dL (7-20) Creatinine 0.8 mg/dL (0.6-1.0) Estimated GFR (Cockcroft-Gault) 86.8 Glucose Level 120 mg/dL (70-99) Calcium Level 9.1 mg/dL (8.5-10.1) White Blood Count 8.0 x10^3/uL (4.0-11.0) Red Blood Count 4.52 x10^6/uL (3.50-5.40) Hemoglobin 13.0 g/dL (12.0-15.5) Hematocrit 39.9 % (36.0-47.0) Mean Corpuscular Volume 88 fL (79-100) Mean Corpuscular Hemoglobin 29 pg (25-35) Mean Corpuscular Hemoglobin Concent 33 g/dL (31-37) Red Cell Distribution Width 15.8 % (11.5-14.5) Platelet Count 120 x10^3/uL (140-400) Neutrophils (%) (Auto) 63 % (31-73) Lymphocytes (%) (Auto) 21 % (24-48) Monocytes (%) (Auto) 13 % (0-9) Eosinophils (%) (Auto) 1 % (0-3) Basophils (%) (Auto) 1 % (0-3) Neutrophils # (Auto) 5.0 x10^3/uL (1.8-7.7) Lymphocytes # (Auto) 1.7 x10^3/uL (1.0-4.8) Monocytes # (Auto) 1.1 x10^3/uL (0.0-1.1) Eosinophils # (Auto) 0.1 x10^3/uL (0.0-0.7) Basophils # (Auto) 0.1 x10^3/uL (0.0-0.2) Review of Systems Review of Systems: Pertinent as per HPI, otherwise 10 point review of systems is negative. Assessment and Plan Assessmemt and Plan Problems Medical Problems: (1) Pulmonary edema Status: Acute (2) Respiratory failure, acute Status: Acute ASSESSMENT Acute on chronic respiratory failure, s/p extubation COVID negative COPD Acute on chronic diastolic CHF, recent echo with preserved LV systolic function YESENIA on CKD Lactic acidosis Morbid obesity Recent PE, on Eliquis PLAN Hope to transfer out of ICU when approved by Pulmonary and Cardiology Cardiac monitoring IV antibiotics Trend labs Appreciate subspecialist input PT/OT DVT prophylaxis Full code Comment Review of Relevant I have reviewed the following items babar (where applicable) has been applied. Medications: Current Medications Medications (Trade) Dose Ordered Sig/Betsy Route PRN Reason Start Time Stop Time Status Last Admin Dose Admin Metoprolol Tartrate (Lopressor) 25 mg BID PO 07/13/20 21:00 07/14/20 09:31 Metoprolol Tartrate (Lopressor Vial) 5 mg 1X ONCE IVP 07/13/20 12:00 07/13/20 12:01 DC 07/13/20 11:50 Furosemide (Lasix) 40 mg 1X ONCE IVP 07/13/20 12:00 07/13/20 12:01 DC 07/13/20 11:49 Lisinopril (Prinivil) 20 mg DAILY PO 07/13/20 13:00 07/14/20 09:31 Justicifation of Admission Dx: Justifications for Admission: Justification of Admission Dx: Yes Respiratory Failure: Mechanical Ventilation Chronic Renal Failure: Encephalopathy Acute COPD Exacerbation: Acute COPD Exacerbation MANNIE WILLARD III DO Jul 14, 2020 11:33
--- NOTE | 2020-07-14 12:30 | NUR ---
Report called to [facility] on 2S. Pt transported via wheelchair. VSS. No complaints.
--- NOTE | 2020-07-14 14:11 | NUR ---
SS following up with discharge planning. SS reviewed pt chart and discussed with pt RN. Pt is currently on room air. COVID19 negative. PT/OT recommended correction unit but documented that pt could potentially progress to home healthcare. SS met with pt and discussed discharge planning. Pt reported that she will NOT go to inpatient rehabilitation. Pt declined home healthcare as well. Pt reported that she wishes to return to home. Pt reported that [facility] comes to her home 20 hours per week and assists her with her daily living needs. Pt reported that she only wants [facility] at this time. Pt's RN notified. SS will continue to follow for discharge planning.
[2020-07-14] MEDS: ACETAMINOPHEN 325 MG TABLET. PO PRN ×2 (14:42→20:53)
--- NOTE | 2020-07-14 16:39 | PDOC ---
PROGRESS NOTES Date of Service: DATE: 07/14/20 TIME: 16:39 Subjective Subjective Comfortable on 2L O2 NC, denied any CP Objective Objective Vital Signs Date Time Temp Pulse Resp B/P (MAP) Pulse Ox O2 Delivery O2 Flow Rate FiO2 07/14/20 14:30 98.7 66 22 121/60 (80) 100 Nasal Cannula 2.0 98.7 Intake and Output 07/14/20 07:00 Intake Total 1770 ml Output Total 1930 ml Balance -160 ml Intake Oral 1270 ml IV Total 500 ml Output Urine Total 1930 ml Physical Exam Abdomen: Soft, Other (obese ) Heart: Regular rate, Normal S1, Normal S2 Extremities: No edema, Normal pulses General: Alert, Cooperative, No acute distress HEENT: Atraumatic, Mucous membr. moist/pink Lungs: Other (mechanical vent ) MUSCULOSKELETAL: Osteoarthritic changes both hands Psych/Mental Status: Other (sedated ) Skin: No significant lesion Assessment Assessment 1. Acute on chronic respiratory failure in setting of a/c CHF. post extubation. COVID negative. Improved. Pulm following 2. Acute on chronic diastolic CHF; Recent echo with preserved LV systolic function. Better compensated with diuresis. Plan ischemic evaluation as outpatient 3. YESENIA on CKD: Resolved 4. Lactic acidosis 5. Morbid obesity 6. Recent PE; was on Eliquis. Repeat CTA negative for PE 7. Hypokalemia 8. HTN urgency: labile 9. Obesity Plan Plan of Care Problems Medical Problems: (1) Pulmonary edema Status: Acute (2) Respiratory failure, acute Status: Acute Comment Review of Relevant I have reviewed the following items babar (where applicable) has been applied. Labs Laboratory Tests Test 07/14/20 06:10 07/14/20 07:50 Sodium Level 139 mmol/L (136-145) Potassium Level 3.9 mmol/L (3.5-5.1) Chloride Level 104 mmol/L (98-107) Carbon Dioxide Level 22 mmol/L (21-32) Anion Gap 13 (6-14) Blood Urea Nitrogen 13 mg/dL (7-20) Creatinine 0.8 mg/dL (0.6-1.0) Estimated GFR (Cockcroft-Gault) 86.8 Glucose Level 120 mg/dL (70-99) Calcium Level 9.1 mg/dL (8.5-10.1) White Blood Count 8.0 x10^3/uL (4.0-11.0) Red Blood Count 4.52 x10^6/uL (3.50-5.40) Hemoglobin 13.0 g/dL (12.0-15.5) Hematocrit 39.9 % (36.0-47.0) Mean Corpuscular Volume 88 fL (79-100) Mean Corpuscular Hemoglobin 29 pg (25-35) Mean Corpuscular Hemoglobin Concent 33 g/dL (31-37) Red Cell Distribution Width 15.8 % (11.5-14.5) Platelet Count 120 x10^3/uL (140-400) Neutrophils (%) (Auto) 63 % (31-73) Lymphocytes (%) (Auto) 21 % (24-48) Monocytes (%) (Auto) 13 % (0-9) Eosinophils (%) (Auto) 1 % (0-3) Basophils (%) (Auto) 1 % (0-3) Neutrophils # (Auto) 5.0 x10^3/uL (1.8-7.7) Lymphocytes # (Auto) 1.7 x10^3/uL (1.0-4.8) Monocytes # (Auto) 1.1 x10^3/uL (0.0-1.1) Eosinophils # (Auto) 0.1 x10^3/uL (0.0-0.7) Basophils # (Auto) 0.1 x10^3/uL (0.0-0.2) Microbiology 07/11/20 Blood Culture - Preliminary, Resulted NO GROWTH AFTER 3 DAYS Medications Current Medications Acetaminophen (Tylenol) 650 mg PRN Q6HRS PRN PO MILD PAIN / TEMP > 100.3'F Last administered on 07/14/20at 14:42; Start 07/14/20 at 14:15 Apixaban (Eliquis) 5 mg BID PO ; Start 07/14/20 at 21:00 Lactobacillus Rhamnosus (Culturelle) 1 cap BID PO ; Start 07/14/20 at 21:00 Metoprolol Tartrate (Lopressor) 25 mg BID PO Last administered on 07/14/20at 09:31; Start 07/13/20 at 21:00 Vitals/I & O Vital Sign - Last 24 Hours 07/13/20 07/13/20 07/13/2020 17:00 18:00 19:00 20:00 Temp 98.8 98.8 Pulse 90 98 89 Resp 16 26 16 B/P (MAP) 116/63 (80) 143/74 (97) 121/93 (102) Pulse Ox 98 97 99 O2 Delivery Nasal Cannula Nasal Cannula Nasal Cannula Nasal Cannula O2 Flow Rate 2.0 2.0 2.0 2.0 07/13/20 07/13/20 07/13/20 07/13/20 20:00 21:00 21:21 22:00 Pulse 88 92 92 81 Resp 20 23 13 B/P (MAP) 124/57 (79) 126/66 (86) 126/66 110/48 (68) Pulse Ox 98 99 98 O2 Delivery Nasal Cannula Nasal Cannula Nasal Cannula O2 Flow Rate 2.0 2.0 2.0 07/13/20 07/13/20 07/14/20 07/14/20 23:00 23:52 00:00 01:00 Temp 98.6 98.6 Pulse 77 70 68 Resp 15 12 17 B/P (MAP) 115/60 (78) 114/50 (71) 119/54 (75) Pulse Ox 100 100 100 O2 Delivery Nasal Cannula Nasal Cannula Nasal Cannula Nasal Cannula O2 Flow Rate 2.0 2.0 2.0 2.0 07/14/20 07/14/20 07/14/20 07/14/20 02:00 03:00 04:00 04:00 Temp 98.9 98.9 Pulse 69 77 78 Resp 12 22 25 B/P (MAP) 110/49 (69) 116/50 (72) 121/62 (81) Pulse Ox 100 98 98 O2 Delivery Nasal Cannula Nasal Cannula Nasal Cannula Nasal Cannula O2 Flow Rate 2.0 2.0 2.0 2.0 07/14/20 07/14/20 07/14/20 07/14/20 05:00 06:00 08:00 08:00 Pulse 68 67 66 Resp 11 39 26 B/P (MAP) 119/58 (78) 110/49 (69) 128/64 (85) Pulse Ox 99 98 96 O2 Delivery Nasal Cannula Nasal Cannula Room Air Nasal Cannula O2 Flow Rate 2.0 2.0 2.0 8/13/20 8/13/20 8/13/20 8/13/20 09:00 09:31 09:31 10:00 Pulse 100 89 89 96 Resp 30 24 B/P (MAP) 115/57 (76) 129/66 129/66 129/66 (87) Pulse Ox 96 98 O2 Delivery Room Air Room Air 07/14/20 07/14/20 07/14/20 07/14/20 11:00 12:47 13:00 14:30 Temp 98.8 98.7 98.8 98.7 Pulse 78 80 66 Resp 24 22 22 B/P (MAP) 122/52 (75) 146/73 (97) 121/60 (80) Pulse Ox 97 95 100 O2 Delivery Room Air Nasal Cannula Room Air Nasal Cannula O2 Flow Rate 2.0 2.0 Intake and Output 07/13/20 07/13/20 07/14/20 15:00 23:00 07:00 Intake Total 500 ml 1050 ml 220 ml Output Total 1330 ml 350 ml 250 ml Balance -830 ml 700 ml -30 ml GREYSON OWUSU MD Jul 14, 2020 16:39
[2020-07-14] MEDS ORDERED: DIGOXIN IV 500 MCG/2 ML AMPUL. IV ONE (18:30)
[2020-07-14] MEDS: APIXABAN 5 MG TABLET. PO SCH (20:53)
[2020-07-14] MEDS: LACTOBACILLUS RHAMNOSUS GG 1 CAPSULE. PO SCH (20:53)
[2020-07-15] VITALS (8 sets, daily range): BP systolic 113–141; BP diastolic 46–70
[2020-07-15 05:42] LABS: BASO # 0.1 x10^3/uL (0.0-0.2); BASO % 1 % (0-3); EOS # 0.1 x10^3/uL (0.0-0.7); EOS % 1 % (0-3); HEMATOCRIT 40.9 % (36.0-47.0); HEMOGLOBIN 13.3 g/dL (12.0-15.5); LYMPH # 1.8 x10^3/uL (1.0-4.8); LYMPH % 22 % (24-48); MEAN CORPUSCULAR HEMOGLOBIN 29 pg (25-35); MEAN CORPUSCULAR HGB CONC 33 g/dL (31-37); MEAN CORPUSCULAR VOLUME 88 fL (79-100); MONO % 12 % (0-9); NEUT # 5.3 x10^3/uL (1.8-7.7); NEUT % 64 % (31-73); PLATELET COUNT 134 x10^3/uL (140-400); RED BLOOD COUNT 4.64 x10^6/uL (3.50-5.40); RED CELL DISTRIBUTION WIDTH 16.1 % (11.5-14.5); WHITE BLOOD COUNT 8.2 x10^3/uL (4.0-11.0)
[2020-07-15 05:52] LABS: CALCIUM 9.4 mg/dL (8.5-10.1); CREATININE 0.9 mg/dL (0.6-1.0); GFR 75.8; POTASSIUM 3.4 mmol/L (3.5-5.1)
[2020-07-15] MEDS: APIXABAN 5 MG TABLET. PO SCH ×2 (08:39→21:46)
[2020-07-15] MEDS: LACTOBACILLUS RHAMNOSUS GG 1 CAPSULE. PO SCH ×2 (08:39→21:45)
[2020-07-15] MEDS: METOPROLOL TART IMMED RELEASE 25 MG TABLET. PO SCH ×2 (08:40→21:46)
[2020-07-15] MEDS: LISINOPRIL 20 MG TABLET PO SCH (08:40)
[2020-07-15] MEDS: ACETAMINOPHEN 325 MG TABLET. PO PRN (08:47)
[2020-07-15] MEDS: FAMOTIDINE 20 MG/2 ML VIAL IVP SCH ×2 (09:00→21:45)
--- NOTE | 2020-07-15 10:29 | PDOC ---
[facility] PROGRESS NOTE Date of Service DOS: DATE: 07/15/20 TIME: 10:22 Chief Complaint Chief Complaint Acute on chronic respiratory failure, s/p intubation COVID negative COPD Acute on chronic diastolic CHF, recent echo with preserved LV systolic function YESENIA on CKD Lactic acidosis Morbid obesity Elevated glucose Recent PE, on Eliquis History of Present Illness History of Present Illness 07/15/2020 Patient seen and examined, mild distress Complains of shortness of air Aflutter overnight, Afib intermittently Tardive dyskinesia at baseline Chart reviewed Discussed with RN 07/14/2020 Patient seen and examined in the ICU S/p extubation Sitting in chair, NAD Markedly improved Tardive dyskinesia at baseline Chart reviewed Discussed with RN 07/13/2020 Patient seen and examined in the ICU On ventilator, AC/16/450/30% 5.0 PEEP Resting, GENOVEVA HAILED Chart reviewed Discussed with RN 07/12/2020 Patient seen and examined in the ICU On ventilator, AC/20/500/50% 6.0 PEEP Awake and responsive, GENOVEVA Hendricks BSD Chart reviewed Discussed with RN Vitals/I&O Vitals/I&O: Vital Signs Date Time Temp Pulse Resp B/P (MAP) Pulse Ox O2 Delivery O2 Flow Rate FiO2 07/15/20 08:40 95 131/70 07/15/20 07:00 98.6 18 97 Room Air 98.6 07/14/20 20:00 2.0 I & O 07/14/20 07/14/20 07/15/20 15:00 23:00 07:00 Intake Total 610 ml 0 ml 100 ml Output Total 200 ml 250 ml 850 ml Balance 410 ml -250 ml -750 ml Physical Exam General: Alert, Cooperative, mild distress Heart: Regular rate, Normal S1, Normal S2 Lungs: Other (decreased breath sounds at bases BL) Abdomen: Soft, Other (obese ) Extremities: No cyanosis, No edema, Normal pulses Skin: No significant lesion Labs Labs: Laboratory Tests Test 07/15/20 05:00 White Blood Count 8.2 x10^3/uL (4.0-11.0) Red Blood Count 4.64 x10^6/uL (3.50-5.40) Hemoglobin 13.3 g/dL (12.0-15.5) Hematocrit 40.9 % (36.0-47.0) Mean Corpuscular Volume 88 fL (79-100) Mean Corpuscular Hemoglobin 29 pg (25-35) Mean Corpuscular Hemoglobin Concent 33 g/dL (31-37) Red Cell Distribution Width 16.1 % (11.5-14.5) Platelet Count 134 x10^3/uL (140-400) Neutrophils (%) (Auto) 64 % (31-73) Lymphocytes (%) (Auto) 22 % (24-48) Monocytes (%) (Auto) 12 % (0-9) Eosinophils (%) (Auto) 1 % (0-3) Basophils (%) (Auto) 1 % (0-3) Neutrophils # (Auto) 5.3 x10^3/uL (1.8-7.7) Lymphocytes # (Auto) 1.8 x10^3/uL (1.0-4.8) Monocytes # (Auto) 1.0 x10^3/uL (0.0-1.1) Eosinophils # (Auto) 0.1 x10^3/uL (0.0-0.7) Basophils # (Auto) 0.1 x10^3/uL (0.0-0.2) Sodium Level 142 mmol/L (136-145) Potassium Level 3.4 mmol/L (3.5-5.1) Chloride Level 106 mmol/L (98-107) Carbon Dioxide Level 27 mmol/L (21-32) Anion Gap 9 (6-14) Blood Urea Nitrogen 12 mg/dL (7-20) Creatinine 0.9 mg/dL (0.6-1.0) Estimated GFR (Cockcroft-Gault) 75.8 Glucose Level 105 mg/dL (70-99) Calcium Level 9.4 mg/dL (8.5-10.1) Review of Systems Review of Systems: Pertinent as per HPI, otherwise 10 point review of systems is negative. Assessment and Plan Assessmemt and Plan Problems Medical Problems: (1) Pulmonary edema Status: Acute (2) Respiratory failure, acute Status: Acute ASSESSMENT Acute on chronic respiratory failure, s/p intubation COVID negative COPD Acute on chronic diastolic CHF, recent echo with preserved LV systolic function YESENIA on CKD Lactic acidosis Morbid obesity Elevated glucose Recent PE, on Eliquis PLAN Cardiac monitoring Manage Afib per cardiology Cardiac diet Trend labs PT/OT Appreciate subspecialist input DVT prophylaxis Full code Comment Review of Relevant I have reviewed the following items babar (where applicable) has been applied. Medications: Current Medications Medications (Trade) Dose Ordered Sig/Betsy Route PRN Reason Start Time Stop Time Status Last Admin Dose Admin Lactobacillus Rhamnosus (Culturelle) 1 cap BID PO 07/14/20 21:00 07/15/20 08:39 Acetaminophen (Tylenol) 650 mg PRN Q6HRS PRN PO MILD PAIN / TEMP > 100.3'F 07/14/20 14:15 07/15/20 08:47 Apixaban (Eliquis) 5 mg BID PO 07/14/20 21:00 07/15/20 08:39 Digoxin (Lanoxin) 500 mcg 1X ONCE IV 07/14/20 18:30 07/14/20 18:32 DC 07/14/20 18:42 Justicifation of Admission Dx: Justifications for Admission: Justification of Admission Dx: Yes Respiratory Failure: Mechanical Ventilation Chronic Renal Failure: Encephalopathy Acute COPD Exacerbation: Acute COPD Exacerbation MANNIE WILLARD III DO Jul 15, 2020 10:29
[2020-07-15] MEDS ORDERED: FUROSEMIDE 40 MG/4 ML VIAL. IVP ONE (10:45)
--- NOTE | 2020-07-15 10:46 | PDOC ---
PULMONARY PROGRESS NOTES DATE: 07/15/20 TIME: 10:44 Subjective Pt. has complaints of SOB and not feeling well today on N/C oxygen Vitals Vital Signs Date Time Temp Pulse Resp B/P (MAP) Pulse Ox O2 Delivery O2 Flow Rate FiO2 07/15/20 08:40 95 131/70 07/15/20 08:00 Room Air 07/15/20 07:00 98.6 18 97 98.6 07/14/20 20:00 2.0 ROS: No Nausea, No Chest Pain, No Abdominal Pain General: Alert, No acute distress Lungs: Wheezing Cardiovascular: S1 Abdomen: Soft, Non-tender Extremities: Other (1=edema) Skin: Warm Labs Laboratory Tests Test 07/14/20 06:10 07/14/20 07:50 07/15/20 05:00 Sodium Level 139 mmol/L (136-145) 142 mmol/L (136-145) Potassium Level 3.9 mmol/L (3.5-5.1) 3.4 mmol/L (3.5-5.1) Chloride Level 104 mmol/L (98-107) 106 mmol/L (98-107) Carbon Dioxide Level 22 mmol/L (21-32) 27 mmol/L (21-32) Anion Gap 13 (6-14) 9 (6-14) Blood Urea Nitrogen 13 mg/dL (7-20) 12 mg/dL (7-20) Creatinine 0.8 mg/dL (0.6-1.0) 0.9 mg/dL (0.6-1.0) Estimated GFR (Cockcroft-Gault) 86.8 75.8 Glucose Level 120 mg/dL (70-99) 105 mg/dL (70-99) Calcium Level 9.1 mg/dL (8.5-10.1) 9.4 mg/dL (8.5-10.1) White Blood Count 8.0 x10^3/uL (4.0-11.0) 8.2 x10^3/uL (4.0-11.0) Red Blood Count 4.52 x10^6/uL (3.50-5.40) 4.64 x10^6/uL (3.50-5.40) Hemoglobin 13.0 g/dL (12.0-15.5) 13.3 g/dL (12.0-15.5) Hematocrit 39.9 % (36.0-47.0) 40.9 % (36.0-47.0) Mean Corpuscular Volume 88 fL (79-100) 88 fL (79-100) Mean Corpuscular Hemoglobin 29 pg (25-35) 29 pg (25-35) Mean Corpuscular Hemoglobin Concent 33 g/dL (31-37) 33 g/dL (31-37) Red Cell Distribution Width 15.8 % (11.5-14.5) 16.1 % (11.5-14.5) Platelet Count 120 x10^3/uL (140-400) 134 x10^3/uL (140-400) Neutrophils (%) (Auto) 63 % (31-73) 64 % (31-73) Lymphocytes (%) (Auto) 21 % (24-48) 22 % (24-48) Monocytes (%) (Auto) 13 % (0-9) 12 % (0-9) Eosinophils (%) (Auto) 1 % (0-3) 1 % (0-3) Basophils (%) (Auto) 1 % (0-3) 1 % (0-3) Neutrophils # (Auto) 5.0 x10^3/uL (1.8-7.7) 5.3 x10^3/uL (1.8-7.7) Lymphocytes # (Auto) 1.7 x10^3/uL (1.0-4.8) 1.8 x10^3/uL (1.0-4.8) Monocytes # (Auto) 1.1 x10^3/uL (0.0-1.1) 1.0 x10^3/uL (0.0-1.1) Eosinophils # (Auto) 0.1 x10^3/uL (0.0-0.7) 0.1 x10^3/uL (0.0-0.7) Basophils # (Auto) 0.1 x10^3/uL (0.0-0.2) 0.1 x10^3/uL (0.0-0.2) Laboratory Tests Test 07/15/20 05:00 White Blood Count 8.2 x10^3/uL (4.0-11.0) Red Blood Count 4.64 x10^6/uL (3.50-5.40) Hemoglobin 13.3 g/dL (12.0-15.5) Hematocrit 40.9 % (36.0-47.0) Mean Corpuscular Volume 88 fL (79-100) Mean Corpuscular Hemoglobin 29 pg (25-35) Mean Corpuscular Hemoglobin Concent 33 g/dL (31-37) Red Cell Distribution Width 16.1 % (11.5-14.5) Platelet Count 134 x10^3/uL (140-400) Neutrophils (%) (Auto) 64 % (31-73) Lymphocytes (%) (Auto) 22 % (24-48) Monocytes (%) (Auto) 12 % (0-9) Eosinophils (%) (Auto) 1 % (0-3) Basophils (%) (Auto) 1 % (0-3) Neutrophils # (Auto) 5.3 x10^3/uL (1.8-7.7) Lymphocytes # (Auto) 1.8 x10^3/uL (1.0-4.8) Monocytes # (Auto) 1.0 x10^3/uL (0.0-1.1) Eosinophils # (Auto) 0.1 x10^3/uL (0.0-0.7) Basophils # (Auto) 0.1 x10^3/uL (0.0-0.2) Sodium Level 142 mmol/L (136-145) Potassium Level 3.4 mmol/L (3.5-5.1) Chloride Level 106 mmol/L (98-107) Carbon Dioxide Level 27 mmol/L (21-32) Anion Gap 9 (6-14) Blood Urea Nitrogen 12 mg/dL (7-20) Creatinine 0.9 mg/dL (0.6-1.0) Estimated GFR (Cockcroft-Gault) 75.8 Glucose Level 105 mg/dL (70-99) Calcium Level 9.4 mg/dL (8.5-10.1) Medications Active Scripts Medications Dose Route/Sig Max Daily Dose Days Date Category Eliquis (Apixaban) 5 Mg Tablet 10 Mg PO BID 30 05/29/20 Rx Toprol Xl (Metoprolol Succinate) 25 Mg Tab.er.24h 0.5 Tab PO DAILY 30 04/01/20 Rx Paroxetine Hcl 40 Mg Tablet 40 Mg PO DAILY 30 03/30/20 Reported Atorvastatin Calcium 20 Mg Tablet 1 Tab PO DAILY 05/20/18 Reported Proair Hfa Inhaler (Albuterol Sulfate) 8.5 Gm Hfa.aer.ad 1-2 Puff INH PRN Q4HRS PRN 05/20/18 Reported Loratadine 10 Mg Tablet 1 Tab PO DAILY 05/20/18 Reported Flonase Allergy Relief (Fluticasone Propionate) 9.9 Ml [place].susp 2 Sprays NS DAILY 05/20/18 Reported Allopurinol 100 Mg Tablet 1 Tab PO DAILY 05/20/18 Reported Vitamin D2 (Ergocalciferol (Vitamin D2)) 50,000 Unit Capsule 1 Cap PO WEEKLY 05/20/18 Reported Geodon (Ziprasidone Hcl) 80 Mg Capsule 1 Cap PO BID 05/20/18 Reported Potassium Chloride (Potassium Chloride) 20 Meq Tablet.er 20 Meq PO DAILY 05/20/18 Reported Tramadol Hcl 50 Mg Tablet 50 Mg PO TID 05/20/18 Reported Symbicort 160-4.5 Mcg Inhaler (Budesonide/Formoterol Fumarate) 10.2 Gm Hfa.aer.ad 2 Puff IH BID 05/20/18 Reported Gabapentin (Gabapentin) 100 Mg Capsule 100 Mg PO BID 05/20/18 Reported Omeprazole 20 Mg Capsule.dr 1 Cap PO DAILY 05/20/18 Reported Comments CXR IMPRESSION: Significantly improved bilateral interstitial lung markings. Impression . 1. Acute hypoxic and hypercapnic respiratory failure secondary to acute on chronic diastolic congestive heart failure--improved on 2 liters N/C 2. The patient with history of pulmonary embolism in May with no evidence of deep venous thrombosis and has been on home Eliquis and was taking regularly. No evidence of any recurrent pulmonary embolism. Previously seen pulmonary embolism has resolved. 3. Underlying morbid obesity. 4. Lactic acidosis due to increased work of breathing. Clinically, less likely sepsis./ metabolic acidosis- improved 5. Abnormal CT chest with ground glass infiltrates and basilar atelectasis. Findings are favoring congestive heart failure. Plan . cont. supplemental oxygen to keep sats above 92 %, on 2 liters N/C suspected worsening CHF will obtain STAT CXR and will give X1 lasix now Follow cardiology recs Follow renal function Continue home Eliquis Stress ulcer prophylaxis Discussed with RN/RT. MAXIMO ROMERO MD Jul 15, 2020 10:46
--- NOTE | 2020-07-15 11:14 | RAD ---
EXAM: CHEST 1 VIEW History: Shortness of breath COMPARISON: 07/13/2020 TECHNIQUE: Single portable radiograph of the chest FINDINGS: The cardiac silhouette is unremarkable. Linear left lung base airspace opacity. The costophrenic sulci are clear and well demarcated. IMPRESSION: Mild left lung base airspace opacity likely atelectasis or infiltrate. Electronically signed by: Adebayo Gustafson MD (07/15/2020 11:11 AM) [id number]
[2020-07-15] MEDS: MORPHINE SULFATE 2 MG/ML VIAL. IV PRN ×2 (11:56→21:53)
--- NOTE | 2020-07-15 12:13 | NUR ---
SS following up with discharge planning. SS reviewed pt chart and discussed with pt RN. Pt is currently on room air. Pt declining inpatient rehabilitation and home healthcare. Pt reported that she wants to return to home with continued services from private duty company, [employer]. Physician notified. SS will continue to follow for discharge planning.
[2020-07-15] MEDS: ANTI-COAG MONITOR BY PHARMACY. MC PRN (14:46)
[2020-07-15] MEDS ORDERED: POTASSIUM CHLORIDE 20 MEQ TABLET.ER. PO ONE (17:45)
[2020-07-15] MEDS ORDERED: AMIODARONE 450 MG in IV DEXTROSE 5% 250 ML IV PRN (18:00)
[2020-07-15] MEDS ORDERED: AMIODARONE 150 MG in IV DEXTROSE 5% 100ML 100 ML IV ONE (18:00)
[2020-07-16] VITALS (11 sets, daily range): BP systolic 103–153; BP diastolic 45–67
--- NOTE | 2020-07-16 00:07 | PDOC ---
CARDIOLOGY PROGRESS NOTE SUBJECTIVE: Late entry for 07/15/2020 Patient is more short of air, has had intermittent tachyarrhhythmias. OBJECTIVE: Vital Signs/I&O: Vital Signs Date Time Temp Pulse Resp B/P (MAP) Pulse Ox O2 Delivery O2 Flow Rate FiO2 07/15/20 23:10 97.9 76 21 115/55 (75) 100 Nasal Cannula 1.5 97.9 I & O 07/15/20 07/15/20 07/16/20 15:00 23:00 07:00 Intake Total 360 ml Output Total 850 ml 0 ml Balance 360 ml -850 ml 0 ml Objective: General: Alert, No acute distress Lungs: Wheezing Cardiovascular: S1 Abdomen: Soft, Non-tender Extremities: Other (1=edema) Skin: Warm CURRENT MEDICATIONS: Current Medications Medications (Trade) Dose Ordered Sig/Betsy Route PRN Reason Start Time Stop Time Status Last Admin Dose Admin Info (Anti-Coagulation Monitoring By Pharmacy) 1 each PRN DAILY PRN MC SEE COMMENTS 07/15/20 09:30 07/15/20 14:46 Morphine Sulfate (Morphine Sulfate) 2 mg PRN Q2HR PRN IV PAIN 07/15/20 09:45 07/15/20 21:53 Furosemide (Lasix) 40 mg 1X ONCE IVP 07/15/20 10:45 07/15/20 10:47 DC 07/15/20 11:35 Potassium Chloride (Klor-Con) 40 meq 1X ONCE PO 07/15/20 17:45 07/15/20 17:46 DC 07/15/20 18:12 Amiodarone HCl 150 mg/Dextrose 103 ml @ 618 mls/hr 1X ONCE IV 07/15/20 18:00 07/15/20 18:09 DC 07/15/20 18:12 DIAGNOSTIC TESTING: labs reviewed. cxr reviewed Labs: Laboratory Tests 07/15/20 05:00 Laboratory Tests Test 07/15/20 05:00 White Blood Count 8.2 x10^3/uL (4.0-11.0) Red Blood Count 4.64 x10^6/uL (3.50-5.40) Hemoglobin 13.3 g/dL (12.0-15.5) Hematocrit 40.9 % (36.0-47.0) Mean Corpuscular Volume 88 fL (79-100) Mean Corpuscular Hemoglobin 29 pg (25-35) Mean Corpuscular Hemoglobin Concent 33 g/dL (31-37) Red Cell Distribution Width 16.1 % (11.5-14.5) H Platelet Count 134 x10^3/uL (140-400) L Neutrophils (%) (Auto) 64 % (31-73) Lymphocytes (%) (Auto) 22 % (24-48) L Monocytes (%) (Auto) 12 % (0-9) H Eosinophils (%) (Auto) 1 % (0-3) Basophils (%) (Auto) 1 % (0-3) Neutrophils # (Auto) 5.3 x10^3/uL (1.8-7.7) Lymphocytes # (Auto) 1.8 x10^3/uL (1.0-4.8) Monocytes # (Auto) 1.0 x10^3/uL (0.0-1.1) Eosinophils # (Auto) 0.1 x10^3/uL (0.0-0.7) Basophils # (Auto) 0.1 x10^3/uL (0.0-0.2) Sodium Level 142 mmol/L (136-145) Potassium Level 3.4 mmol/L (3.5-5.1) L Chloride Level 106 mmol/L (98-107) Carbon Dioxide Level 27 mmol/L (21-32) Anion Gap 9 (6-14) Blood Urea Nitrogen 12 mg/dL (7-20) Creatinine 0.9 mg/dL (0.6-1.0) Estimated GFR (Cockcroft-Gault) 75.8 Glucose Level 105 mg/dL (70-99) H Calcium Level 9.4 mg/dL (8.5-10.1) ASSESSMENT: 1. Acute on chronic respiratory failure in setting of a/c CHF. post extubation. COVID negative. Improved. Pulm following 2. Acute on chronic diastolic CHF; Recent echo with preserved LV systolic function. Better compensated with diuresis. Plan ischemic evaluation as outpatient 3. YESENIA on CKD: Resolved 4. Lactic acidosis 5. Morbid obesity 6. Recent PE; was on Eliquis. Repeat CTA negative for PE 7. Hypokalemia 8. HTN urgency: labile 9. Obesity 10. SVT PLAN: 1. Continue present therapy. Add amiodarone. DIscussed with RN. Thanks Date and Time Date: Jul 15, 2020 Time: 12:00 Justicifation of Admission Dx: Justifications for Admission: Justification of Admission Dx: Yes Respiratory Failure: Mechanical Ventilation Chronic Renal Failure: Encephalopathy Acute COPD Exacerbation: Acute COPD Exacerbation GEE DUTTA MD Jul 16, 2020 00:07
--- NOTE | 2020-07-16 05:39 | PDOC ---
PULMONARY PROGRESS NOTES DATE: 07/16/20 TIME: 05:32 Subjective on 02 2lpm, sob better, has occ cough, on home 02 2 lpm Vitals Vital Signs Date Time Temp Pulse Resp B/P (MAP) Pulse Ox O2 Delivery O2 Flow Rate FiO2 07/16/20 03:00 98.1 70 20 114/54 (74) 100 Nasal Cannula 1.5 98.1 ROS: No Nausea, No Chest Pain, No Abdominal Pain General: Alert, No acute distress Lungs: Clear Cardiovascular: S1, S2 Abdomen: Soft, Non-tender Extremities: Other (1=edema) Skin: Warm Labs Laboratory Tests Test 07/14/20 06:10 07/14/20 07:50 07/15/20 05:00 Sodium Level 139 mmol/L (136-145) 142 mmol/L (136-145) Potassium Level 3.9 mmol/L (3.5-5.1) 3.4 mmol/L (3.5-5.1) Chloride Level 104 mmol/L (98-107) 106 mmol/L (98-107) Carbon Dioxide Level 22 mmol/L (21-32) 27 mmol/L (21-32) Anion Gap 13 (6-14) 9 (6-14) Blood Urea Nitrogen 13 mg/dL (7-20) 12 mg/dL (7-20) Creatinine 0.8 mg/dL (0.6-1.0) 0.9 mg/dL (0.6-1.0) Estimated GFR (Cockcroft-Gault) 86.8 75.8 Glucose Level 120 mg/dL (70-99) 105 mg/dL (70-99) Calcium Level 9.1 mg/dL (8.5-10.1) 9.4 mg/dL (8.5-10.1) White Blood Count 8.0 x10^3/uL (4.0-11.0) 8.2 x10^3/uL (4.0-11.0) Red Blood Count 4.52 x10^6/uL (3.50-5.40) 4.64 x10^6/uL (3.50-5.40) Hemoglobin 13.0 g/dL (12.0-15.5) 13.3 g/dL (12.0-15.5) Hematocrit 39.9 % (36.0-47.0) 40.9 % (36.0-47.0) Mean Corpuscular Volume 88 fL (79-100) 88 fL (79-100) Mean Corpuscular Hemoglobin 29 pg (25-35) 29 pg (25-35) Mean Corpuscular Hemoglobin Concent 33 g/dL (31-37) 33 g/dL (31-37) Red Cell Distribution Width 15.8 % (11.5-14.5) 16.1 % (11.5-14.5) Platelet Count 120 x10^3/uL (140-400) 134 x10^3/uL (140-400) Neutrophils (%) (Auto) 63 % (31-73) 64 % (31-73) Lymphocytes (%) (Auto) 21 % (24-48) 22 % (24-48) Monocytes (%) (Auto) 13 % (0-9) 12 % (0-9) Eosinophils (%) (Auto) 1 % (0-3) 1 % (0-3) Basophils (%) (Auto) 1 % (0-3) 1 % (0-3) Neutrophils # (Auto) 5.0 x10^3/uL (1.8-7.7) 5.3 x10^3/uL (1.8-7.7) Lymphocytes # (Auto) 1.7 x10^3/uL (1.0-4.8) 1.8 x10^3/uL (1.0-4.8) Monocytes # (Auto) 1.1 x10^3/uL (0.0-1.1) 1.0 x10^3/uL (0.0-1.1) Eosinophils # (Auto) 0.1 x10^3/uL (0.0-0.7) 0.1 x10^3/uL (0.0-0.7) Basophils # (Auto) 0.1 x10^3/uL (0.0-0.2) 0.1 x10^3/uL (0.0-0.2) Medications Active Scripts Medications Dose Route/Sig Max Daily Dose Days Date Category Eliquis (Apixaban) 5 Mg Tablet 10 Mg PO BID 30 // Rx Toprol Xl (Metoprolol Succinate) 25 Mg Tab.er.24h 0.5 Tab PO DAILY 30 04/01/20 Rx Paroxetine Hcl 40 Mg Tablet 40 Mg PO DAILY 30 03/30/20 Reported Atorvastatin Calcium 20 Mg Tablet 1 Tab PO DAILY 05/20/18 Reported Proair Hfa Inhaler (Albuterol Sulfate) 8.5 Gm Hfa.aer.ad 1-2 Puff INH PRN Q4HRS PRN 05/20/18 Reported Loratadine 10 Mg Tablet 1 Tab PO DAILY 05/20/18 Reported Flonase Allergy Relief (Fluticasone Propionate) 9.9 Ml [place].susp 2 Sprays NS DAILY 05/20/18 Reported Allopurinol 100 Mg Tablet 1 Tab PO DAILY 05/20/18 Reported Vitamin D2 (Ergocalciferol (Vitamin D2)) 50,000 Unit Capsule 1 Cap PO WEEKLY 05/20/18 Reported Geodon (Ziprasidone Hcl) 80 Mg Capsule 1 Cap PO BID 05/20/18 Reported Potassium Chloride (Potassium Chloride) 20 Meq Tablet.er 20 Meq PO DAILY 05/20/18 Reported Tramadol Hcl 50 Mg Tablet 50 Mg PO TID 05/20/18 Reported Symbicort 160-4.5 Mcg Inhaler (Budesonide/Formoterol Fumarate) 10.2 Gm Hfa.aer.ad 2 Puff IH BID 05/20/18 Reported Gabapentin (Gabapentin) 100 Mg Capsule 100 Mg PO BID 05/20/18 Reported Omeprazole 20 Mg Capsule.dr 1 Cap PO DAILY 05/20/18 Reported Comments CXR IMPRESSION: Significantly improved bilateral interstitial lung markings. Impression . 1. Acute hypoxic and hypercapnic respiratory failure secondary to acute on chronic diastolic congestive heart failure--improved on 2 liters N/C 2. The patient with history of pulmonary embolism in May with no evidence of deep venous thrombosis and has been on home Eliquis and was taking regularly. No evidence of any recurrent pulmonary embolism. Previously seen pulmonary embolism has resolved. 3. Underlying morbid obesity. 4. Lactic acidosis due to increased work of breathing. Clinically, less likely sepsis./ metabolic acidosis- improved 5. Abnormal CT chest with ground glass infiltrates and basilar atelectasis. Findings are favoring congestive heart failure. Plan . cont. supplemental oxygen to keep sats above 92 %, on 2 liters N/C at home s/p lasix 07/15, sob better, Follow cardiology recs Follow renal function Continue home Eliquis Stress ulcer prophylaxis Discussed with RN/RT. GARY CHAND MD Jul 16, 2020 05:39
[2020-07-16 05:43] LABS: BASO # 0.1 x10^3/uL (0.0-0.2); BASO % 1 % (0-3); EOS # 0.2 x10^3/uL (0.0-0.7); EOS % 2 % (0-3); HEMATOCRIT 39.8 % (36.0-47.0); HEMOGLOBIN 13.2 g/dL (12.0-15.5); LYMPH # 1.4 x10^3/uL (1.0-4.8); LYMPH % 19 % (24-48); MEAN CORPUSCULAR HEMOGLOBIN 29 pg (25-35); MEAN CORPUSCULAR HGB CONC 33 g/dL (31-37); MEAN CORPUSCULAR VOLUME 89 fL (79-100); MONO # 1.1 x10^3/uL (0.0-1.1); MONO % 14 % (0-9); NEUT # 4.6 x10^3/uL (1.8-7.7); NEUT % 63 % (31-73); PLATELET COUNT 123 x10^3/uL (140-400); RED BLOOD COUNT 4.49 x10^6/uL (3.50-5.40); RED CELL DISTRIBUTION WIDTH 15.9 % (11.5-14.5); WHITE BLOOD COUNT 7.3 x10^3/uL (4.0-11.0)
[2020-07-16 05:54] LABS: CALCIUM 9.1 mg/dL (8.5-10.1); CREATININE 0.9 mg/dL (0.6-1.0); GFR 75.8; POTASSIUM 3.4 mmol/L (3.5-5.1)
[2020-07-16] MEDS: LACTOBACILLUS RHAMNOSUS GG 1 CAPSULE. PO SCH ×2 (08:40→20:40)
[2020-07-16] MEDS: APIXABAN 5 MG TABLET. PO SCH ×2 (08:40→20:42)
[2020-07-16] MEDS: FAMOTIDINE 20 MG/2 ML VIAL IVP SCH ×2 (08:40→20:40)
[2020-07-16] MEDS: LISINOPRIL 20 MG TABLET PO SCH (08:43)
[2020-07-16] MEDS: METOPROLOL TART IMMED RELEASE 25 MG TABLET. PO SCH ×2 (08:43→20:42)
[2020-07-16] MEDS ORDERED: AMIODARONE HCL 200 MG TABLET. PO SCH (09:30)
[2020-07-16] MEDS ORDERED: POLYETHYLENE GLYCOL 3350 17 GM PACKET. PO PRN (11:45)
[2020-07-16] MEDS ORDERED: GABA600T7 PO (12:02)
--- NOTE | 2020-07-16 12:52 | PDOC ---
[facility] PROGRESS NOTE Date of Service DOS: DATE: 07/16/20 TIME: 12:45 Chief Complaint Chief Complaint Acute on chronic respiratory failure, s/p intubation COVID negative COPD Acute on chronic diastolic CHF, recent echo with preserved LV systolic function YESENIA on CKD Lactic acidosis Morbid obesity Elevated glucose Recent PE, on Eliquis History of Present Illness History of Present Illness 07/16/2020 Patient is seen and examined Patient is laying comfortably in bed Tardive dyskinesia at baseline Charts reviewed Discussed with RN 07/15/2020 Patient seen and examined, mild distress Complains of shortness of air Aflutter overnight, Afib intermittently Tardive dyskinesia at baseline Chart reviewed Discussed with RN 07/14/2020 Patient seen and examined in the ICU S/p extubation Sitting in chair, NAD Markedly improved Tardive dyskinesia at baseline Chart reviewed Discussed with RN 07/13/2020 Patient seen and examined in the ICU On ventilator, AC/16/450/30% 5.0 PEEP Resting, NAD Eladio HAILED Chart reviewed Discussed with RN 07/12/2020 Patient seen and examined in the ICU On ventilator, AC/20/500/50% 6.0 PEEP Awake and responsive, NAD Eladio BSD Chart reviewed Discussed with RN Vitals/I&O Vitals/I&O: Vital Signs Date Time Temp Pulse Resp B/P (MAP) Pulse Ox O2 Delivery O2 Flow Rate FiO2 07/16/20 10:55 98.0 66 21 113/55 (74) 100 Nasal Cannula 1.5 98.0 I & O 07/15/20 07/15/20 07/16/20 15:00 23:00 07:00 Intake Total 360 ml 300 ml Output Total 850 ml 450 ml Balance 360 ml -850 ml -150 ml Physical Exam General: Alert, Cooperative, mild distress Heart: Regular rate, Normal S1, Normal S2 Lungs: Clear Abdomen: Soft, Other (obese ) Extremities: No cyanosis, No edema, Normal pulses Skin: No significant lesion Labs Labs: Laboratory Tests Test 07/16/20 04:30 White Blood Count 7.3 x10^3/uL (4.0-11.0) Red Blood Count 4.49 x10^6/uL (3.50-5.40) Hemoglobin 13.2 g/dL (12.0-15.5) Hematocrit 39.8 % (36.0-47.0) Mean Corpuscular Volume 89 fL (79-100) Mean Corpuscular Hemoglobin 29 pg (25-35) Mean Corpuscular Hemoglobin Concent 33 g/dL (31-37) Red Cell Distribution Width 15.9 % (11.5-14.5) Platelet Count 123 x10^3/uL (140-400) Neutrophils (%) (Auto) 63 % (31-73) Lymphocytes (%) (Auto) 19 % (24-48) Monocytes (%) (Auto) 14 % (0-9) Eosinophils (%) (Auto) 2 % (0-3) Basophils (%) (Auto) 1 % (0-3) Neutrophils # (Auto) 4.6 x10^3/uL (1.8-7.7) Lymphocytes # (Auto) 1.4 x10^3/uL (1.0-4.8) Monocytes # (Auto) 1.1 x10^3/uL (0.0-1.1) Eosinophils # (Auto) 0.2 x10^3/uL (0.0-0.7) Basophils # (Auto) 0.1 x10^3/uL (0.0-0.2) Sodium Level 137 mmol/L (136-145) Potassium Level 3.4 mmol/L (3.5-5.1) Chloride Level 102 mmol/L (98-107) Carbon Dioxide Level 28 mmol/L (21-32) Anion Gap 7 (6-14) Blood Urea Nitrogen 12 mg/dL (7-20) Creatinine 0.9 mg/dL (0.6-1.0) Estimated GFR (Cockcroft-Gault) 75.8 Glucose Level 105 mg/dL (70-99) Calcium Level 9.1 mg/dL (8.5-10.1) Assessment and Plan Assessmemt and Plan Problems Medical Problems: (1) Pulmonary edema Status: Acute (2) Respiratory failure, acute Status: Acute Assessment Acute on chronic respiratory failure, s/p intubation COVID negative COPD Acute on chronic diastolic CHF, recent echo with preserved LV systolic function YESENIA on CKD Lactic acidosis Morbid obesity Elevated glucose Recent PE, on Eliquis Plan Cardiac monitoring Amiodarone for Afib per cardiology Hope to change Amiodarone to PO when OK with cardiology MDI Cardiac diet Trend labs PT/OT DVT prophylaxis Appreciate subspecialist input Comment Review of Relevant I have reviewed the following items babar (where applicable) has been applied. Medications: Current Medications Medications (Trade) Dose Ordered Sig/Betsy Route PRN Reason Start Time Stop Time Status Last Admin Dose Admin Potassium Chloride (Klor-Con) 40 meq 1X ONCE PO 07/15/20 17:45 07/15/20 17:46 DC 07/15/20 18:12 Amiodarone HCl 150 mg/Dextrose 103 ml @ 618 mls/hr 1X ONCE IV 07/15/20 18:00 07/15/20 18:09 DC 07/15/20 18:12 Amiodarone HCl 450 mg/Dextrose 259 ml @ 0 mls/hr CONT PRN IV SEE I/O RECORD 07/15/20 18:00 07/16/20 09:21 DC 07/16/20 04:03 Amiodarone HCl (Cordarone) 200 mg DAILY PO 07/16/20 09:30 07/16/20 09:52 Justicifation of Admission Dx: Justifications for Admission: Justification of Admission Dx: Yes Respiratory Failure: Mechanical Ventilation Chronic Renal Failure: Encephalopathy Acute COPD Exacerbation: Acute COPD Exacerbation MANNIE WILLARD III DO Jul 16, 2020 12:52
--- NOTE | 2020-07-16 13:53 | PDOC ---
Provider Note Provider Note Cardiology Progress note: S: No new events. HR much better. She still feels shaky and congested. O: LE movements continue a/xo 3. NAD RRR lungs with rhonchi no edema. labs/meds reviewed. ?amiodarone/geodon contraindication. Impression: 1. PAF 2. PNA/resp failure 3. P.E hx 4. Diastolic HF 5. HTN Plan: 1. Continue asa, atorvastatin, eliquis, metoprolol and lisinopril. 2. Will stop amiodarone given interaction with Geodon. If recurrent afib issues, will consider other drugs. 3. outpt ischemic evaluation. Thanks. Justicifation of Admission Dx: Justifications for Admission: Justification of Admission Dx: Yes Respiratory Failure: Mechanical Ventilation Chronic Renal Failure: Encephalopathy Acute COPD Exacerbation: Acute COPD Exacerbation GEE DUTTA MD Jul 16, 2020 13:53
[2020-07-16] MEDS: PARoxetine 20 MG TABLET PO SCH (14:12)
[2020-07-16] MEDS: ATORVASTATIN CALCIUM 20 MG TABLET PO SCH (14:13)
[2020-07-16] MEDS: MORPHINE SULFATE 2 MG/ML VIAL. IV PRN (14:29)
[2020-07-16] MEDS: ZIPRASIDONE 20 MG CAPSULE PO SCH (20:42)
[2020-07-17 03:15] VITALS: BP 121/60
[2020-07-17 05:23] LABS: CALCIUM 9.3 mg/dL (8.5-10.1); CREATININE 0.9 mg/dL (0.6-1.0); GFR 75.8
[2020-07-17 05:35] LABS: BASO # 0.1 x10^3/uL (0.0-0.2); BASO % 1 % (0-3); EOS # 0.1 x10^3/uL (0.0-0.7); EOS % 2 % (0-3); HEMATOCRIT 37.2 % (36.0-47.0); HEMOGLOBIN 12.5 g/dL (12.0-15.5); LYMPH # 1.4 x10^3/uL (1.0-4.8); LYMPH % 19 % (24-48); MEAN CORPUSCULAR HEMOGLOBIN 30 pg (25-35); MEAN CORPUSCULAR HGB CONC 34 g/dL (31-37); MEAN CORPUSCULAR VOLUME 88 fL (79-100); MONO # 0.9 x10^3/uL (0.0-1.1); MONO % 12 % (0-9); NEUT # 4.9 x10^3/uL (1.8-7.7); NEUT % 66 % (31-73); PLATELET COUNT 131 x10^3/uL (140-400); RED BLOOD COUNT 4.22 x10^6/uL (3.50-5.40); RED CELL DISTRIBUTION WIDTH 15.8 % (11.5-14.5); WHITE BLOOD COUNT 7.4 x10^3/uL (4.0-11.0)
[2020-07-17 07:00] VITALS: BP 122/53
[2020-07-17] MEDS: PARoxetine 20 MG TABLET PO SCH (08:31)
[2020-07-17] MEDS: ATORVASTATIN CALCIUM 20 MG TABLET PO SCH (08:31)
[2020-07-17] MEDS: FAMOTIDINE 20 MG/2 ML VIAL IVP SCH (08:31)
[2020-07-17] MEDS: ZIPRASIDONE 20 MG CAPSULE PO SCH ×2 (08:31→20:45)
[2020-07-17] MEDS: ALLOPURINOL 100 MG TABLET. PO SCH (08:31)
[2020-07-17] MEDS: APIXABAN 5 MG TABLET. PO SCH ×2 (08:32→20:45)
[2020-07-17] MEDS: LISINOPRIL 20 MG TABLET PO SCH (08:32)
[2020-07-17] MEDS: LACTOBACILLUS RHAMNOSUS GG 1 CAPSULE. PO SCH ×2 (08:32→20:45)
[2020-07-17] MEDS: METOPROLOL TART IMMED RELEASE 25 MG TABLET. PO SCH ×2 (08:32→20:45)
[2020-07-17 11:17] VITALS: BP 109/64
--- NOTE | 2020-07-17 12:47 | PDOC ---
[facility] [facility] PROGRESS NOTE Date of Service DOS: DATE: 07/17/20 TIME: 12:42 Chief Complaint Chief Complaint Acute on chronic respiratory failure, s/p extubation COVID negative COPD Afib Acute on chronic diastolic CHF, recent echo with preserved LV systolic function YESENIA on CKD Lactic acidosis Morbid obesity Elevated glucose Recent PE, on Eliquis History of Present Illness History of Present Illness 07/17/2020 Patient seen and examined on Cardiac floor Sitting in chair and working with PT/OT, GENOVEVA Tardive dyskinesia at baseline Chart reviewed Discussed with RN 07/16/2020 Patient is seen and examined Patient is laying comfortably in bed Tardive dyskinesia at baseline Charts reviewed Discussed with RN 07/15/2020 Patient seen and examined, mild distress Complains of shortness of air Aflutter overnight, Afib intermittently Tardive dyskinesia at baseline Chart reviewed Discussed with RN 07/14/2020 Patient seen and examined in the ICU S/p extubation Sitting in chair, NAD Markedly improved Tardive dyskinesia at baseline Chart reviewed Discussed with RN 07/13/2020 Patient seen and examined in the ICU On ventilator, AC//450/30% 5.0 PEEP Resting, GENOVEVA RETANA Chart reviewed Discussed with RN 07/12/2020 Patient seen and examined in the ICU On ventilator, AC//500/50% 6.0 PEEP Awake and responsive, GENOVEVA ERTANA Chart reviewed Discussed with SHADI Vitals/I&O Vitals/I&O: Vital Signs Date Time Temp Pulse Resp B/P (MAP) Pulse Ox O2 Delivery O2 Flow Rate FiO2 07/17/20 11:17 98.4 67 20 109/64 (79) 97 Room Air 98.4 07/16/20 15:00 1.5 I & O 07/16/20 07/16/20 07/17/20 15:00 23:00 07:00 Intake Total 600 ml 300 ml 100 ml Output Total 1200 ml 550 ml Balance 600 ml -900 ml -450 ml Physical Exam General: Alert, Oriented X3, Cooperative, No acute distress Heart: Regular rate, Normal S1, Normal S2 Lungs: Clear Abdomen: Soft, Other (obese ) Extremities: No cyanosis, No edema, Normal pulses Skin: No significant lesion Labs Labs: Laboratory Tests Test 07/17/20 04:30 White Blood Count 7.4 x10^3/uL (4.0-11.0) Red Blood Count 4.22 x10^6/uL (3.50-5.40) Hemoglobin 12.5 g/dL (12.0-15.5) Hematocrit 37.2 % (36.0-47.0) Mean Corpuscular Volume 88 fL (79-100) Mean Corpuscular Hemoglobin 30 pg (25-35) Mean Corpuscular Hemoglobin Concent 34 g/dL (31-37) Red Cell Distribution Width 15.8 % (11.5-14.5) Platelet Count 131 x10^3/uL (140-400) Neutrophils (%) (Auto) 66 % (31-73) Lymphocytes (%) (Auto) 19 % (24-48) Monocytes (%) (Auto) 12 % (0-9) Eosinophils (%) (Auto) 2 % (0-3) Basophils (%) (Auto) 1 % (0-3) Neutrophils # (Auto) 4.9 x10^3/uL (1.8-7.7) Lymphocytes # (Auto) 1.4 x10^3/uL (1.0-4.8) Monocytes # (Auto) 0.9 x10^3/uL (0.0-1.1) Eosinophils # (Auto) 0.1 x10^3/uL (0.0-0.7) Basophils # (Auto) 0.1 x10^3/uL (0.0-0.2) Sodium Level 142 mmol/L (136-145) Potassium Level 4.0 mmol/L (3.5-5.1) Chloride Level 106 mmol/L (98-107) Carbon Dioxide Level 30 mmol/L (21-32) Anion Gap 6 (6-14) Blood Urea Nitrogen 10 mg/dL (7-20) Creatinine 0.9 mg/dL (0.6-1.0) Estimated GFR (Cockcroft-Gault) 75.8 Glucose Level 98 mg/dL (70-99) Calcium Level 9.3 mg/dL (8.5-10.1) Review of Systems Review of Systems: Pertinent as per HPI, otherwise 10 point review of systems is negative. Assessment and Plan Assessmemt and Plan Problems Medical Problems: (1) Pulmonary edema Status: Acute (2) Respiratory failure, acute Status: Acute ASSESSMENT Acute on chronic respiratory failure, s/p extubation COVID negative COPD Afib Acute on chronic diastolic CHF, recent echo with preserved LV systolic function YESENIA on CKD Lactic acidosis Morbid obesity Elevated glucose Recent PE, on Eliquis PLAN Cardiac monitoring Appreciate subspecialist input PT/OT DVT prophylaxis Full code Hope to discharge in AM with visiting nurses vs. SNU Comment Review of Relevant I have reviewed the following items babar (where applicable) has been applied. Medications: Current Medications Medications (Trade) Dose Ordered Sig/Betsy Route PRN Reason Start Time Stop Time Status Last Admin Dose Admin Allopurinol (Zyloprim) 100 mg DAILY PO 07/17/20 09:00 07/17/20 08:31 Atorvastatin Calcium (Lipitor) 20 mg DAILY PO 07/16/20 13:00 07/17/20 08:31 Paroxetine HCl (Paxil) 40 mg DAILY PO 07/16/20 13:00 07/17/20 08:31 Ziprasidone (Geodon) 80 mg BID PO 07/16/20 21:00 07/17/20 08:31 Justicifation of Admission Dx: Justifications for Admission: Justification of Admission Dx: Yes Respiratory Failure: Mechanical Ventilation Chronic Renal Failure: Encephalopathy Acute COPD Exacerbation: Acute COPD Exacerbation MANNIE WILLARD III DO Jul 17, 2020 12:47
--- NOTE | 2020-07-17 13:22 | PDOC ---
PULMONARY PROGRESS NOTES DATE: 07/17/20 TIME: 13:21 Subjective on RA, sob better, has occ cough, on home 02 2 lpm Vitals Vital Signs Date Time Temp Pulse Resp B/P (MAP) Pulse Ox O2 Delivery O2 Flow Rate FiO2 07/17/20 11:17 98.4 67 20 109/64 (79) 97 Room Air 98.4 07/16/20 15:00 1.5 ROS: No Nausea, No Chest Pain, No Abdominal Pain General: Alert, No acute distress Lungs: Clear Cardiovascular: S1, S2 Abdomen: Soft, Non-tender Extremities: Other (1=edema) Skin: Warm Labs Laboratory Tests Test 07/16/20 04:30 07/17/20 04:30 White Blood Count 7.3 x10^3/uL (4.0-11.0) 7.4 x10^3/uL (4.0-11.0) Red Blood Count 4.49 x10^6/uL (3.50-5.40) 4.22 x10^6/uL (3.50-5.40) Hemoglobin 13.2 g/dL (12.0-15.5) 12.5 g/dL (12.0-15.5) Hematocrit 39.8 % (36.0-47.0) 37.2 % (36.0-47.0) Mean Corpuscular Volume 89 fL (79-100) 88 fL (79-100) Mean Corpuscular Hemoglobin 29 pg (25-35) 30 pg (25-35) Mean Corpuscular Hemoglobin Concent 33 g/dL (31-37) 34 g/dL (31-37) Red Cell Distribution Width 15.9 % (11.5-14.5) 15.8 % (11.5-14.5) Platelet Count 123 x10^3/uL (140-400) 131 x10^3/uL (140-400) Neutrophils (%) (Auto) 63 % (31-73) 66 % (31-73) Lymphocytes (%) (Auto) 19 % (24-48) 19 % (24-48) Monocytes (%) (Auto) 14 % (0-9) 12 % (0-9) Eosinophils (%) (Auto) 2 % (0-3) 2 % (0-3) Basophils (%) (Auto) 1 % (0-3) 1 % (0-3) Neutrophils # (Auto) 4.6 x10^3/uL (1.8-7.7) 4.9 x10^3/uL (1.8-7.7) Lymphocytes # (Auto) 1.4 x10^3/uL (1.0-4.8) 1.4 x10^3/uL (1.0-4.8) Monocytes # (Auto) 1.1 x10^3/uL (0.0-1.1) 0.9 x10^3/uL (0.0-1.1) Eosinophils # (Auto) 0.2 x10^3/uL (0.0-0.7) 0.1 x10^3/uL (0.0-0.7) Basophils # (Auto) 0.1 x10^3/uL (0.0-0.2) 0.1 x10^3/uL (0.0-0.2) Sodium Level 137 mmol/L (136-145) 142 mmol/L (136-145) Potassium Level 3.4 mmol/L (3.5-5.1) 4.0 mmol/L (3.5-5.1) Chloride Level 102 mmol/L (98-107) 106 mmol/L (98-107) Carbon Dioxide Level 28 mmol/L (21-32) 30 mmol/L (21-32) Anion Gap 7 (6-14) 6 (6-14) Blood Urea Nitrogen 12 mg/dL (7-20) 10 mg/dL (7-20) Creatinine 0.9 mg/dL (0.6-1.0) 0.9 mg/dL (0.6-1.0) Estimated GFR (Cockcroft-Gault) 75.8 75.8 Glucose Level 105 mg/dL (70-99) 98 mg/dL (70-99) Calcium Level 9.1 mg/dL (8.5-10.1) 9.3 mg/dL (8.5-10.1) Laboratory Tests Test 07/17/20 04:30 White Blood Count 7.4 x10^3/uL (4.0-11.0) Red Blood Count 4.22 x10^6/uL (3.50-5.40) Hemoglobin 12.5 g/dL (12.0-15.5) Hematocrit 37.2 % (36.0-47.0) Mean Corpuscular Volume 88 fL (79-100) Mean Corpuscular Hemoglobin 30 pg (25-35) Mean Corpuscular Hemoglobin Concent 34 g/dL (31-37) Red Cell Distribution Width 15.8 % (11.5-14.5) Platelet Count 131 x10^3/uL (140-400) Neutrophils (%) (Auto) 66 % (31-73) Lymphocytes (%) (Auto) 19 % (24-48) Monocytes (%) (Auto) 12 % (0-9) Eosinophils (%) (Auto) 2 % (0-3) Basophils (%) (Auto) 1 % (0-3) Neutrophils # (Auto) 4.9 x10^3/uL (1.8-7.7) Lymphocytes # (Auto) 1.4 x10^3/uL (1.0-4.8) Monocytes # (Auto) 0.9 x10^3/uL (0.0-1.1) Eosinophils # (Auto) 0.1 x10^3/uL (0.0-0.7) Basophils # (Auto) 0.1 x10^3/uL (0.0-0.2) Sodium Level 142 mmol/L (136-145) Potassium Level 4.0 mmol/L (3.5-5.1) Chloride Level 106 mmol/L (98-107) Carbon Dioxide Level 30 mmol/L (21-32) Anion Gap 6 (6-14) Blood Urea Nitrogen 10 mg/dL (7-20) Creatinine 0.9 mg/dL (0.6-1.0) Estimated GFR (Cockcroft-Gault) 75.8 Glucose Level 98 mg/dL (70-99) Calcium Level 9.3 mg/dL (8.5-10.1) Medications Active Scripts Medications Dose Route/Sig Max Daily Dose Days Date Category Eliquis (Apixaban) 5 Mg Tablet 10 Mg PO BID 30 05/29/20 Rx Toprol Xl (Metoprolol Succinate) 25 Mg Tab.er.24h 0.5 Tab PO DAILY 30 04/01/20 Rx Paroxetine Hcl 40 Mg Tablet 40 Mg PO DAILY 30 03/30/20 Reported Atorvastatin Calcium 20 Mg Tablet 1 Tab PO DAILY 05/20/18 Reported Proair Hfa Inhaler (Albuterol Sulfate) 8.5 Gm Hfa.aer.ad 1-2 Puff INH PRN Q4HRS PRN 05/20/18 Reported Loratadine 10 Mg Tablet 1 Tab PO DAILY 05/20/18 Reported Flonase Allergy Relief (Fluticasone Propionate) 9.9 Ml [place].susp 2 Sprays NS DAILY 05/20/18 Reported Allopurinol 100 Mg Tablet 1 Tab PO DAILY 05/20/18 Reported Vitamin D2 (Ergocalciferol (Vitamin D2)) 50,000 Unit Capsule 1 Cap PO WEEKLY 05/20/18 Reported Geodon (Ziprasidone Hcl) 80 Mg Capsule 1 Cap PO BID 05/20/18 Reported Potassium Chloride (Potassium Chloride) 20 Meq Tablet.er 20 Meq PO DAILY 05/20/18 Reported Tramadol Hcl 50 Mg Tablet 50 Mg PO TID 05/20/18 Reported Symbicort 160-4.5 Mcg Inhaler (Budesonide/Formoterol Fumarate) 10.2 Gm Hfa.aer.ad 2 Puff IH BID 05/20/18 Reported Gabapentin (Gabapentin) 100 Mg Capsule 100 Mg PO BID 05/20/18 Reported Omeprazole 20 Mg Capsule.dr 1 Cap PO DAILY 05/20/18 Reported Comments CXR IMPRESSION: Significantly improved bilateral interstitial lung markings. Impression . 1. Acute hypoxic and hypercapnic respiratory failure secondary to acute on chronic diastolic congestive heart failure--improved on 2 liters N/C 2. The patient with history of pulmonary embolism in May with no evidence of deep venous thrombosis and has been on home Eliquis and was taking regularly. No evidence of any recurrent pulmonary embolism. Previously seen pulmonary embolism has resolved. 3. Underlying morbid obesity. 4. Lactic acidosis due to increased work of breathing. Clinically, less likely sepsis./ metabolic acidosis- improved 5. Abnormal CT chest with ground glass infiltrates and basilar atelectasis. Findings are favoring congestive heart failure. Plan . cont. supplemental oxygen to keep sats above 92 %, on 2 liters N/C at home s/p lasix 07/15, sob better, Follow cardiology recs Follow renal function Continue home Eliquis Stress ulcer prophylaxis Discussed with RN/RT. GARY CHAND MD Jul 17, 2020 13:22
[2020-07-17 14:41] VITALS: BP 94/41
[2020-07-17 19:25] VITALS: BP 134/44
[2020-07-17] MEDS: BUDESONIDE 0.5 MG/2 ML NEBU. NEB SCH (19:53)
[2020-07-17] MEDS: IPRATRPIUM/ALBUTEROL 0.5/2.5MG 3 ML NEBU. NEB SCH (19:53)
[2020-07-17] MEDS: FAMOTIDINE 20 MG TABLET. PO SCH (20:45)
[2020-07-17 23:15] VITALS: BP 104/29
[2020-07-18 03:36] VITALS: BP 115/43
[2020-07-18 05:13] LABS: BASO # 0.1 x10^3/uL (0.0-0.2); BASO % 1 % (0-3); EOS # 0.1 x10^3/uL (0.0-0.7); EOS % 2 % (0-3); HEMATOCRIT 36.2 % (36.0-47.0); HEMOGLOBIN 11.7 g/dL (12.0-15.5); LYMPH # 1.9 x10^3/uL (1.0-4.8); LYMPH % 28 % (24-48); MEAN CORPUSCULAR HEMOGLOBIN 29 pg (25-35); MEAN CORPUSCULAR HGB CONC 32 g/dL (31-37); MEAN CORPUSCULAR VOLUME 89 fL (79-100); MONO % 14 % (0-9); NEUT # 3.7 x10^3/uL (1.8-7.7); NEUT % 55 % (31-73); PLATELET COUNT 128 x10^3/uL (140-400); RED BLOOD COUNT 4.08 x10^6/uL (3.50-5.40); RED CELL DISTRIBUTION WIDTH 16.1 % (11.5-14.5); WHITE BLOOD COUNT 6.7 x10^3/uL (4.0-11.0)
[2020-07-18 05:36] LABS: CREATININE 0.8 mg/dL (0.6-1.0); GFR 86.8
[2020-07-18 05:44] LABS: CALCIUM 9.4 mg/dL (8.5-10.1)
[2020-07-18 07:00] VITALS: BP 121/61
[2020-07-18] MEDS: BUDESONIDE 0.5 MG/2 ML NEBU. NEB SCH (07:48)
[2020-07-18] MEDS: IPRATRPIUM/ALBUTEROL 0.5/2.5MG 3 ML NEBU. NEB SCH ×2 (07:48→11:46)
[2020-07-18] MEDS: FAMOTIDINE 20 MG TABLET. PO SCH (08:42)
[2020-07-18] MEDS: LISINOPRIL 20 MG TABLET PO SCH (08:42)
[2020-07-18] MEDS: LACTOBACILLUS RHAMNOSUS GG 1 CAPSULE. PO SCH (08:42)
[2020-07-18] MEDS: ALLOPURINOL 100 MG TABLET. PO SCH (08:42)
[2020-07-18] MEDS: ZIPRASIDONE 20 MG CAPSULE PO SCH (08:42)
[2020-07-18] MEDS: APIXABAN 5 MG TABLET. PO SCH (08:43)
[2020-07-18] MEDS: PARoxetine 20 MG TABLET PO SCH (08:43)
[2020-07-18] MEDS: METOPROLOL TART IMMED RELEASE 25 MG TABLET. PO SCH (08:43)
[2020-07-18] MEDS: ATORVASTATIN CALCIUM 20 MG TABLET PO SCH (08:43)
--- NOTE | 2020-07-18 09:49 | PDOC ---
PULMONARY PROGRESS NOTES DATE: 07/18/20 TIME: 09:48 Subjective on RA, sob better, has occ cough, on home 02 2 lpm Vitals Vital Signs Date Time Temp Pulse Resp B/P (MAP) Pulse Ox O2 Delivery O2 Flow Rate FiO2 07/18/20 08:43 73 121/61 07/18/20 07:50 Nasal Cannula 1.5 07/18/20 07:00 98.1 18 97 98.1 ROS: No Nausea, No Chest Pain, No Abdominal Pain General: Alert, No acute distress Lungs: Clear Cardiovascular: S1, S2 Abdomen: Soft, Non-tender Extremities: Other (1=edema) Skin: Warm Labs Laboratory Tests Test 07/17/20 04:30 07/18/20 04:03 White Blood Count 7.4 x10^3/uL (4.0-11.0) 6.7 x10^3/uL (4.0-11.0) Red Blood Count 4.22 x10^6/uL (3.50-5.40) 4.08 x10^6/uL (3.50-5.40) Hemoglobin 12.5 g/dL (12.0-15.5) 11.7 g/dL (12.0-15.5) Hematocrit 37.2 % (36.0-47.0) 36.2 % (36.0-47.0) Mean Corpuscular Volume 88 fL (79-100) 89 fL (79-100) Mean Corpuscular Hemoglobin 30 pg (25-35) 29 pg (25-35) Mean Corpuscular Hemoglobin Concent 34 g/dL (31-37) 32 g/dL (31-37) Red Cell Distribution Width 15.8 % (11.5-14.5) 16.1 % (11.5-14.5) Platelet Count 131 x10^3/uL (140-400) 128 x10^3/uL (140-400) Neutrophils (%) (Auto) 66 % (31-73) 55 % (31-73) Lymphocytes (%) (Auto) 19 % (24-48) 28 % (24-48) Monocytes (%) (Auto) 12 % (0-9) 14 % (0-9) Eosinophils (%) (Auto) 2 % (0-3) 2 % (0-3) Basophils (%) (Auto) 1 % (0-3) 1 % (0-3) Neutrophils # (Auto) 4.9 x10^3/uL (1.8-7.7) 3.7 x10^3/uL (1.8-7.7) Lymphocytes # (Auto) 1.4 x10^3/uL (1.0-4.8) 1.9 x10^3/uL (1.0-4.8) Monocytes # (Auto) 0.9 x10^3/uL (0.0-1.1) 1.0 x10^3/uL (0.0-1.1) Eosinophils # (Auto) 0.1 x10^3/uL (0.0-0.7) 0.1 x10^3/uL (0.0-0.7) Basophils # (Auto) 0.1 x10^3/uL (0.0-0.2) 0.1 x10^3/uL (0.0-0.2) Sodium Level 142 mmol/L (136-145) 142 mmol/L (136-145) Potassium Level 4.0 mmol/L (3.5-5.1) 4.0 mmol/L (3.5-5.1) Chloride Level 106 mmol/L (98-107) 106 mmol/L (98-107) Carbon Dioxide Level 30 mmol/L (21-32) 28 mmol/L (21-32) Anion Gap 6 (6-14) 8 (6-14) Blood Urea Nitrogen 10 mg/dL (7-20) 15 mg/dL (7-20) Creatinine 0.9 mg/dL (0.6-1.0) 0.8 mg/dL (0.6-1.0) Estimated GFR (Cockcroft-Gault) 75.8 86.8 Glucose Level 98 mg/dL (70-99) 88 mg/dL (70-99) Calcium Level 9.3 mg/dL (8.5-10.1) 9.4 mg/dL (8.5-10.1) Laboratory Tests Test 07/18/20 04:03 White Blood Count 6.7 x10^3/uL (4.0-11.0) Red Blood Count 4.08 x10^6/uL (3.50-5.40) Hemoglobin 11.7 g/dL (12.0-15.5) Hematocrit 36.2 % (36.0-47.0) Mean Corpuscular Volume 89 fL (79-100) Mean Corpuscular Hemoglobin 29 pg (25-35) Mean Corpuscular Hemoglobin Concent 32 g/dL (31-37) Red Cell Distribution Width 16.1 % (11.5-14.5) Platelet Count 128 x10^3/uL (140-400) Neutrophils (%) (Auto) 55 % (31-73) Lymphocytes (%) (Auto) 28 % (24-48) Monocytes (%) (Auto) 14 % (0-9) Eosinophils (%) (Auto) 2 % (0-3) Basophils (%) (Auto) 1 % (0-3) Neutrophils # (Auto) 3.7 x10^3/uL (1.8-7.7) Lymphocytes # (Auto) 1.9 x10^3/uL (1.0-4.8) Monocytes # (Auto) 1.0 x10^3/uL (0.0-1.1) Eosinophils # (Auto) 0.1 x10^3/uL (0.0-0.7) Basophils # (Auto) 0.1 x10^3/uL (0.0-0.2) Sodium Level 142 mmol/L (136-145) Potassium Level 4.0 mmol/L (3.5-5.1) Chloride Level 106 mmol/L (98-107) Carbon Dioxide Level 28 mmol/L (21-32) Anion Gap 8 (6-14) Blood Urea Nitrogen 15 mg/dL (7-20) Creatinine 0.8 mg/dL (0.6-1.0) Estimated GFR (Cockcroft-Gault) 86.8 Glucose Level 88 mg/dL (70-99) Calcium Level 9.4 mg/dL (8.5-10.1) Medications Active Scripts Medications Dose Route/Sig Max Daily Dose Days Date Category Eliquis (Apixaban) 5 Mg Tablet 10 Mg PO BID 30 05/29/20 Rx Toprol Xl (Metoprolol Succinate) 25 Mg Tab.er.24h 0.5 Tab PO DAILY 30 04/01/20 Rx Paroxetine Hcl 40 Mg Tablet 40 Mg PO DAILY 30 03/30/20 Reported Atorvastatin Calcium 20 Mg Tablet 1 Tab PO DAILY 05/20/18 Reported Proair Hfa Inhaler (Albuterol Sulfate) 8.5 Gm Hfa.aer.ad 1-2 Puff INH PRN Q4HRS PRN 05/20/18 Reported Loratadine 10 Mg Tablet 1 Tab PO DAILY 05/20/18 Reported Flonase Allergy Relief (Fluticasone Propionate) 9.9 Ml [place].susp 2 Sprays NS DAILY 05/20/18 Reported Allopurinol 100 Mg Tablet 1 Tab PO DAILY 05/20/18 Reported Vitamin D2 (Ergocalciferol (Vitamin D2)) 50,000 Unit Capsule 1 Cap PO WEEKLY 05/20/18 Reported Geodon (Ziprasidone Hcl) 80 Mg Capsule 1 Cap PO BID 05/20/18 Reported Potassium Chloride (Potassium Chloride) 20 Meq Tablet.er 20 Meq PO DAILY 05/20/18 Reported Tramadol Hcl 50 Mg Tablet 50 Mg PO TID 05/20/18 Reported Symbicort 160-4.5 Mcg Inhaler (Budesonide/Formoterol Fumarate) 10.2 Gm Hfa.aer.ad 2 Puff IH BID 05/20/18 Reported Gabapentin (Gabapentin) 100 Mg Capsule 100 Mg PO BID 05/20/18 Reported Omeprazole 20 Mg Capsule.dr 1 Cap PO DAILY 05/20/18 Reported Comments CXR IMPRESSION: Significantly improved bilateral interstitial lung markings. Impression . 1. Acute hypoxic and hypercapnic respiratory failure secondary to acute on chronic diastolic congestive heart failure--improved on 2 liters N/C 2. The patient with history of pulmonary embolism in May with no evidence of deep venous thrombosis and has been on home Eliquis and was taking regularly. No evidence of any recurrent pulmonary embolism. Previously seen pulmonary embolism has resolved. 3. Underlying morbid obesity. 4. Lactic acidosis due to increased work of breathing. Clinically, less likely sepsis./ metabolic acidosis- improved 5. Abnormal CT chest with ground glass infiltrates and basilar atelectasis. Findings are favoring congestive heart failure. Plan . cont. supplemental oxygen to keep sats above 92 %, on 2 liters N/C at home s/p lasix 8/, sob better, Follow cardiology recs Follow renal function Continue home Eliquis Stress ulcer prophylaxis ok with dc home Discussed with MAXIMO MARTELL MD Jul 18, 2020 09:49
[2020-07-18 10:39] VITALS: BP 104/46
--- NOTE | 2020-07-18 11:54 | PDOC ---
[employer] [facility] PROGRESS NOTE Date of Service DOS: DATE: 07/18/20 TIME: 11:49 Chief Complaint Chief Complaint Acute on chronic respiratory failure, s/p extubation COVID negative COPD Afib Acute on chronic diastolic CHF, recent echo with preserved LV systolic function YESENIA on CKD Lactic acidosis Morbid obesity Elevated glucose Recent PE, on Eliquis History of Present Illness History of Present Illness 07/18/2020 Pt seen and examined, at baseline Pt sitting in chair, NAD Chart reviewed Discussed with RN and therapeutic case manager Discussed discharge plan with pt 07/17/2020 Patient seen and examined on Cardiac floor Sitting in chair and working with PT/OT, NAD Tardive dyskinesia at baseline Chart reviewed Discussed with RN 07/16/2020 Patient is seen and examined Patient is laying comfortably in bed Tardive dyskinesia at baseline Charts reviewed Discussed with RN 07/15/2020 Patient seen and examined, mild distress Complains of shortness of air Aflutter overnight, Afib intermittently Tardive dyskinesia at baseline Chart reviewed Discussed with RN 07/14/2020 Patient seen and examined in the ICU S/p extubation Sitting in chair, NAD Markedly improved Tardive dyskinesia at baseline Chart reviewed Discussed with RN 07/13/2020 Patient seen and examined in the ICU On ventilator, AC/16/450/30% 5.0 PEEP Resting, NAD Eladio BSD Chart reviewed Discussed with RN 07/12/2020 Patient seen and examined in the ICU On ventilator, AC/20/500/50% 6.0 PEEP Awake and responsive, NAD Eladio BSD Chart reviewed Discussed with RN Vitals/I&O Vitals/I&O: Vital Signs Date Time Temp Pulse Resp B/P (MAP) Pulse Ox O2 Delivery O2 Flow Rate FiO2 07/18/20 10:39 97.6 70 18 104/46 (65) 100 Nasal Cannula 1.0 97.6 I & O 07/17/20 07/17/20 07/18/20 15:00 23:00 07:00 Intake Total 720 ml 1160 ml 200 ml Output Total 200 ml 1250 ml 350 ml Balance 520 ml -90 ml -150 ml Physical Exam General: Alert, Oriented X3, Cooperative, No acute distress Heart: Regular rate, Normal S1, Normal S2 Lungs: Clear Abdomen: Soft, Other (obese ) Extremities: No cyanosis, No edema, Normal pulses Skin: No significant lesion Labs Labs: Laboratory Tests Test 07/18/20 04:03 White Blood Count 6.7 x10^3/uL (4.0-11.0) Red Blood Count 4.08 x10^6/uL (3.50-5.40) Hemoglobin 11.7 g/dL (12.0-15.5) Hematocrit 36.2 % (36.0-47.0) Mean Corpuscular Volume 89 fL (79-100) Mean Corpuscular Hemoglobin 29 pg (25-35) Mean Corpuscular Hemoglobin Concent 32 g/dL (31-37) Red Cell Distribution Width 16.1 % (11.5-14.5) Platelet Count 128 x10^3/uL (140-400) Neutrophils (%) (Auto) 55 % (31-73) Lymphocytes (%) (Auto) 28 % (24-48) Monocytes (%) (Auto) 14 % (0-9) Eosinophils (%) (Auto) 2 % (0-3) Basophils (%) (Auto) 1 % (0-3) Neutrophils # (Auto) 3.7 x10^3/uL (1.8-7.7) Lymphocytes # (Auto) 1.9 x10^3/uL (1.0-4.8) Monocytes # (Auto) 1.0 x10^3/uL (0.0-1.1) Eosinophils # (Auto) 0.1 x10^3/uL (0.0-0.7) Basophils # (Auto) 0.1 x10^3/uL (0.0-0.2) Sodium Level 142 mmol/L (136-145) Potassium Level 4.0 mmol/L (3.5-5.1) Chloride Level 106 mmol/L (98-107) Carbon Dioxide Level 28 mmol/L (21-32) Anion Gap 8 (6-14) Blood Urea Nitrogen 15 mg/dL (7-20) Creatinine 0.8 mg/dL (0.6-1.0) Estimated GFR (Cockcroft-Gault) 86.8 Glucose Level 88 mg/dL (70-99) Calcium Level 9.4 mg/dL (8.5-10.1) Review of Systems Review of Systems: Pt denies pain Pt denies weakness Assessment and Plan Assessmemt and Plan Problems Medical Problems: (1) Pulmonary edema Status: Acute (2) Respiratory failure, acute Status: Acute ASSESSMENT Acute on chronic respiratory failure, s/p extubation COVID negative COPD Afib Acute on chronic diastolic CHF, recent echo with preserved LV systolic function YESENIA on CKD Lactic acidosis Morbid obesity Elevated glucose Recent PE, on Eliquis PLAN Home meds PT/OT DVT prophylaxis Full code Discharge home, son is full-time care-taker Comment Review of Relevant I have reviewed the following items babar (where applicable) has been applied. Medications: Current Medications Medications (Trade) Dose Ordered Sig/Betsy Route PRN Reason Start Time Stop Time Status Last Admin Dose Admin Famotidine (Pepcid) 20 mg BID PO 07/17/20 21:00 07/18/20 08:42 Albuterol/ Ipratropium (Duoneb) 3 ml RTQID NEB 07/17/20 20:00 07/18/20 11:46 Budesonide (Pulmicort) 0.5 mg RTBID NEB 07/17/20 20:00 07/18/20 07:48 Justicifation of Admission Dx: Justifications for Admission: Justification of Admission Dx: Yes Respiratory Failure: Mechanical Ventilation Chronic Renal Failure: Encephalopathy Acute COPD Exacerbation: Acute COPD Exacerbation MANNIE WILLARD III DO Jul 18, 2020 11:54
--- NOTE | 2020-07-18 12:33 | PDOC ---
SOM AHUJA [employer] OPERATOR 07/18/20 1233: CARDIO Progress Notes Date and Time Date of Service 07/18/20 Time of Evaluation 1223 Subjective Subjective: No Chest Pain, No shortness of breath, No Palpitations Vitals Vitals Vital Signs Date Time Temp Pulse Resp B/P (MAP) Pulse Ox O2 Delivery O2 Flow Rate FiO2 07/18/20 11:48 99 Room Air 07/18/20 10:39 97.6 70 18 104/46 (65) 1.0 97.6 Weight Weight [ ] Input and Output Intake and Output Intake and Output 07/18/20 07:00 Intake Total 2080 ml Output Total 1800 ml Balance 280 ml Intake Oral 2080 ml Output Urine Total 1800 ml # Voids 1 # Bowel Movements 1 Laboratory Labs Laboratory Tests Test 07/18/20 04:03 White Blood Count 6.7 x10^3/uL (4.0-11.0) Red Blood Count 4.08 x10^6/uL (3.50-5.40) Hemoglobin 11.7 g/dL (12.0-15.5) Hematocrit 36.2 % (36.0-47.0) Mean Corpuscular Volume 89 fL (79-100) Mean Corpuscular Hemoglobin 29 pg (25-35) Mean Corpuscular Hemoglobin Concent 32 g/dL (31-37) Red Cell Distribution Width 16.1 % (11.5-14.5) Platelet Count 128 x10^3/uL (140-400) Neutrophils (%) (Auto) 55 % (31-73) Lymphocytes (%) (Auto) 28 % (24-48) Monocytes (%) (Auto) 14 % (0-9) Eosinophils (%) (Auto) 2 % (0-3) Basophils (%) (Auto) 1 % (0-3) Neutrophils # (Auto) 3.7 x10^3/uL (1.8-7.7) Lymphocytes # (Auto) 1.9 x10^3/uL (1.0-4.8) Monocytes # (Auto) 1.0 x10^3/uL (0.0-1.1) Eosinophils # (Auto) 0.1 x10^3/uL (0.0-0.7) Basophils # (Auto) 0.1 x10^3/uL (0.0-0.2) Sodium Level 142 mmol/L (136-145) Potassium Level 4.0 mmol/L (3.5-5.1) Chloride Level 106 mmol/L (98-107) Carbon Dioxide Level 28 mmol/L (21-32) Anion Gap 8 (6-14) Blood Urea Nitrogen 15 mg/dL (7-20) Creatinine 0.8 mg/dL (0.6-1.0) Estimated GFR (Cockcroft-Gault) 86.8 Glucose Level 88 mg/dL (70-99) Calcium Level 9.4 mg/dL (8.5-10.1) Microbiology Micro Microbiology 07/11/20 Blood Culture - Final, Complete NO GROWTH AFTER 5 DAYS Physical Exam HEENT: Neck Supple W Full Motion Chest: Symmetric LUNGS: Other (diminished) Heart: RRR (SR) Abdomen: Other (obese) Extremities: No Calf Tenderness Neurology: alert, oriented, follow commands Assessment Assessment 1. Acute on chronic respiratory failure in setting of a/c CHF 2. Acute on chronic diastolic CHF; Recent echo with preserved LV systolic function 3. YESENIA on CKD: Resolved 4. Morbid obesity 5. Recent PE; was on Eliquis. Repeat CTA negative for PE 6. Hypertension; controlled 7. PAFIB; maintaining SR Recommendations Continue metoprolol for rate control Eliquis therapy Has had recurrent admission for HF. Will add low-dose oral diuretic therapy QOD. Will need outpatient monitoring or renal function F/u with PCP within 1-2 weeks Outpatient ischemic evaluation Follow up with Dr. Tamayo as scheduled Supportive care Justicifation of Admission Dx: Justifications for Admission: Justification of Admission Dx: Yes Respiratory Failure: Mechanical Ventilation Chronic Renal Failure: Encephalopathy Acute COPD Exacerbation: Acute COPD Exacerbation SIXTO TAMAYO MD 07/18/20 1711: CARDIO Progress Notes Assessment Assessment Patient seen and examined Acute on chronic respiratory failure in setting of a/c CHF. Significantly improved today. Continuing medical treatment. Acute on chronic diastolic CHF; Recent echo with preserved LV systolic function YESENIA on CKD: Resolved Recent PE; on Eliquis. Repeat CTA negative for PE Hypertension; controlled PAFIB; maintaining SR. continuing beta-gabo. SOM AHUJA APRN Jul 18, 2020 12:33 SIXTO TAMAYO MD Jul 18, 2020 17:11
--- NOTE | 2020-07-18 12:52 | DS ---
DATE OF DISCHARGE: 07/18/2020 ADMISSION DIAGNOSIS: Respiratory failure, requiring intubation. DISCHARGE DIAGNOSES: Resolving respiratory failure secondary to chronic obstructive pulmonary disease and heart failure and pneumonia, she was COVID negative, atrial fibrillation, resolving acute kidney injury, resolving lactic acidosis, obesity, recent pulmonary embolism, on Eliquis. CONSULTS: Cardiology and Pulmonary Medicine. PROCEDURES: None. HOSPITAL COURSE: The patient is a pleasant middle-aged female who basically presented with fulminant respiratory failure. We were concerned she could have COVID-19. She was admitted to the COVID-19 unit on the vent. She did rule out for COVID-19. We then treated her with continued antibiotics and breathing treatments, steroids, oxygen. We eventually got her extubated. Over the past few days, she has done great. We plan to discharge to home with her son and she has a visiting nurse that comes in 20 hours a week. DISPOSITION: Home. ACTIVITY: As tolerated. DIET: Low sodium. MEDICATIONS: Please see MRAD. TOTAL TIME: 34 minutes. MANNIE WILLARD DO DR: ROBERTA/carley JOB#: [id number] / [id number]
[2020-07-18] MEDS: ANTI-COAG MONITOR BY PHARMACY. MC PRN (14:04)
--- NOTE | 2020-07-18 14:20 | NUR ---
Discharged patient to home. Discharge instructions given. PIV and heart monitor removed. Escorted patient per wheelchair into a private vehicle.
[2020-07-19] MEDS ORDERED: FUROSEMIDE 20 MG TABLET PO SCH (09:00)
[2020-07-20] MEDS ORDERED: POTASSIUM CHLORIDE 10 MEQ TABLET.ER. PO SCH (09:00)
== END 2020-07-18 14:15 | disposition home or self-care (01) | DRG 208 ==
LOC: ER 08:50 → 1 WEST ICU 12:48 → 2 SOUTH 07-14 12:20
PROVIDERS: ADMIT Internal Medicine; ATTEND Internal Medicine
PROC: 5A1945Z Respiratory Ventilation, 24-96 Consecutive Hours (ICD-10-PCS; principal; 2020-07-11)
PROC: 0BH17EZ Insertion of Endotracheal Airway into Trachea, Via Natural or Artificial Opening (ICD-10-PCS; 2020-07-11)
DX: J96.21 Acute and chronic respiratory failure with hypoxia (principal); I50.43 Acute on chronic combined systolic (congestive) and diastolic (congestive) heart failure; J18.9 Pneumonia, unspecified organism; I13.0 Hypertensive heart and chronic kidney disease with heart failure and stage 1 through stage 4 chronic kidney disease, or unspecified chronic kidney disease; N17.9 Acute kidney failure, unspecified; E87.2 Acidosis; I47.1 Supraventricular tachycardia; I48.92 Unspecified atrial flutter; J44.0 Chronic obstructive pulmonary disease with (acute) lower respiratory infection; J98.11 Atelectasis; J96.22 Acute and chronic respiratory failure with hypercapnia; E66.01 Morbid (severe) obesity due to excess calories; E78.5 Hyperlipidemia, unspecified; E87.6 Hypokalemia; F20.9 Schizophrenia, unspecified; G24.01 Drug induced subacute dyskinesia; G25.81 Restless legs syndrome; I16.0 Hypertensive urgency; I48.0 Paroxysmal atrial fibrillation; N18.9 Chronic kidney disease, unspecified; Z20.828 Contact with and (suspected) exposure to other viral communicable diseases; Z68.38 Body mass index [BMI] 38.0-38.9, adult; Z79.01 Long term (current) use of anticoagulants; Z82.49 Family history of ischemic heart disease and other diseases of the circulatory system; Z86.711 Personal history of pulmonary embolism; F32.9 Major depressive disorder, single episode, unspecified; F41.9 Anxiety disorder, unspecified; M19.90 Unspecified osteoarthritis, unspecified site; Z88.8 Allergy status to other drugs, medicaments and biological substances; Z88.0 Allergy status to penicillin
CPT/HCPCS: 31500; 36415; 36600; 51702; 71045; 71275; 80048; 80053; 81001; 82805; 83036; 83605; 83735; 83880; 84484; 85025; 85610; 86140; 87040; 93005; 94002; 94003; 94640; 94760; 96374; 99291; J0282; J1160; J1650; J1940; J1956; J2250; J2270; J2704; J3010; J3480; J3490; J7060; Q9967; 97110-GP; 97530-GP; 97535-GO; G0378; J7626; U0003-CS

== ENCOUNTER 2020-12-05 04:27 | Inpatient (IN) | payer MEDICARE, OTHER ==
[2020-12-05] VITALS (17 sets, daily range): BP systolic 119–157; BP diastolic 55–73
[~2020-12-05] VITALS: Ht 172.7 cm; Wt 109.9 kg
[~2020-12-05 04:27] MED LIST changes: +GABA600T7 PO
[2020-12-05] MEDS ORDERED: PROPOFOL 100 ML IV ONE (04:56)
[2020-12-05] MEDS ORDERED: VANCOMYCIN 1.5 GM in IV NORMAL SALINE 500ML BAG 500 ML IV ONE (05:00)
[2020-12-05] MEDS ORDERED: MORPHINE SULFATE 4 MG/ML VIAL. IV PRN (05:00)
[2020-12-05] MEDS ORDERED: fentaNYL PF VIAL 100 MCG/2 ML VIAL IV PRN ×2 (05:00)
--- NOTE | 2020-12-05 05:14 | PHYS DOC ---
Past Medical History Past Medical History: Asthma, CHF, Hypertension Additional Past Medical Histor: RLS Past Surgical History: Other Additional Past Surgical Histo: unknown surgical hx Smoking Status: Former Smoker Alcohol Use: None Drug Use: None General Adult EDM: Chief Complaint: RESP ARREST HPI: HPI: Patient is a 65 year old female with past medical history of CHF hypertension presents for evaluation due to respiratory distress. Family called 911 patient with difficulty breathing. Per EMS on there arrival patient respiratory distress, oxygen saturations in the 80s, and a GCS of 8. On arrival to patient with a GCS of 3, O2 sat 90's bag valve mask, decreased breath sounds all gaona. Patient was intubated shortly after arrival. No other history available. Review of Systems: Review of Systems: Unable to obtain ROS OS due to medical condition Heart Score: Risk Factors: Risk Factors: DM, Current or recent (<one month) smoker, HTN, HLP, family history of CAD, obesity. Risk Scores: Score 0 - 3: 2.5% MACE over next 6 weeks - Discharge Home Score 4 - 6: 20.3% MACE over next 6 weeks - Admit for Clinical Observation Score 7 - 10: 72.7% MACE over next 6 weeks - Early Invasive Strategies Current Medications: Current Medications Medications (Trade) Dose Ordered Sig/Betsy Start Time Stop Time Status Last Admin Dose Admin Azithromycin 250 ml @ 250 mls/hr 1X ONCE 12/05/20 05:30 12/05/20 06:29 Chlorhexidine Gluconate (Peridex) 15 ml BID 12/05/20 09:00 Dexamethasone Sodium Phosphate (Decadron) 10 mg 1X ONCE 12/05/20 05:30 12/05/20 05:31 Etomidate (Amidate) 20 mg 1X ONCE 12/05/20 05:15 12/05/20 05:16 UNV Fentanyl Citrate (Fentanyl 2ml Vial) 50 mcg PRN Q1HR PRN 12/05/20 05:00 Morphine Sulfate (Morphine Sulfate) 4 mg PRN Q1HR PRN 12/05/20 05:00 Propofol 100 ml @ As Directed STK-MED ONCE 12/05/20 04:56 12/05/20 04:56 DC Succinylcholine Chloride (Anectine) 100 mg 1X ONCE 12/05/20 05:15 12/05/20 05:16 UNV Vancomycin HCl 1.5 gm/Sodium Chloride 500 ml @ 250 mls/hr 1X ONCE 12/05/20 05:00 12/05/20 06:59 UNV Allergies: Allergies: Allergies Coded Allergies Type Severity Reaction Last Updated Verified Penicillins Allergy Intermediate 05/21/18 Yes aspirin Allergy Intermediate 05/21/18 Yes Physical Exam: PE: Constitutional: Acute distress HENT: Normocephalic, atraumatic, bilateral external ears normal, oropharynx moist, oral mucosa Eyes: no discharge. [] Neck: Normal range of motion, no tenderness, supple, Cardiovascular: Tachycardia Lungs & Thorax: Respiratory distress, Abdomen: Bowel sounds normal, soft, no tenderness, no masses, no pulsatile ma sses. [] Skin: Warm, dry, no erythema, no rash. [] Back: No tenderness, no CVA tenderness. [] Extremities: No tenderness, no cyanosis, no clubbing, ROM intact, no edema. [] Neurologic: Unresponsive, normal motor function, normal sensory function, no focal deficits noted. [] EKG: EKG: [] Radiology/Procedures: Radiology/Procedures: [] Course & Med Decision Making: Course & Med Decision Making Pertinent Labs and Imaging studies reviewed. (See chart for details) [] Patient was evaluated for chief complaint. Work-up consisted of laboratory analysis radiologic imaging and EKG. Patient in acute respiratory distress intubated shortly after arrival. Patient was sedated with propofol. IV antibiotics included vancomycin and Zithromax aztreonam. Patient also received Decadron 10mg iv. while on propofol patient went hypotensive. Propofol was backed off and then eventually changed to Versed. Patient received a 1 L bolus with blood pressure improvement. Central line placed right femoral--no complications. Patient admitted to the hospitalist. Critical care time 35 minutes ALL LABS pending at time of admission. Dragon Disclaimer: Dragon Disclaimer: This electronic medical record was generated, in whole or in part, using a voice recognition dictation system. Intubation Procedure Intub Indication: Respiratory failure Consent: Unable to give consent due to emergent nature. Medications Used: see nursing note Procedure: The patient was placed in the appropriate position. Intubation was performed [CORD VISUALIZATION direct visualization through the use of the glide scope] [7.5 cuffed] endotracheal tube. [Secured with the device at 20 at lip]. Initial confirmation of placement included bilateral breath sounds, tube fogging, adequate chest rise, adequate pulse oximetry reading. A chest x-ray to verify correct placement of the tube showed appropriate tube position. The patient tolerated the procedure well. Complications: none. 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 Was juvenile court judge a member of the P: Yes Central Line Indications: Poor peripheral access Maximal sterile barriers used: Mask, Sterile gown, Sterile gloves, Large sterile drape, Cap Skin Preperation: (Check all: Chlorhexidine gluconate Was skin prep dry at time of s: Yes Patient is less than 2 months: No Facility restrictions/safety c: Yes Insertion Site: Femoral Antimicrobial catheter used?: Yes Departure Departure Impression: Primary Impression: Respiratory distress Additional Impressions: Person under investigation for COVID-19 Respiratory failure Disposition: ADMITTED INPT THIS HOSP Admitting Physician: JAVIER Condition: CRITICAL Referrals: UNKNOWN PCP NAME (PCP) JESI PAZ DO Dec 05, 2020 05:14
[2020-12-05] MEDS ORDERED: 0.9 % SOD CHL for STERILE FIELD 10 ML DISP.SYRIN. ONE (05:29)
[2020-12-05] MEDS ORDERED: AZITHRMYCN 500MG IVPB FOR OMNI 250 ML IV ONE (05:30)
[2020-12-05] MEDS ORDERED: DEXAMETHASONE SOD PHOS 20 MG/5 ML VIAL. IV ONE (05:30)
[2020-12-05] MEDS ORDERED: SUCCINYLCHOLINE 200 MG/10 ML VIAL. IV ONE (05:30)
[2020-12-05] MEDS ORDERED: ETOMIDATE 20 MG/10 ML VIAL. IV ONE (05:30)
[2020-12-05 05:39] LABS: BASE EXCESS COOX -6 mmol/L (-3-3); HCO3 COOX 22 mmol/L (21-28); METHEMOGLOBIN 0.4 % (0.0-1.9); OXYHEMOGLOBIN 96.5 %; PCO2 COOX 54 mmHg (35-46); PO2 COOX 112 mmHg (65-108); SAT O2 COOX 97 % (92-99)
--- NOTE | 2020-12-05 05:50 | RAD ---
INDICATION: Reason: intubation ER#20 / Spl. Instructions: / History: COMPARISON: July 15, 2020 FINDINGS: Single view of chest obtained. Enteric tube is seen coursing below the diaphragm. Endotracheal tube midthoracic trachea. Cardiac loreta houette is mildly enlarged. Multifocal opacities throughout the bilateral lungs IMPRESSION: * Multifocal opacities throughout the bilateral lungs which can be seen with bilateral edema or infi ltrate. Electronically signed by: Higinio Johnson MD (12/05/2020 5:48 AM) [id number]
[2020-12-05] MEDS ORDERED: VANCOMYCIN 2 GM in IV NORMAL SALINE 500ML BAG 500 ML IV ONE (06:00)
[2020-12-05] MEDS: MIDAZOLAM 100mg/100ml NS BAG 100 ML IV PRN ×2 (06:17→14:09)
[2020-12-05 06:23] LABS: BASO # 0.1 x10^3/uL (0.0-0.2); BASO % 1 % (0-3); EOS # 0.1 x10^3/uL (0.0-0.7); EOS % 1 % (0-3); HEMATOCRIT 34.8 % (36.0-47.0); HEMOGLOBIN 11.3 g/dL (12.0-15.5); LYMPH % 9 % (24-48); MEAN CORPUSCULAR HEMOGLOBIN 29 pg (25-35); MEAN CORPUSCULAR HGB CONC 32 g/dL (31-37); MEAN CORPUSCULAR VOLUME 89 fL (79-100); MONO # 0.3 x10^3/uL (0.0-1.1); MONO % 3 % (0-9); NEUT # 9.8 x10^3/uL (1.8-7.7); NEUT % 88 % (31-73); PLATELET COUNT 142 x10^3/uL (140-400); RED BLOOD COUNT 3.91 x10^6/uL (3.50-5.40); WHITE BLOOD COUNT 11.2 x10^3/uL (4.0-11.0)
[2020-12-05 06:34] LABS: CREATININE 1.5 mg/dL (0.6-1.0); GFR 41.9; POTASSIUM 3.5 mmol/L (3.5-5.1)
[2020-12-05 06:39] LABS: ALBUMIN 2.7 g/dL (3.4-5.0); ALBUMIN/GLOBULIN RATIO 0.9 (1.0-1.7); TOTAL BILIRUBIN 0.3 mg/dL (0.2-1.0); TOTAL PROTEIN 5.8 g/dL (6.4-8.2)
[2020-12-05] MEDS: VANCOMYCIN PER PHARMACY MC PRN ×2 (06:46→06:53)
--- NOTE | 2020-12-05 06:53 | NUR ---
Pharmacy Vancomycin Dosing Note S:Consulted to monitor and dose vancomycin started 12/05/20. O:ARIANE MONTEIRO is a 65 year old F with Pneumonia . Height: 5 feet, 8 inches Weight: 113 kg [place] Body Weight: 63.90 Adjusted Body Weight: 83.54 Dosing Weight: Actual Other Antibiotics: LABS: Last BUN: 48 Last Creatinine: 1.5 Creatinine Clearance: 48 mL/min Last WBC: 11.2 Last Procalcitonin: Tmax (past 24 hours): Microbiology: I/O: Drug Levels: Last level: on at Last dose given 12/05/20 at 0600 Vancomycin Dosing: Loading Dose: 2000 mg x1 Dosing Weight: Actual Target Trough: 15-20 A: Based on: WT AND CRCL P: 1. Begin Vancomycin 1750 mg IV q24h 2. Follow up Trough level on 12/07/20 at 0530 3. Pharmacy will continue to monitor, follow and adjust therapy as needed. EMILY CASTILLO RPH, [birth year]/2053 Signed: 12/05/20 at 0653 by EMILY CASTILLO RPH PHA
[2020-12-05] MEDS ORDERED: AZTREONAM IV Push 2 GM VIAL. IVP ONE (07:00)
[2020-12-05] MEDS ORDERED: FUROSEMIDE 40 MG/4 ML VIAL. IVP ONE (07:00)
--- NOTE | 2020-12-05 07:55 | PDOC1 ---
History and Physical Date of Admission Date of Admission DATE: 12/05/20 TIME: 07:49 Identification/Chief Complaint Chief Complaint Shortness of breath Source Source: Caregiver, Chart review History of Present Illness History of Present Illness Ms Ayon is a 65yo F w/ PMHx asthma with COPD, diastolic CHF, hypertension, RLS, smoker, pulmonary embolism in May 2020 with negative DVT, on home Eliquis brought to ED via EMS due to respiratory distress. Family called 911 patient with difficulty breathing. Per EMS on there arrival patient respiratory distress, oxygen saturations in the 80s, and a GCS of 8. On arrival to patient with a GCS of 3, O2 sat 90's bag valve mask, decreased breath sounds all gaona. Patient was intubated shortly after arrival. Seen after intubation. Chest radiograph with bilateral pulmonary infiltrates consistent with pulmonary edema. WBC 11.2, Hb 11.3, Platelets 142, Na 141, K 3.5, BUN 23, Cr 1.5, glucose 146. Lactate 4.1, Albumin 2.7, BNP 1565 ABG with pH 7.22, PaCO2 of 54, pO2 112 on 100% FiO2 Admitted to ICU for further care. Past Medical History Cardiovascular: CHF, HTN, Hyperlipidemia Pulmonary: COPD, Other GI: GERD, Other Heme/Onc: Anemia NOS Psych: Anxiety, Depression Musculoskeletal: Osteoarthritis Renal/: Chronic renal insuff Past Surgical History Past Surgical History: No pertinent history Family History Family History: Hypertension Family History: Parent Social History Smoke: 1 pack per day ALCOHOL: none Drugs: None Current Problem List Problem List Problems Medical Problems: (1) Person under investigation for COVID-19 Status: Acute (2) Respiratory distress Status: Acute (3) Respiratory failure Status: Acute Current Medications Current Medications Current Medications Propofol 100 ml @ As Directed STK-MED ONCE IV ; Start 12/05/20 at 04:56; Stop 12/05/20 at 04:56; Status DC Fentanyl Citrate (Fentanyl 2ml Vial) 25 mcg PRN Q1HR PRN IV SEE COMMENTS; Start 12/05/20 at 05:00 Fentanyl Citrate (Fentanyl 2ml Vial) 50 mcg PRN Q1HR PRN IV SEE COMMENTS; Start 12/05/20 at 05:00 Chlorhexidine Gluconate (Peridex) 15 ml BID MM ; Start 12/05/20 at 09:00 Morphine Sulfate (Morphine Sulfate) 2 mg PRN Q1HR PRN IV SEE COMMENTS.; Start 12/05/20 at 05:00 Morphine Sulfate (Morphine Sulfate) 4 mg PRN Q1HR PRN IV SEE COMMENTS.; Start 12/05/20 at 05:00 Dexamethasone Sodium Phosphate (Decadron) 10 mg 1X ONCE IV Last administered on 12/05/20at 05:59; Start 12/05/20 at 05:30; Stop 12/05/20 at 05:31; Status DC Vancomycin HCl 1.5 gm/Sodium Chloride 500 ml @ 250 mls/hr 1X ONCE IV ; Start 12/05/20 at 05:00; Stop 12/05/20 at 06:59; Status UNV Azithromycin 250 ml @ 250 mls/hr 1X ONCE IV Last administered on 12/05/20at 05:59; Start 12/05/20 at 05:30; Stop 12/05/20 at 06:29; Status DC Etomidate (Amidate) 20 mg 1X ONCE IV Last administered on 12/05/20at 05:23; Start 12/05/20 at 05:30; Stop 12/05/20 at 05:31; Status DC Succinylcholine Chloride (Anectine) 100 mg 1X ONCE IV Last administered on 12/05/20at 05:23; Start 12/05/20 at 05:30; Stop 12/05/20 at 05:31; Status DC Sodium Chloride (NORMAL SALINE FLUSH for STERILE FIELD) 10 ml STK-MED ONCE .ROUTE ; Start 12/05/20 at 05:29; Stop 12/05/20 at 05:29; Status DC Vancomycin HCl 2 gm/Sodium Chloride 500 ml @ 250 mls/hr 1X ONCE IV Last administered on 12/05/20at 05:59; Start 12/05/20 at 06:00; Stop 12/05/20 at 07:59 Vancomycin HCl (Vanco Per Pharmacy) 1 each PRN DAILY PRN MC SEE COMMENTS Last administered on 12/05/20at 06:53; Start 12/05/20 at 06:00 Midazolam HCl 100 ml @ 0 mls/hr CONT PRN IV SEE PROTOCOL Last administered on 12/05/20at 06:17; Start 12/05/20 at 06:15 Aztreonam (Azactam) 2 gm 1X ONCE IVP ; Start 12/05/20 at 07:00; Stop 12/05/20 at 07:01; Status DC Vancomycin HCl 1.75 gm/Sodium Chloride 500 ml @ 250 mls/hr Q24H IV ; Start 12/06/20 at 06:00 Vancomycin HCl (Vancomycin Trough Level) 1 each 1X ONCE MC ; Start 12/06/20 at 06:30; Stop 12/06/20 at 06:31 Furosemide (Lasix) 40 mg 1X ONCE IVP ; Start 12/05/20 at 07:00; Stop 12/05/20 at 07:01; Status DC Active Scripts Active Eliquis (Apixaban) 5 Mg Tablet 10 Mg PO BID 30 Days Toprol Xl (Metoprolol Succinate) 25 Mg Tab.er.24h 0.5 Tab PO DAILY 30 Days Reported Gabapentin 600 Mg Tablet 600 Mg PO BID Paroxetine Hcl 40 Mg Tablet 40 Mg PO DAILY 30 Days Atorvastatin Calcium 20 Mg Tablet 1 Tab PO DAILY Proair Hfa Inhaler (Albuterol Sulfate) 8.5 Gm Hfa.aer.ad 1-2 Puff INH PRN Q4HRS PRN Loratadine 10 Mg Tablet 1 Tab PO DAILY Flonase Allergy Relief (Fluticasone Propionate) 9.9 Ml [place].susp 2 Sprays NS DAILY Allopurinol 100 Mg Tablet 1 Tab PO DAILY Vitamin D2 (Ergocalciferol (Vitamin D2)) 50,000 Unit Capsule 1 Cap PO WEEKLY Geodon (Ziprasidone Hcl) 80 Mg Capsule 1 Cap PO BID Potassium Chloride (Potassium Chloride) 20 Meq Tablet.er 20 Meq PO DAILY Tramadol Hcl 50 Mg Tablet 50 Mg PO TID Symbicort 160-4.5 Mcg Inhaler (Budesonide/Formoterol Fumarate) 10.2 Gm Hfa.aer.ad 2 Puff IH BID Omeprazole 20 Mg Capsule.dr 1 Cap PO DAILY Allergies Allergies: Coded Allergies: Penicillins (Verified Allergy, Intermediate, 05/21/18) aspirin (Verified Allergy, Intermediate, 05/21/18) ROS Review of System Unable to obtain, patient intubated and sedated Physical Exam General: mild distress, Other (Sedated, intubated) Lungs: Other (Bibasilar crackles) Heart: S1S2, RRR, no thrills, no rubs, no gallops, no murmurs Abdomen: Normal bowel sounds, Soft, No tenderness, No hepatosplenomegaly, No masses Rectal Exam: not examined Extremities: No clubbing, No cyanosis, No edema, Normal pulses, No tenderness/swelling Skin: No rashes, No breakdown, No significant lesion Neuro: Normal tone, Sensation intact, Cranial nerves 3-12 NL, Reflexes 2+ Psych/Mental Status: Other (Sedated) Vitals Vitals Vital Signs Date Time Temp Pulse Resp B/P (MAP) Pulse Ox O2 Delivery O2 Flow Rate FiO2 12/05/20 07:39 100 Ventilator 12/05/20 06:55 22 95/52 (66) 12/05/20 06:35 66 12/05/20 04:30 99.2 99.2 Labs Labs Laboratory Tests Test 12/05/20 05:39 12/05/20 06:12 O2 Saturation 97 % (92-99) Arterial Blood pH 7.22 (7.35-7.45) Arterial Blood pCO2 at Patient Temp 54 mmHg (35-46) Arterial Blood pO2 at Patient Temp 112 mmHg (65-108) Arterial Blood HCO3 22 mmol/L (21-28) Arterial Blood Base Excess -6 mmol/L (-3-3) Oxyhemoglobin 96.5 % Methemoglobin 0.4 % (0.0-1.9) Carbon Monoxide, Quantitative 0.3 % (0.0-1.9) FiO2 100 White Blood Count 11.2 x10^3/uL (4.0-11.0) Red Blood Count 3.91 x10^6/uL (3.50-5.40) Hemoglobin 11.3 g/dL (12.0-15.5) Hematocrit 34.8 % (36.0-47.0) Mean Corpuscular Volume 89 fL (79-100) Mean Corpuscular Hemoglobin 29 pg (25-35) Mean Corpuscular Hemoglobin Concent 32 g/dL (31-37) Red Cell Distribution Width 16.0 % (11.5-14.5) Platelet Count 142 x10^3/uL (140-400) Neutrophils (%) (Auto) 88 % (31-73) Lymphocytes (%) (Auto) 9 % (24-48) Monocytes (%) (Auto) 3 % (0-9) Eosinophils (%) (Auto) 1 % (0-3) Basophils (%) (Auto) 1 % (0-3) Neutrophils # (Auto) 9.8 x10^3/uL (1.8-7.7) Lymphocytes # (Auto) 1.0 x10^3/uL (1.0-4.8) Monocytes # (Auto) 0.3 x10^3/uL (0.0-1.1) Eosinophils # (Auto) 0.1 x10^3/uL (0.0-0.7) Basophils # (Auto) 0.1 x10^3/uL (0.0-0.2) Sodium Level 141 mmol/L (136-145) Potassium Level 3.5 mmol/L (3.5-5.1) Chloride Level 106 mmol/L (98-107) Carbon Dioxide Level 26 mmol/L (21-32) Anion Gap 9 (6-14) Blood Urea Nitrogen 23 mg/dL (7-20) Creatinine 1.5 mg/dL (0.6-1.0) Estimated GFR (Cockcroft-Gault) 41.9 BUN/Creatinine Ratio 15 (6-20) Glucose Level 146 mg/dL (70-99) Lactic Acid Level 4.1 mmol/L (0.4-2.0) Calcium Level 8.0 mg/dL (8.5-10.1) Total Bilirubin 0.3 mg/dL (0.2-1.0) Aspartate Amino Transf (AST/SGOT) 33 U/L (15-37) Alanine Aminotransferase (ALT/SGPT) 28 U/L (14-59) Alkaline Phosphatase 105 U/L (46-116) IY-Wxm-J-Type Natriuretic Peptide 1565 pg/mL (0-124) Total Protein 5.8 g/dL (6.4-8.2) Albumin 2.7 g/dL (3.4-5.0) Albumin/Globulin Ratio 0.9 (1.0-1.7) Laboratory Tests Test 12/05/20 05:39 12/05/20 06:12 O2 Saturation 97 % (92-99) Arterial Blood pH 7.22 (7.35-7.45) Arterial Blood pCO2 at Patient Temp 54 mmHg (35-46) Arterial Blood pO2 at Patient Temp 112 mmHg (65-108) Arterial Blood HCO3 22 mmol/L (21-28) Arterial Blood Base Excess -6 mmol/L (-3-3) Oxyhemoglobin 96.5 % Methemoglobin 0.4 % (0.0-1.9) Carbon Monoxide, Quantitative 0.3 % (0.0-1.9) FiO2 100 White Blood Count 11.2 x10^3/uL (4.0-11.0) Red Blood Count 3.91 x10^6/uL (3.50-5.40) Hemoglobin 11.3 g/dL (12.0-15.5) Hematocrit 34.8 % (36.0-47.0) Mean Corpuscular Volume 89 fL (79-100) Mean Corpuscular Hemoglobin 29 pg (25-35) Mean Corpuscular Hemoglobin Concent 32 g/dL (31-37) Red Cell Distribution Width 16.0 % (11.5-14.5) Platelet Count 142 x10^3/uL (140-400) Neutrophils (%) (Auto) 88 % (31-73) Lymphocytes (%) (Auto) 9 % (24-48) Monocytes (%) (Auto) 3 % (0-9) Eosinophils (%) (Auto) 1 % (0-3) Basophils (%) (Auto) 1 % (0-3) Neutrophils # (Auto) 9.8 x10^3/uL (1.8-7.7) Lymphocytes # (Auto) 1.0 x10^3/uL (1.0-4.8) Monocytes # (Auto) 0.3 x10^3/uL (0.0-1.1) Eosinophils # (Auto) 0.1 x10^3/uL (0.0-0.7) Basophils # (Auto) 0.1 x10^3/uL (0.0-0.2) Sodium Level 141 mmol/L (136-145) Potassium Level 3.5 mmol/L (3.5-5.1) Chloride Level 106 mmol/L (98-107) Carbon Dioxide Level 26 mmol/L (21-32) Anion Gap 9 (6-14) Blood Urea Nitrogen 23 mg/dL (7-20) Creatinine 1.5 mg/dL (0.6-1.0) Estimated GFR (Cockcroft-Gault) 41.9 BUN/Creatinine Ratio 15 (6-20) Glucose Level 146 mg/dL (70-99) Lactic Acid Level 4.1 mmol/L (0.4-2.0) Calcium Level 8.0 mg/dL (8.5-10.1) Total Bilirubin 0.3 mg/dL (0.2-1.0) Aspartate Amino Transf (AST/SGOT) 33 U/L (15-37) Alanine Aminotransferase (ALT/SGPT) 28 U/L (14-59) Alkaline Phosphatase 105 U/L (46-116) IZ-Tos-S-Type Natriuretic Peptide 1565 pg/mL (0-124) Total Protein 5.8 g/dL (6.4-8.2) Albumin 2.7 g/dL (3.4-5.0) Albumin/Globulin Ratio 0.9 (1.0-1.7) Images Images Chest radiograph: Single view of chest obtained. Enteric tube is seen coursing below the diaphragm. Endotracheal tube midthoracic trachea. Cardiac silhouette is mildly enlarged. Multifocal opacities throughout the bilateral lungs IMPRESSION: * Multifocal opacities throughout the bilateral lungs which can be seen with bilateral edema or infiltrate. VTE Prophylaxis Ordered VTE Prophylaxis Devices: Yes VTE Pharmacological Prophylaxi: Yes Assessment/Plan Assessment/Plan A/P: Acute hypoxic and hypercapnic respiratory failure secondary to acute on chronic diastolic congestive heart failure. COVID 19 test sent, pending. Pulm consulted for vent management assistance Acute on chronic diastolic, systolic heart failure - will diurese. Cardiology consulted Lactic acidosis - not clearly due to sepsis, more likely from acute hypoxic respiratory failure. will trend Hypertension - stable on vent, will Chronic obstructive pulmonary disease - on vent currently, steroids, inhalers History of pulmonary emboli, negative venous Dopplers in 05/2020 - was on eliquis, will place on lovenox Obesity - will beauty counselor Hypokalemia - will check mag, replace YESENIA - likely vasomotor nephropathy. will monitor Elevated lactic acid - likely from hypotension, poor perfusion improved BP maintain MAP greater than 65 otherwise give IV fluid bolus. H/o HTN - hold meds for today H/o depression - cont paxil and geodon FEN - NPO, will start tube feeds PPX - lovenox FULL CODE Dispo - inpatient, ICU CC time 37 minutes Justifications for Admission Other Justification RAMON COLLADO MD Dec 05, 2020 07:55
[2020-12-05 07:58] LABS: BASE EXCESS ABG -2 mmol/L (-3-3); HCO3 ABG 21 mmol/L (21-28); PCO2 ABG 29 mmHg (35-46); PO2 ABG 220 mmHg (65-108); SAT O2 ABG 99 % (92-99)
[2020-12-05 08:26] LABS: % BANDS 1 % (0-9); % EOS 2 % (0-5); % LYMPHS 15 % (24-48); % MONOS 2 % (0-10); % SEGS 80 % (35-66)
[2020-12-05 08:27] LABS: PLT ESTIMATE ADEQUATE (ADEQUATE)
[2020-12-05] MEDS ORDERED: IV NORMAL SALINE 1000ML BAG 1,000 ML IV ONE (08:45)
--- NOTE | 2020-12-05 10:00 | NUR ---
Patient admit from Ed at 1000. Telephone report received from Yamile Frye. Patient on ventilator AC //80%. VSS. No belongings with patient. Patient's son Jaron called and updated on her status. Consults called. Admit done to the best of my ability from previous admission back in . Will monitor.
--- NOTE | 2020-12-05 10:09 | EKG ---
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
[2020-12-05] MEDS: CHLORHEXIDINE 0.12% 15 ML MOUTHWASH. MM SCH ×2 (11:09→20:25)
--- NOTE | 2020-12-05 11:24 | PDOC ---
PULMONARY PROGRESS NOTES DATE: 12/05/20 TIME: 11:24 Vitals Vital Signs Date Time Temp Pulse Resp B/P (MAP) Pulse Ox O2 Delivery O2 Flow Rate FiO2 12/05/20 11:00 69 22 119/62 (81) 100 Ventilator 12/05/20 10:00 97.5 97.5 General: Alert, No acute distress Lungs: Clear Cardiovascular: S1, S2 Abdomen: Soft, Non-tender Extremities: Other Labs Laboratory Tests Test 12/05/20 05:39 12/05/20 06:12 12/05/20 07:57 O2 Saturation 97 % (92-99) 99 % (92-99) Arterial Blood pH 7.22 (7.35-7.45) 7.47 (7.35-7.45) Arterial Blood pCO2 at Patient Temp 54 mmHg (35-46) 29 mmHg (35-46) Arterial Blood pO2 at Patient Temp 112 mmHg (65-108) 220 mmHg (65-108) Arterial Blood HCO3 22 mmol/L (21-28) 21 mmol/L (21-28) Arterial Blood Base Excess -6 mmol/L (-3-3) -2 mmol/L (-3-3) Oxyhemoglobin 96.5 % Methemoglobin 0.4 % (0.0-1.9) Carbon Monoxide, Quantitative 0.3 % (0.0-1.9) FiO2 100 100 vent White Blood Count 11.2 x10^3/uL (4.0-11.0) Red Blood Count 3.91 x10^6/uL (3.50-5.40) Hemoglobin 11.3 g/dL (12.0-15.5) Hematocrit 34.8 % (36.0-47.0) Mean Corpuscular Volume 89 fL (79-100) Mean Corpuscular Hemoglobin 29 pg (25-35) Mean Corpuscular Hemoglobin Concent 32 g/dL (31-37) Red Cell Distribution Width 16.0 % (11.5-14.5) Platelet Count 142 x10^3/uL (140-400) Neutrophils (%) (Auto) 88 % (31-73) Lymphocytes (%) (Auto) 9 % (24-48) Monocytes (%) (Auto) 3 % (0-9) Eosinophils (%) (Auto) 1 % (0-3) Basophils (%) (Auto) 1 % (0-3) Neutrophils # (Auto) 9.8 x10^3/uL (1.8-7.7) Lymphocytes # (Auto) 1.0 x10^3/uL (1.0-4.8) Monocytes # (Auto) 0.3 x10^3/uL (0.0-1.1) Eosinophils # (Auto) 0.1 x10^3/uL (0.0-0.7) Basophils # (Auto) 0.1 x10^3/uL (0.0-0.2) Segmented Neutrophils % 80 % (35-66) Band Neutrophils % 1 % (0-9) Lymphocytes % 15 % (24-48) Monocytes % 2 % (0-10) Eosinophils % 2 % (0-5) Platelet Estimate Adequate (ADEQUATE) Large Platelets Few Giant Platelets Occ Sodium Level 141 mmol/L (136-145) Potassium Level 3.5 mmol/L (3.5-5.1) Chloride Level 106 mmol/L (98-107) Carbon Dioxide Level 26 mmol/L (21-32) Anion Gap 9 (6-14) Blood Urea Nitrogen 23 mg/dL (7-20) Creatinine 1.5 mg/dL (0.6-1.0) Estimated GFR (Cockcroft-Gault) 41.9 BUN/Creatinine Ratio 15 (6-20) Glucose Level 146 mg/dL (70-99) Lactic Acid Level 4.1 mmol/L (0.4-2.0) Calcium Level 8.0 mg/dL (8.5-10.1) Total Bilirubin 0.3 mg/dL (0.2-1.0) Aspartate Amino Transf (AST/SGOT) 33 U/L (15-37) Alanine Aminotransferase (ALT/SGPT) 28 U/L (14-59) Alkaline Phosphatase 105 U/L (46-116) WR-Msk-[id number]-Type Natriuretic Peptide 1565 pg/mL (0-124) Total Protein 5.8 g/dL (6.4-8.2) Albumin 2.7 g/dL (3.4-5.0) Albumin/Globulin Ratio 0.9 (1.0-1.7) Laboratory Tests Test 12/05/20 05:39 12/05/20 06:12 12/05/20 07:57 O2 Saturation 97 % (92-99) 99 % (92-99) Arterial Blood pH 7.22 (7.35-7.45) 7.47 (7.35-7.45) Arterial Blood pCO2 at Patient Temp 54 mmHg (35-46) 29 mmHg (35-46) Arterial Blood pO2 at Patient Temp 112 mmHg (65-108) 220 mmHg (65-108) Arterial Blood HCO3 22 mmol/L (21-28) 21 mmol/L (21-28) Arterial Blood Base Excess -6 mmol/L (-3-3) -2 mmol/L (-3-3) Oxyhemoglobin 96.5 % Methemoglobin 0.4 % (0.0-1.9) Carbon Monoxide, Quantitative 0.3 % (0.0-1.9) FiO2 100 100 vent White Blood Count 11.2 x10^3/uL (4.0-11.0) Red Blood Count 3.91 x10^6/uL (3.50-5.40) Hemoglobin 11.3 g/dL (12.0-15.5) Hematocrit 34.8 % (36.0-47.0) Mean Corpuscular Volume 89 fL (79-100) Mean Corpuscular Hemoglobin 29 pg (25-35) Mean Corpuscular Hemoglobin Concent 32 g/dL (31-37) Red Cell Distribution Width 16.0 % (11.5-14.5) Platelet Count 142 x10^3/uL (140-400) Neutrophils (%) (Auto) 88 % (31-73) Lymphocytes (%) (Auto) 9 % (24-48) Monocytes (%) (Auto) 3 % (0-9) Eosinophils (%) (Auto) 1 % (0-3) Basophils (%) (Auto) 1 % (0-3) Neutrophils # (Auto) 9.8 x10^3/uL (1.8-7.7) Lymphocytes # (Auto) 1.0 x10^3/uL (1.0-4.8) Monocytes # (Auto) 0.3 x10^3/uL (0.0-1.1) Eosinophils # (Auto) 0.1 x10^3/uL (0.0-0.7) Basophils # (Auto) 0.1 x10^3/uL (0.0-0.2) Segmented Neutrophils % 80 % (35-66) Band Neutrophils % 1 % (0-9) Lymphocytes % 15 % (24-48) Monocytes % 2 % (0-10) Eosinophils % 2 % (0-5) Platelet Estimate Adequate (ADEQUATE) Large Platelets Few Giant Platelets Occ Sodium Level 141 mmol/L (136-145) Potassium Level 3.5 mmol/L (3.5-5.1) Chloride Level 106 mmol/L (98-107) Carbon Dioxide Level 26 mmol/L (21-32) Anion Gap 9 (6-14) Blood Urea Nitrogen 23 mg/dL (7-20) Creatinine 1.5 mg/dL (0.6-1.0) Estimated GFR (Cockcroft-Gault) 41.9 BUN/Creatinine Ratio 15 (6-20) Glucose Level 146 mg/dL (70-99) Lactic Acid Level 4.1 mmol/L (0.4-2.0) Calcium Level 8.0 mg/dL (8.5-10.1) Total Bilirubin 0.3 mg/dL (0.2-1.0) Aspartate Amino Transf (AST/SGOT) 33 U/L (15-37) Alanine Aminotransferase (ALT/SGPT) 28 U/L (14-59) Alkaline Phosphatase 105 U/L (46-116) QU-Ejs-O-Type Natriuretic Peptide 1565 pg/mL (0-124) Total Protein 5.8 g/dL (6.4-8.2) Albumin 2.7 g/dL (3.4-5.0) Albumin/Globulin Ratio 0.9 (1.0-1.7) Medications Active Scripts Medications Dose Route/Sig Max Daily Dose Days Date Category Gabapentin 600 Mg Tablet 600 Mg PO BID 07/16/20 Reported Eliquis (Apixaban) 5 Mg Tablet 10 Mg PO BID 30 05/29/20 Rx Toprol Xl (Metoprolol Succinate) 25 Mg Tab.er.24h 0.5 Tab PO DAILY 30 04/01/20 Rx Paroxetine Hcl 40 Mg Tablet 40 Mg PO DAILY 30 03/30/20 Reported Atorvastatin Calcium 20 Mg Tablet 1 Tab PO DAILY 05/20/18 Reported Proair Hfa Inhaler (Albuterol Sulfate) 8.5 Gm Hfa.aer.ad 1-2 Puff INH PRN Q4HRS PRN 05/20/18 Reported Loratadine 10 Mg Tablet 1 Tab PO DAILY 05/20/18 Reported Flonase Allergy Relief (Fluticasone Propionate) 9.9 Ml Francisco.susp 2 Sprays NS DAILY 05/20/18 Reported Allopurinol 100 Mg Tablet 1 Tab PO DAILY 05/20/18 Reported Vitamin D2 (Ergocalciferol (Vitamin D2)) 50,000 Unit Capsule 1 Cap PO WEEKLY 05/20/18 Reported Geodon (Ziprasidone Hcl) 80 Mg Capsule 1 Cap PO BID 05/20/18 Reported Potassium Chloride (Potassium Chloride) 20 Meq Tablet.er 20 Meq PO DAILY 05/20/18 Reported Tramadol Hcl 50 Mg Tablet 50 Mg PO TID 05/20/18 Reported Symbicort 160-4.5 Mcg Inhaler (Budesonide/Formoterol Fumarate) 10.2 Gm Hfa.aer.ad 2 Puff IH BID 05/20/18 Reported Omeprazole 20 Mg Capsule.dr 1 Cap PO DAILY 05/20/18 Reported Impression . Full note dictated A/C chf doubt pneumonia doublt VAL Leblanc MD Dec 05, 2020 11:24
[2020-12-05] MEDS ORDERED: INFLUENZA VAX SCREEN BY RX. MC ONE (11:30)
--- NOTE | 2020-12-05 14:06 | CONS ---
DATE OF CONSULTATION: 12/05/2020 ATTENDING PHYSICIAN: Dr. Pichardo REASON FOR CONSULTATION: The patient is seen in pulmonary consultation at the request of Dr. Pichardo for acute respiratory failure, abnormal chest x-ray compatible with acute pulmonary edema. HISTORY OF PRESENT ILLNESS: The patient is a 65-year-old with a history of chronic heart failure, hypertension, who presented to the Emergency Department for evaluation of respiratory distress. Family called 911. EMS arrived, the patient was in respiratory distress. Saturations of 80. GCS of 8. Upon arrival to the Emergency Room, she had a GCS of 3. O2 sats 90% bag valve mask. The patient was in respiratory distress. She was intubated. She is currently in the intensive care unit. I reviewed her labs. Her white count was slightly elevated. Hemoglobin and hematocrit were noted. BUN and creatinine were elevated. Lactic acid level was elevated. Arterial blood gas revealed a pH initially of 722, PaCO2 of 54, pO2 112 Repeat arterial blood gas, pH of 7.47, PaCO2 of 29, PaO2 of 220. Chest x-ray was reviewed. There is bilateral pulmonary infiltrates compatible with pulmonary edema. The patient has been treated with IV Lasix. She was given some empiric antibiotics. She was also given dexamethasone along with IV Lasix. Her SARS-CoV-2 is pending. PAST MEDICAL HISTORY: Remarkable for previous acute flash pulmonary edema requiring mechanical ventilation. She was then back in 07/2010 with similar type of presentation. PAST MEDICAL HISTORY: Otherwise remarkable for COPD, chronic heart failure, hypertension, smoker, pulmonary emboli in 05/2020 with negative DVT on home Eliquis. She also has a history of depression, anxiety, osteoarthritis, chronic renal insufficiency. PAST SURGICAL HISTORY: No recent surgeries. ALLERGIES: PENICILLIN AND ASPIRIN. CURRENT MEDICATIONS: List was reviewed. REVIEW OF SYSTEMS: Unobtainable secondary to the patient's condition. PHYSICAL EXAMINATION: GENERAL: The patient was on mechanical ventilation. VITAL SIGNS: O2 saturation was greater than 92%. HEENT: Eyes: The sclerae were nonicteric. NECK: Jugular venous distention was not elevated. No lymphadenopathy. CHEST: Full expansion. LUNGS: Crackles throughout both lung gaona. CARDIOVASCULAR: Regular rate and rhythm with S1, S2, no S3. ABDOMEN: Soft, nontender, nondistended. EXTREMITIES: No clubbing, cyanosis. Minimal edema. NEUROLOGICAL: The patient was sedated. LABORATORY DATA: As indicated above. Chest x-ray as indicated above. BNP was elevated. IMPRESSION: 1. Acute hypoxemic respiratory failure. 2. Acute on chronic diastolic, systolic heart failure. 3. Hypertension. 4. Chronic obstructive pulmonary disease. 5. History of pulmonary emboli, negative venous Dopplers in 05/2020. 6. Obesity. PLAN: 1. Continue current mechanical support. 2. Diurese. 3. Discontinue vancomycin. 4. SARS-CoV-2 pending, clinical suspicion is low. 5. Continue home medications. I do appreciate the privilege in sharing in the patient's care. VAL CLARKE MD DR: ANNA/carley JOB#: [id number] / [id number]
--- NOTE | 2020-12-05 14:33 | PDOC2 ---
CARDIAC CONSULT DATE OF CONSULT Date of Consult DATE: 12/05/20 TIME: 14:26 REASON FOR CONSULT Reason for Consult: CHF REFERRING PHYSICIAN Referring Physician: Dr. Pichardo SOURCE Source: Chart review HISTORY OF PRESENT ILLNESS HISTORY OF PRESENT ILLNESS This is a 65 yo female who presented secondary to shortness of breath, respiratory distress. Required intubated shortly after arrival. Son reports she had been short of breath for the last couple of days. Much worse this am. Thinks she probable ate too much salt. No reports of chest pain, dizziness, diaphoresis, fevers, or recent illness. PAST MEDICAL HISTORY Past Medical History Cardiovascular: CHF, HTN, Hyperlipidemia Pulmonary: COPD, Other (CAIO), PE Heme/Onc: Anemia NOS Psych: Anxiety, Depression, Schizophrenia Musculoskeletal: Osteoarthritis Renal/: Chronic renal insuff PAST SURGICAL HISTORY Past Surgical History: No pertinent history FAMILY HISTORY Family History: Hypertension SOCIAL HISTORY Social History Smoke: No Drugs: None Lives: with Family CURRENT MEDICATIONS CURRENT MEDICATIONS Current Medications Medications (Trade) Dose Ordered Sig/Betsy Route PRN Reason Start Time Stop Time Status Last Admin Dose Admin Dexamethasone Sodium Phosphate (Decadron) 10 mg 1X ONCE IV 12/05/20 05:30 12/05/20 05:31 DC 12/05/20 05:59 Azithromycin 250 ml @ 250 mls/hr 1X ONCE IV 12/05/20 05:30 12/05/20 06:29 DC 12/05/20 05:59 Etomidate (Amidate) 20 mg 1X ONCE IV 12/05/20 05:30 12/05/20 05:31 DC 12/05/20 05:23 Succinylcholine Chloride (Anectine) 100 mg 1X ONCE IV 12/05/20 05:30 12/05/20 05:31 DC 12/05/20 05:23 Vancomycin HCl 2 gm/Sodium Chloride 500 ml @ 250 mls/hr 1X ONCE IV 12/05/20 06:00 12/05/20 07:59 DC 12/05/20 05:59 Vancomycin HCl (Vanco Per Pharmacy) 1 each PRN DAILY PRN MC SEE COMMENTS 12/05/20 06:00 12/05/20 13:02 DC 12/05/20 06:53 Midazolam HCl 100 ml @ 0 mls/hr CONT PRN IV SEE PROTOCOL 12/05/20 06:15 12/05/20 14:09 Aztreonam (Azactam) 2 gm 1X ONCE IVP 12/05/20 07:00 12/05/20 07:01 DC 12/05/20 07:54 Furosemide (Lasix) 40 mg 1X ONCE IVP 12/05/20 07:00 12/05/20 07:01 DC 12/05/20 07:55 Sodium Chloride 1,000 ml @ 1,000 mls/hr 1X ONCE IV 12/05/20 08:45 12/05/20 09:48 DC 12/05/20 06:00 Fentanyl Citrate 30 ml @ 0 mls/hr CONT PRN IV SEE PROTOCOL 12/05/20 10:45 12/05/20 12:14 ALLERGIES ALLERGIES: Coded Allergies: Penicillins (Verified Allergy, Intermediate, 05/21/18) aspirin (Verified Allergy, Intermediate, 05/21/18) ROS Review of System unobtainable PHYSICAL EXAM General: Other (sedated) HEENT: Atraumatic, Mucous membr. moist/pink Lungs: Other (mechanical vent ) Heart: Regular rate Abdomen: Other (non-distended ) Extremities: Other (trace bilateral LE edema ) Skin: No significant lesion Neuro: Other (sedated) MUSCULOSKELETAL: Osteoarthritic changes both hands VITALS/I&O VITALS/I&O: Vital Signs Date Time Temp Pulse Resp B/P (MAP) Pulse Ox O2 Delivery O2 Flow Rate FiO2 12/05/20 14:00 69 22 140/66 (90) 100 Ventilator 12/05/20 12:00 98.0 98.0 LABS Lab: Laboratory Tests Test 12/05/20 05:39 12/05/20 06:12 12/05/20 07:57 O2 Saturation 97 % (92-99) 99 % (92-99) Arterial Blood pH 7.22 (7.35-7.45) L 7.47 (7.35-7.45) H Arterial Blood pCO2 at Patient Temp 54 mmHg (35-46) H 29 mmHg (35-46) L Arterial Blood pO2 at Patient Temp 112 mmHg (65-108) H 220 mmHg (65-108) H Arterial Blood HCO3 22 mmol/L (21-28) 21 mmol/L (21-28) Arterial Blood Base Excess -6 mmol/L (-3-3) L -2 mmol/L (-3-3) Oxyhemoglobin 96.5 % Methemoglobin 0.4 % (0.0-1.9) Carbon Monoxide, Quantitative 0.3 % (0.0-1.9) FiO2 100 100 vent White Blood Count 11.2 x10^3/uL (4.0-11.0) H Red Blood Count 3.91 x10^6/uL (3.50-5.40) Hemoglobin 11.3 g/dL (12.0-15.5) L Hematocrit 34.8 % (36.0-47.0) L Mean Corpuscular Volume 89 fL (79-100) Mean Corpuscular Hemoglobin 29 pg (25-35) Mean Corpuscular Hemoglobin Concent 32 g/dL (31-37) Red Cell Distribution Width 16.0 % (11.5-14.5) H Platelet Count 142 x10^3/uL (140-400) Neutrophils (%) (Auto) 88 % (31-73) H Lymphocytes (%) (Auto) 9 % (24-48) L Monocytes (%) (Auto) 3 % (0-9) Eosinophils (%) (Auto) 1 % (0-3) Basophils (%) (Auto) 1 % (0-3) Neutrophils # (Auto) 9.8 x10^3/uL (1.8-7.7) H Lymphocytes # (Auto) 1.0 x10^3/uL (1.0-4.8) Monocytes # (Auto) 0.3 x10^3/uL (0.0-1.1) Eosinophils # (Auto) 0.1 x10^3/uL (0.0-0.7) Basophils # (Auto) 0.1 x10^3/uL (0.0-0.2) Segmented Neutrophils % 80 % (35-66) H Band Neutrophils % 1 % (0-9) Lymphocytes % 15 % (24-48) L Monocytes % 2 % (0-10) Eosinophils % 2 % (0-5) Platelet Estimate Adequate (ADEQUATE) Large Platelets Few Giant Platelets Occ Sodium Level 141 mmol/L (136-145) Potassium Level 3.5 mmol/L (3.5-5.1) Chloride Level 106 mmol/L (98-107) Carbon Dioxide Level 26 mmol/L (21-32) Anion Gap 9 (6-14) Blood Urea Nitrogen 23 mg/dL (7-20) H Creatinine 1.5 mg/dL (0.6-1.0) H Estimated GFR (Cockcroft-Gault) 41.9 BUN/Creatinine Ratio 15 (6-20) Glucose Level 146 mg/dL (70-99) H Lactic Acid Level 4.1 mmol/L (0.4-2.0) *H Calcium Level 8.0 mg/dL (8.5-10.1) L Total Bilirubin 0.3 mg/dL (0.2-1.0) Aspartate Amino Transferase (AST) 33 U/L (15-37) Alanine Aminotransferase (ALT) 28 U/L (14-59) Alkaline Phosphatase 105 U/L (46-116) QX-Dgy-E-Type Natriuretic Peptide 1565 pg/mL (0-124) H Total Protein 5.8 g/dL (6.4-8.2) L Albumin 2.7 g/dL (3.4-5.0) L Albumin/Globulin Ratio 0.9 (1.0-1.7) L Laboratory Tests 12/05/20 06:12 Laboratory Tests 12/05/20 06:12 ECHOCARDIOGRAM ECHOCARDIOGRAM <Conclusion> The left ventricular systolic function is normal. The Ejection Fraction is 60%. There is normal LV segmental wall motion. The left atrium is moderately dilated. Mild aortic regurgitation. Trace tricuspid regurgitation. The PA pressure was estimated at 17 mmHg. There is no evidence of significant pericardial effusion. DATE: 03/10/19 1157 <Conclusion> The left ventricular systolic function is normal and the ejection fraction is within normal range. The Ejection Fraction is 60-65%. There is normal LV segmental wall motion. Doppler and Color Flow revealed moderate aortic regurgitation. DATE: 05/26/20 0903 STRESS TEST STRESS TEST Conclusion 1. Regadenoson cardioisotope stress test did not show any evidence of ischemia or infarct. 2. Normal left ventricular systolic function with ejection fraction calculated at 74%. 3. Low risk for cardiac events. DATE: 05/21/18 1523 ASSESSMENT/PLAN ASSESSMENT/PLAN 1. Acute on chronic respiratory failure in setting of a/c CHF. s/p intubation 2. Acute on chronic diastolic CHF; poor compliance with Na restriction per son. Recent echo with preserved LV systolic function 3. YESENIA on CKD 4. Leukocytosis, lactic acidosis 5. Morbid obesity 6. H/o PE; was on Eliquis. Repeat CTA 07/21 negative for PE 7. Hypertension; initially low-end. now adequate 8. Obesity 9. PUI; COVID pending Recommendations Diuresis with monitoring of renal function 2Gm Na diet Lung optimization as per pulm Consider outpatient ischemic evaluation Supportive care SOM AHUJA APRN Dec 05, 2020 14:33
[2020-12-05] MEDS: ENOXAPARIN 40 MG/0.4 ML SYRINGE. SQ SCH (16:13)
[2020-12-05] MEDS: FAMOTIDINE 20 MG/2 ML VIAL IVP SCH (20:25)
[2020-12-06] VITALS (24 sets, daily range): BP systolic 114–168; BP diastolic 50–76
[2020-12-06] MEDS ORDERED: VANCOMYCIN 1.75 GM in IV NORMAL SALINE 500ML BAG 500 ML IV SCH (06:00)
[2020-12-06 06:35] LABS: HEMATOCRIT 35.8 % (36.0-47.0); RED BLOOD COUNT 4.16 x10^6/uL (3.50-5.40); RED CELL DISTRIBUTION WIDTH 15.7 % (11.5-14.5); WHITE BLOOD COUNT 9.2 x10^3/uL (4.0-11.0)
[2020-12-06 06:40] LABS: CALCIUM 8.7 mg/dL (8.5-10.1); CREATININE 1.1 mg/dL (0.6-1.0); GFR 59.9
[2020-12-06] MEDS: PANTOPRAZOLE 40 MG TABLET.DR. PO SCH (07:29)
[2020-12-06] MEDS: FUROSEMIDE 40 MG/4 ML VIAL. IVP SCH (07:29)
[2020-12-06] MEDS: CHLORHEXIDINE 0.12% 15 ML MOUTHWASH. MM SCH (07:30)
[2020-12-06] MEDS: ATORVASTATIN CALCIUM 20 MG TABLET PO SCH (07:30)
[2020-12-06] MEDS: FAMOTIDINE 20 MG/2 ML VIAL IVP SCH ×2 (07:30→21:09)
[2020-12-06] MEDS: MIDAZOLAM 100mg/100ml NS BAG 100 ML IV PRN (07:31)
--- NOTE | 2020-12-06 07:31 | PDOC ---
[facility] PROGRESS NOTE Date of Service DOS: DATE: 12/06/20 TIME: 07:29 History of Present Illness History of Present Illness Ms Ayon is a 65yo F w/ PMHx asthma with COPD, diastolic CHF, hypertension, RLS, smoker, pulmonary embolism in May 2020 with negative DVT, on home Eliquis brought to ED via EMS due to respiratory distress. Family called 911 patient with difficulty breathing. Per EMS on there arrival patient respiratory distress, oxygen saturations in the 80s, and a GCS of 8. On arrival to patient with a GCS of 3, O2 sat 90's bag valve mask, decreased breath sounds all gaona. Patient was intubated shortly after arrival. Seen after intubation. Chest radiograph with bilateral pulmonary infiltrates consistent with pulmonary edema. WBC 11.2, Hb 11.3, Platelets 142, Na 141, K 3.5, BUN 23, Cr 1.5, glucose 146. Lactate 4.1, Albumin 2.7, BNP 1565 ABG with pH 7.22, PaCO2 of 54, pO2 112 on 100% FiO2 Admitted to ICU for further care. 12/06: Patient seen in ICU. Breathing on vent, FiO2 40%, PEEP 5. Continue diuresis with Lasix twice daily. Ventilator management per pulmonology. COVID- 19 pending. Vitals/I&O Vitals/I&O: Vital Signs Date Time Temp Pulse Resp B/P (MAP) Pulse Ox O2 Delivery O2 Flow Rate FiO2 12/06/20 07:00 86 22 159/76 (103) 100 Ventilator 12/06/20 04:00 98.5 98.5 I & O 12/05/20 12/05/20 12/06/20 15:00 23:00 07:00 Intake Total 1750 ml 65.08 ml 113 ml Output Total 2250 ml 625 ml 335 ml Balance -500 ml -559.92 ml -222 ml Physical Exam General: mild distress, Other (Sedated, intubated) Heart: Regular rate Lungs: Clear Abdomen: Normal bowel sounds, Soft, No tenderness, No hepatosplenomegaly, No ma sses Extremities: No clubbing, No cyanosis, No edema, Normal pulses, No tenderness/swelling Skin: No rashes, No breakdown, No significant lesion Labs Labs: Laboratory Tests Test 12/05/20 07:57 12/05/20 12:45 12/06/20 06:00 O2 Saturation 99 % (92-99) Arterial Blood pH 7.47 (7.35-7.45) Arterial Blood pCO2 at Patient Temp 29 mmHg (35-46) Arterial Blood pO2 at Patient Temp 220 mmHg (65-108) Arterial Blood HCO3 21 mmol/L (21-28) Arterial Blood Base Excess -2 mmol/L (-3-3) FiO2 100 vent Lactic Acid Level 1.9 mmol/L (0.4-2.0) White Blood Count 9.2 x10^3/uL (4.0-11.0) Red Blood Count 4.16 x10^6/uL (3.50-5.40) Hemoglobin 12.0 g/dL (12.0-15.5) Hematocrit 35.8 % (36.0-47.0) Mean Corpuscular Volume 86 fL (79-100) Mean Corpuscular Hemoglobin 29 pg (25-35) Mean Corpuscular Hemoglobin Concent 33 g/dL (31-37) Red Cell Distribution Width 15.7 % (11.5-14.5) Platelet Count 138 x10^3/uL (140-400) Sodium Level 144 mmol/L (136-145) Potassium Level 3.0 mmol/L (3.5-5.1) Chloride Level 108 mmol/L (98-107) Carbon Dioxide Level 25 mmol/L (21-32) Anion Gap 11 (6-14) Blood Urea Nitrogen 18 mg/dL (7-20) Creatinine 1.1 mg/dL (0.6-1.0) Estimated GFR (Cockcroft-Gault) 59.9 Glucose Level 107 mg/dL (70-99) Calcium Level 8.7 mg/dL (8.5-10.1) Assessment and Plan Assessmemt and Plan Problems Medical Problems: (1) Person under investigation for COVID-19 Status: Acute (2) Respiratory distress Status: Acute (3) Respiratory failure Status: Acute Comment Review of Relevant I have reviewed the following items babar (where applicable) has been applied. Medications: Current Medications Medications (Trade) Dose Ordered Sig/Betsy Route PRN Reason Start Time Stop Time Status Last Admin Dose Admin Chlorhexidine Gluconate (Peridex) 15 ml BID MM 12/05/20 09:00 12/05/20 20:25 Sodium Chloride 1,000 ml @ 1,000 mls/hr 1X ONCE IV 12/05/20 08:45 12/05/20 09:48 DC 12/05/20 06:00 Fentanyl Citrate 30 ml @ 0 mls/hr CONT PRN IV SEE PROTOCOL 12/05/20 10:45 12/05/20 22:17 Famotidine (Pepcid Vial) 20 mg BID IVP 12/05/20 21:00 12/05/20 20:25 Enoxaparin Sodium (Lovenox 40mg Syringe) 40 mg Q24H SQ 12/05/20 16:00 12/05/20 16:13 Justifications for Admission Other Justification MARYELLEN MONK MD Dec 06, 2020 07:31
[2020-12-06] MEDS ORDERED: POTASSIUM BICARB 20 MEQ EFFERVESCENT TABLET. PEG ONE (07:45)
--- NOTE | 2020-12-06 08:24 | RAD ---
EXAM: Chest, single view. HISTORY: Covid 19. COMPARISON: 12/05/2020 FINDINGS: A frontal view of the chest obtained. There is an endotracheal tube within the mid trachea. There is a nasogastric tube within the stomach. There has been slight interval decrease in central p redominant interstitial infiltrate. There is a stable small left pleural effusion and suspected parti al left lower lobe consolidation. The heart is stable in size. There is no pneumothorax. IMPRESSION: 1. Decrease in central predominant diffuse interstitial infiltrate. 2. Stable small left pleural effusion and suspected partial left lower lobe consolidation. Electronically signed by: Irasema Painting MD (12/06/2020 8:22 AM) [id number]
[2020-12-06] MEDS: ZIPRASIDONE 20 MG CAPSULE PO SCH ×2 (08:34→21:09)
[2020-12-06 09:00] LABS: BASE EXCESS ABG 4 mmol/L (-3-3); HCO3 ABG 26 mmol/L (21-28); PCO2 ABG 29 mmHg (35-46); PO2 ABG 121 mmHg (65-108); SAT O2 ABG 98 % (92-99)
[2020-12-06] MEDS ORDERED: METOPROLOL SUCC 24HR ER 25 MG TAB.ER.24H. PO SCH (09:00)
--- NOTE | 2020-12-06 09:04 | PDOC ---
PULMONARY PROGRESS NOTES DATE: 12/06/20 TIME: 08:56 Subjective intubated/sedated down to 40%FIO2 AC mode Vitals Vital Signs Date Time Temp Pulse Resp B/P (MAP) Pulse Ox O2 Delivery O2 Flow Rate FiO2 12/06/20 07:52 100 Ventilator 12/06/20 07:00 86 22 159/76 (103) 12/06/20 04:00 98.5 98.5 Comments ac mode Lungs: Clear Cardiovascular: S1, S2 Abdomen: Soft, Non-tender Extremities: No Edema Skin: Warm Labs Laboratory Tests Test 12/05/20 05:39 12/05/20 06:12 12/05/20 07:57 12/05/20 12:45 O2 Saturation 97 % (92-99) 99 % (92-99) Arterial Blood pH 7.22 (7.35-7.45) 7.47 (7.35-7.45) Arterial Blood pCO2 at Patient Temp 54 mmHg (35-46) 29 mmHg (35-46) Arterial Blood pO2 at Patient Temp 112 mmHg (65-108) 220 mmHg (65-108) Arterial Blood HCO3 22 mmol/L (21-28) 21 mmol/L (21-28) Arterial Blood Base Excess -6 mmol/L (-3-3) -2 mmol/L (-3-3) Oxyhemoglobin 96.5 % Methemoglobin 0.4 % (0.0-1.9) Carbon Monoxide, Quantitative 0.3 % (0.0-1.9) FiO2 100 100 vent White Blood Count 11.2 x10^3/uL (4.0-11.0) Red Blood Count 3.91 x10^6/uL (3.50-5.40) Hemoglobin 11.3 g/dL (12.0-15.5) Hematocrit 34.8 % (36.0-47.0) Mean Corpuscular Volume 89 fL (79-100) Mean Corpuscular Hemoglobin 29 pg (25-35) Mean Corpuscular Hemoglobin Concent 32 g/dL (31-37) Red Cell Distribution Width 16.0 % (11.5-14.5) Platelet Count 142 x10^3/uL (140-400) Neutrophils (%) (Auto) 88 % (31-73) Lymphocytes (%) (Auto) 9 % (24-48) Monocytes (%) (Auto) 3 % (0-9) Eosinophils (%) (Auto) 1 % (0-3) Basophils (%) (Auto) 1 % (0-3) Neutrophils # (Auto) 9.8 x10^3/uL (1.8-7.7) Lymphocytes # (Auto) 1.0 x10^3/uL (1.0-4.8) Monocytes # (Auto) 0.3 x10^3/uL (0.0-1.1) Eosinophils # (Auto) 0.1 x10^3/uL (0.0-0.7) Basophils # (Auto) 0.1 x10^3/uL (0.0-0.2) Segmented Neutrophils % 80 % (35-66) Band Neutrophils % 1 % (0-9) Lymphocytes % 15 % (24-48) Monocytes % 2 % (0-10) Eosinophils % 2 % (0-5) Platelet Estimate Adequate (ADEQUATE) Large Platelets Few Giant Platelets Occ Sodium Level 141 mmol/L (136-145) Potassium Level 3.5 mmol/L (3.5-5.1) Chloride Level 106 mmol/L (98-107) Carbon Dioxide Level 26 mmol/L (21-32) Anion Gap 9 (6-14) Blood Urea Nitrogen 23 mg/dL (7-20) Creatinine 1.5 mg/dL (0.6-1.0) Estimated GFR (Cockcroft-Gault) 41.9 BUN/Creatinine Ratio 15 (6-20) Glucose Level 146 mg/dL (70-99) Lactic Acid Level 4.1 mmol/L (0.4-2.0) 1.9 mmol/L (0.4-2.0) Calcium Level 8.0 mg/dL (8.5-10.1) Total Bilirubin 0.3 mg/dL (0.2-1.0) Aspartate Amino Transf (AST/SGOT) 33 U/L (15-37) Alanine Aminotransferase (ALT/SGPT) 28 U/L (14-59) Alkaline Phosphatase 105 U/L (46-116) IS-Gvv-U-Type Natriuretic Peptide 1565 pg/mL (0-124) Total Protein 5.8 g/dL (6.4-8.2) Albumin 2.7 g/dL (3.4-5.0) Albumin/Globulin Ratio 0.9 (1.0-1.7) Test 12/06/20 06:00 White Blood Count 9.2 x10^3/uL (4.0-11.0) Red Blood Count 4.16 x10^6/uL (3.50-5.40) Hemoglobin 12.0 g/dL (12.0-15.5) Hematocrit 35.8 % (36.0-47.0) Mean Corpuscular Volume 86 fL (79-100) Mean Corpuscular Hemoglobin 29 pg (25-35) Mean Corpuscular Hemoglobin Concent 33 g/dL (31-37) Red Cell Distribution Width 15.7 % (11.5-14.5) Platelet Count 138 x10^3/uL (140-400) Sodium Level 144 mmol/L (136-145) Potassium Level 3.0 mmol/L (3.5-5.1) Chloride Level 108 mmol/L (98-107) Carbon Dioxide Level 25 mmol/L (21-32) Anion Gap 11 (6-14) Blood Urea Nitrogen 18 mg/dL (7-20) Creatinine 1.1 mg/dL (0.6-1.0) Estimated GFR (Cockcroft-Gault) 59.9 Glucose Level 107 mg/dL (70-99) Calcium Level 8.7 mg/dL (8.5-10.1) Laboratory Tests Test 12/05/20 12:45 12/06/20 06:00 Lactic Acid Level 1.9 mmol/L (0.4-2.0) White Blood Count 9.2 x10^3/uL (4.0-11.0) Red Blood Count 4.16 x10^6/uL (3.50-5.40) Hemoglobin 12.0 g/dL (12.0-15.5) Hematocrit 35.8 % (36.0-47.0) Mean Corpuscular Volume 86 fL (79-100) Mean Corpuscular Hemoglobin 29 pg (25-35) Mean Corpuscular Hemoglobin Concent 33 g/dL (31-37) Red Cell Distribution Width 15.7 % (11.5-14.5) Platelet Count 138 x10^3/uL (140-400) Sodium Level 144 mmol/L (136-145) Potassium Level 3.0 mmol/L (3.5-5.1) Chloride Level 108 mmol/L (98-107) Carbon Dioxide Level 25 mmol/L (21-32) Anion Gap 11 (6-14) Blood Urea Nitrogen 18 mg/dL (7-20) Creatinine 1.1 mg/dL (0.6-1.0) Estimated GFR (Cockcroft-Gault) 59.9 Glucose Level 107 mg/dL (70-99) Calcium Level 8.7 mg/dL (8.5-10.1) Medications Active Scripts Medications Dose Route/Sig Max Daily Dose Days Date Category Gabapentin 600 Mg Tablet 600 Mg PO BID 07/16/20 Reported Eliquis (Apixaban) 5 Mg Tablet 10 Mg PO BID 30 05/29/20 Rx Toprol Xl (Metoprolol Succinate) 25 Mg Tab.er.24h 0.5 Tab PO DAILY 30 04/01/20 Rx Paroxetine Hcl 40 Mg Tablet 40 Mg PO DAILY 30 03/30/20 Reported Atorvastatin Calcium 20 Mg Tablet 1 Tab PO DAILY 05/20/18 Reported Proair Hfa Inhaler (Albuterol Sulfate) 8.5 Gm Hfa.aer.ad 1-2 Puff INH PRN Q4HRS PRN 05/20/18 Reported Loratadine 10 Mg Tablet 1 Tab PO DAILY 05/20/18 Reported Flonase Allergy Relief (Fluticasone Propionate) 9.9 Ml [place].susp 2 Sprays NS DAILY 05/20/18 Reported Allopurinol 100 Mg Tablet 1 Tab PO DAILY 05/20/18 Reported Vitamin D2 (Ergocalciferol (Vitamin D2)) 50,000 Unit Capsule 1 Cap PO WEEKLY 05/20/18 Reported Geodon (Ziprasidone Hcl) 80 Mg Capsule 1 Cap PO BID 05/20/18 Reported Potassium Chloride (Potassium Chloride) 20 Meq Tablet.er 20 Meq PO DAILY 05/20/18 Reported Tramadol Hcl 50 Mg Tablet 50 Mg PO TID 05/20/18 Reported Symbicort 160-4.5 Mcg Inhaler (Budesonide/Formoterol Fumarate) 10.2 Gm Hfa.aer.ad 2 Puff IH BID 05/20/18 Reported Omeprazole 20 Mg Capsule.dr 1 Cap PO DAILY 05/20/18 Reported Comments resolved CHF Impression . 1. Acute hypoxemic respiratory failure. 2. Acute on chronic diastolic, heart failure.moderate AI 3. Hypertension. 4. Chronic obstructive pulmonary disease. 5. History of pulmonary emboli, negative venous Dopplers in 05/2020. 6. Obesity. Plan . PLAN: 1. Continue current mechanical support.dc sedation, trial of CPAP once awake 2. Diurese. 3. off vancomycin. 4. SARS-CoV-2 pending, clinical suspicion is low. 5. Continue home medications. 6. cxr is clear now d/w RN/RT. plan discussed cct 30 min MAXIMO ROMERO MD Dec 06, 2020 09:04
[2020-12-06] MEDS ORDERED: METOPROLOL TART IMMED RELEASE 25 MG TABLET. PO ONE (12:30)
--- NOTE | 2020-12-06 12:42 | PDOC ---
CARDIO Progress Notes Date and Time Date of Service 12/06/2020 Time of Evaluation 1230 Subjective Subjective: Other (intubated) Vitals Vitals Vital Signs Date Time Temp Pulse Resp B/P (MAP) Pulse Ox O2 Delivery O2 Flow Rate FiO2 12/06/20 12:05 100 Ventilator 12/06/20 12:00 98.9 84 16 114/59 (77) 98.9 Weight Weight [ ] Input and Output Intake and Output Intake and Output 12/06/20 07:00 Intake Total 1928.08 ml Output Total 3210 ml Balance -1281.92 ml Intake IV Total 1928.08 ml Output Urine Total 3210 ml Laboratory Labs Laboratory Tests Test 12/05/20 12:45 12/06/20 06:00 12/06/20 08:00 Lactic Acid Level 1.9 mmol/L (0.4-2.0) White Blood Count 9.2 x10^3/uL (4.0-11.0) Red Blood Count 4.16 x10^6/uL (3.50-5.40) Hemoglobin 12.0 g/dL (12.0-15.5) Hematocrit 35.8 % (36.0-47.0) Mean Corpuscular Volume 86 fL (79-100) Mean Corpuscular Hemoglobin 29 pg (25-35) Mean Corpuscular Hemoglobin Concent 33 g/dL (31-37) Red Cell Distribution Width 15.7 % (11.5-14.5) Platelet Count 138 x10^3/uL (140-400) Sodium Level 144 mmol/L (136-145) Potassium Level 3.0 mmol/L (3.5-5.1) Chloride Level 108 mmol/L (98-107) Carbon Dioxide Level 25 mmol/L (21-32) Anion Gap 11 (6-14) Blood Urea Nitrogen 18 mg/dL (7-20) Creatinine 1.1 mg/dL (0.6-1.0) Estimated GFR (Cockcroft-Gault) 59.9 Glucose Level 107 mg/dL (70-99) Calcium Level 8.7 mg/dL (8.5-10.1) O2 Saturation 98 % (92-99) Arterial Blood pH 7.57 (7.35-7.45) Arterial Blood pCO2 at Patient Temp 29 mmHg (35-46) Arterial Blood pO2 at Patient Temp 121 mmHg (65-108) Arterial Blood HCO3 26 mmol/L (21-28) Arterial Blood Base Excess 4 mmol/L (-3-3) FiO2 40/vent Physical Exam HEENT: Neck Supple W Full Motion Chest: Symmetric LUNGS: Other (diminished) Heart: RRR (SR with pACs) Abdomen: Other (obese) Assessment Assessment 1. Acute on chronic respiratory failure in setting of a/c CHF, COPD. s/p intubation, being weaned off vent 2. Acute on chronic diastolic CHF; poor compliance with Na restriction per son. Recent echo with preserved LV systolic function 3. YESENIA on CKD: improved 4. Leukocytosis, lactic acidosis, better 5. Morbid obesity 6. H/o PE; was on Eliquis. Repeat CTA 07/21 negative for PE 7. Hypertension; controlled 8. Obesity 9. PUI; COVID pending 10. HLP Recommendations 1. Replace K, Lasix therapy 2. Lung optimization as per pulm 3. Consider outpatient ischemic evaluation 4. Diet noncompliance, Dietary consult 5. Continue metoprolol and statin Justicifation of Admission Dx: Justifications for Admission: Justification of Admission Dx: Yes Respiratory Failure: Mechanical Ventilation Chronic Renal Failure: Encephalopathy Acute COPD Exacerbation: Acute COPD Exacerbation JAYJAY FRAZIER APRN Dec 06, 2020 12:42
--- NOTE | 2020-12-06 16:06 | NUR ---
SS following for discharge planning. SS reviewed pt chart and discussed with pt RN. Pt is from home with son and is currently on the vent at 40%. COVID19 test pending. Pt has private duty services at home. Possible extubation tomorrow. SS will continue to follow for discharge planning.
[2020-12-06] MEDS: ENOXAPARIN 40 MG/0.4 ML SYRINGE. SQ SCH (16:27)
[2020-12-06 17:11] LABS: BASE EXCESS ABG 1 mmol/L (-3-3); HCO3 ABG 24 mmol/L (21-28); PCO2 ABG 35 mmHg (35-46); PO2 ABG 98 mmHg (65-108); SAT O2 ABG 97 % (92-99)
[2020-12-06 17:15] LABS: FIO2 ABG 40/VENT
--- NOTE | 2020-12-06 18:11 | NUR ---
Patient's sedation turned down, CPAP trial completed by RT, ABG results given to Dr. Connell, orders received to extubate. Patient was extubated to 2L NC, tolerating well.
[2020-12-06] MEDS: METOPROLOL TART IMMED RELEASE 25 MG TABLET. PO SCH (21:11)
[2020-12-07] VITALS (18 sets, daily range): BP systolic 112–171; BP diastolic 52–78
[2020-12-07] MEDS: MORPHINE SULFATE 2 MG/ML VIAL. IV PRN ×2 (05:21→11:26)
[2020-12-07] MEDS: FUROSEMIDE 40 MG/4 ML VIAL. IVP SCH (08:04)
[2020-12-07] MEDS: FAMOTIDINE 20 MG/2 ML VIAL IVP SCH ×2 (08:05→20:56)
[2020-12-07] MEDS: PANTOPRAZOLE 40 MG TABLET.DR. PO SCH (08:05)
[2020-12-07] MEDS: METOPROLOL TART IMMED RELEASE 25 MG TABLET. PO SCH ×2 (08:05→20:56)
[2020-12-07] MEDS: ATORVASTATIN CALCIUM 20 MG TABLET PO SCH (08:05)
[2020-12-07] MEDS: ZIPRASIDONE 20 MG CAPSULE PO SCH ×2 (08:06→20:56)
--- NOTE | 2020-12-07 08:07 | PDOC ---
[facility] PROGRESS NOTE Date of Service DOS: DATE: 12/07/20 TIME: 08:03 Chief Complaint Chief Complaint Assessment/Plan A/P: Acute hypoxic and hypercapnic respiratory failure secondary to acute on chronic diastolic congestive heart failure. COVID 19 test sent, pending. Pulm consulted for vent management assistance Acute on chronic diastolic, systolic heart failure - will diurese. Cardiology consulted Lactic acidosis - not clearly due to sepsis, more likely from acute hypoxic respiratory failure. will trend Hypertension - stable on vent, will Chronic obstructive pulmonary disease - on vent currently, steroids, inhalers History of pulmonary emboli, negative venous Dopplers in 05/2020 - was on eliquis, will place on lovenox Obesity - will housing counselor Hypokalemia - will check mag, replace YESENIA - likely vasomotor nephropathy. will monitor Elevated lactic acid - likely from hypotension, poor perfusion improved BP maintain MAP greater than 65 otherwise give IV fluid bolus. H/o HTN - hold meds for today H/o depression - cont paxil and geodon FEN - NPO, will start tube feeds PPX - lovenox FULL CODE Dispo - inpatient, ICU History of Present Illness History of Present Illness Ms Ayon is a 65yo F w/ PMHx asthma with COPD, diastolic CHF, hypertension, RLS, smoker, pulmonary embolism in May 2020 with negative DVT, on home Eliquis brought to ED via EMS due to respiratory distress. Family called 911 patient with difficulty breathing. Per EMS on there arrival patient respiratory distress, oxygen saturations in the 80s, and a GCS of 8. On arrival to patient with a GCS of 3, O2 sat 90's bag valve mask, decreased breath sounds all [place]. Patient was intubated shortly after arrival. Seen after intubation. Chest radiograph with bilateral pulmonary infiltrates consistent with pulmonary edema. WBC 11.2, Hb 11.3, Platelets 142, Na 141, K 3.5, BUN 23, Cr 1.5, glucose 146. Lactate 4.1, Albumin 2.7, BNP 1565 ABG with pH 7.22, PaCO2 of 54, pO2 112 on 100% FiO2 Admitted to ICU for further care. 12/07: Patient seen and evaluated in ICU. She was extubated yesterday, currently saturating 95% on room air. Afebrile. COVID-19 negative. Continue to diurese. Discussed with RN. 12/06: Patient seen in ICU. Breathing on vent, FiO2 40%, PEEP 5. Continue diuresis with Lasix twice daily. Ventilator management per pulmonology. COVID- 19 pending. Vitals/I&O Vitals/I&O: Vital Signs Date Time Temp Pulse Resp B/P (MAP) Pulse Ox O2 Delivery O2 Flow Rate FiO2 12/07/20 07:22 98.7 87 16 148/76 (100) 95 Room Air 2.0 98.7 I & O 12/06/20 12/06/20 12/07/20 15:00 23:00 07:00 Intake Total 98 ml Output Total 1285 ml 575 ml 310 ml Balance -1285 ml -477 ml -310 ml Physical Exam General: Alert, No acute distress, Other Heart: Regular rate Lungs: Crackles Abdomen: Soft, No tenderness, No masses Extremities: No clubbing, No cyanosis, Normal pulses Skin: No rashes, No breakdown, No significant lesion Labs Labs: Laboratory Tests Test 12/06/20 16:52 O2 Saturation 97 % (92-99) Arterial Blood pH 7.46 (7.35-7.45) Arterial Blood pCO2 at Patient Temp 35 mmHg (35-46) Arterial Blood pO2 at Patient Temp 98 mmHg (65-108) Arterial Blood HCO3 24 mmol/L (21-28) Arterial Blood Base Excess 1 mmol/L (-3-3) FiO2 40/vent Assessment and Plan Assessmemt and Plan Problems Medical Problems: (1) Person under investigation for COVID-19 Status: Acute (2) Respiratory distress Status: Acute (3) Respiratory failure Status: Acute Comment Review of Relevant I have reviewed the following items babar (where applicable) has been applied. Medications: Current Medications Medications (Trade) Dose Ordered Sig/Betsy Route PRN Reason Start Time Stop Time Status Last Admin Dose Admin Furosemide (Lasix) 40 mg DAILY IVP 12/06/20 09:00 12/06/20 07:29 Atorvastatin Calcium (Lipitor) 20 mg DAILY PO 12/06/20 09:00 12/06/20 07:30 Ziprasidone (Geodon) 80 mg BID PO 12/06/20 09:00 12/06/20 21:09 Metoprolol Tartrate (Lopressor) 12.5 mg BID PO 12/06/20 21:00 12/06/20 21:11 Metoprolol Tartrate (Lopressor) 12.5 mg 1X ONCE PO 12/06/20 12:30 12/06/20 12:31 DC 12/06/20 12:55 Justifications for Admission Other Justification MARYELLEN MONK MD Dec 07, 2020 08:06
--- NOTE | 2020-12-07 10:06 | NUR ---
SS following up with discharge planning. SS reviewed pt chart and discussed with pt RN. Pt extubated and is currently on room air. COVID19 negative. Per RN, probable transfer to other floor today. SS will continue to follow for discharge planning.
--- NOTE | 2020-12-07 10:52 | PDOC ---
JAYJAY FRAZIER [employer] 12/07/20 1052: CARDIO Progress Notes Date and Time Date of Service 12/07/2020 Time of Evaluation 1020 Subjective Subjective: No Chest Pain, No shortness of breath, No Palpitations Vitals Vitals Vital Signs Date Time Temp Pulse Resp B/P (MAP) Pulse Ox O2 Delivery O2 Flow Rate FiO2 12/07/20 10:17 98.7 77 19 112/57 (75) 95 Room Air 2.0 98.7 Weight Weight [ ] Input and Output Intake and Output Intake and Output 12/07/20 07:00 Intake Total 98 ml Output Total 2170 ml Balance -2072 ml IV Total 98 ml Output Urine Total 2170 ml Laboratory Labs Laboratory Tests Test 12/06/20 16:52 O2 Saturation 97 % (92-99) Arterial Blood pH 7.46 (7.35-7.45) Arterial Blood pCO2 at Patient Temp 35 mmHg (35-46) Arterial Blood pO2 at Patient Temp 98 mmHg (65-108) Arterial Blood HCO3 24 mmol/L (21-28) Arterial Blood Base Excess 1 mmol/L (-3-3) FiO2 40/vent Microbiology Micro Microbiology 12/05/20 Blood Culture - Preliminary, Resulted NO GROWTH AFTER 1 DAY Physical Exam HEENT: Neck Supple W Full Motion Chest: Symmetric LUNGS: Other (diminished) Heart: RRR (SR with pACs) Abdomen: Other (obese) Extremities: No Calf Tenderness Neurology: alert, oriented, follow commands Assessment Assessment 1. Acute on chronic respiratory failure in setting of a/c CHF, COPD. post extubation able to take PO. Covid neg 2. Acute on chronic diastolic CHF: now compensated 3. YESENIA on CKD: improved 4. Leukocytosis, lactic acidosis; improved 5. Morbid obesity 6. H/o PE; was on Eliquis. Repeat CTA 07/21 negative for PE 7. Hypertension; controlled 8. Obesity 9. HLP Recommendations 1. Replace K, Lasix therapy change to PO BMP today 2. Lung optimization as per pulm 3. Consider outpatient ischemic evaluation 4. Diet noncompliance, Dietary consult 5. Continue metoprolol and statin Justicifation of Admission Dx: Justifications for Admission: Justification of Admission Dx: Yes Respiratory Failure: Mechanical Ventilation Chronic Renal Failure: Encephalopathy Acute COPD Exacerbation: Acute COPD Exacerbation SIXTO TAMAYO MD 12/07/202022: CARDIO Progress Notes Assessment Assessment Patient seen and examined I agree with our nurse practitioners assessment and plan as above. Acute on chronic respiratory failure, a/c CHF, COPD. post extubation able to take PO. Covid neg Acute on chronic diastolic CHF: now compensated YESENIA on CKD: improved H/o PE; was on Eliquis. Repeat CTA 07/21 negative for PE Hypertension; controlled HLP JAYJAY FRAZIER APRN Dec 07, 2020 10:52 SIXTO TAMAYO MD Dec 07, 2020 20:23
--- NOTE | 2020-12-07 11:23 | PDOC ---
PULMONARY PROGRESS NOTES DATE: 12/07/20 TIME: 11:20 Subjective Extubated on 12/06/20 now on room air no overnight events Vitals Vital Signs Date Time Temp Pulse Resp B/P (MAP) Pulse Ox O2 Delivery O2 Flow Rate FiO2 12/07/20 11:04 98.9 88 19 118/55 (76) 95 Room Air 2.0 98.9 ROS: No Nausea, No Chest Pain, No Abdominal Pain, No Increase Cough General: Alert, Oriented X4 Lungs: Clear Cardiovascular: S1, S2 Abdomen: Soft, Non-tender Extremities: No Edema Skin: Warm Labs Laboratory Tests Test 12/05/20 12:45 12/06/20 06:00 12/06/20 08:00 12/06/20 16:52 Lactic Acid Level 1.9 mmol/L (0.4-2.0) White Blood Count 9.2 x10^3/uL (4.0-11.0) Red Blood Count 4.16 x10^6/uL (3.50-5.40) Hemoglobin 12.0 g/dL (12.0-15.5) Hematocrit 35.8 % (36.0-47.0) Mean Corpuscular Volume 86 fL (79-100) Mean Corpuscular Hemoglobin 29 pg (25-35) Mean Corpuscular Hemoglobin Concent 33 g/dL (31-37) Red Cell Distribution Width 15.7 % (11.5-14.5) Platelet Count 138 x10^3/uL (140-400) Sodium Level 144 mmol/L (136-145) Potassium Level 3.0 mmol/L (3.5-5.1) Chloride Level 108 mmol/L (98-107) Carbon Dioxide Level 25 mmol/L (21-32) Anion Gap 11 (6-14) Blood Urea Nitrogen 18 mg/dL (7-20) Creatinine 1.1 mg/dL (0.6-1.0) Estimated GFR (Cockcroft-Gault) 59.9 Glucose Level 107 mg/dL (70-99) Calcium Level 8.7 mg/dL (8.5-10.1) Magnesium Level 2.5 mg/dL (1.8-2.4) O2 Saturation 98 % (92-99) 97 % (92-99) Arterial Blood pH 7.57 (7.35-7.45) 7.46 (7.35-7.45) Arterial Blood pCO2 at Patient Temp 29 mmHg (35-46) 35 mmHg (35-46) Arterial Blood pO2 at Patient Temp 121 mmHg (65-108) 98 mmHg (65-108) Arterial Blood HCO3 26 mmol/L (21-28) 24 mmol/L (21-28) Arterial Blood Base Excess 4 mmol/L (-3-3) 1 mmol/L (-3-3) FiO2 40/vent 40/vent Laboratory Tests Test 12/06/20 16:52 O2 Saturation 97 % (92-99) Arterial Blood pH 7.46 (7.35-7.45) Arterial Blood pCO2 at Patient Temp 35 mmHg (35-46) Arterial Blood pO2 at Patient Temp 98 mmHg (65-108) Arterial Blood HCO3 24 mmol/L (21-28) Arterial Blood Base Excess 1 mmol/L (-3-3) FiO2 40/vent Medications Active Scripts Medications Dose Route/Sig Max Daily Dose Days Date Category Gabapentin 600 Mg Tablet 600 Mg PO BID 07/16/20 Reported Eliquis (Apixaban) 5 Mg Tablet 10 Mg PO BID 30 05/29/20 Rx Toprol Xl (Metoprolol Succinate) 25 Mg Tab.er.24h 0.5 Tab PO DAILY 30 04/01/20 Rx Paroxetine Hcl 40 Mg Tablet 40 Mg PO DAILY 30 03/30/20 Reported Atorvastatin Calcium 20 Mg Tablet 1 Tab PO DAILY 05/20/18 Reported Proair Hfa Inhaler (Albuterol Sulfate) 8.5 Gm Hfa.aer.ad 1-2 Puff INH PRN Q4HRS PRN 05/20/18 Reported Loratadine 10 Mg Tablet 1 Tab PO DAILY 05/20/18 Reported Flonase Allergy Relief (Fluticasone Propionate) 9.9 Ml [place].susp 2 Sprays NS DAILY 05/20/18 Reported Allopurinol 100 Mg Tablet 1 Tab PO DAILY 05/20/18 Reported Vitamin D2 (Ergocalciferol (Vitamin D2)) 50,000 Unit Capsule 1 Cap PO WEEKLY 05/20/18 Reported Geodon (Ziprasidone Hcl) 80 Mg Capsule 1 Cap PO BID 05/20/18 Reported Potassium Chloride (Potassium Chloride) 20 Meq Tablet.er 20 Meq PO DAILY 05/20/18 Reported Tramadol Hcl 50 Mg Tablet 50 Mg PO TID 05/20/18 Reported Symbicort 160-4.5 Mcg Inhaler (Budesonide/Formoterol Fumarate) 10.2 Gm Hfa.aer.ad 2 Puff IH BID 05/20/18 Reported Omeprazole 20 Mg Capsule. 1 Cap PO DAILY 05/20/18 Reported Comments resolved CHF Impression . 1. Acute hypoxemic respiratory failure--resolved, extubated on 12/06/20 2. Acute on chronic diastolic, heart failure.moderate AI 3. Hypertension. 4. Chronic obstructive pulmonary disease. 5. History of pulmonary emboli, negative venous Dopplers in 05/2020. 6. Obesity. Plan . PLAN: Continue supplemental oxygen to Keep sats 92%, now on room air Follow CXR PRN Follow cardiology recs --ramila WHITEID-19 negative PT/OT DVT/GI PPX D/W RN ok to transfer out of ICU today from our standpoint MAXIMO ROMERO MD Dec 07, 2020 11:23
--- NOTE | 2020-12-07 13:01 | NUR ---
pt has been stable all day so far. she has complained that her left 'breast' area hurts. she is not able to go into details with the type,where, how long and etc. she usually will only answer with yes or no to my questions. she has been eating/swallowing just fine. Franklin Washington RN
[2020-12-07 16:02] LABS: CALCIUM 8.8 mg/dL (8.5-10.1); CREATININE 0.8 mg/dL (0.6-1.0); GFR 86.6; POTASSIUM 3.6 mmol/L (3.5-5.1)
[2020-12-07] MEDS: ENOXAPARIN 40 MG/0.4 ML SYRINGE. SQ SCH (16:39)
[2020-12-07] MEDS: FLU VACC QS 2020-21(6MOS+)/PF 0.5 ML SYRINGE. VAX IM ONE ×2 (16:42→16:50)
[2020-12-08 02:54] VITALS: BP 144/62
[2020-12-08 07:00] VITALS: BP 181/84
[2020-12-08] MEDS: FAMOTIDINE 20 MG/2 ML VIAL IVP SCH ×2 (08:38→21:23)
[2020-12-08] MEDS: ZIPRASIDONE 20 MG CAPSULE PO SCH ×2 (08:38→21:23)
[2020-12-08 08:39] LABS: BASO # 0.1 x10^3/uL (0.0-0.2); BASO % 1 % (0-3); EOS # 0.1 x10^3/uL (0.0-0.7); EOS % 1 % (0-3); HEMATOCRIT 37.6 % (36.0-47.0); HEMOGLOBIN 12.4 g/dL (12.0-15.5); LYMPH # 1.9 x10^3/uL (1.0-4.8); LYMPH % 17 % (24-48); MEAN CORPUSCULAR HEMOGLOBIN 29 pg (25-35); MEAN CORPUSCULAR HGB CONC 33 g/dL (31-37); MEAN CORPUSCULAR VOLUME 88 fL (79-100); MONO # 1.6 x10^3/uL (0.0-1.1); MONO % 14 % (0-9); NEUT # 7.6 x10^3/uL (1.8-7.7); NEUT % 68 % (31-73); RED BLOOD COUNT 4.26 x10^6/uL (3.50-5.40); WHITE BLOOD COUNT 11.2 x10^3/uL (4.0-11.0)
[2020-12-08] MEDS: PANTOPRAZOLE 40 MG TABLET.DR. PO SCH (08:39)
[2020-12-08] MEDS: ATORVASTATIN CALCIUM 20 MG TABLET PO SCH (08:39)
[2020-12-08] MEDS: POTASSIUM CHLORIDE 20 MEQ TABLET.ER. PO SCH (08:39)
[2020-12-08] MEDS: FUROSEMIDE 40 MG TABLET. PO SCH (08:39)
[2020-12-08] MEDS: METOPROLOL TART IMMED RELEASE 25 MG TABLET. PO SCH ×2 (08:40→21:23)
[2020-12-08 09:09] LABS: PLATELET COUNT 118 x10^3/uL (140-400)
[2020-12-08] MEDS: MORPHINE SULFATE 4 MG/ML VIAL. IV PRN ×2 (09:30→22:36)
[2020-12-08 11:00] VITALS: BP 142/61
--- NOTE | 2020-12-08 11:27 | PDOC ---
[employer] PROGRESS NOTE Date of Service DOS: DATE: 12/08/20 TIME: 11:24 Chief Complaint Chief Complaint Assessment/Plan A/P: Acute hypoxic and hypercapnic respiratory failure secondary to acute on chronic diastolic congestive heart failure. COVID 19 test sent, pending. Pulm consulted for vent management assistance Acute on chronic diastolic, systolic heart failure - will diurese. Cardiology consulted Lactic acidosis - not clearly due to sepsis, more likely from acute hypoxic respiratory failure. will trend Hypertension - stable on vent, will Chronic obstructive pulmonary disease - on vent currently, steroids, inhalers History of pulmonary emboli, negative venous Dopplers in 05/2020 - was on eliquis, will place on lovenox Obesity - will pre parole counseling aide Hypokalemia - will check mag, replace YESENIA - likely vasomotor nephropathy. will monitor Elevated lactic acid - likely from hypotension, poor perfusion improved BP maintain MAP greater than 65 otherwise give IV fluid bolus. H/o HTN - hold meds for today H/o depression - cont paxil and geodon FEN - NPO, will start tube feeds PPX - lovenox FULL CODE Dispo - inpatient, ICU History of Present Illness History of Present Illness Ms Ayon is a 65yo F w/ PMHx asthma with COPD, diastolic CHF, hypertension, RLS, smoker, pulmonary embolism in May 2020 with negative DVT, on home Eliquis brought to ED via EMS due to respiratory distress. Family called 911 patient with difficulty breathing. Per EMS on there arrival patient respiratory distress, oxygen saturations in the 80s, and a GCS of 8. On arrival to patient with a GCS of 3, O2 sat 90's bag valve mask, decreased breath sounds all gaona. Patient was intubated shortly after arrival. Seen after intubation. Chest radiograph with bilateral pulmonary infiltrates consistent with pulmonary edema. WBC 11.2, Hb 11.3, Platelets 142, Na 141, K 3.5, BUN 23, Cr 1.5, glucose 146. Lactate 4.1, Albumin 2.7, BNP 1565 ABG with pH 7.22, PaCO2 of 54, pO2 112 on 100% FiO2 Admitted to ICU for further care. 12/08: Patient seen and evaluated. She was moved out of ICU to cardiac for yesterday. Currently breathing on 2 L nasal cannula, which she states is her baseline at home. States her son is a full-time care provider at home. Continue daily Lasix. Anticipate possible discharge today or tomorrow, barring any cardiology work-up. 12/07: Patient seen and evaluated in ICU. She was extubated yesterday, currently saturating 95% on room air. Afebrile. COVID-19 negative. Continue to diurese. Discussed with RN. 12/06: Patient seen in ICU. Breathing on vent, FiO2 40%, PEEP 5. Continue diuresis with Lasix twice daily. Ventilator management per pulmonology. COVID- 19 pending. Vitals/I&O Vitals/I&O: Vital Signs Date Time Temp Pulse Resp B/P (MAP) Pulse Ox O2 Delivery O2 Flow Rate FiO2 12/08/20 10:00 98 Nasal Cannula 2.0 12/08/20 09:30 20 12/08/20 08:40 92 181/84 12/08/20 07:00 97.6 97.6 I & O 12/07/20 12/07/20 12/08/20 15:00 23:00 07:00 Intake Total 200 ml 250 ml 360 ml Output Total 1105 ml 200 ml 500 ml Balance -905 ml 50 ml -140 ml Physical Exam General: Alert, No acute distress, Other Heart: Regular rate Lungs: Clear, Crackles Abdomen: Soft, No tenderness, No masses Extremities: No clubbing, No cyanosis, Normal pulses Skin: No rashes, No breakdown, No significant lesion Labs Labs: Laboratory Tests Test 12/07/20 15:30 12/08/20 07:45 Sodium Level 141 mmol/L (136-145) Potassium Level 3.6 mmol/L (3.5-5.1) Chloride Level 103 mmol/L (98-107) Carbon Dioxide Level 29 mmol/L (21-32) Anion Gap 9 (6-14) Blood Urea Nitrogen 12 mg/dL (7-20) Creatinine 0.8 mg/dL (0.6-1.0) Estimated GFR (Cockcroft-Gault) 86.6 Glucose Level 108 mg/dL (70-99) Calcium Level 8.8 mg/dL (8.5-10.1) White Blood Count 11.2 x10^3/uL (4.0-11.0) Red Blood Count 4.26 x10^6/uL (3.50-5.40) Hemoglobin 12.4 g/dL (12.0-15.5) Hematocrit 37.6 % (36.0-47.0) Mean Corpuscular Volume 88 fL (79-100) Mean Corpuscular Hemoglobin 29 pg (25-35) Mean Corpuscular Hemoglobin Concent 33 g/dL (31-37) Red Cell Distribution Width 16.0 % (11.5-14.5) Platelet Count 118 x10^3/uL (140-400) Neutrophils (%) (Auto) 68 % (31-73) Lymphocytes (%) (Auto) 17 % (24-48) Monocytes (%) (Auto) 14 % (0-9) Eosinophils (%) (Auto) 1 % (0-3) Basophils (%) (Auto) 1 % (0-3) Neutrophils # (Auto) 7.6 x10^3/uL (1.8-7.7) Lymphocytes # (Auto) 1.9 x10^3/uL (1.0-4.8) Monocytes # (Auto) 1.6 x10^3/uL (0.0-1.1) Eosinophils # (Auto) 0.1 x10^3/uL (0.0-0.7) Basophils # (Auto) 0.1 x10^3/uL (0.0-0.2) Assessment and Plan Assessmemt and Plan Problems Medical Problems: (1) Person under investigation for COVID-19 Status: Acute (2) Respiratory distress Status: Acute (3) Respiratory failure Status: Acute Comment Review of Relevant I have reviewed the following items babar (where applicable) has been applied. Medications: Current Medications Medications (Trade) Dose Ordered Sig/Betsy Route PRN Reason Start Time Stop Time Status Last Admin Dose Admin Potassium Chloride (Klor-Con) 20 meq DAILYWBKFT PO 12/08/20 08:00 12/08/20 08:39 Furosemide (Lasix) 40 mg DAILY PO 12/08/20 09:00 12/08/20 08:39 Morphine Sulfate (Morphine Sulfate) 4 mg PRN Q4HRS PRN IV PAIN 12/08/20 09:30 12/08/20 09:30 Justifications for Admission Other Justification MARYELLEN MONK MD Dec 08, 2020 11:27
[2020-12-08 15:00] VITALS: BP 132/50
--- NOTE | 2020-12-08 15:29 | NUR ---
SS following up with discharge planning. SS reviewed pt chart and discussed with pt RN. Pt is currently requiring nasal canula oxygen today at two liters. COVID19 negative. SS contacted pt's son to discuss discharge planning. Pt's son reported that he is pt's paid caregiver at home. He reported that pt has home oxygen. He reported that pt will return to home with him at discharge. SS will continue to follow for discharge planning.
[2020-12-08] MEDS: ENOXAPARIN 40 MG/0.4 ML SYRINGE. SQ SCH (16:56)
--- NOTE | 2020-12-08 18:58 | PDOC ---
PROGRESS NOTES Date of Service DATE: 12/08/20 TIME: 18:55 Subjective Subjective Patient seen and examined Objective Objective Vital Signs Date Time Temp Pulse Resp B/P (MAP) Pulse Ox O2 Delivery O2 Flow Rate FiO2 12/08/20 15:00 82 16 132/50 (77) 100 Nasal Cannula 2.0 12/08/20 11:00 98.6 98.6 Intake and Output 12/08/20 07:00 Intake Total 810 ml Output Total 1805 ml Balance -995 ml Intake Oral 810 ml Output Urine Total 1805 ml Physical Exam Abdomen: Normal bowel sounds Heart: Regular rate General: mild distress Lungs: Other (Mildly decreased breath sounds) Assessment Assessment Problems Medical Problems: (1) Person under investigation for COVID-19 Status: Acute (2) Respiratory distress Status: Acute (3) Respiratory failure Status: Acute Acute on chronic respiratory failure in setting of a/c CHF, COPD. Continues off of vent. Continue metoprolol, statins and oral Lasix. Monitoring lab. Covid neg Acute on chronic diastolic CHF: now compensated YESENIA on CKD: improved Morbid obesity H/o PE; was on Eliquis. Repeat CTA 07/21 negative for PE Hypertension; controlled Obesity HLP Comment Review of Relevant I have reviewed the following items babar (where applicable) has been applied. Labs Laboratory Tests Test 12/07/20 15:30 12/08/20 07:45 Sodium Level 141 mmol/L (136-145) Potassium Level 3.6 mmol/L (3.5-5.1) Chloride Level 103 mmol/L (98-107) Carbon Dioxide Level 29 mmol/L (21-32) Anion Gap 9 (6-14) Blood Urea Nitrogen 12 mg/dL (7-20) Creatinine 0.8 mg/dL (0.6-1.0) Estimated GFR (Cockcroft-Gault) 86.6 Glucose Level 108 mg/dL (70-99) Calcium Level 8.8 mg/dL (8.5-10.1) White Blood Count 11.2 x10^3/uL (4.0-11.0) Red Blood Count 4.26 x10^6/uL (3.50-5.40) Hemoglobin 12.4 g/dL (12.0-15.5) Hematocrit 37.6 % (36.0-47.0) Mean Corpuscular Volume 88 fL (79-100) Mean Corpuscular Hemoglobin 29 pg (25-35) Mean Corpuscular Hemoglobin Concent 33 g/dL (31-37) Red Cell Distribution Width 16.0 % (11.5-14.5) Platelet Count 118 x10^3/uL (140-400) Neutrophils (%) (Auto) 68 % (31-73) Lymphocytes (%) (Auto) 17 % (24-48) Monocytes (%) (Auto) 14 % (0-9) Eosinophils (%) (Auto) 1 % (0-3) Basophils (%) (Auto) 1 % (0-3) Neutrophils # (Auto) 7.6 x10^3/uL (1.8-7.7) Lymphocytes # (Auto) 1.9 x10^3/uL (1.0-4.8) Monocytes # (Auto) 1.6 x10^3/uL (0.0-1.1) Eosinophils # (Auto) 0.1 x10^3/uL (0.0-0.7) Basophils # (Auto) 0.1 x10^3/uL (0.0-0.2) Laboratory Tests Test 12/08/20 07:45 White Blood Count 11.2 x10^3/uL (4.0-11.0) Red Blood Count 4.26 x10^6/uL (3.50-5.40) Hemoglobin 12.4 g/dL (12.0-15.5) Hematocrit 37.6 % (36.0-47.0) Mean Corpuscular Volume 88 fL (79-100) Mean Corpuscular Hemoglobin 29 pg (25-35) Mean Corpuscular Hemoglobin Concent 33 g/dL (31-37) Red Cell Distribution Width 16.0 % (11.5-14.5) Platelet Count 118 x10^3/uL (140-400) Neutrophils (%) (Auto) 68 % (31-73) Lymphocytes (%) (Auto) 17 % (24-48) Monocytes (%) (Auto) 14 % (0-9) Eosinophils (%) (Auto) 1 % (0-3) Basophils (%) (Auto) 1 % (0-3) Neutrophils # (Auto) 7.6 x10^3/uL (1.8-7.7) Lymphocytes # (Auto) 1.9 x10^3/uL (1.0-4.8) Monocytes # (Auto) 1.6 x10^3/uL (0.0-1.1) Eosinophils # (Auto) 0.1 x10^3/uL (0.0-0.7) Basophils # (Auto) 0.1 x10^3/uL (0.0-0.2) Microbiology 12/05/20 Blood Culture - Preliminary, Resulted NO GROWTH AFTER 3 DAYS Medications Current Medications Propofol 100 ml @ As Directed STK-MED ONCE IV ; Start 12/05/20 at 04:56; Stop 12/05/20 at 04:56; Status DC Fentanyl Citrate (Fentanyl 2ml Vial) 25 mcg PRN Q1HR PRN IV SEE COMMENTS; Start 12/05/20 at 05:00; Stop 12/07/20 at 11:27; Status DC Fentanyl Citrate (Fentanyl 2ml Vial) 50 mcg PRN Q1HR PRN IV SEE COMMENTS; Start 12/05/20 at 05:00; Stop 12/07/20 at 11:27; Status DC Chlorhexidine Gluconate (Peridex) 15 ml BID MM Last administered on 12/05/20at 20:25; Start 12/05/20 at 09:00; Stop 12/06/20 at 16:54; Status DC Morphine Sulfate (Morphine Sulfate) 2 mg PRN Q1HR PRN IV SEE COMMENTS. Last administered on 12/07/20at 11:26; Start 12/05/20 at 05:00; Stop 12/07/20 at 11:27; Status DC Morphine Sulfate (Morphine Sulfate) 4 mg PRN Q1HR PRN IV SEE COMMENTS.; Start 12/05/20 at 05:00; Stop 12/07/20 at 11:27; Status DC Dexamethasone Sodium Phosphate (Decadron) 10 mg 1X ONCE IV Last administered on 12/05/20at 05:59; Start 12/05/20 at 05:30; Stop 12/05/20 at 05:31; Status DC Vancomycin HCl 1.5 gm/Sodium Chloride 500 ml @ 250 mls/hr 1X ONCE IV ; Start 12/05/20 at 05:00; Stop 12/05/20 at 06:59; Status UNV Azithromycin 250 ml @ 250 mls/hr 1X ONCE IV Last administered on 12/05/20at 05:59; Start 12/05/20 at 05:30; Stop 12/05/20 at 06:29; Status DC Etomidate (Amidate) 20 mg 1X ONCE IV Last administered on 12/05/20at 05:23; Start 12/05/20 at 05:30; Stop 12/05/20 at 05:31; Status DC Succinylcholine Chloride (Anectine) 100 mg 1X ONCE IV Last administered on 12/05/20at 05:23; Start 12/05/20 at 05:30; Stop 12/05/20 at 05:31; Status DC Sodium Chloride (NORMAL SALINE FLUSH for STERILE FIELD) 10 ml STK-MED ONCE .ROUT E ; Start 12/05/20 at 05:29; Stop 12/05/20 at 05:29; Status DC Vancomycin HCl 2 gm/Sodium Chloride 500 ml @ 250 mls/hr 1X ONCE IV Last administered on 12/05/20at 05:59; Start 12/05/20 at 06:00; Stop 12/05/20 at 07:59; Status DC Vancomycin HCl (Vanco Per Pharmacy) 1 each PRN DAILY PRN MC SEE COMMENTS Last administered on 12/05/20at 06:53; Start 12/05/20 at 06:00; Stop 12/05/20 at 13:02; Status DC Midazolam HCl 100 ml @ 0 mls/hr CONT PRN IV SEE PROTOCOL Last administered on 12/06/20at 07:31; Start 12/05/20 at 06:15; Stop 12/07/20 at 11:27; Status DC Aztreonam (Azactam) 2 gm 1X ONCE IVP Last administered on 12/05/20at 07:54; Start 12/05/20 at 07:00; Stop 12/05/20 at 07:01; Status DC Vancomycin HCl 1.75 gm/Sodium Chloride 500 ml @ 250 mls/hr Q24H IV ; Start 12/06/20 at 06:00; Stop 12/05/20 at 12:59; Status DC Vancomycin HCl (Vancomycin Trough Level) 1 each 1X ONCE MC ; Start 12/06/20 at 06:30; Stop 12/05/20 at 13:02; Status DC Furosemide (Lasix) 40 mg 1X ONCE IVP Last administered on 12/05/20at 07:55; Start 12/05/20 at 07:00; Stop 12/05/20 at 07:01; Status DC Sodium Chloride 1,000 ml @ 1,000 mls/hr 1X ONCE IV Last administered on 12/05/20at 06:00; Start 12/05/20 at 08:45; Stop 12/05/20 at 09:48; Status DC Fentanyl Citrate 30 ml @ 0 mls/hr CONT PRN IV SEE PROTOCOL Last administered on 12/06/20at 09:15; Start 12/05/20 at 10:45; Stop 12/07/20 at 11:27; Status DC Info (FLU VACCINE SCREEN per RX) 1 each 1X ONCE MC ; Start 12/05/20 at 11:30; Stop 12/05/20 at 11:31; Status Cancel Famotidine (Pepcid Vial) 20 mg BID IVP Last administered on 12/08/20at 08:38; Start 12/05/20 at 21:00 Enoxaparin Sodium (Lovenox 40mg Syringe) 40 mg Q24H SQ Last administered on 12/08/20at 16:56; Start 12/05/20 at 16:00 Furosemide (Lasix) 40 mg DAILY IVP Last administered on 12/07/20at 08:04; Start 12/06/20 at 09:00; Stop 12/07/20 at 13:17; Status DC Atorvastatin Calcium (Lipitor) 20 mg DAILY PO Last administered on 12/08/20at 08:39; Start 12/06/20 at 09:00 Metoprolol Succinate (Toprol Xl) 12.5 mg DAILY PO ; Start 12/06/20 at 09:00; Stop 12/06/20 at 12:25; Status DC Pantoprazole Sodium (Protonix) 40 mg DAILYAC PO Last administered on 12/08/20at 08:39; Start 12/06/20 at 07:30 Ziprasidone (Geodon) 80 mg BID PO Last administered on 12/08/20at 08:38; Start 12/06/20 at 09:00 Potassium Bicarbonate (Potassium Effervescent Tablet) 80 meq 1X ONCE PEG Last administered on 12/06/20at 07:52; Start 12/06/20 at 07:45; Stop 12/06/20 at 07:46; Status DC Metoprolol Tartrate (Lopressor) 12.5 mg BID PO Last administered on 12/08/20at 08:40; Start 12/06/20 at 21:00 Metoprolol Tartrate (Lopressor) 12.5 mg 1X ONCE PO Last administered on 12/06/20at 12:55; Start 12/06/20 at 12:30; Stop 12/06/20 at 12:31; Status DC Influenza Virus Vaccine Quadrival (Fluzone Quad Syringe) 0.5 ml ONCE ONCE VAX IM ; Start 12/08/20 at 09:00; Stop 12/08/20 at 09:01; Status DC Potassium Chloride (Klor-Con) 20 meq DAILYWBKFT PO Last administered on 12/08/20at 08:39; Start 12/08/20 at 08:00 Furosemide (Lasix) 40 mg DAILY PO Last administered on 12/08/20at 08:39; Start 12/08/20 at 09:00 Morphine Sulfate (Morphine Sulfate) 4 mg PRN Q4HRS PRN IV PAIN Last administered on 12/08/20at 09:30; Start 12/08/20 at 09:30 Active Scripts Active Toprol Xl (Metoprolol Succinate) 25 Mg Tab.er.24h 0.5 Tab PO DAILY 30 Days Reported Gabapentin 600 Mg Tablet 600 Mg PO BID Atorvastatin Calcium 20 Mg Tablet 1 Tab PO DAILY Proair Hfa Inhaler (Albuterol Sulfate) 8.5 Gm Hfa.aer.ad 1-2 Puff INH PRN Q4HRS PRN Loratadine 10 Mg Tablet 1 Tab PO DAILY Flonase Allergy Relief (Fluticasone Propionate) 9.9 Ml [place].susp 2 Sprays NS DAILY Allopurinol 100 Mg Tablet 1 Tab PO DAILY Vitamin D2 (Ergocalciferol (Vitamin D2)) 50,000 Unit Capsule 1 Cap PO WEEKLY Geodon (Ziprasidone Hcl) 80 Mg Capsule 1 Cap PO BID Potassium Chloride (Potassium Chloride) 20 Meq Tablet.er 20 Meq PO DAILY Tramadol Hcl 50 Mg Tablet 50 Mg PO TID Symbicort 160-4.5 Mcg Inhaler (Budesonide/Formoterol Fumarate) 10.2 Gm Hfa.aer.ad 2 Puff IH BID Omeprazole 20 Mg Capsule.dr 1 Cap PO DAILY Vitals/I & O Vital Sign - Last 24 Hours 1/6/12/07/20 12/07/20 12/07/20 19:48 20:00 20:56 23:44 Temp 99.3 99.7 99.3 99.7 Pulse 92 102 93 Resp 16 16 B/P (MAP) 152/65 (94) 152/65 171/78 (109) Pulse Ox 95 96 O2 Delivery Room Air Room Air Room Air 12/08/20 12/08/20 12/08/20 12/08/20 02:54 07:00 08:00 08:40 Temp 99.4 97.6 99.4 97.6 Pulse 87 98 92 Resp 16 20 B/P (MAP) 144/62 (89) 181/84 (116) 181/84 Pulse Ox 97 98 O2 Delivery Room Air Room Air Nasal Cannula O2 Flow Rate 2.0 12/08/20 12/08/20 12/08/20 12/08/20 09:30 10:00 11:00 15:00 Temp 98.6 98.6 Pulse 79 82 Resp 20 20 16 B/P (MAP) 142/61 (88) 132/50 (77) Pulse Ox 98 98 100 100 O2 Delivery Nasal Cannula Nasal Cannula Nasal Cannula Nasal Cannula O2 Flow Rate 2.0 2.0 2.0 2.0 Intake and Output 12/07/20 12/07/20 12/08/20 15:00 23:00 07:00 Intake Total 200 ml 250 ml 360 ml Output Total 1105 ml 200 ml 500 ml Balance -905 ml 50 ml -140 ml Justifications for Admission Other Justification SIXTO TAMAYO MD Dec 08, 2020 18:58
[2020-12-08 19:55] VITALS: BP 144/71
[2020-12-08 22:05] VITALS: BP 147/64
[2020-12-09 03:50] VITALS: BP 155/78
[2020-12-09 07:00] VITALS: BP 138/64
[2020-12-09 08:02] LABS: BASO # 0.1 x10^3/uL (0.0-0.2); BASO % 1 % (0-3); EOS # 0.2 x10^3/uL (0.0-0.7); EOS % 2 % (0-3); HEMATOCRIT 35.2 % (36.0-47.0); HEMOGLOBIN 11.6 g/dL (12.0-15.5); LYMPH # 1.5 x10^3/uL (1.0-4.8); LYMPH % 19 % (24-48); MEAN CORPUSCULAR HEMOGLOBIN 29 pg (25-35); MEAN CORPUSCULAR HGB CONC 33 g/dL (31-37); MEAN CORPUSCULAR VOLUME 88 fL (79-100); MONO # 1.1 x10^3/uL (0.0-1.1); MONO % 13 % (0-9); NEUT # 5.1 x10^3/uL (1.8-7.7); NEUT % 64 % (31-73); PLATELET COUNT 126 x10^3/uL (140-400); RED BLOOD COUNT 4.01 x10^6/uL (3.50-5.40); RED CELL DISTRIBUTION WIDTH 15.7 % (11.5-14.5)
--- NOTE | 2020-12-09 08:59 | PDOC ---
PULMONARY PROGRESS NOTES DATE: 12/09/20 TIME: 08:57 Subjective Extubated on 12/06/20 NO increased SOA or cough no overnight events Vitals Vital Signs Date Time Temp Pulse Resp B/P (MAP) Pulse Ox O2 Delivery O2 Flow Rate FiO2 12/09/20 07:00 99.0 89 16 138/64 (88) 100 Nasal Cannula 2.0 99.0 ROS: No Nausea, No Chest Pain, No Abdominal Pain, No Increase Cough General: Alert, Oriented X4 Lungs: Clear, Crackles Cardiovascular: S1, S2 Abdomen: Soft, Non-tender Extremities: No Edema Skin: Warm Labs Laboratory Tests Test 12/07/20 15:30 12/08/20 07:45 12/09/20 07:31 Sodium Level 141 mmol/L (136-145) Potassium Level 3.6 mmol/L (3.5-5.1) Chloride Level 103 mmol/L (98-107) Carbon Dioxide Level 29 mmol/L (21-32) Anion Gap 9 (6-14) Blood Urea Nitrogen 12 mg/dL (7-20) Creatinine 0.8 mg/dL (0.6-1.0) Estimated GFR (Cockcroft-Gault) 86.6 Glucose Level 108 mg/dL (70-99) Calcium Level 8.8 mg/dL (8.5-10.1) White Blood Count 11.2 x10^3/uL (4.0-11.0) 8.0 x10^3/uL (4.0-11.0) Red Blood Count 4.26 x10^6/uL (3.50-5.40) 4.01 x10^6/uL (3.50-5.40) Hemoglobin 12.4 g/dL (12.0-15.5) 11.6 g/dL (12.0-15.5) Hematocrit 37.6 % (36.0-47.0) 35.2 % (36.0-47.0) Mean Corpuscular Volume 88 fL (79-100) 88 fL (79-100) Mean Corpuscular Hemoglobin 29 pg (25-35) 29 pg (25-35) Mean Corpuscular Hemoglobin Concent 33 g/dL (31-37) 33 g/dL (31-37) Red Cell Distribution Width 16.0 % (11.5-14.5) 15.7 % (11.5-14.5) Platelet Count 118 x10^3/uL (140-400) 126 x10^3/uL (140-400) Neutrophils (%) (Auto) 68 % (31-73) 64 % (31-73) Lymphocytes (%) (Auto) 17 % (24-48) 19 % (24-48) Monocytes (%) (Auto) 14 % (0-9) 13 % (0-9) Eosinophils (%) (Auto) 1 % (0-3) 2 % (0-3) Basophils (%) (Auto) 1 % (0-3) 1 % (0-3) Neutrophils # (Auto) 7.6 x10^3/uL (1.8-7.7) 5.1 x10^3/uL (1.8-7.7) Lymphocytes # (Auto) 1.9 x10^3/uL (1.0-4.8) 1.5 x10^3/uL (1.0-4.8) Monocytes # (Auto) 1.6 x10^3/uL (0.0-1.1) 1.1 x10^3/uL (0.0-1.1) Eosinophils # (Auto) 0.1 x10^3/uL (0.0-0.7) 0.2 x10^3/uL (0.0-0.7) Basophils # (Auto) 0.1 x10^3/uL (0.0-0.2) 0.1 x10^3/uL (0.0-0.2) Laboratory Tests Test 12/09/20 07:31 White Blood Count 8.0 x10^3/uL (4.0-11.0) Red Blood Count 4.01 x10^6/uL (3.50-5.40) Hemoglobin 11.6 g/dL (12.0-15.5) Hematocrit 35.2 % (36.0-47.0) Mean Corpuscular Volume 88 fL (79-100) Mean Corpuscular Hemoglobin 29 pg (25-35) Mean Corpuscular Hemoglobin Concent 33 g/dL (31-37) Red Cell Distribution Width 15.7 % (11.5-14.5) Platelet Count 126 x10^3/uL (140-400) Neutrophils (%) (Auto) 64 % (31-73) Lymphocytes (%) (Auto) 19 % (24-48) Monocytes (%) (Auto) 13 % (0-9) Eosinophils (%) (Auto) 2 % (0-3) Basophils (%) (Auto) 1 % (0-3) Neutrophils # (Auto) 5.1 x10^3/uL (1.8-7.7) Lymphocytes # (Auto) 1.5 x10^3/uL (1.0-4.8) Monocytes # (Auto) 1.1 x10^3/uL (0.0-1.1) Eosinophils # (Auto) 0.2 x10^3/uL (0.0-0.7) Basophils # (Auto) 0.1 x10^3/uL (0.0-0.2) Medications Active Scripts Medications Dose Route/Sig Max Daily Dose Days Date Category Gabapentin 600 Mg Tablet 600 Mg PO BID 07/16/20 Reported Eliquis (Apixaban) 5 Mg Tablet 10 Mg PO BID 30 05/29/20 Rx Toprol Xl (Metoprolol Succinate) 25 Mg Tab.er.24h 0.5 Tab PO DAILY 30 04/01/20 Rx Paroxetine Hcl 40 Mg Tablet 40 Mg PO DAILY 30 03/30/20 Reported Atorvastatin Calcium 20 Mg Tablet 1 Tab PO DAILY 05/20/18 Reported Proair Hfa Inhaler (Albuterol Sulfate) 8.5 Gm Hfa.aer.ad 1-2 Puff INH PRN Q4HRS PRN 05/20/18 Reported Loratadine 10 Mg Tablet 1 Tab PO DAILY 05/20/18 Reported Flonase Allergy Relief (Fluticasone Propionate) 9.9 Ml [place].susp 2 Sprays NS DAILY 05/20/18 Reported Allopurinol 100 Mg Tablet 1 Tab PO DAILY 05/20/18 Reported Vitamin D2 (Ergocalciferol (Vitamin D2)) 50,000 Unit Capsule 1 Cap PO WEEKLY 05/20/18 Reported Geodon (Ziprasidone Hcl) 80 Mg Capsule 1 Cap PO BID 05/20/18 Reported Potassium Chloride (Potassium Chloride) 20 Meq Tablet.er 20 Meq PO DAILY 05/20/18 Reported Tramadol Hcl 50 Mg Tablet 50 Mg PO TID 05/20/18 Reported Symbicort 160-4.5 Mcg Inhaler (Budesonide/Formoterol Fumarate) 10.2 Gm Hfa.aer.ad 2 Puff IH BID 05/20/18 Reported Omeprazole 20 Mg Capsule.dr [place] Cap PO DAILY 05/20/18 Reported Comments resolved CHF Impression . 1. Acute hypoxemic respiratory failure--resolved, extubated on 12/06/20 2. Acute on chronic diastolic, heart failure.moderate AI 3. Hypertension. 4. Chronic obstructive pulmonary disease. 5. History of pulmonary emboli, negative venous Dopplers in 05/2020. 6. Obesity. Plan . PLAN: Continue supplemental oxygen to Keep sats 92%, Follow CXR PRN Follow cardiology recs --diurese COVID-19 negative D/C lovenox restart eliquis for hx. of DVT/PE PT/OT DVT/GI PPX D/W RN we will see PRN please call with questions or concerns thank you MAXIMO ROMERO MD Dec 09, 2020 08:59
[2020-12-09] MEDS ORDERED: APIXABAN 5 MG TABLET. PO SCH (09:00)
[2020-12-09] MEDS: FUROSEMIDE 40 MG TABLET. PO SCH (09:05)
[2020-12-09] MEDS: ATORVASTATIN CALCIUM 20 MG TABLET PO SCH (09:06)
[2020-12-09] MEDS: POTASSIUM CHLORIDE 20 MEQ TABLET.ER. PO SCH (09:06)
[2020-12-09] MEDS: PANTOPRAZOLE 40 MG TABLET.DR. PO SCH (09:06)
[2020-12-09] MEDS: METOPROLOL TART IMMED RELEASE 25 MG TABLET. PO SCH (09:06)
[2020-12-09] MEDS: FAMOTIDINE 20 MG/2 ML VIAL IVP SCH (10:36)
--- NOTE | 2020-12-09 10:43 | PDOC ---
JAYJAY FRAZIER [employer]ERSON 12/09/20 1043: CARDIO Progress Notes Date and Time Date of Service 12/09/2020 Time of Evaluation 1040 Subjective Subjective: No Chest Pain, No shortness of breath, No Palpitations Vitals Vitals Vital Signs Date Time Temp Pulse Resp B/P (MAP) Pulse Ox O2 Delivery O2 Flow Rate FiO2 12/09/20 09:06 89 138/64 12/09/20 08:00 Nasal Cannula 2.0 12/09/20 07:00 99.0 16 100 99.0 Weight Weight [ ] Input and Output Intake and Output Intake and Output 12/09/20 07:00 Intake Total 1300 ml Output Total 1400 ml Balance -100 ml Intake Oral 1300 ml Output Urine Total 1400 ml Laboratory Labs Laboratory Tests Test 12/09/20 07:31 White Blood Count 8.0 x10^3/uL (4.0-11.0) Red Blood Count 4.01 x10^6/uL (3.50-5.40) Hemoglobin 11.6 g/dL (12.0-15.5) Hematocrit 35.2 % (36.0-47.0) Mean Corpuscular Volume 88 fL (79-100) Mean Corpuscular Hemoglobin 29 pg (25-35) Mean Corpuscular Hemoglobin Concent 33 g/dL (31-37) Red Cell Distribution Width 15.7 % (11.5-14.5) Platelet Count 126 x10^3/uL (140-400) Neutrophils (%) (Auto) 64 % (31-73) Lymphocytes (%) (Auto) 19 % (24-48) Monocytes (%) (Auto) 13 % (0-9) Eosinophils (%) (Auto) 2 % (0-3) Basophils (%) (Auto) 1 % (0-3) Neutrophils # (Auto) 5.1 x10^3/uL (1.8-7.7) Lymphocytes # (Auto) 1.5 x10^3/uL (1.0-4.8) Monocytes # (Auto) 1.1 x10^3/uL (0.0-1.1) Eosinophils # (Auto) 0.2 x10^3/uL (0.0-0.7) Basophils # (Auto) 0.1 x10^3/uL (0.0-0.2) Microbiology Micro Microbiology 12/05/20 Blood Culture - Preliminary, Resulted NO GROWTH AFTER 3 DAYS Physical Exam HEENT: Neck Supple W Full Motion Chest: Symmetric LUNGS: Other (diminished) Heart: RRR (SR with pACs) Abdomen: Other (obese) Extremities: No Calf Tenderness Neurology: alert, oriented, follow commands Assessment Assessment doing much better Follow up in office 1. Acute on chronic respiratory failure in setting of a/c CHF, COPD. post extubatio. Covid neg. Doing well 2. Acute on chronic diastolic CHF: now compensated 3. YESENIA on CKD: improved 4. Leukocytosis, lactic acidosis; improved 5. Morbid obesity 6. H/o PE; was on Eliquis. Repeat CTA 07/21 negative for PE 7. Hypertension; controlled 8. Obesity 9. HLP Recommendations 1. Lasxi therapy 2. Consider outpatient ischemic evaluation 3. Diet noncompliance, Dietary consult 4. Continue metoprolol and statin 5. Follow up in office as scheduled. April DC Justicifation of Admission Dx: Justifications for Admission: Justification of Admission Dx: Yes Respiratory Failure: Mechanical Ventilation Chronic Renal Failure: Encephalopathy Acute COPD Exacerbation: Acute COPD Exacerbation SIXTO TAMAYO MD 12/09/20 1551: CARDIO Progress Notes Assessment Assessment Patient seen and examined. I agree with our nurse practitioners assessment and plan. Acute on chronic respiratory failure in setting of a/c CHF, COPD. post extubatio. Covid neg. Doing well Acute on chronic diastolic CHF: compensated YESENIA on CKD: improved H/o PE; was on Eliquis. Repeat CTA 07/21 negative for PE Hypertension; controlled Outpatient follow-up. JAYJAY FRAZIER APRN Dec 09, 2020 10:43 SIXTO TAMAYO MD Dec 09, 2020 15:51
[2020-12-09] MEDS: ZIPRASIDONE 20 MG CAPSULE PO SCH (10:47)
[2020-12-09] MEDS: MORPHINE SULFATE 4 MG/ML VIAL. IV PRN (10:48)
[2020-12-09 11:00] VITALS: BP 137/60
--- NOTE | 2020-12-09 11:07 | PDOC ---
[employer] PROGRESS NOTE Date of Service DOS: DATE: 12/09/20 TIME: 11:03 Chief Complaint Chief Complaint Assessment/Plan A/P: Acute hypoxic and hypercapnic respiratory failure secondary to acute on chronic diastolic congestive heart failure. COVID 19 test sent, pending. Pulm consulted for vent management assistance Acute on chronic diastolic, systolic heart failure - will diurese. Cardiology consulted Lactic acidosis - not clearly due to sepsis, more likely from acute hypoxic respiratory failure. will trend Hypertension - stable on vent, will Chronic obstructive pulmonary disease - on vent currently, steroids, inhalers History of pulmonary emboli, negative venous Dopplers in 05/2020 - was on eliquis, will place on lovenox Obesity - will corrections counselor Hypokalemia - will check mag, replace YESENIA - likely vasomotor nephropathy. will monitor Elevated lactic acid - likely from hypotension, poor perfusion improved BP maintain MAP greater than 65 otherwise give IV fluid bolus. H/o HTN - hold meds for today H/o depression - cont paxil and geodon FEN - NPO, will start tube feeds PPX - lovenox FULL CODE Dispo - inpatient, ICU History of Present Illness History of Present Illness Ms Ayon is a 65yo F w/ PMHx asthma with COPD, diastolic CHF, hypertension, RLS, smoker, pulmonary embolism in May 2020 with negative DVT, on home Eliquis brought to ED via EMS due to respiratory distress. Family called 911 patient with difficulty breathing. Per EMS on there arrival patient respiratory distress, oxygen saturations in the 80s, and a GCS of 8. On arrival to patient with a GCS of 3, O2 sat 90's bag valve mask, decreased breath sounds all gaona. Patient was intubated shortly after arrival. Seen after intubation. Chest radiograph with bilateral pulmonary infiltrates consistent with pulmonary edema. WBC 11.2, Hb 11.3, Platelets 142, Na 141, K 3.5, BUN 23, Cr 1.5, glucose 146. Lactate 4.1, Albumin 2.7, BNP 1565 ABG with pH 7.22, PaCO2 of 54, pO2 112 on 100% FiO2 Admitted to ICU for further care. 12/09: Patient evaluated bedside. She is breathing on her baseline O2 requirement of 2 L. Her son is her full-time caregiver. She denies any sensation of shortness of breath, chest pain, or nausea. Greater than 30 minutes was spent managing the discharge of this patient. 12/08: Patient seen and evaluated. She was moved out of ICU to cardiac for yesterday. Currently breathing on 2 L nasal cannula, which she states is her baseline at home. States her son is a full-time care provider at home. Continue daily Lasix. Anticipate possible discharge today or tomorrow, barring any cardiology work-up. 12/07: Patient seen and evaluated in ICU. She was extubated yesterday, currently saturating 95% on room air. Afebrile. COVID-19 negative. Continue to diurese. Discussed with RN. 12/06: Patient seen in ICU. Breathing on vent, FiO2 40%, PEEP 5. Continue diuresis with Lasix twice daily. Ventilator management per pulmonology. COVID- 19 pending. Vitals/I&O Vitals/I&O: Vital Signs Date Time Temp Pulse Resp B/P (MAP) Pulse Ox O2 Delivery O2 Flow Rate FiO2 12/09/20 10:48 100 Nasal Cannula 2.0 12/09/20 09:06 89 138/64 12/09/20 07:00 99.0 16 99.0 I & O 12/08/20 12/08/20 12/09/20 15:00 23:00 07:00 Intake Total 120 ml 300 ml 880 ml Output Total 500 ml 500 ml 400 ml Balance -380 ml -200 ml 480 ml Physical Exam General: No acute distress Heart: Regular rate Lungs: Clear Abdomen: Normal bowel sounds Extremities: No clubbing, No cyanosis, Normal pulses Skin: No rashes, No breakdown, No significant lesion Labs Labs: Laboratory Tests Test 12/09/20 07:31 White Blood Count 8.0 x10^3/uL (4.0-11.0) Red Blood Count 4.01 x10^6/uL (3.50-5.40) Hemoglobin 11.6 g/dL (12.0-15.5) Hematocrit 35.2 % (36.0-47.0) Mean Corpuscular Volume 88 fL (79-100) Mean Corpuscular Hemoglobin 29 pg (25-35) Mean Corpuscular Hemoglobin Concent 33 g/dL (31-37) Red Cell Distribution Width 15.7 % (11.5-14.5) Platelet Count 126 x10^3/uL (140-400) Neutrophils (%) (Auto) 64 % (31-73) Lymphocytes (%) (Auto) 19 % (24-48) Monocytes (%) (Auto) 13 % (0-9) Eosinophils (%) (Auto) 2 % (0-3) Basophils (%) (Auto) 1 % (0-3) Neutrophils # (Auto) 5.1 x10^3/uL (1.8-7.7) Lymphocytes # (Auto) 1.5 x10^3/uL (1.0-4.8) Monocytes # (Auto) 1.1 x10^3/uL (0.0-1.1) Eosinophils # (Auto) 0.2 x10^3/uL (0.0-0.7) Basophils # (Auto) 0.1 x10^3/uL (0.0-0.2) Assessment and Plan Assessmemt and Plan Problems Medical Problems: (1) Person under investigation for COVID-19 Status: Acute (2) Respiratory distress Status: Acute (3) Respiratory failure Status: Acute Comment Review of Relevant I have reviewed the following items babar (where applicable) has been applied. Medications: Current Medications Medications (Trade) Dose Ordered Sig/Betsy Route PRN Reason Start Time Stop Time Status Last Admin Dose Admin Apixaban (Eliquis) 5 mg BID PO 12/09/20 09:00 12/09/20 10:35 Justifications for Admission Other Justification MARYELLEN MONK MD Dec 09, 2020 11:07
[2020-12-09] MEDS ORDERED: FURO40TA4 PO (11:21)
[2020-12-09] MEDS ORDERED: APIX5TAB PO (11:21)
--- NOTE | 2020-12-09 11:31 | PDOC3 ---
Discharge Summary Visit Information Date of Admission: Dec 05, 2020 Date of Discharge: Dec 09, 2020 Final Diagnosis Problems Medical Problems: (1) Person under investigation for COVID-19 Status: Acute (2) Respiratory distress Status: Acute (3) Respiratory failure Status: Acute Brief Hospital Course Allergies Allergies Coded Allergies Type Severity Reaction Last Updated Verified Penicillins Allergy Intermediate 05/21/18 Yes aspirin Allergy Intermediate 05/21/18 Yes Vital Signs Vital Signs Date Time Temp Pulse Resp B/P (MAP) Pulse Ox O2 Delivery O2 Flow Rate FiO2 12/09/20 10:48 100 Nasal Cannula 2.0 12/09/20 09:06 89 138/64 12/09/20 07:00 99.0 16 99.0 Lab Results Laboratory Tests Test 12/07/20 15:30 12/08/20 07:45 12/09/20 07:31 Sodium Level 141 mmol/L (136-145) Potassium Level 3.6 mmol/L (3.5-5.1) Chloride Level 103 mmol/L (98-107) Carbon Dioxide Level 29 mmol/L (21-32) Anion Gap 9 (6-14) Blood Urea Nitrogen 12 mg/dL (7-20) Creatinine 0.8 mg/dL (0.6-1.0) Estimated GFR (Cockcroft-Gault) 86.6 Glucose Level 108 mg/dL (70-99) Calcium Level 8.8 mg/dL (8.5-10.1) White Blood Count 11.2 x10^3/uL (4.0-11.0) 8.0 x10^3/uL (4.0-11.0) Red Blood Count 4.26 x10^6/uL (3.50-5.40) 4.01 x10^6/uL (3.50-5.40) Hemoglobin 12.4 g/dL (12.0-15.5) 11.6 g/dL (12.0-15.5) Hematocrit 37.6 % (36.0-47.0) 35.2 % (36.0-47.0) Mean Corpuscular Volume 88 fL (79-100) 88 fL (79-100) Mean Corpuscular Hemoglobin 29 pg (25-35) 29 pg (25-35) Mean Corpuscular Hemoglobin Concent 33 g/dL (31-37) 33 g/dL (31-37) Red Cell Distribution Width 16.0 % (11.5-14.5) 15.7 % (11.5-14.5) Platelet Count 118 x10^3/uL (140-400) 126 x10^3/uL (140-400) Neutrophils (%) (Auto) 68 % (31-73) 64 % (31-73) Lymphocytes (%) (Auto) 17 % (24-48) 19 % (24-48) Monocytes (%) (Auto) 14 % (0-9) 13 % (0-9) Eosinophils (%) (Auto) 1 % (0-3) 2 % (0-3) Basophils (%) (Auto) 1 % (0-3) 1 % (0-3) Neutrophils # (Auto) 7.6 x10^3/uL (1.8-7.7) 5.1 x10^3/uL (1.8-7.7) Lymphocytes # (Auto) 1.9 x10^3/uL (1.0-4.8) 1.5 x10^3/uL (1.0-4.8) Monocytes # (Auto) 1.6 x10^3/uL (0.0-1.1) 1.1 x10^3/uL (0.0-1.1) Eosinophils # (Auto) 0.1 x10^3/uL (0.0-0.7) 0.2 x10^3/uL (0.0-0.7) Basophils # (Auto) 0.1 x10^3/uL (0.0-0.2) 0.1 x10^3/uL (0.0-0.2) Laboratory Tests Test 12/09/20 07:31 White Blood Count 8.0 x10^3/uL (4.0-11.0) Red Blood Count 4.01 x10^6/uL (3.50-5.40) Hemoglobin 11.6 g/dL (12.0-15.5) Hematocrit 35.2 % (36.0-47.0) Mean Corpuscular Volume 88 fL (79-100) Mean Corpuscular Hemoglobin 29 pg (25-35) Mean Corpuscular Hemoglobin Concent 33 g/dL (31-37) Red Cell Distribution Width 15.7 % (11.5-14.5) Platelet Count 126 x10^3/uL (140-400) Neutrophils (%) (Auto) 64 % (31-73) Lymphocytes (%) (Auto) 19 % (24-48) Monocytes (%) (Auto) 13 % (0-9) Eosinophils (%) (Auto) 2 % (0-3) Basophils (%) (Auto) 1 % (0-3) Neutrophils # (Auto) 5.1 x10^3/uL (1.8-7.7) Lymphocytes # (Auto) 1.5 x10^3/uL (1.0-4.8) Monocytes # (Auto) 1.1 x10^3/uL (0.0-1.1) Eosinophils # (Auto) 0.2 x10^3/uL (0.0-0.7) Basophils # (Auto) 0.1 x10^3/uL (0.0-0.2) Brief Hospital Course Ms. Ayon is a 65 old male who presented with acute hypoxic and hypercapnic re spiratory failure secondary to acute on chronic diastolic congestive heart failure. She was intubated and placed in the ICU. Consultation placed to cardiology, and pulmonology. She received aggressive diuresis with improvement and subsequently extubated. She was weaned down to her baseline O2 requirement of 2 L. She was stable for discharge on Lasix and potassium chloride, with close cardiology follow-up. Discharge Information Condition at Discharge: Improved Follow Up: Weeks Disposition/Orders: D/C to Home Scheduled Allopurinol (Allopurinol) 100 Mg Tablet, 1 TAB PO DAILY, #30 Ref 5 (Reported) Entered as Reported by: MAXIME CHAWLA on 05/20/181702 Last Taken: UNKNOWN on Unknown Date & Time Last Action: Last Taken Edited on 12/05/20 1546 by NANCY HARMON Apixaban (Eliquis) 5 Mg Tablet, 5 MG PO BID for HX PE, #60 Prescribed by: MARYELLEN MONK MD on 12/09/20 1121 Atorvastatin Calcium (Atorvastatin Calcium) 20 Mg Tablet, 1 TAB PO DAILY, #30 Ref 5 (Reported) Entered as Reported by: MAXIME CHAWLA on 05/20/181702 Last Taken: UNKNOWN on Unknown Date & Time Last Action: Continued on 12/05/202211 by RAMON COLLADO MD Budesonide/Formoterol Fumarate (Symbicort 160-4.5 Mcg Inhaler) 10.2 Gm Hfa.aer.ad, 2 PUFF IH BID, #10.6 Ref 3 (Reported) Entered as Reported by: MAXIME CHAWLA on 05/20/181702 Last Taken: UNKNOWN on Unknown Date & Time Last Action: Last Taken Edited on 12/05/201545 by NANCY HARMON Ergocalciferol (Vitamin D2) (Vitamin D2) 50,000 Unit Capsule, 1 CAP PO WEEKLY, #4 Ref 5 (Reported) Entered as Reported by: MAXIME CHAWLA on 05/20/181702 Last Taken: UNKNOWN on Unknown Date & Time Last Action: Last Taken Edited on 12/05/201545 by NANCY HARMON Fluticasone Propionate (Flonase Allergy Relief) 9.9 Ml [place].susp, 2 SPRAYS NS DAILY, (Reported) Entered as Reported by: MAXIME CHAWLA on 05/20/181702 Last Taken: UNKNOWN on Unknown Date & Time Last Action: Last Taken Edited on 12/05/201545 by NANCY HARMON Furosemide (Furosemide) 40 Mg Tablet, 40 MG PO DAILY for CHF, #30 Ref 2 Prescribed by: MARYELLEN MONK MD on 12/09/20 1121 Gabapentin (Gabapentin) 600 Mg Tablet, 600 MG PO BID for NEUROGENIC PAIN, (Reported) Entered as Reported by: EDILIA BRAVO RN on 07/16/20 1202 Last Taken: UNKNOWN on Unknown Date & Time Last Action: Last Taken Edited on 12/05/201545 by NANCY HARMON Loratadine (Loratadine) 10 Mg Tablet, 1 TAB PO DAILY, #30 Ref 5 (Reported) Entered as Reported by: MAXIME CHAWLA on 05/20/181702 Last Taken: UNKNOWN on Unknown Date & Time Last Action: Last Taken Edited on 12/05/201545 by NANCY HARMON Metoprolol Succinate (Toprol Xl) 25 Mg Tab.er.24h, 0.5 TAB PO DAILY for CHF for 30 Days, #15 Ref 5 Prescribed by: RAMON COLLADO MD on 04/01/20 1239 Last Taken: UNKNOWN on Unknown Date & Time Last Action: Continued on 12/05/202211 by RAMON COLLADO MD Omeprazole (Omeprazole) 20 Mg Capsule.dr, 1 CAP PO DAILY, #30 Ref 5 (Reported) Entered as Reported by: MAXIME CHAWLA on 05/20/181702 Last Taken: UNKNOWN on Unknown Date & Time Last Action: Converted on 12/05/202211 by RAMON COLLADO MD Potassium Chloride (Potassium Chloride ) 20 Meq Tablet.er, 20 MEQ PO DAILY, (Reported) Entered as Reported by: MAXIME CHAWLA on 05/20/181702 Last Taken: UNKNOWN on Unknown Date & Time Last Action: Last Taken Edited on 12/05/201545 by NANCY HARMON Tramadol Hcl (Tramadol Hcl) 50 Mg Tablet, 50 MG PO TID, Ref 0 (Reported) Entered as Reported by: MAXIME CHAWLA on 05/20/181702 Last Taken: UNKNOWN on Unknown Date & Time Last Action: Last Taken Edited on 12/05/201545 by NANCY HARMON Ziprasidone Hcl (Geodon) 80 Mg Capsule, 1 CAP PO BID, #60 Ref 1 (Reported) Entered as Reported by: MAXIME CHAWLA on 05/20/181702 Last Taken: UNKNOWN on Unknown Date & Time Last Action: Converted on 12/05/202211 by RAMON COLLADO MD Scheduled PRN Albuterol Sulfate (Proair Hfa Inhaler) 8.5 Gm Hfa.aer.ad, 1-2 PUFF INH PRN Q4HRS PRN for SHORTNESS OF BREATH, Ref 0 (Reported) Entered as Reported by: MAXIME CHAWLA on 05/20/181702 Last Taken: UNKNOWN on Unknown Date & Time Last Action: Last Taken Edited on 12/05/201545 by NANCY HARMON Discontinued Medications Paroxetine Hcl (Paroxetine Hcl) 40 Mg Tablet, 40 MG PO DAILY for Depression for 30 Days, #30 (Reported) Entered as Reported by: RAMON COLLADO MD on 03/30/20 2321 Last Action: Discontinued on 12/05/201545 by NANCY HARMON Justicifation of Admission Dx: Justifications for Admission: Justification of Admission Dx: Yes Respiratory Failure: Mechanical Ventilation Chronic Renal Failure: Encephalopathy Acute COPD Exacerbation: Acute COPD Exacerbation MARYELLEN MONK MD Dec 09, 2020 11:31
--- NOTE | 2020-12-09 14:08 | NUR ---
SS following up with discharge planning. SS reviewed pt chart and discussed with pt RN. Pt is currently requiring nasal canula oxygen. COVID19 negative. Pt has home oxygen. Discharge order on the chart for home with self care.
[2020-12-09 15:00] VITALS: BP 134/62
== END 2020-12-09 18:45 | disposition home or self-care (01) | DRG 208 ==
LOC: ER 04:27 → ED HOLD 05:29 → 1 WEST ICU 09:11 → 2 SOUTH 12-07 14:20
PROVIDERS: ADMIT Internal Medicine; ATTEND Internal Medicine
PROC: 5A1945Z Respiratory Ventilation, 24-96 Consecutive Hours (ICD-10-PCS; principal; 2020-12-05)
PROC: 0BH17EZ Insertion of Endotracheal Airway into Trachea, Via Natural or Artificial Opening (ICD-10-PCS; 2020-12-05)
DX: J96.21 Acute and chronic respiratory failure with hypoxia (principal); I50.43 Acute on chronic combined systolic (congestive) and diastolic (congestive) heart failure; I13.0 Hypertensive heart and chronic kidney disease with heart failure and stage 1 through stage 4 chronic kidney disease, or unspecified chronic kidney disease; N17.9 Acute kidney failure, unspecified; J96.22 Acute and chronic respiratory failure with hypercapnia; F32.9 Major depressive disorder, single episode, unspecified; F41.9 Anxiety disorder, unspecified; K21.9 Gastro-esophageal reflux disease without esophagitis; M19.90 Unspecified osteoarthritis, unspecified site; G25.81 Restless legs syndrome; Z20.822 Contact with and (suspected) exposure to COVID-19; J44.9 Chronic obstructive pulmonary disease, unspecified; F17.210 Nicotine dependence, cigarettes, uncomplicated; E78.5 Hyperlipidemia, unspecified; N18.9 Chronic kidney disease, unspecified; E87.6 Hypokalemia; F20.9 Schizophrenia, unspecified; E66.01 Morbid (severe) obesity due to excess calories; Z68.36 Body mass index [BMI] 36.0-36.9, adult; Z86.711 Personal history of pulmonary embolism; Z79.01 Long term (current) use of anticoagulants; Z88.6 Allergy status to analgesic agent; Z88.0 Allergy status to penicillin; Z91.11 Patient's noncompliance with dietary regimen; Z82.49 Family history of ischemic heart disease and other diseases of the circulatory system
CPT/HCPCS: 31500; 36415; 36556; 36600; 51702; 71045; 80048; 80053; 82805; 83605; 83735; 83880; 85007; 85025; 85027; 87040; 90686; 93005; 94002; 94003; 96365; 96366; 96368; 96375; 99291; J0330; J0456; J1100; J1650; J1940; J2250; J2270; J3010; J3370; J3490; J7030; J7040; U0003; G0378

== ENCOUNTER 2020-12-31 19:29 | Emergency (ER) | payer MEDICARE, OTHER ==
[~2020-12-31] VITALS: Ht 165.1 cm; Wt 109.5 kg
[2020-12-31 21:45] LABS: BASO # 0.1 x10^3/uL (0.0-0.2); BASO % 1 % (0-3); EOS # 0.2 x10^3/uL (0.0-0.7); EOS % 3 % (0-3); HEMATOCRIT 33.4 % (36.0-47.0); HEMOGLOBIN 11.1 g/dL (12.0-15.5); LYMPH # 1.6 x10^3/uL (1.0-4.8); LYMPH % 27 % (24-48); MEAN CORPUSCULAR HEMOGLOBIN 29 pg (25-35); MEAN CORPUSCULAR HGB CONC 33 g/dL (31-37); MEAN CORPUSCULAR VOLUME 88 fL (79-100); MONO # 0.6 x10^3/uL (0.0-1.1); MONO % 11 % (0-9); NEUT # 3.5 x10^3/uL (1.8-7.7); NEUT % 58 % (31-73); PLATELET COUNT 123 x10^3/uL (140-400); RED CELL DISTRIBUTION WIDTH 15.4 % (11.5-14.5)
--- NOTE | 2020-12-31 21:46 | RAD ---
EXAM: XR CHEST 1V INDICATION: Reason: soa / Spl. Instructions: / History: . TECHNIQUE: Single view COMPARISON: Chest x-ray of 12/06/2020 FINDINGS: The enteric tube evident previously has since been removed. The heart size is normal. The great vessels appear unremarkable. There is no hilar or mediastinal mass. Lungs show mild cephalization of the pulmonary vessels. No focal infiltrates There is no pleural effusion or pneumothorax. There are no significant osseous abnormalities. IMPRESSION: Mild cephalization of the pulmonary vessels, possible sign of mild pulmonary vascular congestion. Oth erwise no acute findings Electronically signed by: Chanel Olivares MD (12/31/2020 9:43 PM) [facility] [place]
--- NOTE | 2020-12-31 21:50 | PHYS DOC ---
Past Medical History Past Medical History: Asthma, CHF, Hypertension Additional Past Medical Histor: RLS Past Surgical History: Other Additional Past Surgical Histo: unknown surgical hx Smoking Status: Former Smoker Alcohol Use: None Drug Use: None General Adult EDM: Chief Complaint: SHORTNESS OF BREATH HPI: HPI: Patient is a 65 year old female with a history of CHF presented to ER with trouble breathing started today. Patient states she gained about 5 pounds in 3 weeks. Patient was admitted here 3 weeks ago for trouble breathing, respiratory distress, she was intubated then. Patient's family decided to take her in sooner than later because of her condition last time. Patient denies any cough or fever, no chest pain. Patient denies any abdominal pain, no nausea vomiting. Review of Systems: Review of Systems: Constitutional: Denies fever or chills. [] Eyes: Denies change in visual acuity. [] HENT: Denies nasal congestion or sore throat. [] Respiratory: Denies cough, positive for trouble breathing. Cardiovascular: Denies chest pain or edema. [] GI: Denies abdominal pain, nausea, vomiting, bloody stools or diarrhea. [] : Denies dysuria. [] Musculoskeletal: Denies back pain or joint pain. [] Integument: Denies rash. [] Neurologic: Denies headache, focal weakness or sensory changes. [] Endocrine: Denies polyuria or polydipsia. [] Lymphatic: Denies swollen glands. [] Psychiatric: Denies depression or anxiety. [] Heart Score: Risk Factors: Risk Factors: DM, Current or recent (<one month) smoker, HTN, HLP, family history of CAD, obesity. Risk Scores: Score 0 - 3: 2.5% MACE over next 6 weeks - Discharge Home Score 4 - 6: 20.3% MACE over next 6 weeks - Admit for Clinical Observation Score 7 - 10: 72.7% MACE over next 6 weeks - Early Invasive Strategies Allergies: Allergies: Allergies Coded Allergies Type Severity Reaction Last Updated Verified Penicillins Allergy Intermediate 05/21/18 Yes aspirin Allergy Intermediate 05/21/18 Yes Physical Exam: PE: Constitutional: Well developed, well nourished, no acute distress, non-toxic appearance. [] HENT: Normocephalic, atraumatic, bilateral external ears normal, oropharynx moist, no oral exudates, nose normal. [] Eyes: PERRLA, EOMI, conjunctiva normal, no discharge. [] Neck: Normal range of motion, no tenderness, supple, no stridor. [] Cardiovascular:Heart rate regular rhythm, no murmur [] Lungs & Thorax: Bilateral breath sounds clear to auscultation [] Abdomen: Bowel sounds normal, soft, no tenderness, no masses, no pulsatile m asses. [] Skin: Warm, dry, no erythema, no rash. [] Back: No tenderness, no CVA tenderness. [] Extremities: No tenderness, no cyanosis, no clubbing, ROM intact, no edema. [] Neurologic: Alert and oriented X 3, normal motor function, normal sensory function, no focal deficits noted. [] Psychologic: Affect normal, judgement normal, mood normal. [] Current Patient Data: Labs: Laboratory Tests Test 12/31/20 21:33 White Blood Count 6.0 x10^3/uL (4.0-11.0) Red Blood Count 3.80 x10^6/uL (3.50-5.40) Hemoglobin 11.1 g/dL (12.0-15.5) L Hematocrit 33.4 % (36.0-47.0) L Mean Corpuscular Volume 88 fL (79-100) Mean Corpuscular Hemoglobin 29 pg (25-35) Mean Corpuscular Hemoglobin Concent 33 g/dL (31-37) Red Cell Distribution Width 15.4 % (11.5-14.5) H Platelet Count 123 x10^3/uL (140-400) L Neutrophils (%) (Auto) 58 % (31-73) Lymphocytes (%) (Auto) 27 % (24-48) Monocytes (%) (Auto) 11 % (0-9) H Eosinophils (%) (Auto) 3 % (0-3) Basophils (%) (Auto) 1 % (0-3) Neutrophils # (Auto) 3.5 x10^3/uL (1.8-7.7) Lymphocytes # (Auto) 1.6 x10^3/uL (1.0-4.8) Monocytes # (Auto) 0.6 x10^3/uL (0.0-1.1) Eosinophils # (Auto) 0.2 x10^3/uL (0.0-0.7) Basophils # (Auto) 0.1 x10^3/uL (0.0-0.2) Laboratory Tests 12/31/20 21:33 Vital Signs: Vital Signs Date Time Temp Pulse Resp B/P (MAP) Pulse Ox O2 Delivery O2 Flow Rate FiO2 12/31/20 20:48 78 131/60 (83) 98 Room Air 12/31/20 20:30 98.6 20 98.6 EKG: EKG: EKG was done at 842, heart rate of 65 bpm, normal sinus rhythm, no ST segment ovation. [] Radiology/Procedures: Radiology/Procedures: [][facility] [address] [place] [address] IMAGING REPORT Signed PATIENT: ARIAEN MONTEIRO ACCOUNT: [id number] : 1955 LOCATION: ER AGE: 65 SEX: F EXAM STATUS: REG ER ORD. PHYSICIAN: REBECCA RIBEIRO DO REASON: soa PROCEDURE: PORTABLE CHEST 1V EXAM: XR CHEST 1V INDICATION: Reason: soa / Spl. Instructions: / History: . TECHNIQUE: Single view COMPARISON: Chest x-ray of 12/06/2020 FINDINGS: The enteric tube evident previously has since been removed. The heart size is normal. The great vessels appear unremarkable. There is no hilar or mediastinal mass. Lungs show mild cephalization of the pulmonary vessels. No focal infiltrates There is no pleural effusion or pneumothorax. There are no significant osseous abnormalities. IMPRESSION: Mild cephalization of the pulmonary vessels, possible sign of mild pulmonary vascular congestion. Otherwise no acute findings Electronically signed by: Chanel Olivares MD (12/31/2020 9:43 PM) [facility] [place] DICTATED and SIGNED BY: CHANEL OLIVARES MD DATE: 12/31/20 [id number] 0 Course & Med Decision Making: Course & Med Decision Making Pertinent Labs and Imaging studies reviewed. (See chart for details) Patient is a 65-year-old female who presented to ER due to trouble breathing, her vital sign stable here, oxygen saturation 100% on room air. Patient denies any chest pain, she is not in any acute distress. Patient will be discharged home. Dragon Disclaimer: Dragon Disclaimer: This electronic medical record was generated, in whole or in part, using a voice recognition dictation system. Departure Departure Impression: Primary Impression: Dyspnea Disposition: 01 DC HOME SELF CARE/HOMELESS Condition: IMPROVED Referrals: UNKNOWN PCP NAME (PCP) please follow up with your doctor as needed Patient Instructions: Shortness of Breath Additional Instructions: Thank you for visiting our Emergency Department. We appreciate you trusting us with your care. If any additional problems come up don't hesitate to return to visit us. Please follow up with your primary care provider so they can plan additional care if needed and know about the problem that you had. If symptoms worsen come back to the Emergency Department. Any concerning symptoms that start such as chest pain, shortness of air, weakness or numbness on one side of the body, running high fevers or any other concerning symptoms return to the ER. REBECCA RIBEIRO DO Dec 31, 2020 21:50
[2020-12-31 22:32] LABS: CALCIUM 8.7 mg/dL (8.5-10.1); CREATININE 1.3 mg/dL (0.6-1.0); GFR 49.4
[2020-12-31 22:36] LABS: BILIRUBIN,URINE NEGATIVE (NEG); CLARITY,URINE CLEAR; COLOR,URINE YELLOW; NITRITE,URINE NEGATIVE (NEG); PH,URINE 6.5 (<5.0-8.0); PROTEIN,URINE NEGATIVE (NEG-TRACE)
[2020-12-31 22:38] LABS: ALBUMIN 3.2 g/dL (3.4-5.0); MAGNESIUM 2.2 mg/dL (1.8-2.4); TOTAL BILIRUBIN 0.2 mg/dL (0.2-1.0); TOTAL PROTEIN 6.4 g/dL (6.4-8.2)
[2020-12-31 22:44] LABS: BACTERIA,URINE FEW /HPF (0-FEW); RBC,URINE OCC /HPF (0-2)
[2020-12-31 22:48] VITALS: BP 118/56
--- NOTE | 2021-01-01 04:02 | EKG ---
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
== END 2020-12-31 23:04 | disposition home or self-care (01) ==
LOC: ER 19:29
DX: R06.02 Shortness of breath (principal); I11.0 Hypertensive heart disease with heart failure; I50.9 Heart failure, unspecified; J45.909 Unspecified asthma, uncomplicated; G25.81 Restless legs syndrome; Z87.891 Personal history of nicotine dependence; Z88.0 Allergy status to penicillin; Z88.6 Allergy status to analgesic agent
CPT/HCPCS: 36415; 71045; 80053; 81001; 83735; 83880; 84484; 85025; 87086; 93005; 99285-25